=== PATIENT | male | born 1945 | race Caucasian/White ===

== ENCOUNTER 2016-04-10 11:58 | Inpatient (IN) | payer OTHER, MEDICARE ==
[~2016-04-10] VITALS: Ht 180.3 cm; Wt 94.3 kg
[~2016-04-10 11:58] MED LIST: ALBUTEIN NS; ALBUTEROL0.63 MG/3 INH/SOL; AUGMENTIN 875 M1 TAB PO; AVODART0.5 MG PO; COMBIVENT1 ARO INH; ESCITALOPRAM OX20 MG PO; ESCITALOPRAM10 MG PO; FE C PO; FINASTERIDE5 M1 PO; FLOMAX0.4 M1 PO; LYRICA150 M1 PO; OMEPRAZOLE40 M1 PO; PREDNISONE10 MG PO; QVAR0.04 MG/Ac NASB; SPIRIVA 18 MCG18 MCG INH; SPIRIVA1 PUF INH; SYMBICORT 16010.2 GM INH; VENTOLIN H0.09 MG/Ac NAS; VENTOLIN HFA18 GM INH; VENTOLIN1 PUF INH; [UNRECOGNIZED DRUG - OTHER] INH
--- NOTE | 2016-04-10 12:03 | NUR ---
PT TO ED FROM DR ANDERSON'S OFFICE, TO ED WITH LOW O2 SATS OF 79% AT OFFICE, AND SOB. HX COPD, ARRIVES WITH O2 2L, 88% ON 2L NC IN TRIAGE. SON WITH PT.
--- NOTE | 2016-04-10 12:26 | NUR ---
SPOKE TO MD REGARDING BLOOD WORK ORDERS
[2016-04-10 12:45] LABS: ABSOLUTE BASOPHIL COUNT 0 /CUMM (0.0-0.2); ABSOLUTE EOSINOPHIL COUNT 0 /CUMM (0.0-0.7); ABSOLUTE GRANULOCYTE CT 56.7 /CUMM (1.4-6.5); ABSOLUTE LYMPH COUNT 1.2 /CUMM (1.2-3.4); ABSOLUTE MONOCYTE COUNT 3.3 /CUMM (0.10-0.60); BASOPHIL % 0.1 % (0.0-2.0); EOSINOPHIL % 0.1 % (0-5); GRANULOCYTE % 92.5 % (42.2-75.2); MEAN CORPUSCULAR HGB 23.1 PG (27.0-31.0); MEAN CORPUSCULAR HGB CONC 30.6 G/DL (33.0-37.0); MEAN CORPUSCULAR VOLUME 75.6 FL (80.0-94.0); MEAN PLATELET VOLUME 7.9 FL (7.4-10.4); PLATELET COUNT 60 /CUMM (130-400); RBC DISTRIBUTION WIDTH 17.6 % (11.5-14.5); RED BLOOD CELL CT 2.62 /CUMM (4.70-6.10)
--- NOTE | 2016-04-10 12:49 | NUR ---
CRITICAL TEST RESULTS [id number] LEXIS DUBON 70 M TESTS AND RESULTS: WBC 61.3, HGB 6.1, HCT 19.8 Results received and read back by: TESSA FULLER Results received date and time: 04/10/16 1252 The following provider was notified of the results, and read the results back: DR BROOKS Notified date and time: 04/10/16 at 1252
[2016-04-10 12:50] LABS: HEMATOCRIT 19.8 % (42-52); WHITE BLOOD CELL COUNT 61.3 /CUMM (4.8-10.8)
--- NOTE | 2016-04-10 13:22 | ED DYSPNEA/ASTHMA COMPLAINT ---
History of Present Illness General Chief Complaint: Dyspnea (COPD, CHF, Other) Stated Complaint: SOB Source: patient, family (son) Exam Limitations: no limitations Vital Signs & Intake/Output Vital Signs & Intake/Output Vital Signs Date Time Temp Pulse Resp B/P Pulse O2 O2 Flow FiO2 Ox Delivery Rate 04/11 1106 98 138/64 04/11 0920 Nasal 4.0L Cannula 04/11 0915 93 Nasal 4.0L Cannula 04/11 0818 97.9 98 20 130/72 92 Nasal 4.0L Cannula 04/11 0800 92 Nasal 4.0L Cannula 04/11 0537 92 Nasal 4.0L Cannula 04/11 0000 92 Nasal 3.0L Cannula 04/10 2330 98.3 100 20 120/66 92 Nasal 3.0L Cannula 04/10 1740 98.5 101 19 134/66 93 Nasal 3.0L Cannula 04/10 1737 93 Nasal 3.0L Cannula 04/10 1713 109 22 124/58 91 Nasal 3.0L Cannula 04/10 1627 97.9 99 18 117/57 97 Nasal 2.0L Cannula 04/10 1450 98.8 103 18 123/60 94 Nasal 2.0L Cannula 04/10 1405 96 Nasal 3.0L Cannula ED Intake and Output 04/11 0000 04/10 1200 Intake Total 1200 Output Total 250 Balance 950 Intake, Blood 700 Product Intake, Oral 500 Output, Urine 250 Patient 208 lb 208 lb Weight Allergies Coded Allergies: codeine (Mild, RASH 03/10/16) aspirin (R/T BLOOD PLATELET COUNT 03/10/16) Reconcile Medications Acetaminophen (Tylenol Extra Strength) 500 MG TABLET 2 TAB PO PRN PAIN ( Reported) Albuterol Sulfate (Albuterol Sulfate Nebulizer Soln) 0.63 MG/3 ML VIAL.NEB 1 Vial INH/MARCIO 4 TIMES/DAY COPD (Reported) Albuterol Sulfate (Ventolin Hfa) 90 MCG HFA.AER.AD 2 PUF INH 4XDAILY COPD ( Reported) Budesonide/Formoterol Fumara (Symbicort 160-4.5 Mcg Inhaler) 160 MCG/4.5 MCG PUF 2 PUF INH BID COPD (Reported) Escitalopram Oxalate 20 MG TABLET 1 TAB PO DAILY DEPRESSION (Reported) Finasteride 5 MG TABLET 1 TAB PO DAILY PROSTATE (Reported) Omeprazole 40 MG CAPSULE.DR 1 CAP PO DAILY GERD (Reported) Pregabalin (Lyrica) 100 MG CAPSULE 1 CAP PO BID NERVE PAIN (Reported) TAMSULOSIN HCL (Tamsulosin Hydrochloride) 0.4 MG CAP.ER.24H 1 CAP PO DAILY BPH (Reported) Tiotropium [place] (Spiriva Respimat) 2.5 MCG/ACTUATION MIST.INHAL 2 PUFF INH DAILY COPD (Reported) Triage Note: PT TO ED FROM DR TENA'S OFFICE, TO ED WITH LOW O2 SATS OF 79% AT OFFICE, AND SOB. HX COPD, ARRIVES WITH O2 2L, 88% ON 2L NC IN TRIAGE. SON WITH PT. Triage Nurses Notes Reviewed? yes HPI: This patient is a 70-year-old male the past medical history including throat cancer and COPD who was sent in by Dr. Tena for evaluation of low oxygen saturation in the opposite 79% on room air. This patient's son is currently at the bedside. He reported that this patient did have part of his epiglottis removed due to throat cancer proximally 5 years ago. He reported that he had COPD and intermittently uses his oxygen at home. However, over the last 2 weeks the patient has been using the oxygen more frequently. The patient reported that he seems like he is more short of breath over the last week. He reported that it is worse with exertion. Associated cough with green sputum production. The patient denied any fevers, chills, chest pain, palpitations, numbness or tingling in his extremities, jaw pain, arm pain, abdominal pain, nausea, vomiting, constipation, or diarrhea. He denied any blood in his stool. This patient does also have a history of a bleeding ulcer. The patient reported that he was recently worked up by Dr. Coppola for leukemia which was unremarkable. The patient reported that he has had full body bruising which has been increasing in frequency lately with no known cause. (DONNELL FRANKLIN,HOLLIE) Past History Travel History Traveled to [place] past 21 day No Medical History Any Pertinent Medical History? see below for history Neurological: restless leg syndrome EENT: NONE Cardiovascular: NONE Respiratory: COPD Gastrointestinal: GERD, BLEEDING ULCER Hepatic: NONE Renal: ENLARGED PROSTATE Musculoskeletal: RESTLESS LEG SYNDROME. 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 Yes (HOLLIE JACOBO PA-C) Review of Systems Review of Systems Constitutional: Reports: no symptoms. EENTM: Reports: no symptoms. Respiratory: Reports: see HPI. Cardiovascular: Reports: no symptoms. GI: Reports: no symptoms. Genitourinary: Reports: no symptoms. Musculoskeletal: Reports: no symptoms. Skin: Reports: see HPI. Neurological/Psychological: Reports: no symptoms. Hematologic/Endocrine: Reports: see HPI. All Other Systems: Reviewed and Negative (HOLLIE JACOBO PA-C) Physical Exam Physical Exam Respiratory: chest non-tender, scattered expiratory wheezes and rhonchi heard throughout all lung zamora. No rales. No diminished breath sounds or stridor Comments: Well-developed well-nourished person in no acute distress HEENT: Normal EENT exam, head normocephalic, moist mucous membranes Pupils equally round and reactive to light. Neck: Supple Back: Normal inspection with no bony or muscular deformities Cardiovascular: Regular rate and rhythm with no murmurs, rubs, gallops Abdomen: Soft, nontender. Mild distention. No rebound or guarding. No peritoneal signs. Normoactive bowel sounds. Tympanic to percussion throughout all 4 quadrants Extremity: No edema, no calf tenderness to palpation, normal and equal pulses. Neuro: Alert oriented x3, cranial nerves II through XII grossly intact. Skin: No appreciable rash on exposed skin, skin is warm and dry. Pale Psych: Mood and affect is normal Core Measures ACS in differential dx? Yes Severe Sepsis Present: No Septic Shock Present: No (HOLLIE JACOBO PA-C) Progress Differential Diagnosis: asthma, AMI, bronchitis, costochondritis, CHF, COPD, pericarditis, pulmonary embolism, pneumonia, pneumothorax, unstable angina, leukemia, malignancy Plan of Care: Orders Procedure Date/time Status CBC WITHOUT DIFFERENTIAL 04/12 599 Active BASIC ELECTROLYTES PLUS BUN&CR 01/01 0600 Active Regular Diet 04/11 B Active FIBRINOGEN LEVEL 04/11 1111 Active RT: Evaluation 04/11 1023 Active CBC WITHOUT DIFFERENTIAL 04/11 0600 Complete BASIC ELECTROLYTES PLUS BUN&CR 04/11 0600 Complete THERAPIST ORDERS 04/11 0528 Complete US-EXT BILAT VENOUS DOPPLER 04/11 UNK Active TRC EVALUATION (GEN) 04/11 UNK Active Lab Add-on Test 04/11 UNK Active Elevate 04/11 UNK Active ECHOCARDIOGRAM 04/11 UNK Active Regular Diet 04/10 D Complete Pathway - chart 04/10 2000 Active CBC WITHOUT DIFFERENTIAL 04/10 2000 Complete CULTURE,URINE 04/10 1940 Active OXYGEN SETUP (GEN) 04/10 190 Complete Pathway - chart 04/10 1853 Active House Staff 04/10 1853 Active Patient Data 04/10 1853 Active Code Status 04/10 1853 Active BLOOD PRODUCT PICKUP 04/10 1836 Active LEUKOCYTE POOR (PACKED CELLS) 04/10 1826 Active Vital Signs 04/10 1728 Active Teach/Educate 04/10 1728 Active Nutritional Intake, Monitor 04/10 1728 Active Isolation 04/10 1728 Active Intake & Output 04/10 1728 Active Patient Care Conference 04/10 1728 Active Activity/Ambulation 04/10 1728 Active Misc Message 04/10 1556 Active ED Holding Orders 04/10 1556 Active Vital Signs 04/10 1556 Active Code Status 04/10 1556 Complete Admit to inpatient 04/10 1555 Active Patient Data 04/10 1539 Active BLOOD PRODUCT PICKUP 04/10 1509 Active LEUKOCYTE POOR (PACKED CELLS) 04/10 1451 Active RETICULOCYTE COUNT 04/10 1358 Complete Add-on Test (ER Only) 04/10 1347 Active CULTURE,URINE 04/10 1339 Active URINALYSIS 04/10 1339 Complete Add-on Test (ER Only) 04/10 1338 Active TYPE & SCREEN (NOT X-MATCH) 04/10 1338 Complete ARTERIAL BLOOD GAS (GEN) 04/10 1315 Complete Add-on Test (ER Only) 04/10 1315 Active TOTAL IRON BINDING CAPACITY 04/10 1227 Complete PARTIAL THROMBOPLASTIN TIME 04/10 1227 Complete PROTHROMBIN TIME 04/10 1227 Complete MAGNESIUM 04/10 1227 Complete FERRITIN 04/10 1227 Complete SERUM IRON 04/10 1227 Complete D-DIMER 04/10 1227 Complete VTE Mechanical Prophylaxis 04/10 UNK Active Hemoccult 04/10 UNK Active Current Medications Sig/Dung Start time Last Medication Dose Stop Time Status Admin Furosemide 40 MG ONCE ONE 04/11 1245 UNVr (Lasix) 04/11 124 Acetaminophen 650 MG Q6P PRN 04/10 2000 AC (Tylenol) Laboratory Tests 04/11/16 1220: Fibrinogen Activity Pending, Flow Cytometry Specimen Pending 04/11/16 1111: Flow Cytometry Specimen Cancelled 04/11/16 0735: Anion Gap 7, Estimated GFR > 60, BUN/Creatinine Ratio 21.7, CBC w Diff MAN DIFF ORDERED, RBC 3.06 L, MCV 79.0 L, MCH 24.2 L, RDW 17.9 H, MPV 7.2 L, Gran % 89.5 H, Lymphocytes % 1.7 L, Monocytes % 8.6, Eosinophils % 0.2, Basophils % 0 L, Absolute Granulocytes 74.5 H, Segmented Neutrophils 69, Band Neutrophils 8 H, Absolute Lymphocytes 1.4, Lymphocytes 1 L, Monocytes 6, Absolute Monocytes 7.1 H, Absolute Eosinophils 0.1, Absolute Basophils 0, Metamyelocytes 10 H, Myelocytes 6 H, Polychromasia 1+, Hypochromic-Microcytic 2+, Poikilocytosis 2+, Basophilic Stippling 1+, Anisocytosis 2+, Microcytic Cells 2+, Stomatocytes 2+, PUBS MCHC 30.7 L 04/11/16 0030: CBC w Diff MAN DIFF ORDERED, RBC 3.05 L, MCV 78.4 L, MCH 24.0 L, RDW 17.6 H, MPV 6.9 L, Gran % 89.2 H, Lymphocytes % 2.7 L, Monocytes % 8.1, Eosinophils % 0, Basophils % 0 L, Absolute Granulocytes 60.2 H, Segmented Neutrophils 79 H, Band Neutrophils 6 H, Absolute Lymphocytes 1.9, Lymphocytes 3 L, Monocytes 7, Absolute Monocytes 5.5 H, Absolute Eosinophils 0, Absolute Basophils 0, Metamyelocytes 3 H, Myelocytes 2 H, Platelet Estimate DECREASED, Polychromasia 2+, Hypochromic-Microcytic 1+, Poikilocytosis 2+, Basophilic Stippling 1+, Anisocytosis 1+, Microcytic Cells 1+, Ovalocytes 1+, Stomatocytes 1+, PUBS MCHC 30.6 L, Fld Total RBCs Counted 100 04/10/161814: Urinalysis PACKD H, Urine Color STRAW, Urine Clarity TURBD H, Urine pH 6.0, Ur Specific [place] >= 1.030, Urine Protein TRACE H, Urine Ketones NEG, Urine Nitrite NEG, Urine Bilirubin NEG, Urine Urobilinogen 1.0, Ur Leukocyte Esterase NEG, Ur Microscopic SEDIMENT EXAMINED, Urine WBC RARE, Ur Epithelial Cells RARE, Urine Hemoglobin NEG, Urine Glucose NEG 04/10/16 1436: pH 7.35, pCO2 52 H, pO2 71 L, HCO3 28, ABG O2 Sat (Measured) 90.0 L, Carboxyhemoglobin 3.0, O2 Concentration % 4LPM, Temperature 98.3, O2 Delivery Method NC, Phlebotomy Draw Site RIGHT RADIAL 04/10/16 1406: Retic Count 5.91 H Microbiology 04/10 194 URINE ROUT: Urine Culture - COLB 04/10 1815 URINE ROUT: Urine Culture - RES Diagnostic Imaging: Viewed by Me: Radiology Read. Discussed w/RAD: Radiology Read. CXR Impression: PATIENT: LEXIS DUBON PRESENT AGE: 70 PATIENT ACCOUNT NO: [id number] : 44 LOCATION: [facility] ORDERING PHYSICIAN: HOLLIE JACOBO PA-C SERVICE DATE: 04/10/16 EXAM TYPE: RAD - XRY-PORTABLE CHEST XRAY EXAMINATION: XR PORTABLE CHEST CLINICAL INFORMATION: Shortness of breath. COMPARISON: 01/06/2016 TECHNIQUE: Portable view of the chest was obtained. FINDINGS: Cardiac leads overlie the chest. The lungs are well expanded. Blunted right costophrenic angle suggests a small pleural effusion versus pleural thickening. Prominent interstitial markings are seen particularly at the lung bases. No pneumothorax. The cardiomediastinal silhouette is unremarkable for this technique. IMPRESSION: Increased markings at the lung bases could be associated with a small airways process. Small right pleural effusion versus pleural thickening. DICTATED BY: HERNESTO DO MD DATE/TIME DICTATED:04/10/161344 IDEA WORKER:ABBEY DATE/TIME TRANSCRIBED:1344 CONFIDENTIAL, DO NOT COPY WITHOUT APPROPRIATE AUTHORIZATION. < Electronically signed in Other Vendor System> SIGNED BY: HERNESTO DO MD 04/10/16 1350 Initial ED EKG: normal axis, normal intervals, normal sinus rhythm, nonspecific ST T wave chg, 106 bpm, sinus tachycardia, new right bundle branch block Comments: 04/10/2016 2:10:03 PM: Discussed this patient with his oncologist, Dr. Coppola. He reported that he last saw this patient in February. He saw this patient's blood work today and reported that it is markedly changed. He reported that this patient should go ahead and receive a blood transfusion. He will come in the hospital to see this patient [id number]. Discussed this patient with Dr. Howell who is aware. 04/10/2016 3:06:40 PM: I performed a rectal examination prior to blood transfusion. This patient is heme negative with brown stool. (HOLLIE JACOBO PA-C) Departure Departure Disposition: STILL A PATIENT Condition: Stable Clinical Impression Primary Impression: Anemia Qualifiers: Anemia type: unspecified type Qualified Code: D64.9 - Anemia, unspecified Secondary Impressions: Hypoxia Leukocytosis Qualifiers: Leukocytosis type: unspecified Qualified Code: D72.829 - Elevated white blood cell count, unspecified Referrals: Harry GATICA MD (PCP/Family) Referred to [facility] as new patient No Departure Forms: Customer Survey General Discharge Information Admission Note Spoke With: ROSCOE HERNANDEZ MD Documentation of Exam: Documentation of any treatments & extenuating circumstances including Concerns Regarding Discharge (functional status, medication knowledge or non-compliance, living conditions, etc.) that warrant an admission rather than observation: [ This patient is a 70-year-old male with past medical history including bleeding ulcer, throat cancer, and COPD who presented to the emergency department today for evaluation of hypoxia. This patient was 79% on room air. H&H 6 and 19. White blood cell count 61. This patient will need to be admitted to the hospital for a transfusion, follow-up blood culture, trend labs, hematology and oncology consultation, continuous pulse oximetry monitoring, oxygen therapy, and close monitoring. Given this patient's clinical workup here in the emergency department and past medical history, he is a poor candidate for outpatient treatment. Premature discharge could prove medically harmful.] (HOLLIE JACOBO PA-C) PA/ENCODING CLERK Co-Sign Statement Statement: ED Attending supervision documentation- [x] I saw and evaluated the patient. I have also reviewed all the pertinent lab results and diagnostic results. I agree with the findings and the plan of care as documented in the PA's/ENCODING CLERK's documentation. [] I have reviewed the ED Record and agree with the PA's/ENCODING CLERK's documentation. [] Additions or exceptions (if any) to the PAs/ENCODING CLERK's note and plan are summarized below: [] (CECILIA COLEMAN,KRISTI Melo) Critical Care Note Critical Care Note Critical Care Time: 30-74 min (DONNELL FRANKLIN,HOLLIE)
--- NOTE | 2016-04-10 13:33 | NUR ---
PA ASSISTED TO MOVE PT UP IN BED, O2 SAT 91 % ON 2L VIA NC , O2 INCREASED AT THIS TIME TO 4L AND O2 SAT INCREASED TO 94%.
[2016-04-10 13:47] LABS: PT 14.8 SEC (9.4-12.5); PTT 23 SEC (25-37)
--- NOTE | 2016-04-10 13:49 | NUR ---
RESP PAGED FOR TREATMENT AT THIS TIME.
--- NOTE | 2016-04-10 13:50 | RADIOLOGY REPORT ---
EXAMINATION: XR PORTABLE CHEST CLINICAL INFORMATION: Shortness of breath. COMPARISON: 01/06/2016 TECHNIQUE: Portable view of the chest was obtained. FINDINGS: Cardiac leads overlie the chest. The lungs are well expanded. Blunted right costophrenic angle suggests a small pleural effusion versus pleural thickening. Prominent interstitial markings are seen particularly at the lung bases. No pneumothorax. The cardiomediastinal silhouette is unremarkable for this technique. IMPRESSION: Increased markings at the lung bases could be associated with a small airways process. Small right pleural effusion versus pleural thickening.
--- NOTE | 2016-04-10 14:09 | NUR ---
LAVENDER TUBE FOR RETIC COUNT DRAWN AND SENT TO LAB.
--- NOTE | 2016-04-10 14:10 | NUR ---
RESP TREATMENT IN PROGRESS AT THIS TIME.
[2016-04-10] MEDS ORDERED: LYRICA100 M1 PO (14:33)
[2016-04-10] MEDS ORDERED: SPIRIVA RESPIMAT4 GM INH (14:34)
[2016-04-10] MEDS ORDERED: TYLENOL EXTRA500 M2 PO (14:36)
--- NOTE | 2016-04-10 14:45 | NUR ---
PT REPOSITIONED IN BED AT THIS TIME. PT REMAINS ON 2L NASAL CANNULA. SATS 94-96% AT THIS TIME.
--- NOTE | 2016-04-10 14:47 | NUR ---
PA AT BEDSIDE TO OBTAIN CONSENT FOR BLOOD TRANSFUION. SON PRESENT IN ROOM WITH PT
--- NOTE | 2016-04-10 16:04 | History & Physical ---
ANNABELLA WELDON 04/10/16 1553: General Information and HPI MD Statement: I have seen and personally examined LEXIS DUBON and documented this H&P. The patient is a 70 year old M who presented with a patient stated chief complaint of shortness of breath Source of Information: patient, family, old records History of Present Illness: 70-year-old gentleman past medical history significant for previous history of bright red blood per rectum, gastroesophageal reflux disease, Laryngeal cancer s /p epiglottic resection 8 years ago, family history of colon cancer in father, COPD on intermittent home oxygen, recently diagnosed myelodysplastic syndrome brought by son for evaluation of shortness of breath. Earlier today he went to Dr. Boogie's office and was found to low O2 saturations. He reports that since the past three weeks he has been having worsening shortness of breath. He has been using his oxygen more frequently (> 4hrs/day). During this time period reports orthopnea and b/l LE swelling Denies fever, chills, sick contacts, nausea, vomiting, diarrhea, active bleeding , maleana,bowel and bladder symptoms. Allergies/Medications Allergies: Coded Allergies: codeine (Mild, RASH 03/10/16) aspirin (R/T BLOOD PLATELET COUNT 03/10/16) Home Med list Acetaminophen (Tylenol Extra Strength) 500 MG TABLET 2 TAB PO PRN PAIN ( Reported) Albuterol Sulfate (Albuterol Sulfate Nebulizer Soln) 0.63 MG/3 ML VIAL.NEB 1 Vial INH/MARCIO 4 TIMES/DAY COPD (Reported) Albuterol Sulfate (Ventolin Hfa) 90 MCG HFA.AER.AD 2 PUF INH 4XDAILY COPD ( Reported) Budesonide/Formoterol Fumara (Symbicort 160-4.5 Mcg Inhaler) 160 MCG/4.5 MCG PUF 2 PUF INH BID COPD (Reported) Escitalopram Oxalate 20 MG TABLET 1 TAB PO DAILY DEPRESSION (Reported) Finasteride 5 MG TABLET 1 TAB PO DAILY PROSTATE (Reported) Omeprazole 40 MG CAPSULE.DR 1 CAP PO DAILY GERD (Reported) Pregabalin (Lyrica) 100 MG CAPSULE 1 CAP PO BID NERVE PAIN (Reported) TAMSULOSIN HCL (Tamsulosin Hydrochloride) 0.4 MG CAP.ER.24H 1 CAP PO DAILY BPH (Reported) Tiotropium [place] (Spiriva Respimat) 2.5 MCG/ACTUATION MIST.INHAL 2 PUFF INH DAILY COPD (Reported) Compliance With Home Meds: GOOD Past History Travel History Traveled to [place] past 21 day No Medical History Neurological: restless leg syndrome EENT: NONE Cardiovascular: NONE Respiratory: COPD Gastrointestinal: GERD, BLEEDING ULCER Hepatic: NONE Renal: ENLARGED PROSTATE Musculoskeletal: RESTLESS LEG SYNDROME. 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 Cardiovascular: Denies: chest pain, edema, orthopena, palpitations, peripheral edema, syncope. Respiratory: Reports: orthopnea, short of breath. Denies: cough, hemoptysis, sputum production, stridor, wheezing. GI: Denies: abdominal pain, bloating, constipation, diarrhea, distention, bowel incontinence, melena, nausea, bloody stool, changes in stool, vomiting, steatorrhea. Genitourinary: Denies: no symptoms, see HPI, discharge, dysuria, frequency, hematuria, hesitation, nocturia, pain, urgency. Exam & Diagnostic Data Last 24 Hrs of Vital Signs/I&O Vital Signs Date Time Temp Pulse Resp B/P Pulse O2 O2 Flow FiO2 Ox Delivery Rate 04/10 1740 98.5 101 19 134/66 93 Nasal 3.0L Cannula 04/10 1737 93 Nasal 3.0L Cannula 04/10 1713 109 22 124/58 91 Nasal 3.0L Cannula 04/10 1627 97.9 99 18 117/57 97 Nasal 2.0L Cannula 04/10 1450 98.8 103 18 123/60 94 Nasal 2.0L Cannula 04/10 1405 96 Nasal 3.0L Cannula 04/10 1232 90 Nasal 2.0L Cannula 04/10 1204 98.3 116 24 125/72 88 Nasal 2.0L Cannula Intake & Output 04/10 1600 12 0800 04/10 0000 Intake Total Output Total Balance Patient 208 lb Weight Physical Exam General Appearance Alert, Oriented X3, Cooperative, Mild Distress HEENT Atraumatic, PERRLA, EOMI, Mucous Membr. moist/pink Cardiovascular Regular Rate, Normal S1, Normal S2 Lungs bl decreased BS Abdomen Soft, No Tenderness, distended Extremities b/l +2 edema Last 24 Hrs of Labs/Ghulam: Laboratory Tests 04/10/16 1815: Urinalysis PACKD H, Urine Color STRAW, Urine Clarity TURBD H, Urine pH 6.0, Ur Specific [place] >= 1.030, Urine Protein TRACE H, Urine Ketones NEG, Urine Nitrite NEG, Urine Bilirubin NEG, Urine Urobilinogen 1.0, Ur Leukocyte Esterase NEG, Ur Microscopic SEDIMENT EXAMINED, Urine WBC RARE, Ur Epithelial Cells RARE, Urine Hemoglobin NEG, Urine Glucose NEG 04/10/16 1436: pH 7.35, pCO2 52 H, pO2 71 L, HCO3 28, ABG O2 Sat (Measured) 90.0 L, Carboxyhemoglobin 3.0, O2 Concentration % 4LPM, Temperature 98.3, O2 Delivery Method NC, Phlebotomy Draw Site RIGHT RADIAL 04/10/16 1406: Retic Count 5.91 H 04/10/16 1227: Anion Gap 11, Estimated GFR > 60, BUN/Creatinine Ratio 18.6, Glucose 167 H, Calcium 8.5, Magnesium 1.6, Iron 14 L, TIBC 487 H, Ferritin 14.7 L, Total Bilirubin 1.6 H, AST 18, ALT 26, Alkaline Phosphatase 83, Troponin I < 0.01, Lnh-W-Ewobieclrpn Pept 1840 H, Total Protein 6.3, Albumin 3.5, Globulin 2.8, Albumin/Globulin Ratio 1.3, PT 14.8 H, INR 1.41 H, APTT 23 L, D-Dimer 799 H, CBC w Diff MAN DIFF ORDERED, RBC 2.62 L, MCV 75.6 L, MCH 23.1 L, RDW 17.6 H, MPV 7.9, Gran % 92.5 H, Lymphocytes % 2.0 L, Monocytes % 5.3, Eosinophils % 0.1, Basophils % 0.1, Absolute Granulocytes 56.7 H, Segmented Neutrophils 74, Band Neutrophils 7 H, Absolute Lymphocytes 1.2, Lymphocytes 7 L, Monocytes 6, Absolute Monocytes 3.3 H, Absolute Eosinophils 0, Absolute Basophils 0, Metamyelocytes 3 H, Myelocytes 3 H, Platelet Estimate DECREASED, Polychromasia 2+, Hypochromic-Microcytic 3+, Poikilocytosis 3+, Basophilic Stippling , Anisocytosis 3+, Microcytic Cells 2+, Stomatocytes 1+, PUBS MCHC 30.6 L Microbiology 04/10 1940 URINE ROUT: Urine Culture - COLB 04/10 1815 URINE ROUT: Urine Culture - RECD Diagnostic Data CXR Results IMPRESSION: Increased markings at the lung bases could be associated with a small airways process. Small right pleural effusion versus pleural thickening. Assessment/Plan Assessment: 70-year-old gentleman past medical history significant for previous history of bright red blood per rectum, gastroesophageal reflux disease, Laryngeal cancer s /p epiglottic resection 8 years ago, family history of colon cancer in father, COPD on intermittent home oxygen, recently diagnosed myelodysplastic syndrome brought by so for evaluation of shortness of breath. Found to have low H/H and increased WBC. Will admitt to the Gen med floor As Ranked By This Provider Problem List: 1. Anemia Assessment/Plan Admit to general medicine Transfuse 2 units PRBC and recheck cbc will obtain GI consult guaic all stools Qualifiers Anemia type: unspecified type Qualified Code: D64.9 - Anemia, unspecified 2. Leukocytosis Assessment/Plan hematologic malignancy ? AML VS leukmoid rxn followed by Dr. Ledezma for MDS f/up flow cytometry Qualifiers Leukocytosis type: unspecified Qualified Code: D72.829 - Elevated white blood cell count, unspecified 3. COPD Assessment/Plan continue supplemental oxygen TRC/neb 4. BPH (benign prostatic hypertrophy) Assessment/Plan contineu flomax and proscar 5. DVT prophylaxis 6. Full code status Core Measures/Miscellaneous Acute Coronary Syndrome ACS Diagnosis: No Cerebrovascular Accident CVA/TIA Diagnosis: No Congestive Heart Failure CHF Diagnosis: No Venous Thromboembolism VTE Risk Factors: Acute medical illness, Age > 40 VTE Prophylaxis Ordered Inpt: Mechanical (ALPS/TEDS) No Mech VTE prophylaxis d/t: No contraindications No VTE Pharm Prophylaxis d/t: Medical contraindication VTE Diagnosis: No VTE Type: NONE VTE Confirmed by (Test): NONE Severe Sepsis Severe Sepsis Present: No Septic Shock Septic Shock Present: No Miscellaneous Documentation Attending Case Discussed With: ROSCOE HERNANDEZ MD Primary Care Physician: Harry GTAICA MD Patient sees these Specialists Dr. Ledezma Level of Patient Care: General Medicine ROSCOE HERNANDEZ MD 04/10/16 1755: Attending MD Review Statement Attending Statement Attending MD Statement: examined this patient, discuss w/resident/PA/VENDING MACHINE FILLER, agreed w/resident/PA/VENDING MACHINE FILLER, reviewed EMR data (avail) Attending Assessment/Plan: 70M PMH peptic ulcer disease, COPD, HTN, recently diagnosed myelodysplastic syndrome presenting with 1 week of fatigue, found to have WBC 61,000, Hgb 6.1, platelets 70. No overt signs of bleeding and no melena. No neurological dysfunction or mental status changes. No evidence of infectious process at this time. Plan - Admit to general medicine - Transfuse 2 units pRBC - Send blood and urine cultures - Follow hematology recommendations - continue home medications - Stool guaiac - GI consult - ALPS for DVT PPx JOSESITO STACY MD 04/10/16 1950: Resident Review Statement Resident Statement: examined this patient, discussed with internship, agreed with internship, discussed with family Other Findings: This is a 70-year-old male with a past medical history of COPD, PUD, GERD, BPH, laryngeal cancer status post-epiglottic resection, recently diagnosed MDS ( followed by Dr. Coppola as an outpatient) who presented to the ED after he was sent in by Dr. maravilla for low oxygen saturations. According to the patient, he went to see Dr. maravilla in his office today. He was found to be saturating at 79% on 2 L of oxygen. He was sent to the ED for further management. Upon arrival to the ED, his saturations increased to 88% on 2 L and then to 91% on 2 L. Further investigations in the ED including blood work revealed a low H/H of 6. 1/19.8, WBC of 61.3. He has been admitted to the medical floor for further management. Problem list: * Severe iron deficiency anemia * Elevated WBC (AML versus leukemoid reaction) * COPD on 2 L at home * BPH Plan: * Admit to general medicine * Transfuse 2 units PRBC and recheck hemoglobin. * Hematology consult for elevated WBC * Continue other home medications for now * GI consult for anemia * Guaiac stools * Pain pathway: Tylenol when necessary * DVT prophylaxis: Alps secondary to anemia * CODE STATUS: Full code
--- NOTE | 2016-04-10 16:11 | NUR ---
PT GOING TO ROOM [id number].
--- NOTE | 2016-04-10 16:12 | Cons- Hematology ---
General Information and HPI Consulting Request Date of Consult: 04/10/16 Requested By: Dr. Howell History of Present Illness: 70-year-old man significant comorbid illnesses and recently diagnosed with MDS now presenting with several weeks of increasing fatigue. Patient denied chest pain. Patient denied fever or chills. She is unaware blood loss from any orifice. Patient's CBC the emergency was markedly abnormal. 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 In The course of the patient's workup, a liver spleen scan was obtained ( prior history of alcohol abuse) and demonstrated colloid shift consistent with hypersplenism. Allergies/Medications Allergies: Coded Allergies: codeine (Mild, RASH 03/10/16) aspirin (R/T BLOOD PLATELET COUNT 03/10/16) Home Med List: Acetaminophen (Tylenol Extra Strength) 500 MG TABLET 2 TAB PO PRN PAIN ( Reported) Albuterol Sulfate (Albuterol Sulfate Nebulizer Soln) 0.63 MG/3 ML VIAL.NEB 1 Vial INH/MARCIO 4 TIMES/DAY COPD (Reported) Albuterol Sulfate (Ventolin Hfa) 90 MCG HFA.AER.AD 2 PUF INH 4XDAILY COPD ( Reported) Budesonide/Formoterol Fumara (Symbicort 160-4.5 Mcg Inhaler) 160 MCG/4.5 MCG PUF 2 PUF INH BID COPD (Reported) Escitalopram Oxalate 20 MG TABLET 1 TAB PO DAILY DEPRESSION (Reported) Finasteride 5 MG TABLET 1 TAB PO DAILY PROSTATE (Reported) Omeprazole 40 MG CAPSULE.DR 1 CAP PO DAILY GERD (Reported) Pregabalin (Lyrica) 100 MG CAPSULE 1 CAP PO BID NERVE PAIN (Reported) TAMSULOSIN HCL (Tamsulosin Hydrochloride) 0.4 MG CAP.ER.24H 1 CAP PO DAILY BPH (Reported) Tiotropium [place] (Spiriva Respimat) 2.5 MCG/ACTUATION MIST.INHAL 2 PUFF INH DAILY COPD (Reported) Current Medications: Current Medications Sig/Dung Start time Last Medication Dose Route Stop Time Status Admin Albuterol Sulfate 3 ML ONCE ONE 04/10 1345 DC 04/10 INH 04/10 1346 1402 Albuterol Sulfate 3 ML ONCE ONE 04/10 1315 DC 04/10 INH 04/10 1316 1401 Ipratropium [place] 2.5 ML ONCE ONE 04/10 1345 DC 04/10 INH 04/10 1346 1401 Ipratropium [place] 2.5 ML ONCE ONE 04/10 1315 DC 04/10 INH 04/10 1316 1401 Review of Systems Review of Systems: Patient denies headaches or dizziness. Patient denies nausea vomiting or abdominal pain. Patient denies dysuria hematuria. The patient denies bone aches or focal neurologic deficit Past History Travel History Traveled to [place] past 21 day No Medical History Neurological: restless leg syndrome EENT: NONE Cardiovascular: NONE Respiratory: COPD Gastrointestinal: GERD, BLEEDING ULCER Hepatic: NONE Renal: ENLARGED PROSTATE Musculoskeletal: RESTLESS LEG SYNDROME. 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 LSW/Reproductive: NONE Surgical History Surgical History: non-contributory Family History Relations & Conditions If Any: SISTER FH: breast cancer FH: diabetes mellitus FH: lung cancer MOTHER FH: diabetes mellitus FATHER FH: colon cancer FH: prostate cancer Psychosocial History Services at Home: None ETOH Use: denies use Illicit Drug Use: denies illicit drug use Exam & Diagnostic Data Vital Signs and I&O Vital Signs Date Time Temp Pulse Resp B/P Pulse O2 O2 Flow FiO2 Ox Delivery Rate 04/10 1450 98.8 103 18 123/60 94 Nasal 2.0L Cannula 04/10 1405 96 Nasal 3.0L Cannula 04/10 1232 90 Nasal 2.0L Cannula 04/10 1204 98.3 116 24 125/72 88 Nasal 2.0L Cannula Intake & Output 04/10 1600 04/10 0800 04/10 0000 Intake Total Output Total Balance Patient 208 lb Weight Gen.: in NAD ENT: Sclera anicteric Chest: Normal respiratory effort, decreased breath sounds Cor: RRR, no extra sounds Abdomen: Soft, bowel sounds present, no tenderness, no rebound Extremities: Without clubbing, cyanosis, or asymmetric edema Neurology: Alert and oriented 3, no gross deficit Skin: No rashes Last 48 Hours of Lab Results: Laboratory Tests 04/10 04/10 1436 1406 Blood Gas pH (7.35 - 7.45 PH) 7.35 pCO2 (35 - 45 TORR) 52 H pO2 (80 - 100 TORR) 71 L HCO3 (21 - 28 MEQ/L) 28 ABG O2 Sat (Measured) (>96.0 %) 90.0 L Carboxyhemoglobin (1.5 - 5.0 %) 3.0 O2 Concentration % 4LPM Temperature (97.0 - 100.0 FARH) 98.3 O2 Delivery Method NC Hematology Retic Count (0.5 - 2.0 %) 5.91 H Miscellaneous Phlebotomy Draw Site RIGHT RADIAL 04/10 1227 Chemistry Sodium (137 - 145 mmol/L) 137 Potassium (3.5 - 5.1 mmol/L) 4.1 Chloride (98 - 107 mmol/L) 98 Carbon Dioxide (22 - 30 mmol/L) 29 Anion Gap (5 - 16) 11 BUN (9 - 20 mg/dL) 13 Creatinine (0.7 - 1.2 mg/dL) 0.7 Estimated GFR (>60 ml/min) > 60 BUN/Creatinine Ratio (7 - 25 %) 18.6 Glucose (65 - 99 mg/dL) 167 H Calcium (8.4 - 10.2 mg/dL) 8.5 Magnesium (1.6 - 2.3 mg/dL) 1.6 Iron (49 - 181 ug/dL) 14 L TIBC (261 - 462 ug/dL) 487 H Ferritin (17.9 - 464 ng/mL) 14.7 L Total Bilirubin (0.2 - 1.3 mg/dL) 1.6 H AST (17 - 59 U/L) 18 ALT (21 - 72 U/L) 26 Alkaline Phosphatase (< 127 U/L) 83 Troponin I (<0.11 ng/ml) < 0.01 Nih-D-Bauenhardti Pept (<125 pg/mL) 1840 H Total Protein (6.3 - 8.2 g/dL) 6.3 Albumin (3.5 - 5.0 g/dL) 3.5 Globulin (1.9 - 4.2 gm/dL) 2.8 Albumin/Globulin Ratio (1.1 - 2.2 %) 1.3 Coagulation PT (9.4 - 12.5 SEC) 14.8 H INR (0.90 - 1.17) 1.41 H APTT (25 - 37 SEC) 23 L D-Dimer (70 - 232 ng/ml) 799 H Hematology CBC w Diff MAN DIFF ORDERED WBC (4.8 - 10.8 /CUMM) 61.3 *H RBC (4.70 - 6.10 /CUMM) 2.62 L Hgb (14.0 - 18.0 G/DL) 6.1 *L Hct (42 - 52 %) 19.8 *L MCV (80.0 - 94.0 FL) 75.6 L MCH (27.0 - 31.0 PG) 23.1 L RDW (11.5 - 14.5 %) 17.6 H Plt Count (130 - 400 /CUMM) 60 L MPV (7.4 - 10.4 FL) 7.9 Gran % (42.2 - 75.2 %) 92.5 H Lymphocytes % (20.5 - 51.1 %) 2.0 L Monocytes % (1.7 - 9.3 %) 5.3 Eosinophils % (0 - 5 %) 0.1 Basophils % (0.0 - 2.0 %) 0.1 Absolute Granulocytes (1.4 - 6.5 /CUMM) 56.7 H Segmented Neutrophils (42.2 - 75.2 %) 74 Band Neutrophils (0.0 - 5.0 %) 7 H Absolute Lymphocytes (1.2 - 3.4 /CUMM) 1.2 Lymphocytes (20.5 - 51.1 %) 7 L Monocytes (1.7 - 9.3 %) 6 Absolute Monocytes (0.10 - 0.60 /CUMM) 3.3 H Absolute Eosinophils (0.0 - 0.7 /CUMM) 0 Absolute Basophils (0.0 - 0.2 /CUMM) 0 Metamyelocytes (0.0 - 1.0 %) 3 H Myelocytes (0 - 0 %) 3 H Platelet Estimate (ADEQUATE) DECREASED Polychromasia 2+ Hypochromic-Microcytic 3+ Poikilocytosis 3+ Basophilic Stippling Anisocytosis 3+ Microcytic Cells 2+ Stomatocytes 1+ PUBS MCHC (33.0 - 37.0 G/DL) 30.6 L Imaging/Other Studies: Chest x-ray-no infiltrates Assessment/Plan Assessment: Hematologic status- the patient has a marked deterioration in his CBC. When I saw him last on January 28, hematocrit was 30.7. White count was 20,100 and platelet count 94,000. MCV was 105. The Patient's dramatic drop in hematocrit is in part due to iron deficiency and presumed GI bleeding in a patient with prior ulcer disease. Review of the peripheral blood smear does not suggest presence of blast forms or schistocytes. Platelet count is slightly lower from baseline. One must be concerned, given his elevated white blood count and decreased platelet count, this may be worsening hematologic process. It is Also possible this represents a leukemoid reaction. There is no immediate need to decrease the patient's white blood count by pharmacologic measures. Recommend- Transfuse red blood cells Check fibrinogen Follow CBC closely Peripheral blood for flow cytometry Would recommend GI consultation, check stools for occult blood Dr. Arpan Wakefield is covering for me this holiday weekend. Recommendations: .. Consult Acknowledgment - Thank you for your consult request.
--- NOTE | 2016-04-10 16:18 | NUR ---
BLOOD INFUSING DIRECTED
--- NOTE | 2016-04-10 17:01 | NUR ---
floor to call back for report
--- NOTE | 2016-04-10 17:09 | NUR ---
REPORT GIVEN TO MINDY ALONZODIGITAL HARDWARE DESIGN ENGINEER NOTIFIED
[2016-04-10 17:40] VITALS: BP 134/66
--- NOTE | 2016-04-10 18:00 | NUR ---
PATIENT ARRIVED TO FLOOR FROM ER AT 1725, DX ANEMIA VS 98.5 101 19 134/66 93% 3L O2 A&O, INDEPENDENT, SOB AT REST, DIMINISHED LUNG SOUNDS BRUISING NOTED TO BUE, +1 EDEMA TO BLE #20 LAC IV, ARRIVED TO FLOOR WITH BLOOD TRANSFUSING, WITH CLAIM INVESTIGATOR JOHN, TOLERATING WELL HX OF THROAT CA, PART OF EPIGLOTTIS REMOVED, GIVE PILLS WITH YOGURT OR APPLESAUCE, DEEP, CONGESTED-LIKE VOICE ORIENTED TO ROOM AND CALL BROOKS CONTINUE TO MONITOR
[2016-04-10 23:30] VITALS: BP 120/66
[2016-04-11 00:57] LABS: ABSOLUTE BASOPHIL COUNT 0 /CUMM (0.0-0.2); ABSOLUTE EOSINOPHIL COUNT 0 /CUMM (0.0-0.7); ABSOLUTE GRANULOCYTE CT 60.2 /CUMM (1.4-6.5); ABSOLUTE LYMPH COUNT 1.9 /CUMM (1.2-3.4); ABSOLUTE MONOCYTE COUNT 5.5 /CUMM (0.10-0.60); BASOPHIL % 0 % (0.0-2.0); EOSINOPHIL % 0 % (0-5); GRANULOCYTE % 89.2 % (42.2-75.2); HEMATOCRIT 23.9 % (42-52); MEAN CORPUSCULAR HGB CONC 30.6 G/DL (33.0-37.0); MEAN CORPUSCULAR VOLUME 78.4 FL (80.0-94.0); MEAN PLATELET VOLUME 6.9 FL (7.4-10.4); PLATELET COUNT 53 /CUMM (130-400); RBC DISTRIBUTION WIDTH 17.6 % (11.5-14.5); RED BLOOD CELL CT 3.05 /CUMM (4.70-6.10)
[2016-04-11 01:06] LABS: WHITE BLOOD CELL COUNT 67.5 /CUMM (4.8-10.8)
[2016-04-11 08:18] VITALS: BP 130/72; BP 156/100
--- NOTE | 2016-04-11 08:35 | PN- Housestaff ---
ANNABELLA WELDON 04/11/16 0835: Subjective Follow-up For: Shortness of breath acute anemia Subjective: seen and examined patient. reports improved breathing. C/o of b/l lower extremity swelling Review of Systems Constitutional: Denies: see HPI, chills, diaphoresis, fever, malaise, weakness, unexplained weight loss. Cardiovascular: Denies: see HPI, chest pain, edema, orthopena, palpitations, peripheral edema, syncope. Respiratory: Denies: cough, hemoptysis, orthopnea, short of breath, sputum production, stridor, wheezing. Gastrointestinal: Denies: abdominal pain, bloating, constipation, diarrhea, distention, bowel incontinence, melena, nausea, bloody stool, changes in stool, vomiting, steatorrhea. Objective Last 24 Hrs of Vital Signs/I&O Vital Signs Date Time Temp Pulse Resp B/P Pulse O2 O2 Flow FiO2 Ox Delivery Rate 04/11 0920 Nasal 4.0L Cannula 04/11 0915 93 Nasal 4.0L Cannula 04/11 0818 97.9 98 20 130/72 92 Nasal 4.0L Cannula 04/11 0800 92 Nasal 4.0L Cannula 04/11 0537 92 Nasal 4.0L Cannula 04/11 0000 92 Nasal 3.0L Cannula 04/10 2330 98.3 100 20 120/66 92 Nasal 3.0L Cannula 04/10 1740 98.5 101 19 134/66 93 Nasal 3.0L Cannula 04/10 1737 93 Nasal 3.0L Cannula 04/10 1713 109 22 124/58 91 Nasal 3.0L Cannula 04/10 1627 97.9 99 18 117/57 97 Nasal 2.0L Cannula 04/10 1450 98.8 103 18 123/60 94 Nasal 2.0L Cannula 04/10 1405 96 Nasal 3.0L Cannula 04/10 1232 90 Nasal 2.0L Cannula 04/10 1204 98.3 116 24 125/72 88 Nasal 2.0L Cannula Intake & Output 04/11 1600 04/11 0800 04/11 0000 Intake Total 340 1200 Output Total 400 250 Balance -60 950 Intake, Blood 700 Product Intake, IV 0 Intake, Oral 340 500 Number 0 Bowel Movements Output, Urine 400 250 Patient 208 lb Weight Physical Exam General Appearance: Alert, Oriented X3, Cooperative Cardiovascular: Normal S1, Normal S2 Lungs: Normal Air Movement, scattered wheezes Assessment/Plan Assessment: 70-year-old gentleman past medical history significant for previous history of bright red blood per rectum, gastroesophageal reflux disease, Laryngeal cancer s /p epiglottic resection 8 years ago, family history of colon cancer in father, COPD on intermittent home oxygen, recently diagnosed myelodysplastic syndrome Anemia H/H today 7.4/22.2, will continue to monitor GI consult placed guaic all stools lower extremity swelling Will obtain bilateral lower extremity Doppler In view of elevated proBNP (1840) Will obtain echo Elevate legs Leukocytosis/MDS hematologic malignancy VS leukmoid rxn followed by Dr. Ledezma for MDS f/up peripheral flow cytometry, fibrinogen COPD continue supplemental oxygen TRC/neb 4. BPH (benign prostatic hypertrophy) continue flomax and proscar 5. DVT prophylaxis Alps 6. Full code status Problem List: 1. COPD 2. BPH (benign prostatic hypertrophy) 3. Anemia 4. Swelling of lower extremity Pain Ratin Pain Location: Not applicable Pain Goal: Pain 4 or less Pain Plan: Current regimen Tomorrow's Labs & Rationales: CBC/BEP DAVE COLEMAN,NEAL 04/11/16 1349: Attending MD Review Statement Attending Statement Attending MD Statement: examined this patient, discuss w/resident/PA/CONDENSER OPERATOR, agreed w/resident/PA/CONDENSER OPERATOR, discussed with family, reviewed EMR data (avail), discussed with nursing, amended to note Attending Assessment/Plan: Patient seen and examined. Sitting comfortably in chair not in acute distress. present at the bedside. Patient reports feeling better. Denies recent history of black or bloody stools. Denies abdominal pain. On examination he has diminished breath sounds bilaterally with no added sounds. He has no JVD. heart sounds are regular. He has bilateral lower extremity edema which patient and report is new. There is no tenderness. Distal pulses are weakly palpable. There is no ischemic change. He was guaiac negative in the emergency room. Recommendations: -Hemoglobin levels have improved status post transfusion. He currently reports feeling better. We'll hold off on transfusion for now. -Recommend Lasix 40 mg IV in view of his blood transfusion and new complaint of lower extremity swelling. -Obtain echocardiogram to evaluate for cardiomyopathy. -Repeat CBC in a.m. to monitor hemoglobin and platelet counts. -Follow recommendations of hematology service.
[2016-04-11 08:49] LABS: ABSOLUTE BASOPHIL COUNT 0 /CUMM (0.0-0.2); ABSOLUTE EOSINOPHIL COUNT 0.1 /CUMM (0.0-0.7); ABSOLUTE GRANULOCYTE CT 74.5 /CUMM (1.4-6.5); ABSOLUTE LYMPH COUNT 1.4 /CUMM (1.2-3.4); ABSOLUTE MONOCYTE COUNT 7.1 /CUMM (0.10-0.60); BASOPHIL % 0 % (0.0-2.0); EOSINOPHIL % 0.2 % (0-5); GRANULOCYTE % 89.5 % (42.2-75.2); HEMATOCRIT 24.2 % (42-52); MEAN CORPUSCULAR HGB 24.2 PG (27.0-31.0); MEAN CORPUSCULAR HGB CONC 30.7 G/DL (33.0-37.0); MEAN PLATELET VOLUME 7.2 FL (7.4-10.4); PLATELET COUNT 48 /CUMM (130-400); RBC DISTRIBUTION WIDTH 17.9 % (11.5-14.5); RED BLOOD CELL CT 3.06 /CUMM (4.70-6.10)
[2016-04-11 09:30] LABS: WHITE BLOOD CELL COUNT 83.2 /CUMM (4.8-10.8)
--- NOTE | 2016-04-11 14:33 | PN- Hematology ---
Subjective Subjective: He feels better since coming to the hospital. Breathing is improved. He denies any fever or chills. He feels that his abdomen is distended. He has not had a bowel movement recently. He lower extremity is more swollen. Review of Systems Constitutional: Denies: chills, fever. Cardiovascular: Denies: chest pain. Respiratory: Reports: short of breath (improved). Gastrointestinal: Reports: bloating, constipation. Denies: abdominal pain. Genitourinary: Denies: discharge, dysuria. Musculoskeletal: Reports: joint pain. Neurological/Psychological: Denies: confusion. Hematologic/Endocrine: Reports: bruising. Denies: bleeding. All Other Systems: Reviewed and Negative Objective Vital Signs and I&Os Vital Signs Date Time Temp Pulse Resp B/P Pulse O2 O2 Flow FiO2 Ox Delivery Rate 04/11 1106 98 138/64 04/11 0920 Nasal 4.0L Cannula 04/11 0915 93 Nasal 4.0L Cannula 04/11 0818 97.9 98 20 130/72 92 Nasal 4.0L Cannula 04/11 0800 92 Nasal 4.0L Cannula 04/11 0537 92 Nasal 4.0L Cannula 04/11 0000 92 Nasal 3.0L Cannula 04/10 2330 98.3 100 20 120/66 92 Nasal 3.0L Cannula 04/10 1740 98.5 101 19 134/66 93 Nasal 3.0L Cannula 04/10 1737 93 Nasal 3.0L Cannula 04/10 1713 109 22 124/58 91 Nasal 3.0L Cannula 04/10 1627 97.9 99 18 117/57 97 Nasal 2.0L Cannula 04/10 1450 98.8 103 18 123/60 94 Nasal 2.0L Cannula 04/10 1405 96 Nasal 3.0L Cannula Intake & Output 04/11 1600 04/11 0800 04/11 0000 04/10 1600 04/10 0800 04/10 0000 Intake Total 340 1200 Output Total 400 250 Balance -60 950 Intake, Blood 700 Product Intake, IV 0 Intake, Oral 340 500 Number 0 Bowel Movements Output, Urine 400 250 Patient 94.347 kg 94.347 kg Weight Physical Exam General Appearance: awake, comfortable Head: atraumatic, normal appearance Ears, Nose, Throat: normal pharynx Respiratory: chest non-tender, no respiratory distress, crackles Cardiovascular: tachycardia Abdomen: soft, non-tender, distention Extremities: bilateral 2+ LE edema up to knee Neurologic/Psychiatric: awake, alert, oriented x 3 Skin: ecchymosis (scatter in BUE) Current Medications: Current Medications Sig/Dung Start time Last Medication Dose Route Stop Time Status Admin Acetaminophen 650 MG Q6P PRN 04/10 2000 AC PO Albuterol Sulfate 3 ML EVERY 4 HRS/AWAKE 04/11 1200 AC 04/11 INH 1249 Albuterol Sulfate 3 ML ONCE ONE 04/11 0530 DC 04/11 INH 04/11 0531 0523 Ceftriaxone Sodium 1,000 MG DAILY@04/10 AC 04/10 IV 2208 Escitalopram Oxalate 20 MG DAILY 04/11 1000 AC 04/11 PO 1102 Finasteride 5 MG DAILY 04/11 1000 AC 04/11 PO 1102 Furosemide 40 MG ONCE ONE 04/11 1245 DC IV 04/11 1246 Omeprazole 40 MG DAILY AC 04/11 0700 AC 04/11 PO 0613 Patient Medication 1 UNIT ONE NR 04/10 1945 DC Teaching ED 04/10 2000 Pregabalin 100 MG BID 04/10 2200 AC 04/11 PO 1105 Tamsulosin HCl 0.4 MG DAILY 04/11 1000 AC 04/11 PO 1106 Tiotropium [place] 1 PUF DAILY 04/11 1000 AC 04/11 INH 1103 Results Last 24 Hours of Lab Results: Laboratory Tests 04/11 04/11 04/11 1220 1111 0735 Chemistry Sodium (137 - 145 mmol/L) 134 L Potassium (3.5 - 5.1 mmol/L) 4.1 Chloride (98 - 107 mmol/L) 96 L Carbon Dioxide (22 - 30 mmol/L) 31 H Anion Gap (5 - 16) 7 BUN (9 - 20 mg/dL) 13 Creatinine (0.7 - 1.2 mg/dL) 0.6 L Estimated GFR (>60 ml/min) > 60 BUN/Creatinine Ratio (7 - 25 %) 21.7 Troponin I (<0.11 ng/ml) 0.01 Coagulation Fibrinogen Activity (200 - 393 MG/DL) 261 Hematology CBC w Diff MAN DIFF ORDERED WBC (4.8 - 10.8 /CUMM) 83.2 *H RBC (4.70 - 6.10 /CUMM) 3.06 L Hgb (14.0 - 18.0 G/DL) 7.4 *L Hct (42 - 52 %) 24.2 L MCV (80.0 - 94.0 FL) 79.0 L MCH (27.0 - 31.0 PG) 24.2 L RDW (11.5 - 14.5 %) 17.9 H Plt Count (130 - 400 /CUMM) 48 L MPV (7.4 - 10.4 FL) 7.2 L Gran % (42.2 - 75.2 %) 89.5 H Lymphocytes % (20.5 - 51.1 %) 1.7 L Monocytes % (1.7 - 9.3 %) 8.6 Eosinophils % (0 - 5 %) 0.2 Basophils % (0.0 - 2.0 %) 0 L Absolute Granulocytes (1.4 - 6.5 /CUMM) 74.5 H Segmented Neutrophils (42.2 - 75.2 %) 69 Band Neutrophils (0.0 - 5.0 %) 8 H Absolute Lymphocytes (1.2 - 3.4 /CUMM) 1.4 Lymphocytes (20.5 - 51.1 %) 1 L Monocytes (1.7 - 9.3 %) 6 Absolute Monocytes (0.10 - 0.60 /CUMM) 7.1 H Absolute Eosinophils (0.0 - 0.7 /CUMM) 0.1 Absolute Basophils (0.0 - 0.2 /CUMM) 0 Metamyelocytes (0.0 - 1.0 %) 10 H Myelocytes (0 - 0 %) 6 H Polychromasia 1+ Hypochromic-Microcytic 2+ Poikilocytosis 2+ Basophilic Stippling 1+ Anisocytosis 2+ Microcytic Cells 2+ Stomatocytes 2+ PUBS MCHC (33.0 - 37.0 G/DL) 30.7 L Miscellaneous Flow Cytometry Specimen Pending Cancelled 04/11 04/10 0030 1815 Hematology CBC w Diff MAN DIFF ORDERED WBC (4.8 - 10.8 /CUMM) 67.5 *H RBC (4.70 - 6.10 /CUMM) 3.05 L Hgb (14.0 - 18.0 G/DL) 7.3 *L Hct (42 - 52 %) 23.9 L MCV (80.0 - 94.0 FL) 78.4 L MCH (27.0 - 31.0 PG) 24.0 L RDW (11.5 - 14.5 %) 17.6 H Plt Count (130 - 400 /CUMM) 53 L MPV (7.4 - 10.4 FL) 6.9 L Gran % (42.2 - 75.2 %) 89.2 H Lymphocytes % (20.5 - 51.1 %) 2.7 L Monocytes % (1.7 - 9.3 %) 8.1 Eosinophils % (0 - 5 %) 0 Basophils % (0.0 - 2.0 %) 0 L Absolute Granulocytes (1.4 - 6.5 /CUMM) 60.2 H Segmented Neutrophils (42.2 - 75.2 %) 79 H Band Neutrophils (0.0 - 5.0 %) 6 H Absolute Lymphocytes (1.2 - 3.4 /CUMM) 1.9 Lymphocytes (20.5 - 51.1 %) 3 L Monocytes (1.7 - 9.3 %) 7 Absolute Monocytes (0.10 - 0.60 /CUMM) 5.5 H Absolute Eosinophils (0.0 - 0.7 /CUMM) 0 Absolute Basophils (0.0 - 0.2 /CUMM) 0 Metamyelocytes (0.0 - 1.0 %) 3 H Myelocytes (0 - 0 %) 2 H Platelet Estimate (ADEQUATE) DECREASED Polychromasia 2+ Hypochromic-Microcytic 1+ Poikilocytosis 2+ Basophilic Stippling 1+ Anisocytosis 1+ Microcytic Cells 1+ Ovalocytes 1+ Stomatocytes 1+ PUBS MCHC (33.0 - 37.0 G/DL) 30.6 L Other Body Source Fld Total RBCs Counted (%) 100 Urines Urinalysis PACKD H Urine Color (YEL,AMB,STR) STRAW Urine Clarity (CLEAR) TURBD H Urine pH (5.0 - 8.0) 6.0 Ur Specific [place] (1.001 - 1.035) >= 1.030 Urine Protein (NEG,<30 MG/DL) TRACE H Urine Ketones (NEG) NEG Urine Nitrite (NEG) NEG Urine Bilirubin (NEG) NEG Urine Urobilinogen (0.1 - 1.0 EU/dl) 1.0 Ur Leukocyte Esterase (NEG) NEG Ur Microscopic SEDIMENT EXAMINED Urine WBC (0 - 2 /HPF) RARE Ur Epithelial Cells (NONE,FEW) RARE Urine Hemoglobin (NEG) NEG Urine Glucose (N MG/DL) NEG 04/10 04/10 1436 1406 Blood Gas pH (7.35 - 7.45 PH) 7.35 pCO2 (35 - 45 TORR) 52 H pO2 (80 - 100 TORR) 71 L HCO3 (21 - 28 MEQ/L) 28 ABG O2 Sat (Measured) (>96.0 %) 90.0 L Carboxyhemoglobin (1.5 - 5.0 %) 3.0 O2 Concentration % 4LPM Temperature (97.0 - 100.0 FARH) 98.3 O2 Delivery Method PA Hematology Retic Count (0.5 - 2.0 %) 5.91 H Miscellaneous Phlebotomy Draw Site RIGHT RADIAL Assessment/Plan Assessment/Recommendations: 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 On admission, he was noted to have leukocytosis up to 61,300, anemia with hematocrit of 19.8, and thrombocytopenia at 60,000. He was transfused with 2 units of pRBC and symptomatically improved. His baseline platelet count is around 100,000. His platelet count is decreased further today to 48,000. His WBC has increased to 83,200. Perphiral smear was reviewed and noted Pelgeroid cells, basophil stippling, bands, decreased platelet. No blast seen on evaluation. Occult blood was tested in the stool and was negative. Fibrinogen is normal. His hemoglobin is improved to 7.4. Flow cytometry has been sent. The drop in hemoglobin may be related to iron deficiency. The two units of pRBC should help with this repletion. He has no obvious bleeding and guaiac negative. This can be checked again to ensure it is truly negative. Worsening of his MDS is also a potential. For now, his CBC can be monitored. If further increase, hydroxyurea may be considered. He is being worked up for infectious process. There is also concern for underlying heart failure given the fluid retention with the transfusion. US of lower extremity is pending with the edema. 1. Follow up flow cytometry 2. Goal hemoglobin >7 3. Monitor CBC daily 4. Depending on WBC number, he may need hydroxyurea 5. Check stool guaiac again 6. Echocardiogram as per primary team 7. Doppler US on BLE as per primary team Please call [phone] with any questions or concerns. Problem List: 1. Swelling of lower extremity 2. Leukocytosis
--- NOTE | 2016-04-11 15:50 | ULTRASOUND REPORT ---
EXAMINATION: US TRIPLEX LOWER EXTREMITY, BILATERAL CLINICAL INFORMATION: Bilateral lower extremity swelling. COMPARISON: None. TECHNIQUE: Color-flow triplex imaging with spectral analysis and compression Doppler were performed on the bilateral lower extremities. FINDINGS: The common femoral vein is compressible and exhibits a normal phasic waveform, bilaterally; this suggests that the iliac veins are widely patent above. Within each proximal thigh, the visualized profunda femoris vein is patent. The visualized greater saphenous vein and saphenofemoral junction are normal, bilaterally. Superficial femoral vein is patent in the proximal, mid and distal aspect of each thigh. Popliteal vein appears normal to the level of the trifurcation, bilaterally, and the visualized calf veins are unremarkable. There is edema within subcutaneous tissue of the both legs. Within the right medial popliteal fossa, there is a 1.8 x 4.6 x 1.6 cm Arnett's cyst. Within the left medial popliteal fossa, there is a 3.2 x 1.4 x 4.8 cm Arnett's cyst. IMPRESSION: No evidence of deep vein thrombosis in either lower extremity. Subcutaneous tissue edema within both lower extremities. Arnett's cyst within each popliteal fossa.
[2016-04-11 17:13] VITALS: BP 134/64
[2016-04-11 20:06] VITALS: BP 116/56
[2016-04-11 23:40] VITALS: BP 135/57
[2016-04-12 08:33] LABS: ABSOLUTE BASOPHIL COUNT 0 /CUMM (0.0-0.2); ABSOLUTE EOSINOPHIL COUNT 0.1 /CUMM (0.0-0.7); ABSOLUTE GRANULOCYTE CT 52.5 /CUMM (1.4-6.5); ABSOLUTE LYMPH COUNT 2.1 /CUMM (1.2-3.4); ABSOLUTE MONOCYTE COUNT 4.2 /CUMM (0.10-0.60); BASOPHIL % 0 % (0.0-2.0); EOSINOPHIL % 0.2 % (0-5); GRANULOCYTE % 89.1 % (42.2-75.2); HEMATOCRIT 21.9 % (42-52); MEAN CORPUSCULAR HGB 24.7 PG (27.0-31.0); MEAN CORPUSCULAR HGB CONC 31.5 G/DL (33.0-37.0); MEAN CORPUSCULAR VOLUME 78.5 FL (80.0-94.0); PLATELET COUNT 43 /CUMM (130-400); RBC DISTRIBUTION WIDTH 18.4 % (11.5-14.5); RED BLOOD CELL CT 2.79 /CUMM (4.70-6.10)
[2016-04-12 08:40] VITALS: BP 110/64
--- NOTE | 2016-04-12 10:06 | PN- Hematology ---
Subjective Subjective: Mr. Hall is doing well. He denies any new symptoms. His breathing is stable. He has a little nosebleed this morning when he blew his noses. Bleeding has stopped. He denies any fever, chills, nausea, vomiting, diarrhea, or chest pain. He feels better since coming to the hospital. Review of Systems: Constitutional: Denies: chills, fever. Cardiovascular: Denies: chest pain. Respiratory: Reports: short of breath (improved). Gastrointestinal: Reports: bloating, constipation. Denies: abdominal pain. Genitourinary: Denies: discharge, dysuria. Musculoskeletal: Reports: joint pain. Neurological/Psychological: Denies: confusion. Hematologic/Endocrine: Reports: bruising. Denies: bleeding. All Other Systems: Reviewed and Negative Objective Vital Signs and I&Os Vital Signs Date Time Temp Pulse Resp B/P Pulse O2 O2 Flow FiO2 Ox Delivery Rate 04/12 0949 95 110/64 04/12 0840 97.8 95 22 110/64 96 Nasal 3.0L Cannula 04/12 0819 96 Nasal 4.0L Cannula 04/12 0154 106 26 92 Nasal 4.0L Cannula 04/12 0000 92 Nasal 4.0L Cannula 04/11 2340 98.5 113 20 135/57 93 Nasal 3.0L Cannula 04/11 2006 98.3 107 22 116/56 94 04/11 2003 92 Nasal 4.0L Cannula 04/11 1713 96.8 112 20 134/64 98 Nasal Cannula 04/11 1711 Nasal 3.0L Cannula 04/11 1106 98 138/64 Intake & Output 04/12 1600 04/12 0800 04/12 0000 04/11 1600 04/11 0800 04/11 0000 Intake Total 240 872 804 6238 Output Total 450 500 400 250 Balance -210 240 -500 -60 950 Intake, Blood 700 Product Intake, IV 0 Intake, Oral 240 240 340 500 Number 0 Bowel Movements Output, Urine 450 500 400 250 Patient 94.347 kg Weight Physical Exam: General Appearance: awake, comfortable Head: atraumatic, normal appearance Ears, Nose, Throat: normal pharynx Respiratory: chest non-tender, no respiratory distress, crackles, wheezing (L>R) Cardiovascular: tachycardia Abdomen: soft, non-tender, distention Extremities: bilateral 2+ LE edema up to knee Neurologic/Psychiatric: awake, alert, oriented x 3 Skin: ecchymosis (scatter in BUE) Current Medications: Current Medications Sig/Dung Start time Last Medication Dose Route Stop Time Status Admin Acetaminophen 650 MG Q6P PRN 04/10 2000 AC PO Albuterol Sulfate 3 ML EVERY 4 HRS/AWAKE 04/11 1200 AC 04/12 INH 0819 Ceftriaxone Sodium 1,000 MG DAILY@04/10 AC 04/11 IV 2009 Escitalopram Oxalate 20 MG DAILY 04/11 1000 AC 04/12 PO 0949 Finasteride 5 MG DAILY 04/11 1000 AC 04/12 PO 0950 Furosemide 40 MG ONCE ONE 04/11 1245 DC 04/11 IV 04/11 1246 1436 Omeprazole 40 MG DAILY AC 04/11 0700 AC 04/12 PO 0600 Pregabalin 100 MG BID 04/10 2200 AC 04/12 PO 0952 Tamsulosin HCl 0.4 MG DAILY 04/11 1000 AC 04/12 PO 0949 Tiotropium [place] 1 PUF DAILY 04/11 1000 AC 04/12 INH 0952 Results Last 24 Hours of Lab Results: Laboratory Tests 04/12 04/11 04/11 0630 1220 1111 Chemistry Sodium (137 - 145 mmol/L) 133 L Potassium (3.5 - 5.1 mmol/L) 3.4 L Chloride (98 - 107 mmol/L) 90 L Carbon Dioxide (22 - 30 mmol/L) 34 H Anion Gap (5 - 16) 9 BUN (9 - 20 mg/dL) 14 Creatinine (0.7 - 1.2 mg/dL) 0.6 L Estimated GFR (>60 ml/min) > 60 BUN/Creatinine Ratio (7 - 25 %) 23.3 Coagulation Fibrinogen Activity (200 - 393 MG/DL) 261 Hematology CBC w Diff MAN DIFF ORDERED WBC (4.8 - 10.8 /CUMM) 59.0 *H RBC (4.70 - 6.10 /CUMM) 2.79 L Hgb (14.0 - 18.0 G/DL) 6.9 *L Hct (42 - 52 %) 21.9 L MCV (80.0 - 94.0 FL) 78.5 L MCH (27.0 - 31.0 PG) 24.7 L RDW (11.5 - 14.5 %) 18.4 H Plt Count (130 - 400 /CUMM) 43 L MPV (7.4 - 10.4 FL) 8.0 Gran % (42.2 - 75.2 %) 89.1 H Lymphocytes % (20.5 - 51.1 %) 3.6 L Monocytes % (1.7 - 9.3 %) 7.1 Eosinophils % (0 - 5 %) 0.2 Basophils % (0.0 - 2.0 %) 0 L Absolute Granulocytes (1.4 - 6.5 /CUMM) 52.5 H Segmented Neutrophils (42.2 - 75.2 %) Pending Absolute Lymphocytes (1.2 - 3.4 /CUMM) 2.1 Absolute Monocytes (0.10 - 0.60 /CUMM) 4.2 H Absolute Eosinophils (0.0 - 0.7 /CUMM) 0.1 Absolute Basophils (0.0 - 0.2 /CUMM) 0 PUBS MCHC (33.0 - 37.0 G/DL) 31.5 L Miscellaneous Flow Cytometry Specimen Pending Cancelled Recent Imaging Studies: Venous doppler US 04/11/2016: No evidence of deep vein thrombosis in either lower extremity. Subcutaneous tissue edema within both lower extremities. Arnett's cyst within each popliteal fossa. Assessment/Plan Assessment/Recommendations: 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 On admission, he was noted to have leukocytosis up to 61,300, anemia with hematocrit of 19.8, and thrombocytopenia at 60,000. He was transfused with 2 units of pRBC and symptomatically improved. His baseline platelet count is around 100,000. His platelet count is decreased further today to 48,000. His WBC has increased to 83,200. Perphiral smear was reviewed and noted Pelgeroid cells, basophil stippling, bands, decreased platelet. No blast seen on evaluation. Worsening of his MDS is a potential etiology. Flow cytometry is pending. His hemoglobin is decreased a litle today. WBC improved today. We will continue to monitor his CBCs. If further increase, hydroxyurea may be considered. He is being worked up for infectious process. He is being diuresed. 1. Follow up flow cytometry 2. Goal hemoglobin >7, transfuse today with furosemide support 3. Monitor CBC daily 4. Depending on WBC number, he may need hydroxyurea 5. Check stool guaiac again 6. Echocardiogram as per primary team Please call [phone] with any questions or concerns. Problem List: 1. Leukocytosis 2. MDS (myelodysplastic syndrome)
--- NOTE | 2016-04-12 10:52 | PN- Att Addend ---
Attending Addendum Attending Brief Note Patient seen and examined. Resting comfortably not in acute distress. He reports been asymptomatic with no worsening of his respiratory symptoms. Denies chest pain. Denies cough or palpitations. He is hemodynamically stable. He continues to require 3-4 L of oxygen maintaining saturation. Vital Signs Date Time Temp Pulse Resp B/P Pulse O2 O2 Flow FiO2 Ox Delivery Rate 04/12 0949 95 110/64 04/12 0840 97.8 95 22 110/64 96 Nasal 3.0L Cannula 04/12 0819 96 Nasal 4.0L Cannula 04/12 0154 106 26 92 Nasal 4.0L Cannula 04/12 0000 92 Nasal 4.0L Cannula 04/11 2340 98.5 113 20 135/57 93 Nasal 3.0L Cannula 04/11 2006 98.3 107 22 116/56 94 04/11 2003 92 Nasal 4.0L Cannula 04/11 1713 96.8 112 20 134/64 98 Nasal Cannula 04/11 1711 Nasal 3.0L Cannula 04/11 1106 98 138/64 Gen. appearance: Not in acute distress Heart: S1-S2 regular Lungs: Diminished breath sounds bilaterally. Abdomen: Soft, nontender with normal bowel sounds Extremities: Bilateral lower extremity edema. No cyanosis. Neurologic: Alert and oriented 3 with no gross focal deficits. Laboratory Tests 04/12/16 0630: Anion Gap 9, Estimated GFR > 60, BUN/Creatinine Ratio 23.3, CBC w Diff MAN DIFF ORDERED, RBC 2.79 L, MCV 78.5 L, MCH 24.7 L, RDW 18.4 H, MPV 8.0, Gran % 89.1 H, Lymphocytes % 3.6 L, Monocytes % 7.1, Eosinophils % 0.2, Basophils % 0 L, Absolute Granulocytes 52.5 H, Segmented Neutrophils 73, Band Neutrophils 10 H, Absolute Lymphocytes 2.1, Lymphocytes 2 L, Monocytes 9, Absolute Monocytes 4.2 H, Absolute Eosinophils 0.1, Absolute Basophils 0, Metamyelocytes 4 H, Myelocytes 2 H, Platelet Estimate DECREASED, Polychromasia 1+, Hypochromic- Microcytic 1+, Basophilic Stippling 1+, Anisocytosis 1+, Microcytic Cells 1+, Stomatocytes 1+, PUBS MCHC 31.5 L 04/11/16 1220: Fibrinogen Activity 261, Flow Cytometry Specimen Pending 04/11/16 1111: Flow Cytometry Specimen Cancelled Problems: 1. Acute on chronic anemia; likely secondary to underlying MDS. 2. Leukocytosis/Thrombocytopenia; secondary to underlying MDS. No evidence of blast transformation at present. 3. Dyspnea; secondary to symptomatic anemia. Bilateral lower extremity edema, trace pleural effusion and elevated BNP raise concern for congestive heart failure. 4. Non-oxygen dependent COPD. Plan: -Acute drop of his hemoglobin following appropriate increased with transfusion yesterday raise concern for bleeding. There is no clear evidence at present. He was reported to be guaiac-negative in the ED. -Repeat stool guaiac. -Transfuse 2 units of PRBC. -Lasix 40 mg IV after first unit. Repeat Lasix 40 mg IV after second unit. -Monitor CBC and serum chemistry daily. -Follow-up echocardiogram. Would obtain cardiology consultation due to concern for congestive heart failure. -Continue bronchodilator therapy and attempt to wean off oxygen supplementation as tolerated.
--- NOTE | 2016-04-12 13:23 | Cons- Gastroenterology ---
General Information and HPI Consulting Request Date of Consult: 04/12/16 Requested By: ROSCOE HERNANDEZ MD Reason for Consult: Iron deficiency anemia in the setting of myelodysplastic syndrome/leukocytosis/ thrombocytopenia. History of peptic ulcer disease and colon polyps. Stools OB negative. (The patient is being seen in GI coverage for Dr. Peyman Aguilar. 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 The patient stopped his iron supplements a few months ago. His shelter case manager is Dr. Peyman Aguilar. *There is a family history of colon cancer in the patient's father (who also had prostate Ca), age of onset unknown. There is no family history of additional GI malignancy, GI disease, or inherited liver disease. The patient was recently diagnosed with MDS per Dr. 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 09/11/2015: Liver- spleen scan- mild colloid shift with equal activity in the liver and spleen, and suggestion of splenomegaly. The patient was seen by pulmonary 04/10/2016, at which point, O2 sat 2L- 79%, and the patient was admitted to [facility] that day. 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 *He was never transfused prior to the 04/10/2016 admission. * Please note, labs per hematology 01/29/2016: WBC 20.1, HCT 30.7, elevated MCV 105, PLT 94. 04/10/2016: Admission H/H 6.1/19.8, MCV 75.6, WBC 61.3 (74S/7B/7L/ 6M/3Meta/3Myelo), PLT 60. *Stools were guaiac-negative in the ER on admission. * WBC subsequently van to 83.2 the following day. *Peripheral smear without blasts or schistocytes, per hematology. We'll 32,016: Elevated d-dimer 799 probably subsequent Doppler of legs negative for DVT). 04/11/2016: Fibrinogen- 261. 04/11/2016: *Flow cytometry- pending. *The patient received 2 units PRBC on 04/10/2016 for Hgb 6.1. *Hemoglobin van to 7.4 on 04/11/2016, dropping to 6.9 on 04/12/2016, prompting the GI consult. He is currently getting his third unit PRBC. *There is lab evidence of iron deficiency, which apparently is not new, according to the patient. *Extensive past GI workup, per Dr. Peyman Aguilar: 09/30/2007: EGD/Colonoscopy to cecum (done for screening, BRBPR, GERD, dysphagia )- removal of 2 benign subcentimeter colonic TA (poor prep), large internal hemorrhoids, extensive pandiverticulosis coli; Z line at 40 cm, small lower esophageal ring left intact, small hiatal hernia, fleshy polypoid lesion 1.5 cm above the aretynoid (post resection of epiglottis). 06/09/2013: EGD to D2/Colonoscopy to cecum for GI bleed (in the setting of ASA 81 mg daily)- abnormal hypopharynx/larynx with leukoplakia and telangiectasias ( f/b ENT), antral erosion, small antral gastric ulcer with tiny red spot at the greater curvature, without therapeutics, patent pylorus without GOO, biopsies- mild to moderate gastritis, H. pylori negative; extensive pandiverticulosis coli , large internal hemorrhoids, diminutive colon "polyp" removed- nonspecific chronic inflammation, without recurrent adenomas. 10/18/2013: EGD- deformed hypopharynx/larynx without change, healed gastric ulcer, with biopsies of gastric antrum and fundus- mild to moderate gastritis, H. pylori negative, no intestinal metaplasia, no dysplasia. *No varices or portal gastropathy seen. The patient has been off baby aspirin since 06/09/2013. He does not take any NSAIDs. He does use Tylenol as needed. He claims he has been off alcohol for a few months, and previously used it sporadically. There is no history of IVDA, needle sticks, or tattoos. He denies any jaundice, dark urine, light stool, pruritus, or confusion. He denies any history of viral hepatitis. The patient did have some scant epistaxis, which resolved. He denies any gum bleeding. His reflux symptoms are very stable on Omeprazole 40 mg daily. He denies any odynophagia or dysphagia, but has to be careful when swallowing, since his epiglottis resection. He denies any nausea, vomiting, hematemesis, early satiety, abdominal pain, melena, diarrhea, constipation, obstipation, tenesmus, change in stool caliber, or rectal bleeding. There is no history of abdominal trauma to suggest a retroperitoneal bleed. He denies any fevers, chills, symptoms of UTI, or URI. There is no gross hematuria or hemoptysis. The patient denies any chest pain. He is a little short of breath, which is improving after transfusions and prophylactic Lasix. His orthopnea and peripheral edema are noted. The patient was empirically put on IV Ceftriaxone 1 g daily on admission, to cover urine/lungs, in view of leukocytosis, which is probably secondary to MDS. The patient's weight is relatively stable and his appetite is good. He currently is on a heart healthy diet. 04/10/2016: Admission labs- H/H 6.1/19.8, MCV 75.6, RDW 17.6, WBC 61.3 (74S/7B/ 7L/6M/3Meta/3Myelo), PLT 60, PT 14.8, INR 1.41, PTT 23, elevated d-dimer 799, glucose 167, BUN/Cr 13/0.7, GFR > 60, normal electrolytes with bicarbonate 29, AG 11, albumin 3.5, globulin 2.8, TBil 1.6 (without fracs), alk phos 83, AST 18, ALT 26, troponin < .01 (neg x 2), elevated BNP 1840, *Fe 14, TIBC 487, *Fe sat 2.9%, *ferritin 14.7 04/10/2016: U/A- turbid, stroke, packed amorphous material, > 1.030, 6.0, tr prot, micro-otherwise negative; negative nitrite, negative esterase. 04/10/2016: UC- negative. 04/10/2016: ABG- 4L nc- 7.35/52/71/90/HCO3 28, CO HB 3.0 04/11/2016: Fibrinogen 261. 04/11/2016: *Flow cytometry- pending. *No EKG on chart. 04/10/2016: XR PORTABLE CHEST- Increased markings at the lung bases could be associated with a small airways process. Small right pleural effusion versus pleural thickening. 04/11/2016: US TRIPLEX LOWER EXTREMITY, BILATERAL- No evidence of deep vein thrombosis in either lower extremity. Subcutaneous tissue edema within both lower extremities. Arnett's cyst within each popliteal fossa. Allergies/Medications Allergies: Coded Allergies: codeine (Mild, RASH 03/10/16) aspirin (R/T BLOOD PLATELET COUNT 03/10/16) Home Med List: Acetaminophen (Tylenol Extra Strength) 500 MG TABLET 2 TAB PO PRN PAIN ( Reported) Albuterol Sulfate (Albuterol Sulfate Nebulizer Soln) 0.63 MG/3 ML VIAL.NEB 1 Vial INH/MARCIO 4 TIMES/DAY COPD (Reported) Albuterol Sulfate (Ventolin Hfa) 90 MCG HFA.AER.AD 2 PUF INH 4XDAILY COPD ( Reported) Budesonide/Formoterol Fumara (Symbicort 160-4.5 Mcg Inhaler) 160 MCG/4.5 MCG PUF 2 PUF INH BID COPD (Reported) Escitalopram Oxalate 20 MG TABLET 1 TAB PO DAILY DEPRESSION (Reported) Finasteride 5 MG TABLET 1 TAB PO DAILY PROSTATE (Reported) Omeprazole 40 MG CAPSULE.DR 1 CAP PO DAILY GERD (Reported) Pregabalin (Lyrica) 100 MG CAPSULE 1 CAP PO BID NERVE PAIN (Reported) TAMSULOSIN HCL (Tamsulosin Hydrochloride) 0.4 MG CAP.ER.24H 1 CAP PO DAILY BPH (Reported) Tiotropium Eldridge (Spiriva Respimat) 2.5 MCG/ACTUATION MIST.INHAL 2 PUFF INH DAILY COPD (Reported) Current Medications: Current Medications Sig/Dung Start time Last Medication Dose Route Stop Time Status Admin Acetaminophen 650 MG Q6P PRN 04/10 2000 AC PO Albuterol Sulfate 3 ML EVERY 4 HRS/AWAKE 04/11 1200 AC 04/12 INH 1208 Ceftriaxone Sodium 1,000 MG DAILY@04/10 AC 04/11 IV 2009 Escitalopram Oxalate 20 MG DAILY 04/11 1000 AC 04/12 PO 0949 Finasteride 5 MG DAILY 04/11 1000 AC 04/12 PO 0950 Furosemide 40 MG ONCE ONE 04/12 1045 DC 04/12 IV 04/12 1046 1616 Omeprazole 40 MG DAILY AC 04/11 0700 AC 04/12 PO 0600 Pregabalin 100 MG BID 04/10 2200 AC 04/12 PO 0952 Tamsulosin HCl 0.4 MG DAILY 04/11 1000 AC 04/12 PO 0949 Tiotropium Eldridge 1 PUF DAILY 04/11 1000 AC 04/12 INH 0952 Past History Travel History Traveled to [place] past 21 day No Medical History Blood Transfusion Hx: No (not prior to 04/10/16) Neurological: restless leg syndrome EENT: SC CA larynx/tongue 2006 Cardiovascular: NONE Respiratory: COPD Gastrointestinal: GERD, hiatal hernia, BLEEDING ULCER, COLON ADENOMA, DIVERTICULOSIS COLI, LOWER ESOPH RING Hepatic: NONE Renal: ENLARGED PROSTATE Musculoskeletal: RESTLESS LEG SYNDROME. 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 FH: diabetes mellitus FATHER FH: colon cancer FH: prostate cancer FATHER (Colon Ca). , Age 89; Cause: Prostate CA. Relation not specified for: colon cancer Psychosocial History Where Do You Live? Home Who Do You Live With? spouse Services at Home: Oxygen (intermittent O2) Primary Language: Bahamian Smoking Status: Former Smoker ETOH Use: denies use (previously, moderate) Illicit Drug Use: denies illicit drug use Living Will? 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 no Other Social History: . Lives with . 2 children- A&W (1 dtr- Ameena & 1 son- Luis Antonio). Ex 90 pk yr cigarette smoker, D/C 2005, ex-moderate EtOH sporadically (stopped Fall 2015), no drugs. Retired 2005. Worked for [employer]. Functional Ability ADLs Independent: dressing, eating, toileting, bathing. Ambulation: independent IADLs Independent: shopping, housework, finances, food prep, telephone, transportation , medication admin. Employment History Employment: Retired Profession/Employer: [employer] ECHO Results (as available) Date of last Echo 08/09/13 EF% 65 Review of Systems Review of Systems: Full 14 point review of systems otherwise noncontributory, and as per HPI. Review of Systems Constitutional: Denies: chills, diaphoresis, fever, malaise, weakness, unexplained weight loss. EENTM: Denies: blurred vision, double vision, visual changes, eye pain, eye drainage, eye tearing, icterus, ear discharge, ear pain, ear redness, hearing changes, nasal congestion, epistaxis, nasal pain, throat pain, throat swelling, mouth pain, tooth pain. Cardiovascular: Reports: orthopena, peripheral edema. Denies: chest pain, edema, palpitations, syncope. Respiratory: Reports: orthopnea, short of breath. Denies: cough, hemoptysis, sputum production, stridor, wheezing. GI: Reports: no symptoms (stable GERD, swallows slowly). Denies: abdominal pain, bloating, constipation, diarrhea, distention, bowel incontinence, melena, nausea , bloody stool, changes in stool, vomiting, steatorrhea. Genitourinary: Reports: frequency (BPH), nocturia (BPH). Denies: discharge, dysuria, hematuria , hesitation, pain, urgency. Musculoskeletal: Denies: back pain, gout, joint pain, joint swelling, muscle pain, muscle stiffness, neck pain. Skin: Denies: cysts, change in skin color, change in hair/nails, dryness, erythema, jaundice, lesions, lymphangitis, lumps, moles, rash. Neurological/Psychological: Reports: depressed, other (restless legs). Denies: anxiety, ataxia, cognitive dysfunction, confusion, dementia, emotional problems, headache, numbness, paresthesia, pre-existing deficit, petit mal seizures, tingling, tremors, tonic- clonic seizures, unable to move lower ext, unable to move upper ext, weakness. Hematologic/Endocrine: Reports: bruising, other (MDS). Denies: bleeding, polyuria, polydipsia. Immunologic/Allergic: Denies: splenectomy, HIV/AIDS, lymphadenopathy. All Other Systems: Reviewed and Negative Exam & Diagnostic Data Vital Signs and I&O Vital Signs Date Time Temp Pulse Resp B/P Pulse O2 O2 Flow FiO2 Ox Delivery Rate 04/12 1556 98.2 90 20 128/52 93 Nasal 3.0L Cannula 04/12 0949 95 110/64 04/12 0840 97.8 95 22 110/64 96 Nasal 3.0L Cannula 04/12 0819 96 Nasal 4.0L Cannula 04/12 0154 106 26 92 Nasal 4.0L Cannula 04/12 0000 92 Nasal 4.0L Cannula 04/11 2340 98.5 113 20 135/57 93 Nasal 3.0L Cannula 04/11 2006 98.3 107 22 116/56 94 04/11 2003 92 Nasal 4.0L Cannula 04/11 1713 96.8 112 20 134/64 98 Nasal Cannula 04/11 1711 Nasal 3.0L Cannula Intake & Output 04/12 1600 04/12 0400 04/11 1600 04/11 0400 04/10 1600 04/10 0400 Intake Total 240 557 733 8727 Output Total 450 600 550 Balance -210 240 -260 650 Intake, Blood 700 Product Intake, IV 0 Intake, Oral 240 240 340 500 Number 0 Bowel Movements Output, Urine 450 600 550 Patient 208 lb 208 lb Weight Physical Exam: Well-developed, well-nourished, slightly obese male, in no apparent distress. Sclera anicteric. Conjunctiva slightly pale. Oropharynx clear. No oral thrush. No aphthous ulcers. No stridor. No obvious oral lesions on limited exam. There is no adenopathy, thyromegaly, or JVD. No HJR. No peripheral stigmata of inflammatory bowel disease or chronic liver disease on exam, except for mild gynecomastia bilaterally, without any masses or discharge, probably from obesity. No spiders on the anterior chest wall. No CVA tenderness. Lungs: clear to A&P, with slight decreased breath sounds at the right base and a few scattered wheezes. No rales or rhonchi. Heart exam: regular rate rhythm, S1 and S2, without any murmur. Abdominal exam: normal bowel sounds, soft belly, mildly obese, nontender, without guarding or rebound. No mass. No definite organomegaly (I do not appreciate a definite spleen tip). No fluid shift. No pulsatile mass. No epigastric bruit. Repeat digital rectal exam deferred ( reportedly OB negative in the ER on 04/10/2016 admission). Extremities: without cyanosis or clubbing. 1-2+ pitting edema of LE B/L. No palpable cords. Distal pulses 1+ bilaterally. DTRs 2+ bilaterally. Mild DJD. No acute arthropathy. No rash. No palmar erythema. No Dupuytren's contractures. Right-handed. CN II-XII intact. Alert and oriented x 3. No tremor. No asterixis. A detailed exam for peripheral neuropathy was deferred. Restless leg syndrome by history. Results Pertinent Lab Results: Laboratory Tests 04/12 04/11 04/11 0630 1220 1111 Chemistry Sodium (137 - 145 mmol/L) 133 L Potassium (3.5 - 5.1 mmol/L) 3.4 L Chloride (98 - 107 mmol/L) 90 L Carbon Dioxide (22 - 30 mmol/L) 34 H Anion Gap (5 - 16) 9 BUN (9 - 20 mg/dL) 14 Creatinine (0.7 - 1.2 mg/dL) 0.6 L Estimated GFR (>60 ml/min) > 60 BUN/Creatinine Ratio (7 - 25 %) 23.3 Coagulation Fibrinogen Activity (200 - 393 MG/DL) 261 Hematology CBC w Diff MAN DIFF ORDERED WBC (4.8 - 10.8 /CUMM) 59.0 *H RBC (4.70 - 6.10 /CUMM) 2.79 L Hgb (14.0 - 18.0 G/DL) 6.9 *L Hct (42 - 52 %) 21.9 L MCV (80.0 - 94.0 FL) 78.5 L MCH (27.0 - 31.0 PG) 24.7 L RDW (11.5 - 14.5 %) 18.4 H Plt Count (130 - 400 /CUMM) 43 L MPV (7.4 - 10.4 FL) 8.0 Gran % (42.2 - 75.2 %) 89.1 H Lymphocytes % (20.5 - 51.1 %) 3.6 L Monocytes % (1.7 - 9.3 %) 7.1 Eosinophils % (0 - 5 %) 0.2 Basophils % (0.0 - 2.0 %) 0 L Absolute Granulocytes (1.4 - 6.5 /CUMM) 52.5 H Segmented Neutrophils (42.2 - 75.2 %) 73 Band Neutrophils (0.0 - 5.0 %) 10 H Absolute Lymphocytes (1.2 - 3.4 /CUMM) 2.1 Lymphocytes (20.5 - 51.1 %) 2 L Monocytes (1.7 - 9.3 %) 9 Absolute Monocytes (0.10 - 0.60 /CUMM) 4.2 H Absolute Eosinophils (0.0 - 0.7 /CUMM) 0.1 Absolute Basophils (0.0 - 0.2 /CUMM) 0 Metamyelocytes (0.0 - 1.0 %) 4 H Myelocytes (0 - 0 %) 2 H Platelet Estimate (ADEQUATE) DECREASED Polychromasia 1+ Hypochromic-Microcytic 1+ Basophilic Stippling 1+ Anisocytosis 1+ Microcytic Cells 1+ Stomatocytes 1+ PUBS MCHC (33.0 - 37.0 G/DL) 31.5 L Miscellaneous Flow Cytometry Specimen Pending Cancelled 04/11 04/11 0735 0030 Chemistry Sodium (137 - 145 mmol/L) 134 L Potassium (3.5 - 5.1 mmol/L) 4.1 Chloride (98 - 107 mmol/L) 96 L Carbon Dioxide (22 - 30 mmol/L) 31 H Anion Gap (5 - 16) 7 BUN (9 - 20 mg/dL) 13 Creatinine (0.7 - 1.2 mg/dL) 0.6 L Estimated GFR (>60 ml/min) > 60 BUN/Creatinine Ratio (7 - 25 %) 21.7 Troponin I (<0.11 ng/ml) 0.01 Hematology CBC w Diff MAN DIFF ORDERED MAN DIFF ORDERED WBC (4.8 - 10.8 /CUMM) 83.2 *H 67.5 *H RBC (4.70 - 6.10 /CUMM) 3.06 L 3.05 L Hgb (14.0 - 18.0 G/DL) 7.4 *L 7.3 *L Hct (42 - 52 %) 24.2 L 23.9 L MCV (80.0 - 94.0 FL) 79.0 L 78.4 L MCH (27.0 - 31.0 PG) 24.2 L 24.0 L RDW (11.5 - 14.5 %) 17.9 H 17.6 H Plt Count (130 - 400 /CUMM) 48 L 53 L MPV (7.4 - 10.4 FL) 7.2 L 6.9 L Gran % (42.2 - 75.2 %) 89.5 H 89.2 H Lymphocytes % (20.5 - 51.1 %) 1.7 L 2.7 L Monocytes % (1.7 - 9.3 %) 8.6 8.1 Eosinophils % (0 - 5 %) 0.2 0 Basophils % (0.0 - 2.0 %) 0 L 0 L Absolute Granulocytes (1.4 - 6.5 /CUMM) 74.5 H 60.2 H Segmented Neutrophils (42.2 - 75.2 %) 69 79 H Band Neutrophils (0.0 - 5.0 %) 8 H 6 H Absolute Lymphocytes (1.2 - 3.4 /CUMM) 1.4 1.9 Lymphocytes (20.5 - 51.1 %) 1 L 3 L Monocytes (1.7 - 9.3 %) 6 7 Absolute Monocytes (0.10 - 0.60 /CUMM) 7.1 H 5.5 H Absolute Eosinophils (0.0 - 0.7 /CUMM) 0.1 0 Absolute Basophils (0.0 - 0.2 /CUMM) 0 0 Metamyelocytes (0.0 - 1.0 %) 10 H 3 H Myelocytes (0 - 0 %) 6 H 2 H Platelet Estimate (ADEQUATE) DECREASED Polychromasia 1+ 2+ Hypochromic-Microcytic 2+ 1+ Poikilocytosis 2+ 2+ Basophilic Stippling 1+ 1+ Anisocytosis 2+ 1+ Microcytic Cells 2+ 1+ Ovalocytes 1+ Stomatocytes 2+ 1+ PUBS MCHC (33.0 - 37.0 G/DL) 30.7 L 30.6 L Other Body Source Fld Total RBCs Counted (%) 100 04/10 04/10 2909 1436 Blood Gas pH (7.35 - 7.45 PH) 7.35 pCO2 (35 - 45 TORR) 52 H pO2 (80 - 100 TORR) 71 L HCO3 (21 - 28 MEQ/L) 28 ABG O2 Sat (Measured) (>96.0 %) 90.0 L Carboxyhemoglobin (1.5 - 5.0 %) 3.0 O2 Concentration % 4LPM Temperature (97.0 - 100.0 FARH) 98.3 O2 Delivery Method NC Miscellaneous Phlebotomy Draw Site RIGHT RADIAL Urines Urinalysis PACKD H Urine Color (YEL,AMB,STR) STRAW Urine Clarity (CLEAR) TURBD H Urine pH (5.0 - 8.0) 6.0 Ur Specific [place] (1.001 - 1.035) >= 1.030 Urine Protein (NEG,<30 MG/DL) TRACE H Urine Ketones (NEG) NEG Urine Nitrite (NEG) NEG Urine Bilirubin (NEG) NEG Urine Urobilinogen (0.1 - 1.0 EU/dl) 1.0 Ur Leukocyte Esterase (NEG) NEG Ur Microscopic SEDIMENT EXAMINED Urine WBC (0 - 2 /HPF) RARE Ur Epithelial Cells (NONE,FEW) RARE Urine Hemoglobin (NEG) NEG Urine Glucose (N MG/DL) NEG 04/10 04/10 1406 1227 Chemistry Sodium (137 - 145 mmol/L) 137 Potassium (3.5 - 5.1 mmol/L) 4.1 Chloride (98 - 107 mmol/L) 98 Carbon Dioxide (22 - 30 mmol/L) 29 Anion Gap (5 - 16) 11 BUN (9 - 20 mg/dL) 13 Creatinine (0.7 - 1.2 mg/dL) 0.7 Estimated GFR (>60 ml/min) > 60 BUN/Creatinine Ratio (7 - 25 %) 18.6 Glucose (65 - 99 mg/dL) 167 H Calcium (8.4 - 10.2 mg/dL) 8.5 Magnesium (1.6 - 2.3 mg/dL) 1.6 Iron (49 - 181 ug/dL) 14 L TIBC (261 - 462 ug/dL) 487 H Ferritin (17.9 - 464 ng/mL) 14.7 L Total Bilirubin (0.2 - 1.3 mg/dL) 1.6 H AST (17 - 59 U/L) 18 ALT (21 - 72 U/L) 26 Alkaline Phosphatase (< 127 U/L) 83 Troponin I (<0.11 ng/ml) < 0.01 Pds-O-Bffeuehlzni Pept (<125 pg/mL) 1840 H Total Protein (6.3 - 8.2 g/dL) 6.3 Albumin (3.5 - 5.0 g/dL) 3.5 Globulin (1.9 - 4.2 gm/dL) 2.8 Albumin/Globulin Ratio (1.1 - 2.2 %) 1.3 Vitamin B12 (239 - 931 pg/mL) Pending Coagulation PT (9.4 - 12.5 SEC) 14.8 H INR (0.90 - 1.17) 1.41 H APTT (25 - 37 SEC) 23 L D-Dimer (70 - 232 ng/ml) 799 H Hematology CBC w Diff MAN DIFF ORDERED WBC (4.8 - 10.8 /CUMM) 61.3 *H RBC (4.70 - 6.10 /CUMM) 2.62 L Hgb (14.0 - 18.0 G/DL) 6.1 *L Hct (42 - 52 %) 19.8 *L MCV (80.0 - 94.0 FL) 75.6 L MCH (27.0 - 31.0 PG) 23.1 L RDW (11.5 - 14.5 %) 17.6 H Plt Count (130 - 400 /CUMM) 60 L MPV (7.4 - 10.4 FL) 7.9 Gran % (42.2 - 75.2 %) 92.5 H Lymphocytes % (20.5 - 51.1 %) 2.0 L Monocytes % (1.7 - 9.3 %) 5.3 Eosinophils % (0 - 5 %) 0.1 Basophils % (0.0 - 2.0 %) 0.1 Absolute Granulocytes (1.4 - 6.5 /CUMM) 56.7 H Segmented Neutrophils (42.2 - 75.2 %) 74 Band Neutrophils (0.0 - 5.0 %) 7 H Absolute Lymphocytes (1.2 - 3.4 /CUMM) 1.2 Lymphocytes (20.5 - 51.1 %) 7 L Monocytes (1.7 - 9.3 %) 6 Absolute Monocytes (0.10 - 0.60 /CUMM) 3.3 H Absolute Eosinophils (0.0 - 0.7 /CUMM) 0 Absolute Basophils (0.0 - 0.2 /CUMM) 0 Metamyelocytes (0.0 - 1.0 %) 3 H Myelocytes (0 - 0 %) 3 H Platelet Estimate (ADEQUATE) DECREASED Polychromasia 2+ Hypochromic-Microcytic 3+ Poikilocytosis 3+ Basophilic Stippling Anisocytosis 3+ Microcytic Cells 2+ Stomatocytes 1+ PUBS MCHC (33.0 - 37.0 G/DL) 30.6 L Retic Count (0.5 - 2.0 %) 5.91 H Imaging/Other Studies: *No EKG on chart. 04/10/2016: XR PORTABLE CHEST- Increased markings at the lung bases could be associated with a small airways process. Small right pleural effusion versus pleural thickening. 04/11/2016: US TRIPLEX LOWER EXTREMITY, BILATERAL- No evidence of deep vein thrombosis in either lower extremity. Subcutaneous tissue edema within both lower extremities. Arnett's cyst within each popliteal fossa. 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 The patient stopped his iron supplements a few months ago. His shelter case manager is Dr. Peyman Aguilar. *There is a family history of colon cancer in the patient's father (who also had prostate Ca), age of onset unknown. There is no family history of additional GI malignancy, GI disease, or inherited liver disease. The patient was recently diagnosed with MDS per Dr. 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 09/11/2015: Liver- spleen scan- mild colloid shift with equal activity in the liver and spleen, and suggestion of splenomegaly. The patient was seen by pulmonary 04/10/2016, at which point, O2 sat 2L- 79%, and the patient was admitted to [facility] that day. 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 *He was never transfused prior to the 04/10/2016 admission. * Please note, labs per hematology 01/29/2016: WBC 20.1, HCT 30.7, elevated MCV 105, PLT 94. 04/10/2016: Admission H/H 6.1/19.8, MCV 75.6, WBC 61.3 (74S/7B/7L/ 6M/3Meta/3Myelo), PLT 60. *Stools were guaiac-negative in the ER on admission. * WBC subsequently van to 83.2 the following day. *Peripheral smear without blasts or schistocytes, per hematology. We'll 32,016: Elevated d-dimer 799 probably subsequent Doppler of legs negative for DVT). 04/11/2016: Fibrinogen- 261. 04/11/2016: *Flow cytometry- pending. *The patient received 2 units PRBC on 04/10/2016 for Hgb 6.1. *Hemoglobin van to 7.4 on 04/11/2016, dropping to 6.9 on 04/12/2016, prompting the GI consult. He is currently getting his third unit PRBC. *There is lab evidence of iron deficiency, which apparently is not new, according to the patient. *Extensive past GI workup, per Dr. Peyman Aguilar: 09/30/2007: EGD/Colonoscopy to cecum (done for screening, BRBPR, GERD, dysphagia )- removal of 2 benign subcentimeter colonic TA (poor prep), large internal hemorrhoids, extensive pandiverticulosis coli; Z line at 40 cm, small lower esophageal ring left intact, small hiatal hernia, fleshy polypoid lesion 1.5 cm above the aretynoid (post resection of epiglottis). 06/09/2013: EGD to D2/Colonoscopy to cecum for GI bleed (in the setting of ASA 81 mg daily)- abnormal hypopharynx/larynx with leukoplakia and telangiectasias ( f/b ENT), antral erosion, small antral gastric ulcer with tiny red spot at the greater curvature, without therapeutics, patent pylorus without GOO, biopsies- mild to moderate gastritis, H. pylori negative; extensive pandiverticulosis coli , large internal hemorrhoids, diminutive colon "polyp" removed- nonspecific chronic inflammation, without recurrent adenomas. 10/18/2013: EGD- deformed hypopharynx/larynx without change, healed gastric ulcer, with biopsies of gastric antrum and fundus- mild to moderate gastritis, H. pylori negative, no intestinal metaplasia, no dysplasia. *No varices or portal gastropathy seen. The patient has been off baby aspirin since 06/09/2013. He does not take any NSAIDs. He does use Tylenol as needed. He claims he has been off alcohol for a few months, and previously used it sporadically. There is no history of IVDA, needle sticks, or tattoos. He denies any jaundice, dark urine, light stool, pruritus, or confusion. He denies any history of viral hepatitis. The patient did have some scant epistaxis, which resolved. He denies any gum bleeding. His reflux symptoms are very stable on Omeprazole 40 mg daily. He denies any odynophagia or dysphagia, but has to be careful when swallowing, since his epiglottis resection. He denies any nausea, vomiting, hematemesis, early satiety, abdominal pain, melena, diarrhea, constipation, obstipation, tenesmus, change in stool caliber, or rectal bleeding. There is no history of abdominal trauma to suggest a retroperitoneal bleed. He denies any fevers, chills, symptoms of UTI, or URI. There is no gross hematuria or hemoptysis. The patient denies any chest pain. He is a little short of breath, which is improving after transfusions and prophylactic Lasix. His orthopnea and peripheral edema are noted. The patient was empirically put on IV Ceftriaxone 1 g daily on admission, to cover urine/lungs, in view of leukocytosis, which is probably secondary to MDS. The patient's weight is relatively stable and his appetite is good. He currently is on a heart healthy diet. 04/10/2016: Admission labs- H/H 6.1/19.8, MCV 75.6, RDW 17.6, WBC 61.3 (74S/7B/ 7L/6M/3Meta/3Myelo), PLT 60, PT 14.8, INR 1.41, PTT 23, elevated d-dimer 799, glucose 167, BUN/Cr 13/0.7, GFR > 60, normal electrolytes with bicarbonate 29, AG 11, albumin 3.5, globulin 2.8, TBil 1.6 (without fracs), alk phos 83, AST 18, ALT 26, troponin < .01 (neg x 2), elevated BNP 1840, *Fe 14, TIBC 487, *Fe sat 2.9%, *ferritin 14.7 04/10/2016: U/A- turbid, stroke, packed amorphous material, > 1.030, 6.0, tr prot, micro-otherwise negative; negative nitrite, negative esterase. 04/10/2016: UC- negative. 04/10/2016: ABG- 4L nc- 7.35/52/71/90/HCO3 28, CO HB 3.0 04/11/2016: Fibrinogen 261. 04/11/2016: *Flow cytometry- pending. *No EKG on chart. 04/10/2016: XR PORTABLE CHEST- Increased markings at the lung bases could be associated with a small airways process. Small right pleural effusion versus pleural thickening. 04/11/2016: US TRIPLEX LOWER EXTREMITY, BILATERAL- No evidence of deep vein thrombosis in either lower extremity. Subcutaneous tissue edema within both lower extremities. Arnett's cyst within each popliteal fossa. *I feel that the vast majority of the patient's abnormal cell lines are primarily hematologic in nature, with underlying myelodysplastic syndrome, rule out progression to more serious entities. No blasts or schistocytes were seen on the peripheral smear. Apparently, the patient's iron deficiency has been for the past year, however he stopped his iron months ago. He currently is not on any aspirin or NSAIDs. There is no history of abdominal trauma to suggest a retroperitoneal bleed, keeping in mind the guaiac-negative stool, however this should be excluded. He has a remote history of a benign gastric ulcer 2013 in the setting of baby aspirin use at that time, which was stopped then. Gastric biopsies then were negative for H. pylori. The past history of moderate alcohol intake is noted. I do not think the patient is cirrhotic [despite the thrombocytopenia, which is probably bone marrow related, and the borderline elevated INR- on antibiotics; his albumin:globulin ratio is normal]. Previous EGD have not shown any varices or portal gastropathy. 09/11/2015: Liver spleen scan showed very mild colloid shift, with equal activity in the liver and spleen , with suggestion of mild splenomegaly. The past history of colon adenomas are noted. [*The [employer] computer showed remote "rectal adenocarcinoma" in 1982, however this was probably filing error and pertained to the patient's father, who had the same name]. Having stated that MDS is the probable culprit for the anemia, the patient's transfusion requirements have increased, and a recurrent ulcer should be excluded. The risks and benefits of EGD were discussed with the patient in the presence of his and his 2 children, Ameena & Luis Antonio, and he wishes to proceed. Informed consent for EGD was obtained from him. He is aware that he is at higher than average risk for this, based on his numerous comorbidities. He was also informed of the potential need for prophylactic intubation with sedation. Hopefully, his blood parameters will allow me to proceed. He tolerated solids po on 04/12/2016, and in view of the holiday schedule, I will have to make arrangements to temporarily transfer the patient to the ICU on 04/13/2016, in order to perform the EGD with anesthesia assistance. SUGGEST: May continue current diet, then *NPO after 11:59 p.m. on 04/12/2016, for tentative EGD (*perhaps with small bowel biopsy, as platelet count allows), in the ICU on 04/13/2016. I have briefly spoken with the nursing phlebotomy supervisor, and they will help coordinate the above tomorrow. Continue empiric PPI, currently on Omeprazole 40 mg po daily. T&C 4u PRBC. Check CBC twice a day for now. Keep Hgb > 7. Supplemental oxygen as needed. *Consider celiac panel (IgA, tTG Ab, DGP Ab; doubt malabsorption). *Consider CT AP to rule out the unlikely possibility of retroperitoneal hematoma, in view of the guaiac-negative stools. *EKG on chart preoperatively. If EGD negative, consideration for repeat colonoscopy vs. outpatient PillCam. *Await 04/11/2016: Flow cytometry, as per hematology. *Will defer to hematology regarding institution of [place]. * Consider adding B12, RBC folate, and MMA to pre-transfusion admission labs, to rule out mixed deficiency, with elevated RDW. *Consideration for checking Hep Bs Ag, Hep C Ab, MARTHA, & AMA, regarding the question of cirrhosis (again, iron studies are low, without evidence of iron overload). *Await echocardiogram per medical team, in view of peripheral edema. *Replete K+. *Eventual Fe repletion. The above findings and recommendations were discussed with the medical house staff. I also had a lengthy discussion with the patient, his , and his 2 children at the bedside on 04/12/2016, regarding the above plans. Further recommendations to follow, depending on clinical course. Problem List: 1. Iron deficiency anemia 2. GERD (gastroesophageal reflux disease) 3. History of peptic ulcer disease 4. History of adenomatous polyp of colon 5. Diverticulosis of colon 6. Family history of colon cancer 7. MDS (myelodysplastic syndrome) Copies To: MARY COLEMAN,ROSCOE; LUCERO ACOSTA M.D, MD,NIKUNJ Granados; FRANTZ COLEMAN, THERON Love; BHARAT COLEMAN,FORMERLY [facility] MEDICAL CENTERJose Eduardo HAMILTON MD,ETELVINA Juares; ANTOINETTE COLEMAN,MORENA Davis; GAVI COLEMAN,Harry VALDEZ Consult Acknowledgment - Thank you for your consult request.
[2016-04-12 15:56] VITALS: BP 128/52
--- NOTE | 2016-04-12 16:55 | PN- Housestaff ---
Subjective Follow-up For: Acute blood loss anemia Laryngeal cancer Subjective: Saw patient at bedside this a.m. He was sitting up eating breakfast comfortably in chair. His H&H dropped from 7.4-6.9. We will transfuse him 2 units and follow-up. Patient denies any chest pain, bright red blood per rectum, shortness of breath, dizziness, any site of obvious active bleed. Review of Systems Constitutional: Denies: diaphoresis, fever, malaise, weakness. EENTM: Reports: no symptoms. Cardiovascular: Denies: chest pain, edema, orthopena, palpitations. Respiratory: Denies: cough, orthopnea, short of breath. Gastrointestinal: Denies: abdominal pain, constipation, bloody stool, vomiting. Genitourinary: Reports: no symptoms. Musculoskeletal: Reports: no symptoms. Objective Last 24 Hrs of Vital Signs/I&O Vital Signs Date Time Temp Pulse Resp B/P Pulse O2 O2 Flow FiO2 Ox Delivery Rate 04/12 1556 98.2 90 20 128/52 93 Nasal 3.0L Cannula 04/12 0949 95 110/64 04/12 0840 97.8 95 22 110/64 96 Nasal 3.0L Cannula 04/12 0819 96 Nasal 4.0L Cannula 04/12 0154 106 26 92 Nasal 4.0L Cannula 04/12 0000 92 Nasal 4.0L Cannula 04/11 2340 98.5 113 20 135/57 93 Nasal 3.0L Cannula 04/11 2006 98.3 107 22 116/56 94 04/11 2003 92 Nasal 4.0L Cannula 04/11 1713 96.8 112 20 134/64 98 Nasal Cannula 04/11 1711 Nasal 3.0L Cannula Intake & Output 04/12 1600 04/12 0800 04/12 0000 Intake Total 240 240 Output Total 450 Balance -210 240 Intake, Oral 240 240 Output, Urine 450 Physical Exam General Appearance: Alert, Oriented X3, Cooperative, No Acute Distress Skin: No Rashes, No Breakdown, No Significant Lesion HEENT: Atraumatic, PERRLA, EOMI Neck: Supple Cardiovascular: Regular Rate, Normal S1, Normal S2, No Murmurs Lungs: Normal Air Movement Abdomen: Soft, No Tenderness Neurological: Normal Tone, Cranial Nerves 3-12 NL Current Medications: Current Medications Sig/Dung Start time Last Medication Dose Route Stop Time Status Admin Acetaminophen 650 MG Q6P PRN 04/10 2000 AC PO Albuterol Sulfate 3 ML EVERY 4 HRS/AWAKE 04/11 1200 AC 04/12 INH 1208 Ceftriaxone Sodium 1,000 MG DAILY@04/10 AC 04/11 IV 2010 Escitalopram Oxalate 20 MG DAILY 04/11 1000 AC 04/12 PO 0949 Finasteride 5 MG DAILY 04/11 1000 AC 04/12 PO 0950 Furosemide 40 MG ONCE ONE 04/12 1645 DC IV 04/12 1646 Furosemide 40 MG ONCE ONE 04/12 1045 DC 04/12 IV 04/12 1046 1616 Omeprazole 40 MG DAILY AC 04/11 0700 AC 04/12 PO 0600 Pregabalin 100 MG BID 04/10 2200 AC 04/12 PO 0952 Tamsulosin HCl 0.4 MG DAILY 04/11 1000 AC 04/12 PO 0949 Tiotropium Noti 1 PUF DAILY 04/11 1000 AC 04/12 INH 0952 Last 24 Hrs of Lab/Ghulam Results Last 24 Hrs of Labs/Mics: Laboratory Tests 04/12/16 0630: Anion Gap 9, Estimated GFR > 60, BUN/Creatinine Ratio 23.3, CBC w Diff MAN DIFF ORDERED, RBC 2.79 L, MCV 78.5 L, MCH 24.7 L, RDW 18.4 H, MPV 8.0, Gran % 89.1 H, Lymphocytes % 3.6 L, Monocytes % 7.1, Eosinophils % 0.2, Basophils % 0 L, Absolute Granulocytes 52.5 H, Segmented Neutrophils 73, Band Neutrophils 10 H, Absolute Lymphocytes 2.1, Lymphocytes 2 L, Monocytes 9, Absolute Monocytes 4.2 H, Absolute Eosinophils 0.1, Absolute Basophils 0, Metamyelocytes 4 H, Myelocytes 2 H, Platelet Estimate DECREASED, Polychromasia 1+, Hypochromic- Microcytic 1+, Basophilic Stippling 1+, Anisocytosis 1+, Microcytic Cells 1+, Stomatocytes 1+, PUBS MCHC 31.5 L Assessment/Plan Assessment: 70-year-old gentleman past medical history significant for previous history of bright red blood per rectum, gastroesophageal reflux disease, 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 We will transfuse 2 units of PRBC. Goal to keep patient above 7.Consult GI for their recommendations regarding possibility of GI source of anemia. Of note, patient has history of bright red blood per rectum and family history of colon cancer. * Patient going down for EGD tomorrow in the ICU. * We will keep him nothing by mouth at midnight * CBC every 12 hours * Follow-up B12, methylmalonic acid, red blood cell folate labs. * Consider CT AP for possible retroperitoneal bleed. Upper GI this is not as likely as he has had guaiac negative stools 1. * guaic all stools * 40 of IV Lasix after each unit of blood lower extremity swellingr: In view of elevated proBNP (1840) Will obtain echo * Elevate legs * Follow-up echo * Cardiology consult Leukocytosis/MDS * hematologic malignancy VS leukmoid rxn * followed by Dr. Ledezma for MDS * f/up peripheral flow cytometry, fibrinogen COPD continue supplemental oxygen TRC/neb 4. BPH (benign prostatic hypertrophy) continue flomax and proscar 5. DVT prophylaxis Alps 6. Full code status Problem List: 1. Anemia 2. Acute blood loss anemia 3. Leukocytosis Pain Ratin Pain Location: NONE Pain Goal: Remain pain free Pain Plan: NONE Tomorrow's Labs & Rationales: NONE
[2016-04-12 19:51] LABS: ABSOLUTE BASOPHIL COUNT 0 /CUMM (0.0-0.2); ABSOLUTE EOSINOPHIL COUNT 0 /CUMM (0.0-0.7); ABSOLUTE GRANULOCYTE CT 46.2 /CUMM (1.4-6.5); ABSOLUTE LYMPH COUNT 1.5 /CUMM (1.2-3.4); ABSOLUTE MONOCYTE COUNT 4.4 /CUMM (0.10-0.60); BASOPHIL % 0 % (0.0-2.0); EOSINOPHIL % 0.1 % (0-5); GRANULOCYTE % 88.5 % (42.2-75.2); MEAN CORPUSCULAR HGB 24.5 PG (27.0-31.0); MEAN CORPUSCULAR HGB CONC 30.7 G/DL (33.0-37.0); MEAN CORPUSCULAR VOLUME 79.9 FL (80.0-94.0); MEAN PLATELET VOLUME 6.2 FL (7.4-10.4); RED BLOOD CELL CT 3.37 /CUMM (4.70-6.10)
[2016-04-12 20:09] LABS: HEMATOCRIT 26.9 % (42-52); WHITE BLOOD CELL COUNT 52.2 /CUMM (4.8-10.8)
[2016-04-12 20:18] LABS: PLATELET COUNT 47 /CUMM (130-400)
--- NOTE | 2016-04-12 21:19 | Cons- Cardiology ---
General Information and HPI Consulting Request Date of Consult: 04/13/16 Requested By: ROSCOE HERNANDEZ MD Reason for Consult: CHF History of Present Illness: The patient is a 70-year-old male with history of COPD, laryngeal cancer, and myelodysplastic syndrome who was admitted for GI bleed. He complains of recent shortness of breath, which has been worsening over the past 3 weeks chief from, and he was noted to have decreased oxygen saturation. He notes worsening lower extremity edema for the past 2 weeks. He also notes recent orthopnea. No chest pain. No palpitations. No syncope. No lightheadedness or dizziness. No nausea or vomiting. Allergies/Medications Allergies: Coded Allergies: codeine (Mild, RASH 03/10/16) aspirin (R/T BLOOD PLATELET COUNT 03/10/16) Home Med List: Acetaminophen (Tylenol Extra Strength) 500 MG TABLET 2 TAB PO PRN PAIN ( Reported) Albuterol Sulfate (Albuterol Sulfate Nebulizer Soln) 0.63 MG/3 ML VIAL.NEB 1 Vial INH/MARCIO 4 TIMES/DAY COPD (Reported) Albuterol Sulfate (Ventolin Hfa) 90 MCG HFA.AER.AD 2 PUF INH 4XDAILY COPD ( Reported) Budesonide/Formoterol Fumara (Symbicort 160-4.5 Mcg Inhaler) 160 MCG/4.5 MCG PUF 2 PUF INH BID COPD (Reported) Escitalopram Oxalate 20 MG TABLET 1 TAB PO DAILY DEPRESSION (Reported) Finasteride 5 MG TABLET 1 TAB PO DAILY PROSTATE (Reported) Omeprazole 40 MG CAPSULE.DR 1 CAP PO DAILY GERD (Reported) Pregabalin (Lyrica) 100 MG CAPSULE 1 CAP PO BID NERVE PAIN (Reported) TAMSULOSIN HCL (Tamsulosin Hydrochloride) 0.4 MG CAP.ER.24H 1 CAP PO DAILY BPH (Reported) Tiotropium [place] (Spiriva Respimat) 2.5 MCG/ACTUATION MIST.INHAL 2 PUFF INH DAILY COPD (Reported) Current Medications: Current Medications Sig/Dung Start time Last Medication Dose Route Stop Time Status Admin Acetaminophen 650 MG Q6P PRN 04/10 2000 AC PO Albuterol Sulfate 3 ML EVERY 4 HRS/AWAKE 04/11 1200 AC 04/12 INH 2115 Ceftriaxone Sodium 1,000 MG DAILY@04/10 AC 04/12 IV 204 Escitalopram Oxalate 20 MG DAILY 04/11 1000 AC 04/12 PO 0949 Finasteride 5 MG DAILY 04/11 1000 AC 04/12 PO 0950 Furosemide 40 MG ONCE ONE 04/12 1645 DC 04/12 IV 04/12 1646 2042 Furosemide 40 MG ONCE ONE 04/12 1045 DC 04/12 IV 04/12 1046 1616 Omeprazole 40 MG DAILY AC 04/11 0700 AC 04/12 PO 0600 Pregabalin 100 MG BID 04/10 2200 AC 04/12 PO 2151 Tamsulosin HCl 0.4 MG DAILY 04/11 1000 AC 04/12 PO 0949 Tiotropium [place] 1 PUF DAILY 04/11 1000 AC 04/12 INH 0952 Review of Systems Review of Systems: Review of systems: No fever. No chills. No rash. All other systems are reviewed and are noted to be negative. Past History Travel History Traveled to [place] past 21 day No Medical History Blood Transfusion Hx: No (not prior to 04/10/16) Neurological: restless leg syndrome EENT: SC CA larynx/tongue 2006 Cardiovascular: NONE Respiratory: COPD Gastrointestinal: GERD, hiatal hernia, BLEEDING ULCER COLON ADENOMA DIVERTICULOSIS COLI LOWER ESOPH RING Hepatic: NONE Renal: ENLARGED PROSTATE Musculoskeletal: RESTLESS LEG SYNDROME. Psychiatric: depression Endocrine: obesity Blood Disorders: MDS- LEUKOCYTOSIS, ANEMIA, THROMBOCYTOPENIA Cancer(s): 2007: SC CA LARYNX/TONGUE- EPIGLOTTIS RESECTED/RT/CTX PHYSICAL THERAPY NURSE/Reproductive: NONE Surgical History Surgical History: 2007: EPIGLOTTIS REMOVED FOR SC CA LARYNX/TONGUE, F/B RT/CTX CA 09/1995: L KNEE ARTHROSCOPY Family History Relations & Conditions If Any: SISTER FH: breast cancer FH: diabetes mellitus FH: lung cancer MOTHER, , Age 77; Cause: Arteriosclerotic heart disease (ASHD). FH: diabetes mellitus FATHER FH: colon cancer FH: prostate cancer FATHER (Colon Ca). , Age 89; Cause: Prostate CA. Relation not specified for: colon cancer Psychosocial History Where Do You Live? Home Who Do You Live With? spouse Services at Home: Oxygen (intermittent O2) Primary Language: [place] Smoking Status: Former Smoker ETOH Use: denies use (previously, moderate) Illicit Drug Use: denies illicit drug use Living Will? no Power of Manager Pediatric/HCP? no Other Social History: . Lives with . 2 children- A&W (1 dtr- Ameena & 1 son- Luis Antonio). Ex 90 pk yr cigarette smoker, D/C 2005, ex-moderate EtOH sporadically (stopped Fall 2015), no drugs. Retired 2005. Worked for [employer]. Functional Ability ADLs Independent: dressing, eating, toileting, bathing. Ambulation: independent IADLs Independent: shopping, housework, finances, food prep, telephone, transportation , medication admin. Employment History Employment: Retired Profession/Employer [employer] ECHO Results (as available) Date of last Echo 08/09/13 EF% 65 Exam & Diagnostic Data Vital Signs and I&O Vital Signs Date Time Temp Pulse Resp B/P Pulse O2 O2 Flow FiO2 Ox Delivery Rate 04/13 0051 97.7 88 20 110/72 93 Nasal 3.0L Cannula 04/12 2150 97.8 94 20 120/56 95 Nasal 3.0L Cannula 04/12 1700 93 Nasal 3.0L Cannula 04/12 1600 Nasal 3.0L Cannula 04/12 1556 98.2 90 20 128/52 93 Nasal 3.0L Cannula 04/12 0949 95 110/64 04/12 0840 97.8 95 22 110/64 96 Nasal 3.0L Cannula 04/12 0819 96 Nasal 4.0L Cannula Intake & Output 04/13 0800 04/13 0000 04/12 1600 04/12 0800 04/12 0000 04/11 1600 Intake Total 240 240 Output Total 850 450 500 Balance -850 -210 240 -500 Intake, Oral 240 240 Output, Urine 850 450 500 Physical Exam: Gen: The patient is in no acute distress HEENT: Normal nose, ears, and oropharynx. Pupils equal bilaterally. Conjunctiva normal. Neck: Supple with no JVD, no masses, and no thyromegaly Lungs: Decreased breath sounds with normal respiratory effort Heart: RRR, S1, S2, no murmurs. 2+eripheral edema, 2+ pulses in the lower extremities bilaterally Abdomen: Soft, nontender, no masses. No hepatomegaly. No splenomegaly Extremities: No clubbing or cyanosis. Normal muscle strength in the upper and lower extremities. Skin: Normal skin turgor with no skin ulcers or lesions noted. Neuro: Cranial nerves intact. Sensation intact Psych: Alert and oriented 3 with appropriate affect Labs/Ghulam Results: Laboratory Tests 04/12 04/12 1846 0630 Chemistry Sodium (137 - 145 mmol/L) 133 L Potassium (3.5 - 5.1 mmol/L) 3.4 L Chloride (98 - 107 mmol/L) 90 L Carbon Dioxide (22 - 30 mmol/L) 34 H Anion Gap (5 - 16) 9 BUN (9 - 20 mg/dL) 14 Creatinine (0.7 - 1.2 mg/dL) 0.6 L Estimated GFR (>60 ml/min) > 60 BUN/Creatinine Ratio (7 - 25 %) 23.3 Hematology CBC w Diff NO MAN DIFF REQ MAN DIFF ORDERED WBC (4.8 - 10.8 /CUMM) 52.2 *H 59.0 *H RBC (4.70 - 6.10 /CUMM) 3.37 L 2.79 L Hgb (14.0 - 18.0 G/DL) 8.3 L 6.9 *L Hct (42 - 52 %) 26.9 L 21.9 L MCV (80.0 - 94.0 FL) 79.9 L 78.5 L MCH (27.0 - 31.0 PG) 24.5 L 24.7 L RDW (11.5 - 14.5 %) 18.0 H 18.4 H Plt Count (130 - 400 /CUMM) 47 L 43 L MPV (7.4 - 10.4 FL) 6.2 L 8.0 Gran % (42.2 - 75.2 %) 88.5 H 89.1 H Lymphocytes % (20.5 - 51.1 %) 3.0 L 3.6 L Monocytes % (1.7 - 9.3 %) 8.4 7.1 Eosinophils % (0 - 5 %) 0.1 0.2 Basophils % (0.0 - 2.0 %) 0 L 0 L Absolute Granulocytes (1.4 - 6.5 /CUMM) 46.2 H 52.5 H Segmented Neutrophils (42.2 - 75.2 %) 73 Band Neutrophils (0.0 - 5.0 %) 10 H Absolute Lymphocytes (1.2 - 3.4 /CUMM) 1.5 2.1 Lymphocytes (20.5 - 51.1 %) 2 L Monocytes (1.7 - 9.3 %) 9 Absolute Monocytes (0.10 - 0.60 /CUMM) 4.4 H 4.2 H Absolute Eosinophils (0.0 - 0.7 /CUMM) 0 0.1 Absolute Basophils (0.0 - 0.2 /CUMM) 0 0 Metamyelocytes (0.0 - 1.0 %) 4 H Myelocytes (0 - 0 %) 2 H Platelet Estimate (ADEQUATE) DECREASED Polychromasia 1+ Hypochromic-Microcytic 1+ Basophilic Stippling 1+ Anisocytosis 1+ Microcytic Cells 1+ Stomatocytes 1+ PUBS MCHC (33.0 - 37.0 G/DL) 30.7 L 31.5 L 04/11 04/11 04/11 1220 1111 0735 Chemistry Sodium (137 - 145 mmol/L) 134 L Potassium (3.5 - 5.1 mmol/L) 4.1 Chloride (98 - 107 mmol/L) 96 L Carbon Dioxide (22 - 30 mmol/L) 31 H Anion Gap (5 - 16) 7 BUN (9 - 20 mg/dL) 13 Creatinine (0.7 - 1.2 mg/dL) 0.6 L Estimated GFR (>60 ml/min) > 60 BUN/Creatinine Ratio (7 - 25 %) 21.7 Troponin I (<0.11 ng/ml) 0.01 Coagulation Fibrinogen Activity (200 - 393 MG/DL) 261 Hematology CBC w Diff MAN DIFF ORDERED WBC (4.8 - 10.8 /CUMM) 83.2 *H RBC (4.70 - 6.10 /CUMM) 3.06 L Hgb (14.0 - 18.0 G/DL) 7.4 *L Hct (42 - 52 %) 24.2 L MCV (80.0 - 94.0 FL) 79.0 L MCH (27.0 - 31.0 PG) 24.2 L RDW (11.5 - 14.5 %) 17.9 H Plt Count (130 - 400 /CUMM) 48 L MPV (7.4 - 10.4 FL) 7.2 L Gran % (42.2 - 75.2 %) 89.5 H Lymphocytes % (20.5 - 51.1 %) 1.7 L Monocytes % (1.7 - 9.3 %) 8.6 Eosinophils % (0 - 5 %) 0.2 Basophils % (0.0 - 2.0 %) 0 L Absolute Granulocytes (1.4 - 6.5 /CUMM) 74.5 H Segmented Neutrophils (42.2 - 75.2 %) 69 Band Neutrophils (0.0 - 5.0 %) 8 H Absolute Lymphocytes (1.2 - 3.4 /CUMM) 1.4 Lymphocytes (20.5 - 51.1 %) 1 L Monocytes (1.7 - 9.3 %) 6 Absolute Monocytes (0.10 - 0.60 /CUMM) 7.1 H Absolute Eosinophils (0.0 - 0.7 /CUMM) 0.1 Absolute Basophils (0.0 - 0.2 /CUMM) 0 Metamyelocytes (0.0 - 1.0 %) 10 H Myelocytes (0 - 0 %) 6 H Polychromasia 1+ Hypochromic-Microcytic 2+ Poikilocytosis 2+ Basophilic Stippling 1+ Anisocytosis 2+ Microcytic Cells 2+ Stomatocytes 2+ PUBS MCHC (33.0 - 37.0 G/DL) 30.7 L Miscellaneous Flow Cytometry Specimen Pending Cancelled Diagnostic Data EKG Results EKG: None in chart CXR Results Chest x-ray: Increased markings at the lung bases could be associated with a small airways process. Small right pleural effusion versus pleural thickening. Other Results Echocardiogram August 11, 2013: Normal left ventricular diastolic filling pattern for age. Mild right ventricular dilatation. Normal right atrial size. Mild left atrial dilatation. Trace mitral regurgitation. No aortic valve stenosis or regurgitation. Trace tricuspid regurgitation. Right ventricular systolic pressure estimated at 38 mmHg. No pulmonic regurgitation. Dilated IVC. Lower extremity Doppler study: No evidence of deep vein thrombosis in either lower extremity. Subcutaneous tissue edema within both lower extremities. Arnett's cyst within each popliteal fossa. Assessment/Plan Assessment/Plan Assessment: 1. Anemia, with possible GI bleed 2. Lower extremity edema with elevated proBNP. Possible acute HFpEF. Recommendations: 1. Lasix 40 milligrams IV q.12 hours 2. Follow input and output with daily weights 3. Check basic metabolic profile daily 4. echocardiogram 5. EKG Consult Acknowledgment - Thank you for your consult request.
[2016-04-12 21:50] VITALS: BP 120/56
[2016-04-12 23:54] VITALS: BP 151/77
[2016-04-13 00:51] VITALS: BP 110/72
[2016-04-13 08:11] LABS: ABSOLUTE BASOPHIL COUNT 0 /CUMM (0.0-0.2); ABSOLUTE EOSINOPHIL COUNT 0.1 /CUMM (0.0-0.7); ABSOLUTE GRANULOCYTE CT 33.8 /CUMM (1.4-6.5); ABSOLUTE LYMPH COUNT 1.3 /CUMM (1.2-3.4); ABSOLUTE MONOCYTE COUNT 4.7 /CUMM (0.10-0.60); BASOPHIL % 0 % (0.0-2.0); EOSINOPHIL % 0.2 % (0-5); GRANULOCYTE % 84.7 % (42.2-75.2); HEMATOCRIT 26.8 % (42-52); MEAN CORPUSCULAR HGB 24.9 PG (27.0-31.0); MEAN CORPUSCULAR HGB CONC 31.2 G/DL (33.0-37.0); MEAN CORPUSCULAR VOLUME 79.9 FL (80.0-94.0); MEAN PLATELET VOLUME 7.3 FL (7.4-10.4); RBC DISTRIBUTION WIDTH 18.3 % (11.5-14.5); RED BLOOD CELL CT 3.35 /CUMM (4.70-6.10)
[2016-04-13 08:16] VITALS: BP 114/56
[2016-04-13 08:34] LABS: PT 13.9 SEC (9.4-12.5)
--- NOTE | 2016-04-13 09:08 | PN- Housestaff ---
BASSAM LYNCH 04/13/16 0907: Subjective Follow-up For: Anemia Subjective: I have seen and examined the patient. he is NPO for EGD. complains of mild throat discomfort. Review of Systems Constitutional: Reports: see HPI. Objective Last 24 Hrs of Vital Signs/I&O Vital Signs Date Time Temp Pulse Resp B/P Pulse O2 O2 Flow FiO2 Ox Delivery Rate 04/14 0953 86 110/52 04/14 0834 95 Nasal 2.0L Cannula 04/14 0821 97.6 86 20 110/52 97 Nasal 4.0L Cannula 04/14 0800 Nasal 4.0L Cannula 04/14 0513 92 Nasal 3.0L Cannula 04/14 0000 Nasal 4.0L Cannula 04/13 2329 98.1 96 22 130/60 93 04/13 1745 94 Nasal 3.0L Cannula 04/13 1645 98.4 89 21 108/64 93 Room Air 04/13 1600 Nasal 3.0L Cannula 04/13 1451 114/58 04/13 1401 92 Nasal 2.0L Cannula Intake & Output 04/14 1600 04/14 0800 04/14 0000 Intake Total 240 600 Output Total 400 Balance 240 200 Intake, Oral 240 600 Output, Urine 400 Physical Exam General Appearance: Alert, Oriented X3, Cooperative Other Physical Findings: Skin: No Rashes, No Breakdown, No Significant Lesion HEENT: Atraumatic, PERRLA, EOMI Neck: Supple Cardiovascular: Regular Rate, Normal S1, Normal S2, No Murmurs Lungs: Normal Air Movement Abdomen: Soft, No Tenderness Neurological: Normal Tone, Cranial Nerves 3-12 NL Current Medications: Current Medications Sig/Dung Start time Last Medication Dose Route Stop Time Status Admin Acetaminophen 650 MG Q6P PRN 04/10 2000 AC PO Acetazolamide 250 MG ONCE ONE 04/14 1045 AC PO 04/14 1046 Albuterol Sulfate 3 ML EVERY 4 HRS/AWAKE 04/11 1200 AC 04/14 INH 0833 Benzocaine/Menthol 1 CHOLO Q2P PRN 04/13 1200 AC PO Ceftriaxone Sodium 1,000 MG DAILY@04/10 DC 04/13 IV 1957 Escitalopram Oxalate 20 MG DAILY 04/11 1000 AC 04/14 PO 0953 Fentanyl Citrate 100 MCG .STK-MED ONE 04/13 1356 DC IM 04/13 1357 Ferrous Sulfate 325 MG DAILY 04/14 1000 AC 04/14 PO 0953 Finasteride 5 MG DAILY 04/11 1000 AC 04/14 PO 0953 Furosemide 40 MG BID 04/13 1000 DC 04/14 IV 0953 Guaifenesin 600 MG Q12 04/13 2200 AC 04/14 PO 0958 Omeprazole 40 MG DAILY AC 04/11 0700 AC 04/14 PO 0553 Patient Medication 1 ED .STK-MED ONE 04/13 1337 DC Teaching ED 04/13 1338 Patient Medication 1 UNIT ONE NR 04/13 0645 DC Teaching ED 04/13 1245 Potassium Chloride 10 MEQ Q1H 04/13 1030 DC 04/13 IV 04/13 1131 1445 Potassium Chloride 20 MEQ BID 04/13 1000 AC 04/14 PO 0953 Pregabalin 100 MG BID 04/10 2200 AC 04/14 PO 0958 Tamsulosin HCl 0.4 MG DAILY 04/11 1000 AC 04/14 PO 0953 Tiotropium [place] 1 PUF DAILY 04/11 1000 AC 04/14 INH 0953 Assessment/Plan Assessment: 70-year-old gentleman past medical history significant for previous history of bright red blood per rectum, gastroesophageal reflux disease, Laryngeal cancer s /p epiglottic resection 8 years ago, family history of colon cancer in father, COPD on intermittent home oxygen, recently diagnosed myelodysplastic syndrome Anemia H&H 8.9 after rbc transfusion * Patient going down for EGD today in the ICU. * CBC every 12 hours * Follow-up B12, methylmalonic acid, red blood cell folate labs. * CT scna of abdomen showed no retropritoenal bleeds * guaic all stools lower extremity swellingr: In view of elevated proBNP (1840) * echp pending * Elevate legs * Follow-up echo * will follow Cardiology consult Leukocytosis/MDS * hematologic malignancy VS leukmoid rxn * followed by Dr. Ledezma for MDS * f/up peripheral flow cytometry, fibrinogen COPD continue supplemental oxygen TRC/neb 4. BPH (benign prostatic hypertrophy) continue flomax and proscar 5. DVT prophylaxis Alps 6. Full code status Problem List: 1. Anemia Pain Ratin Pain Location: no pain Pain Goal: Remain pain free Pain Plan: same Tomorrow's Labs & Rationales: cbc bep DAVE COLEMAN,NEAL 04/13/16 1209: Attending MD Review Statement Attending Statement Attending MD Statement: examined this patient, discuss w/resident/PA/[employer], agreed w/resident/PA/[employer], discussed with family, reviewed EMR data (avail), discussed with nursing, amended to note Attending Assessment/Plan: Patient seen and examined. Resting comfortably and not in acute distress. No issues overnight. Reports when comfortable this morning. Denies shortness of breath. Denies cough. He reports mild sore throat. His hemoglobin level improved with transfusion yesterday and has been stable. His white cell count is trending down. No significant change of his platelet counts overnight. He has been developing by the gastroenterology service and will be proceeding with an EGD later on today to further evaluate his acute on chronic anemia. His renal function is stable with diuretic therapy however he is hypokalemic. On examination he has diminished breath sounds in the bases. No JVD. His bilateral lower extremity edema is improving. Problems: 1. Acute on chronic anemia; likely secondary to underlying MDS. 2. Leukocytosis/Thrombocytopenia; secondary to underlying MDS. No evidence of blast transformation at present. 3. Dyspnea; secondary to symptomatic anemia. Bilateral lower extremity edema, trace pleural effusion and elevated BNP raise concern for congestive heart failure. 4. Non-oxygen dependent COPD. Plan: -Supplement potassium orally today. He did receive a dose IV as he is nothing by mouth for EGD today. -Follow-up EGD findings and recommendations post procedure. -Monitor CBC daily. -Continue diuresis with Lasix 40 mg IV twice a day. Transition to oral Lasix tomorrow. -Follow-up echocardiogram results. -Continue to wean off oxygen supplementation as tolerated. -Lozenges have been ordered for his sore throat.
[2016-04-13 09:54] LABS: PLATELET COUNT 40 /CUMM (130-400)
[2016-04-13 09:58] LABS: WHITE BLOOD CELL COUNT 39.9 /CUMM (4.8-10.8)
--- NOTE | 2016-04-13 09:58 | CT SCAN REPORT ---
EXAMINATION: CT ABDOMEN AND PELVIS WITHOUT CONTRAST CLINICAL INFORMATION: Decreased hematocrit. Evaluate for retroperitoneal bleed. COMPARISON: Previous CT of the abdomen and pelvis July 2010 and renal ultrasound report October 2012 (images not available). TECHNIQUE: Multidetector volumetric imaging was performed from the superior aspect of the liver through the pubic symphysis. Sagittal and coronal reformatted images were obtained on the technologist's workstation. DLP: 793 mGy-cm FINDINGS: There is bibasilar bronchial wall thickening. There are scattered peribronchial nodules or tree-in-bud appearance seen in the visualized right middle lobe and lingula. There are denser peribronchial nodular opacities and consolidation seen in the bilateral lower lobes suggestive of bilateral lower lobe bronchopneumonia. There may be a trace pericardial effusion or pericardial thickening. This is similar to the previous exam. There is a low-attenuation lesion high in the left lobe of the liver that measures 9 x 12 mm (axial image 9, series 2). This is similar to the July 2010 exam and, therefore, probably benign. The liver is otherwise unremarkable. There is a gallstone in the gallbladder. The spleen is upper normal in size measuring 13 cm in length. The pancreas and left adrenal gland are normal. There is a 1 x 1.5 cm low-attenuation right adrenal nodule that is stable from the 2010 exam and, therefore, probably benign. There is a slightly complex cyst in the lateral mid left kidney measuring 2 cm. This demonstrates a focal small focus of wall calcification. There is a 3.3 cm simple-appearing cyst exophytic to the mid right kidney. The kidneys are otherwise unremarkable. The bladder is normal. The prostate gland does not appear enlarged. There is evidence of severe colonic diverticulosis. No evidence of diverticulitis is seen. There is an area of mild wall thickening of the sigmoid colon (axial image 57, series 2). This may be related to diverticular disease. Correlation with colonoscopy is recommended. There is no evidence of retroperitoneal hemorrhage. The abdominal aorta is normal in caliber. No aneurysm is seen. There is shotty retroperitoneal lymphadenopathy. No enlarged lymph nodes are seen. There is no ascites. There is a small umbilical hernia containing fat. Review at bone windows demonstrates degenerative change. IMPRESSION: Normal caliber abdominal aorta. No aneurysm or evidence of retroperitoneal hematoma. Bilateral lower lobe bronchopneumonia. Severe diverticulosis. No evidence of diverticulitis. Wall thickening of the sigmoid colon. This may be related to diverticular disease. Correlation with colonoscopy recommended. Upper normal-sized spleen. Stable low-attenuation right adrenal lesion and bilateral renal cysts. Gallstones.
--- NOTE | 2016-04-13 11:10 | PN- Gastroenterology ---
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 The patient stopped his iron supplements a few months ago. 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 Peyman Aguilar. *There is a family history of colon cancer in the patient's father (who also had prostate Ca), age of onset unknown. There is no family history of additional GI malignancy, GI disease, or inherited liver disease. The patient was recently diagnosed with MDS per Dr. 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 09/11/2015: Liver- spleen scan- mild colloid shift with equal activity in the liver and spleen, and suggestion of splenomegaly. The patient was seen by pulmonary 04/10/2016, at which point, O2 sat 2L- 79%, and the patient was admitted to [facility] that day. He noted increased fatigue, BENJAMIN, peripheral edema, and orthopnea, for a few weeks [employer]. *He was never transfused prior to the 04/10/2016 admission. * Please note, labs per hematology 01/29/2016: WBC 20.1, HCT 30.7, elevated MCV 105, PLT 94. 04/10/2016: Admission H/H 6.1/19.8, MCV 75.6, WBC 61.3 (74S/7B/7L/ 6M/3Meta/3Myelo), PLT 60. *Stools were guaiac-negative in the ER on admission. * WBC subsequently van to 83.2 the following day. *Peripheral smear without blasts or schistocytes, per hematology. We'll 32,016: Elevated d-dimer 799 probably subsequent Doppler of legs negative for DVT). 04/11/2016: Fibrinogen- 261. 04/11/2016: *Flow cytometry- pending. *The patient received 2 units PRBC on 04/10/2016 for Hgb 6.1. *Hemoglobin van to 7.4 on 04/11/2016, dropping to 6.9 on 04/12/2016, prompting the GI consult. He is currently getting his third unit PRBC. *There is lab evidence of iron deficiency, which apparently is not new, according to the patient. *Extensive past GI workup, per Dr. Peyman Aguilar: 09/30/2007: EGD/Colonoscopy to cecum (done for screening, BRBPR, GERD, dysphagia )- removal of 2 benign subcentimeter colonic TA (poor prep), large internal hemorrhoids, extensive pandiverticulosis coli; Z line at 40 cm, small lower esophageal ring left intact, small hiatal hernia, fleshy polypoid lesion 1.5 cm above the aretynoid (post resection of epiglottis). 06/09/2013: EGD to D2/Colonoscopy to cecum for GI bleed (in the setting of ASA 81 mg daily)- abnormal hypopharynx/larynx with leukoplakia and telangiectasias ( f/b ENT), antral erosion, small antral gastric ulcer with tiny red spot at the greater curvature, without therapeutics, patent pylorus without GOO, biopsies- mild to moderate gastritis, H. pylori negative; extensive pandiverticulosis coli , large internal hemorrhoids, diminutive colon "polyp" removed- nonspecific chronic inflammation, without recurrent adenomas. 10/18/2013: EGD- deformed hypopharynx/larynx without change, healed gastric ulcer, with biopsies of gastric antrum and fundus- mild to moderate gastritis, H. pylori negative, no intestinal metaplasia, no dysplasia. *No varices or portal gastropathy seen. The patient has been off baby aspirin since 06/09/2013. He does not take any NSAIDs. He does use Tylenol as needed. He claims he has been off alcohol for a few months, and previously used it sporadically. There is no history of IVDA, needle sticks, or tattoos. He denies any jaundice, dark urine, light stool, pruritus, or confusion. He denies any history of viral hepatitis. The patient did have some scant epistaxis, which resolved. He denies any gum bleeding. His reflux symptoms are very stable on Omeprazole 40 mg daily. He denies any odynophagia or dysphagia, but has to be careful when swallowing, since his epiglottis resection. He denies any nausea, vomiting, hematemesis, early satiety, abdominal pain, melena, diarrhea, constipation, obstipation, tenesmus, change in stool caliber, or rectal bleeding. There is no history of abdominal trauma to suggest a retroperitoneal bleed. He denies any fevers, chills, symptoms of UTI, or URI. There is no gross hematuria or hemoptysis. The patient denies any chest pain. He is a little short of breath, which is improving after transfusions and prophylactic Lasix. His orthopnea and peripheral edema are noted. The patient was empirically put on IV Ceftriaxone 1 g daily on admission, to cover urine/lungs, in view of leukocytosis, which is probably secondary to MDS. The patient's weight is relatively stable and his appetite is good. He currently is on a heart healthy diet. 04/10/2016: Admission labs- H/H 6.1/19.8, MCV 75.6, RDW 17.6, WBC 61.3 (74S/7B/ 7L/6M/3Meta/3Myelo), PLT 60, PT 14.8, INR 1.41, PTT 23, elevated d-dimer 799, glucose 167, BUN/Cr 13/0.7, GFR > 60, normal electrolytes with bicarbonate 29, AG 11, albumin 3.5, globulin 2.8, TBil 1.6 (without fracs), alk phos 83, AST 18, ALT 26, troponin < .01 (neg x 2), elevated BNP 1840, *Fe 14, TIBC 487, *Fe sat 2.9%, *ferritin 14.7 04/10/2016: U/A- turbid, stroke, packed amorphous material, > 1.030, 6.0, tr prot, micro-otherwise negative; negative nitrite, negative esterase. 04/10/2016: UC- negative. 04/10/2016: ABG- 4L nc- 7.35/52/71/90/HCO3 28, CO HB 3.0 04/11/2016: Fibrinogen 261. 04/11/2016: *Flow cytometry- pending. 04/10/2016: XR PORTABLE CHEST- Increased markings at the lung bases could be associated with a small airways process. Small right pleural effusion versus pleural thickening. 04/11/2016: US TRIPLEX LOWER EXTREMITY, BILATERAL- No evidence of deep vein thrombosis in either lower extremity. Subcutaneous tissue edema within both lower extremities. Arnett's cyst within each popliteal fossa. *I feel that the vast majority of the patient's abnormal cell lines are primarily hematologic in nature, with underlying myelodysplastic syndrome, rule out progression to more serious entities. No blasts or schistocytes were seen on the peripheral smear. Apparently, the patient's iron deficiency has been for the past year, however he stopped his iron months ago. He currently is not on any aspirin or NSAIDs. There is no history of abdominal trauma to suggest a retroperitoneal bleed, keeping in mind the guaiac-negative stool, however this should be excluded. He has a remote history of a benign gastric ulcer 2013 in the setting of baby aspirin use at that time, which was stopped then. Gastric biopsies then were negative for H. pylori. The past history of moderate alcohol intake is noted. I do not think the patient is cirrhotic [despite the thrombocytopenia, which is probably bone marrow related, and the borderline elevated INR- on antibiotics; his albumin:globulin ratio is normal]. Previous EGD have not shown any varices or portal gastropathy. 09/11/2015: Liver spleen scan showed very mild colloid shift, with equal activity in the liver and spleen , with suggestion of mild splenomegaly. The past history of colon adenomas are noted. [*The [employer] computer showed remote "rectal adenocarcinoma" in 1982, however this was probably filing error and pertained to the patient's father, who had the same name]. Having stated that MDS is the probable culprit for the anemia, the patient's transfusion requirements have increased, and a recurrent ulcer should be excluded. The risks and benefits of EGD were discussed with the patient in the presence of his and his 2 children, Ameena & Luis Antonio, and he wishes to proceed. Informed consent for EGD was obtained from him. He is aware that he is at higher than average risk for this, based on his numerous comorbidities. He was also informed of the potential need for prophylactic intubation with sedation. Hopefully, his blood parameters will allow me to proceed. He tolerated solids po on 04/12/2016, and in view of the holiday schedule, I will have to make arrangements to temporarily transfer the patient to the ICU on 04/13/2016, in order to perform the EGD with anesthesia assistance. *As of 04/13/2016, the patient is more comfortable after an additional 2u PRBC on 04/12/2016 (for a total of 4u PRBC this admission). He is less short of breath and his O2 requirements have improved. He is hemodynamically stable and afebrile. O2 sat 2L nc- 96%. There is no overt GI bleeding or melena. Stools are been OB negative. GI review of systems from above and below remain negative except for minimal GERD, stable on Omeprazole 40 mg po daily. His thrombocytopenia currently prohibits biopsies. His leukocytosis is improving. He denies any chest pain or abdominal pain. He has no neurologic complaints, except for his restless leg syndrome. Potassium is to be repleted parenterally preop. *He is NPO for EGD. *04/13/2016: CT AP w/o contrast- negative retroperitoneal bleed. 04/13/2016: WBC 39.9 (63S/17B/3L/7M/8Meta/2Myelo), H/H 8.3/26.8, MCV 79.9, RDW 18.3, PLT 40, PT 13.9, INR 1.33, *K+ 3.1 04/13/2016: *B12 > 1000, folate 5.9 04/13/2016: *Hep A Ab, Hep Bs Ag, Hep B core Ab, Hep C Ab- all negative. 04/13/2016: EKG- NSR @ 93, RBBB, LPHB, without acute ischemic changes. 04/13/2016: CT ABDOMEN AND PELVIS WITHOUT CONTRAST- Normal caliber abdominal aorta. *No aneurysm or evidence of retroperitoneal hematoma. Bilateral lower lobe bronchopneumonia (*on Ceftriaxone). Severe diverticulosis. No evidence of diverticulitis. Wall thickening of the sigmoid colon. This may be related to diverticular disease. Correlation with colonoscopy recommended. Upper normal-sized spleen 13 cm. Stable low-attenuation right adrenal lesion and bilateral renal cysts. Incidental gallstones. Small umbilical hernia with fat. SUGGEST: Maintain NPO. For EGD later today, on 04/13/2016 (*will defer small bowel biopsy , in view of thrombocytopenia), in the ICU. I have again spoken with the nursing casino slot supervisor, who will coordinate this with the agronomy advisor GI RNs & anesthesia. Continue empiric PPI, currently on Omeprazole 40 mg po daily. T&C 4u PRBC. Check CBC twice a day for now. Keep Hgb > 7. Supplemental oxygen as needed. *Consider celiac panel (IgA, tTG Ab, DGP Ab; doubt malabsorption). *If EGD negative, consideration for repeat colonoscopy vs. outpatient [facility], although I feel the yield of a repeat colonoscopy in view of the relatively recent study and thrombocytopenia is low. *Await 04/11/2016: Flow cytometry, as per hematology. *Will defer to hematology regarding institution of Hydrea. * Consider adding MMA to pre-transfusion admission labs, to rule out mixed deficiency, with elevated RDW. *Consideration for checking MARTHA, & AMA, regarding the question of cirrhosis (again, iron studies are low, without evidence of iron overload). *Await echocardiogram per medical team, in view of peripheral edema. *Replete K+ IV preop. *Eventual Fe repletion. The above findings and recommendations were previously discussed with the medical house staff. I also had a lengthy discussion with the patient, his , and his 2 children at the bedside on 04/12/2016, regarding the above plans. I also spoke with the patient and his son, Luis Antonio, at the bedside on 04/13/2016, as well as with Dr. Diaz & Dr. Wakefield. Dr. Peyman Aguilar will resume the patient's GI care on 04/14/2016, but again, I feel the primary etiology for the anemia is MDS. Further recommendations to follow, depending on clinical course & EGD results. Problem List: 1. Iron deficiency anemia 2. GERD (gastroesophageal reflux disease) 3. History of peptic ulcer disease 4. History of adenomatous polyp of colon 5. Diverticulosis of colon 6. Family history of colon cancer 7. MDS (myelodysplastic syndrome) Subjective Subjective: *As of 04/13/2016, the patient is more comfortable after an additional 2u PRBC on 04/12/2016 (for a total of 4u PRBC this admission). He is less short of breath and his O2 requirements have improved. He is hemodynamically stable and afebrile. O2 sat 2L nc- 96%. There is no overt GI bleeding or melena. Stools are been OB negative. GI review of systems from above and below remain negative except for minimal GERD, stable on Omeprazole 40 mg po daily. His thrombocytopenia currently prohibits biopsies. His leukocytosis is improving. He denies any chest pain or abdominal pain. He has no neurologic complaints, except for his restless leg syndrome. Potassium is to be repleted parenterally preop. *He is NPO for EGD. *04/13/2016: CT AP w/o contrast- negative retroperitoneal bleed. 04/13/2016: WBC 39.9 (63S/17B/3L/7M/8Meta/2Myelo), H/H 8.3/26.8, MCV 79.9, RDW 18.3, PLT 40, PT 13.9, INR 1.33, *K+ 3.1 04/13/2016: *B12 > 1000, folate 5.9 04/13/2016: *Hep A Ab, Hep Bs Ag, Hep B core Ab, Hep C Ab- all negative. 04/13/2016: EKG- NSR @ 93, RBBB, LPHB, without acute ischemic changes. 04/13/2016: CT ABDOMEN AND PELVIS WITHOUT CONTRAST- Normal caliber abdominal aorta. No aneurysm or evidence of retroperitoneal hematoma. Bilateral lower lobe bronchopneumonia (*on Ceftriaxone). Severe diverticulosis. No evidence of diverticulitis. Wall thickening of the sigmoid colon. This may be related to diverticular disease. Correlation with colonoscopy recommended. Upper normal-sized spleen 13 cm. Stable low-attenuation right adrenal lesion and bilateral renal cysts. Gallstones. Small umbilical hernia with fat. Review of Systems: Full 14 point review of systems otherwise noncontributory, and as per HPI. Review of Systems Constitutional: Denies: chills, diaphoresis, fever, malaise, weakness, unexplained weight loss. EENTM: Denies: blurred vision, double vision, visual changes, eye pain, eye drainage, eye tearing, icterus, ear discharge, ear pain, ear redness, hearing changes, nasal congestion, epistaxis, nasal pain, throat pain, throat swelling, mouth pain, tooth pain. Cardiovascular: Reports: orthopena, peripheral edema. Denies: chest pain, edema, palpitations, syncope. Respiratory: Reports: orthopnea, short of breath (better after transfusion). Denies: cough, hemoptysis, sputum production, stridor, wheezing. GI: Reports: no symptoms (stable GERD, swallows slowly, post resection of epiglottis ). Denies: abdominal pain, bloating, constipation, diarrhea, distention, bowel incontinence, melena, nausea, bloody stool, changes in stool, vomiting, steatorrhea. Genitourinary: Reports: frequency (BPH), nocturia (BPH). Denies: discharge, dysuria, hematuria, hesitation, pain, urgency. Musculoskeletal: Denies: back pain, gout, joint pain, joint swelling, muscle pain, muscle stiffness, neck pain. Skin: Denies: cysts, change in skin color, change in hair/nails, dryness, erythema, jaundice, lesions, lymphangitis, lumps, moles, rash. Neurological/Psychological: Reports: depressed, other (restless legs). Denies: anxiety, ataxia, cognitive dysfunction, confusion, dementia, emotional problems, headache, numbness, paresthesia, pre-existing deficit, petit mal seizures, tingling, tremors, tonic-clonic seizures, unable to move lower ext, unable to move upper ext, weakness. Hematologic/Endocrine: Reports: bruising, other (MDS). Denies: bleeding, polyuria, polydipsia. Immunologic/Allergic: Denies: splenectomy, HIV/AIDS, lymphadenopathy. All Other Systems: Reviewed and Negative Objective Vital Signs and I&Os Vital Signs Date Time Temp Pulse Resp B/P Pulse O2 O2 Flow FiO2 Ox Delivery Rate 04/13 0822 96 Nasal 2.0L Cannula 04/13 0816 97.6 91 22 114/56 90 Nasal 3.0L Cannula 04/13 0051 97.7 88 20 110/72 93 Nasal 3.0L Cannula 04/13 0000 Nasal 3.0L Cannula 04/12 2150 97.8 94 20 120/56 95 Nasal 3.0L Cannula 04/12 1700 93 Nasal 3.0L Cannula 04/12 1600 Nasal 3.0L Cannula 04/12 1556 98.2 90 20 128/52 93 Nasal 3.0L Cannula Intake & Output 04/13 1600 04/13 0400 04/12 1600 04/12 0400 04/11 1600 04/11 0400 Intake Total 350 600 240 186 509 9879 Output Total 1700 1650 450 600 550 Balance -1350 -1050 -210 240 -260 650 Intake, Blood 350 700 Product Intake, IV 0 Intake, Oral 600 240 240 340 500 Number 0 Bowel Movements Output, Urine 1700 1650 450 600 550 Patient 208 lb Weight Physical Exam: Well-developed, well-nourished, slightly obese male, in no apparent distress. Sclera anicteric. Conjunctiva less pale. Oropharynx clear. No oral thrush. No aphthous ulcers. False upper & lower teeth. No stridor. No obvious oral lesions on limited exam. There is no adenopathy, thyromegaly, or JVD. No HJR. No peripheral stigmata of inflammatory bowel disease or chronic liver disease on exam, except for mild gynecomastia bilaterally, without any masses or discharge, probably from obesity. No spiders on the anterior chest wall. No CVA tenderness. Lungs: clear to A&P, with slight decreased breath sounds at the right base and a few scattered wheezes. No rales or rhonchi. Heart exam: regular rate rhythm, S1 and S2, without any murmur. Abdominal exam: normal bowel sounds, soft belly, mildly obese, nontender, without guarding or rebound. Tiny reducible umbilical hernia, otherwise no mass. Negative Rascon sign. No definite organomegaly (I do not appreciate a definite spleen tip). No fluid shift. No pulsatile mass. No epigastric bruit. Repeat digital rectal exam deferred (reportedly OB negative in the ER on 04/10/2016 admission). Extremities: without cyanosis or clubbing. < 2+ pitting edema of LE B/L. No palpable cords. Distal pulses 1+ bilaterally. DTRs 2+ bilaterally. Mild DJD. No acute arthropathy. No rash. Diffuse bruising & ecchymosis (MDS). No palmar erythema. No Dupuytren's contractures. Right-handed. CN II-XII intact. Alert and oriented x 3. No tremor. No asterixis. A detailed exam for peripheral neuropathy was deferred. Restless leg syndrome by history. Current Medications: Current Medications Sig/Dung Start time Last Medication Dose Route Stop Time Status Admin Acetaminophen 650 MG Q6P PRN 04/10 2000 AC PO Albuterol Sulfate 3 ML EVERY 4 HRS/AWAKE 04/11 1200 AC 04/13 INH 1113 Ceftriaxone Sodium 1,000 MG DAILY@04/10 AC 04/12 IV 2042 Escitalopram Oxalate 20 MG DAILY 04/11 1000 AC 04/12 PO 0949 Finasteride 5 MG DAILY 04/11 1000 AC 04/12 PO 0950 Furosemide 40 MG BID 04/13 1000 AC IV Furosemide 40 MG ONCE ONE 04/12 1645 DC 04/12 IV 04/12 1646 2042 Omeprazole 40 MG DAILY AC 04/11 0700 AC 04/13 PO 0602 Patient Medication 1 UNIT ONE NR 04/13 0645 AC Teaching ED 04/13 1245 Potassium Chloride 10 MEQ Q1H 04/13 1030 AC IV 04/13 1131 Potassium Chloride 20 MEQ BID 04/13 1000 AC PO Potassium Chloride 20 MEQ ONCE ONE 04/13 0545 DC 04/13 PO 04/13 0546 0605 Pregabalin 100 MG BID 04/100 AC 04/12 PO 2151 Tamsulosin HCl 0.4 MG DAILY 04/11 1000 AC 04/12 PO 0949 Tiotropium [place] 1 PUF DAILY 04/11 1000 AC 04/12 INH 0952 Results Pertinent Lab Results: Laboratory Tests 04/13 04/13 0726 0600 Chemistry Sodium (137 - 145 mmol/L) 136 L Potassium (3.5 - 5.1 mmol/L) 3.1 L Chloride (98 - 107 mmol/L) 89 L Carbon Dioxide (22 - 30 mmol/L) 40 H Anion Gap (5 - 16) 7 BUN (9 - 20 mg/dL) 12 Creatinine (0.7 - 1.2 mg/dL) 0.7 Estimated GFR (>60 ml/min) > 60 BUN/Creatinine Ratio (7 - 25 %) 17.1 Vitamin B12 (239 - 931 pg/mL) > 1000 H Folate (2.76 - 20.0 ng/mL) 5.9 Coagulation PT (9.4 - 12.5 SEC) 13.9 H INR (0.90 - 1.17) 1.33 H Hematology CBC w Diff MAN DIFF ORDERED WBC (4.8 - 10.8 /CUMM) 39.9 *H RBC (4.70 - 6.10 /CUMM) 3.35 L Hgb (14.0 - 18.0 G/DL) 8.3 L Hct (42 - 52 %) 26.8 L MCV (80.0 - 94.0 FL) 79.9 L MCH (27.0 - 31.0 PG) 24.9 L RDW (11.5 - 14.5 %) 18.3 H Plt Count (130 - 400 /CUMM) 40 L MPV (7.4 - 10.4 FL) 7.3 L Gran % (42.2 - 75.2 %) 84.7 H Lymphocytes % (20.5 - 51.1 %) 3.2 L Monocytes % (1.7 - 9.3 %) 11.9 H Eosinophils % (0 - 5 %) 0.2 Basophils % (0.0 - 2.0 %) 0 L Absolute Granulocytes (1.4 - 6.5 /CUMM) 33.8 H Segmented Neutrophils (42.2 - 75.2 %) 63 Band Neutrophils (0.0 - 5.0 %) 17 H Absolute Lymphocytes (1.2 - 3.4 /CUMM) 1.3 Lymphocytes (20.5 - 51.1 %) 3 L Monocytes (1.7 - 9.3 %) 7 Absolute Monocytes (0.10 - 0.60 /CUMM) 4.7 H Absolute Eosinophils (0.0 - 0.7 /CUMM) 0.1 Absolute Basophils (0.0 - 0.2 /CUMM) 0 Metamyelocytes (0.0 - 1.0 %) 8 H Myelocytes (0 - 0 %) 2 H Polychromasia 2+ Hypochromic-Microcytic 2+ Poikilocytosis 2+ Anisocytosis 2+ Microcytic Cells 1+ PUBS MCHC (33.0 - 37.0 G/DL) 31.2 L Serology Hepatitis A IgM Ab (NONREACTIVE) NONREACTIVE Cancelled Hep Bs Antigen (NONREACTIVE) NONREACTIVE Cancelled Hep B Core IgM Ab Conf (NONREACTIVE) NONREACTIVE Cancelled Hepatitis C Antibody (NONREACTIVE) NONREACTIVE Cancelled 04/12 04/12 7771 9025 Chemistry Sodium (137 - 145 mmol/L) 133 L Potassium (3.5 - 5.1 mmol/L) 3.4 L Chloride (98 - 107 mmol/L) 90 L Carbon Dioxide (22 - 30 mmol/L) 34 H Anion Gap (5 - 16) 9 BUN (9 - 20 mg/dL) 14 Creatinine (0.7 - 1.2 mg/dL) 0.6 L Estimated GFR (>60 ml/min) > 60 BUN/Creatinine Ratio (7 - 25 %) 23.3 Hematology CBC w Diff NO MAN DIFF REQ MAN DIFF ORDERED WBC (4.8 - 10.8 /CUMM) 52.2 *H 59.0 *H RBC (4.70 - 6.10 /CUMM) 3.37 L 2.79 L Hgb (14.0 - 18.0 G/DL) 8.3 L 6.9 *L Hct (42 - 52 %) 26.9 L 21.9 L MCV (80.0 - 94.0 FL) 79.9 L 78.5 L MCH (27.0 - 31.0 PG) 24.5 L 24.7 L RDW (11.5 - 14.5 %) 18.0 H 18.4 H Plt Count (130 - 400 /CUMM) 47 L 43 L MPV (7.4 - 10.4 FL) 6.2 L 8.0 Gran % (42.2 - 75.2 %) 88.5 H 89.1 H Lymphocytes % (20.5 - 51.1 %) 3.0 L 3.6 L Monocytes % (1.7 - 9.3 %) 8.4 7.1 Eosinophils % (0 - 5 %) 0.1 0.2 Basophils % (0.0 - 2.0 %) 0 L 0 L Absolute Granulocytes (1.4 - 6.5 /CUMM) 46.2 H 52.5 H Segmented Neutrophils (42.2 - 75.2 %) 73 Band Neutrophils (0.0 - 5.0 %) 10 H Absolute Lymphocytes (1.2 - 3.4 /CUMM) 1.5 2.1 Lymphocytes (20.5 - 51.1 %) 2 L Monocytes (1.7 - 9.3 %) 9 Absolute Monocytes (0.10 - 0.60 /CUMM) 4.4 H 4.2 H Absolute Eosinophils (0.0 - 0.7 /CUMM) 0 0.1 Absolute Basophils (0.0 - 0.2 /CUMM) 0 0 Metamyelocytes (0.0 - 1.0 %) 4 H Myelocytes (0 - 0 %) 2 H Platelet Estimate (ADEQUATE) DECREASED Polychromasia 1+ Hypochromic-Microcytic 1+ Basophilic Stippling 1+ Anisocytosis 1+ Microcytic Cells 1+ Stomatocytes 1+ PUBS MCHC (33.0 - 37.0 G/DL) 30.7 L 31.5 L 04/11 04/11 04/11 1220 1111 0735 Chemistry Sodium (137 - 145 mmol/L) 134 L Potassium (3.5 - 5.1 mmol/L) 4.1 Chloride (98 - 107 mmol/L) 96 L Carbon Dioxide (22 - 30 mmol/L) 31 H Anion Gap (5 - 16) 7 BUN (9 - 20 mg/dL) 13 Creatinine (0.7 - 1.2 mg/dL) 0.6 L Estimated GFR (>60 ml/min) > 60 BUN/Creatinine Ratio (7 - 25 %) 21.7 Troponin I (<0.11 ng/ml) 0.01 Coagulation Fibrinogen Activity (200 - 393 MG/DL) 261 Hematology CBC w Diff MAN DIFF ORDERED WBC (4.8 - 10.8 /CUMM) 83.2 *H RBC (4.70 - 6.10 /CUMM) 3.06 L Hgb (14.0 - 18.0 G/DL) 7.4 *L Hct (42 - 52 %) 24.2 L MCV (80.0 - 94.0 FL) 79.0 L MCH (27.0 - 31.0 PG) 24.2 L RDW (11.5 - 14.5 %) 17.9 H Plt Count (130 - 400 /CUMM) 48 L MPV (7.4 - 10.4 FL) 7.2 L Gran % (42.2 - 75.2 %) 89.5 H Lymphocytes % (20.5 - 51.1 %) 1.7 L Monocytes % (1.7 - 9.3 %) 8.6 Eosinophils % (0 - 5 %) 0.2 Basophils % (0.0 - 2.0 %) 0 L Absolute Granulocytes (1.4 - 6.5 /CUMM) 74.5 H Segmented Neutrophils (42.2 - 75.2 %) 69 Band Neutrophils (0.0 - 5.0 %) 8 H Absolute Lymphocytes (1.2 - 3.4 /CUMM) 1.4 Lymphocytes (20.5 - 51.1 %) 1 L Monocytes (1.7 - 9.3 %) 6 Absolute Monocytes (0.10 - 0.60 /CUMM) 7.1 H Absolute Eosinophils (0.0 - 0.7 /CUMM) 0.1 Absolute Basophils (0.0 - 0.2 /CUMM) 0 Metamyelocytes (0.0 - 1.0 %) 10 H Myelocytes (0 - 0 %) 6 H Polychromasia 1+ Hypochromic-Microcytic 2+ Poikilocytosis 2+ Basophilic Stippling 1+ Anisocytosis 2+ Microcytic Cells 2+ Stomatocytes 2+ PUBS MCHC (33.0 - 37.0 G/DL) 30.7 L Miscellaneous Flow Cytometry Specimen Pending Cancelled 04/11 04/10 0030 1815 Hematology CBC w Diff MAN DIFF ORDERED WBC (4.8 - 10.8 /CUMM) 67.5 *H RBC (4.70 - 6.10 /CUMM) 3.05 L Hgb (14.0 - 18.0 G/DL) 7.3 *L Hct (42 - 52 %) 23.9 L MCV (80.0 - 94.0 FL) 78.4 L MCH (27.0 - 31.0 PG) 24.0 L RDW (11.5 - 14.5 %) 17.6 H Plt Count (130 - 400 /CUMM) 53 L MPV (7.4 - 10.4 FL) 6.9 L Gran % (42.2 - 75.2 %) 89.2 H Lymphocytes % (20.5 - 51.1 %) 2.7 L Monocytes % (1.7 - 9.3 %) 8.1 Eosinophils % (0 - 5 %) 0 Basophils % (0.0 - 2.0 %) 0 L Absolute Granulocytes (1.4 - 6.5 /CUMM) 60.2 H Segmented Neutrophils (42.2 - 75.2 %) 79 H Band Neutrophils (0.0 - 5.0 %) 6 H Absolute Lymphocytes (1.2 - 3.4 /CUMM) 1.9 Lymphocytes (20.5 - 51.1 %) 3 L Monocytes (1.7 - 9.3 %) 7 Absolute Monocytes (0.10 - 0.60 /CUMM) 5.5 H Absolute Eosinophils (0.0 - 0.7 /CUMM) 0 Absolute Basophils (0.0 - 0.2 /CUMM) 0 Metamyelocytes (0.0 - 1.0 %) 3 H Myelocytes (0 - 0 %) 2 H Platelet Estimate (ADEQUATE) DECREASED Polychromasia 2+ Hypochromic-Microcytic 1+ Poikilocytosis 2+ Basophilic Stippling 1+ Anisocytosis 1+ Microcytic Cells 1+ Ovalocytes 1+ Stomatocytes 1+ PUBS MCHC (33.0 - 37.0 G/DL) 30.6 L Other Body Source Fld Total RBCs Counted (%) 100 Urines Urinalysis PACKD H Urine Color (YEL,AMB,STR) STRAW Urine Clarity (CLEAR) TURBD H Urine pH (5.0 - 8.0) 6.0 Ur Specific [place] (1.001 - 1.035) >= 1.030 Urine Protein (NEG,<30 MG/DL) TRACE H Urine Ketones (NEG) NEG Urine Nitrite (NEG) NEG Urine Bilirubin (NEG) NEG Urine Urobilinogen (0.1 - 1.0 EU/dl) 1.0 Ur Leukocyte Esterase (NEG) NEG Ur Microscopic SEDIMENT EXAMINED Urine WBC (0 - 2 /HPF) RARE Ur Epithelial Cells (NONE,FEW) RARE Urine Hemoglobin (NEG) NEG Urine Glucose (N MG/DL) NEG 04/10 04/10 1436 1406 Blood Gas pH (7.35 - 7.45 PH) 7.35 pCO2 (35 - 45 TORR) 52 H pO2 (80 - 100 TORR) 71 L HCO3 (21 - 28 MEQ/L) 28 ABG O2 Sat (Measured) (>96.0 %) 90.0 L Carboxyhemoglobin (1.5 - 5.0 %) 3.0 O2 Concentration % 4LPM Temperature (97.0 - 100.0 FARH) 98.3 O2 Delivery Method NC Hematology Retic Count (0.5 - 2.0 %) 5.91 H Miscellaneous Phlebotomy Draw Site RIGHT RADIAL 04/10 1227 Chemistry Sodium (137 - 145 mmol/L) 137 Potassium (3.5 - 5.1 mmol/L) 4.1 Chloride (98 - 107 mmol/L) 98 Carbon Dioxide (22 - 30 mmol/L) 29 Anion Gap (5 - 16) 11 BUN (9 - 20 mg/dL) 13 Creatinine (0.7 - 1.2 mg/dL) 0.7 Estimated GFR (>60 ml/min) > 60 BUN/Creatinine Ratio (7 - 25 %) 18.6 Glucose (65 - 99 mg/dL) 167 H Calcium (8.4 - 10.2 mg/dL) 8.5 Magnesium (1.6 - 2.3 mg/dL) 1.6 Iron (49 - 181 ug/dL) 14 L TIBC (261 - 462 ug/dL) 487 H Ferritin (17.9 - 464 ng/mL) 14.7 L Total Bilirubin (0.2 - 1.3 mg/dL) 1.6 H AST (17 - 59 U/L) 18 ALT (21 - 72 U/L) 26 Alkaline Phosphatase (< 127 U/L) 83 Troponin I (<0.11 ng/ml) < 0.01 Ttl-T-Tyljlqzvabh Pept (<125 pg/mL) 1840 H Total Protein (6.3 - 8.2 g/dL) 6.3 Albumin (3.5 - 5.0 g/dL) 3.5 Globulin (1.9 - 4.2 gm/dL) 2.8 Albumin/Globulin Ratio (1.1 - 2.2 %) 1.3 Vitamin B12 (239 - 931 pg/mL) > 1000 H Coagulation PT (9.4 - 12.5 SEC) 14.8 H INR (0.90 - 1.17) 1.41 H APTT (25 - 37 SEC) 23 L D-Dimer (70 - 232 ng/ml) 799 H Hematology CBC w Diff MAN DIFF ORDERED WBC (4.8 - 10.8 /CUMM) 61.3 *H RBC (4.70 - 6.10 /CUMM) 2.62 L Hgb (14.0 - 18.0 G/DL) 6.1 *L Hct (42 - 52 %) 19.8 *L MCV (80.0 - 94.0 FL) 75.6 L MCH (27.0 - 31.0 PG) 23.1 L RDW (11.5 - 14.5 %) 17.6 H Plt Count (130 - 400 /CUMM) 60 L MPV (7.4 - 10.4 FL) 7.9 Gran % (42.2 - 75.2 %) 92.5 H Lymphocytes % (20.5 - 51.1 %) 2.0 L Monocytes % (1.7 - 9.3 %) 5.3 Eosinophils % (0 - 5 %) 0.1 Basophils % (0.0 - 2.0 %) 0.1 Absolute Granulocytes (1.4 - 6.5 /CUMM) 56.7 H Segmented Neutrophils (42.2 - 75.2 %) 74 Band Neutrophils (0.0 - 5.0 %) 7 H Absolute Lymphocytes (1.2 - 3.4 /CUMM) 1.2 Lymphocytes (20.5 - 51.1 %) 7 L Monocytes (1.7 - 9.3 %) 6 Absolute Monocytes (0.10 - 0.60 /CUMM) 3.3 H Absolute Eosinophils (0.0 - 0.7 /CUMM) 0 Absolute Basophils (0.0 - 0.2 /CUMM) 0 Metamyelocytes (0.0 - 1.0 %) 3 H Myelocytes (0 - 0 %) 3 H Platelet Estimate (ADEQUATE) DECREASED Polychromasia 2+ Hypochromic-Microcytic 3+ Poikilocytosis 3+ Basophilic Stippling Anisocytosis 3+ Microcytic Cells 2+ Stomatocytes 1+ PUBS MCHC (33.0 - 37.0 G/DL) 30.6 L Imaging/Other Studies: 04/10/2016: XR PORTABLE CHEST- Increased markings at the lung bases could be associated with a small airways process. Small right pleural effusion versus pleural thickening. 04/11/2016: US TRIPLEX LOWER EXTREMITY, BILATERAL- No evidence of deep vein thrombosis in either lower extremity. Subcutaneous tissue edema within both lower extremities. Arnett's cyst within each popliteal fossa. 04/13/2016: EKG- NSR @ 93, RBBB, LPHB, without acute ischemic changes. 04/13/2016: CT ABDOMEN AND PELVIS WITHOUT CONTRAST- Normal caliber abdominal aorta. No aneurysm or evidence of retroperitoneal hematoma. Bilateral lower lobe bronchopneumonia (*on Ceftriaxone). Severe diverticulosis. No evidence of diverticulitis. Wall thickening of the sigmoid colon. This may be related to diverticular disease. Correlation with colonoscopy recommended. Upper normal-sized spleen 13 cm. Stable low-attenuation right adrenal lesion and bilateral renal cysts. Gallstones. Small umbilical hernia with fat.
--- NOTE | 2016-04-13 13:12 | Proc Note Endoscopy ---
See Addendum Endoscopy Procedure Medical History: unchanged Mental Status: alert/oriented Heart/Lung Eval Prior to Sedation: within normal limits (COPD) Candidate for Sedation? Yes Procedure Date: 04/13/16 Procedure Type: EGD Testing Shaking Shipping: ETELVINA ASH MD ASA Classification: III (III-E) Indications: INDX: (*Please refer to extensive GI consult of 04/12/2016). 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 : *Flow cytometry-pending. No leukemia was seen on previous bone marrow aspirate. No blasts or schistocytes on peripheral smear. 06/09/2013: History of small , in the setting of remote baby aspirin therapy, bxs- benign inflammation, HP-negative. Simultaneous colonoscopy to cecum then- negative except extensive pandiverticulosis coli & internal hemorrhoids, without recurrent adenoma. 10/18/2013: Follow-up EGD- healed . Stable GERD, on Omeprazole 40 mg daily. *Stools OB-negative. 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 The patient stopped his iron supplements a few months ago. His wireless engineer is Dr. Peyman Aguilar. *There is a family history of colon cancer in the patient's father (who also had prostate Ca), age of onset unknown. There is no family history of additional GI malignancy, GI disease, or inherited liver disease. The patient was recently diagnosed with MDS per Dr. 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 09/11/2015: Liver- spleen scan- mild colloid shift with equal activity in the liver and spleen, and suggestion of splenomegaly. Past history of intermittent moderate alcohol use. *Extensive past GI workup, per Dr. Peyman Aguilar: 09/30/2007: EGD/Colonoscopy to cecum (done for screening, BRBPR, GERD, dysphagia )- removal of 2 benign subcentimeter colonic TA (poor prep), large internal hemorrhoids, extensive pandiverticulosis coli; Z line at 40 cm, small lower esophageal ring left intact, small hiatal hernia, fleshy polypoid lesion 1.5 cm above the aretynoid (post resection of epiglottis). 06/09/2013: EGD to D2/Colonoscopy to cecum for GI bleed (in the setting of ASA 81 mg daily)- abnormal hypopharynx/larynx with leukoplakia and telangiectasias ( f/b ENT), antral erosion, small antral gastric ulcer with tiny red spot at the greater curvature, without therapeutics, patent pylorus without GOO, biopsies- mild to moderate gastritis, H. pylori negative; extensive pandiverticulosis coli , large internal hemorrhoids, diminutive colon "polyp" removed- nonspecific chronic inflammation, without recurrent adenomas. 10/18/2013: EGD- deformed hypopharynx/larynx without change, healed gastric ulcer, with biopsies of gastric antrum and fundus- mild to moderate gastritis, H. pylori negative, no intestinal metaplasia, no dysplasia. *No varices or portal gastropathy seen. Instrument: diagnostic gastroscope Meds Received: MAC Patient's Tolerance: good Complications: none Extent Reached: D3 Procedure: Follow-up upper endoscopy to the third portion of the duodenum was performed with the Olympus high definition videoendoscope, after obtaining informed consent from the patient, with the secured entrance monitor and pulse oximeter, with the assistance of Dr. Mckeon, of [facility]. The patient was moved from room #216-2 to the ICU for the procedure, purely for purposes of sedation and monitoring. The patient's false upper and lower teeth were removed preoperatively. He was edentulous. A mouthpiece was placed in the usual fashion to protect the patient's oral cavity. The patient was placed in the left lateral decubitus position and sedated by [facility]. At this point , the endoscope was advanced from the mouth into the esophagus, using direct visualization technique. The vast majority of the epiglottis had been resected, with a smooth residual epiglottic nub seen. The hypopharynx was slightly distorted, with leukoplakia, post RT. I did not see any significant telangiectasias. The vocal cords appeared slightly scarred, but were otherwise normal, without any gross lesions. The esophageal mucosa appeared normal. There were no esophageal rings, webs, lesions, strictures, or ulcers. There was no monilia or vesicles. There was no esophageal ribbing. The Z line was well demarcated at 42 cm. There was a barely visible hiatal hernia pouch, without any Jeet erosions. No significant esophageal inflammation was seen. There were no ectopic islands, nor gross Maciel's esophagus. There were no esophageal or gastric varices, nor any Annie Ramos tear. The alvarado of the stomach distended normally with air insufflation. Direct and retroflexed views of the stomach were performed. There was nothing endoscopically to suggest gastroparesis or portal gastropathy. The mucosa of the gastric cardia, fundus, lesser curvature, incisura, and body appeared normal, without any gastric ulcers or gastric lesions. The gastric antrum was normal, except for some prepyloric erythema, which was left intact. There was no active bleeding in this region. The pylorus was patent, without any gastric outlet obstruction or channel ulcer. The duodenal bulb, duodenal sweep, and third portion of the duodenum appeared normal, without any duodenal ulcers, distal ulcerations, or angiodysplasias. Bile was seen in the duodenum. I was not able to see the ampulla with the direct-viewing scope. The folds of the second and third portions of the duodenum were normal in caliber, without any flattening, nodularity, scalloping, or mosaic pattern. In view of the thrombocytopenia with platelet count of 40K, random small bowel biopsies and biopsies of the prepyloric antral erythema were deferred. No active upper GI bleeding was seen. *Documenting photographs were obtained and placed inside the patient's chart. The patient tolerated the procedure well. Impression: 1. Distorted hypopharynx with leukoplakia, post RT. No significant telangiectasia seen. 2. Slightly scarred vocal cords, without any gross lesions. 3. Post epiglottic resection, with smooth residual epiglottic nub. 4. Z line at 42 cm, with scant hiatal hernia. 5. Prepyloric antral erythema. 6. Otherwise, normal study to the third portion of the duodenum. Ampulla not seen with the direct- viewing scope. No active upper GI bleeding seen. [*Biopsies deferred in view of thrombocytopenia, with platelet count 40K]. Recommendations: *Feed patient as tolerated. The patient will be moved back to General Medicine post procedure. Continue Omeprazole 40 mg po daily. T&C 4u PRBC. Check CBC twice a day for now. Keep Hgb > 7. Supplemental oxygen as needed. *Consider celiac panel (IgA, tTG Ab, DGP Ab; doubt malabsorption). Consideration for possible repeat colonoscopy vs. outpatient Pill[facility], although I feel the yield of a repeat colonoscopy in view of the relatively recent study of 06/09/2013 is low , also keeping in mind the history of thrombocytopenia. *Await 04/11/2016: Flow cytometry, as per hematology. *Will defer to hematology regarding institution of [place]. *Consider adding MMA to pre-transfusion admission labs, to rule out mixed deficiency, with elevated RDW. *Consideration for checking MARTHA, & AMA, regarding the question of cirrhosis (again, iron studies are low, without evidence of iron overload). *Await echocardiogram per medical team, in view of peripheral edema. *Replete K+. *Fe repletion. Dr. Peyman Aguilar will resume the patient's GI care on 04/14/2016, but again, I feel the primary etiology for the anemia is MDS. The above findings and recommendations were discussed with the patient, the patient's , the patient's son, Luis Antonio, and the patient's RN postoperatively, on 04/13/2016. Further recommendations to follow, depending on clinical course CC: MARY COLEMAN,LUCERO STERN M.D, MD,NIKUNJ Granados; FRANTZ COLEMAN, THERON Love; BHARAT COLEMAN,EMILYJose Eduardo HAMILTON MD,ETELVINA Juares; ANTOINETTE COLEMAN,MORENA Davis; Harry GATICA MD
--- NOTE | 2016-04-13 13:41 | PN- Hematology ---
Subjective Subjective: He feels about the same. He has been seen by Dr. Pedroza of GI. Patient is scheduled for EGD today. Patient denies any new symptoms. Review of Systems: Constitutional: Denies: chills, fever. Cardiovascular: Denies: chest pain. Respiratory: Reports: short of breath (improved). Gastrointestinal: Reports: constipation. Denies: abdominal pain. Genitourinary: Denies: dysuria. Musculoskeletal: Reports: joint pain. Neurological/Psychological: Denies: confusion. Hematologic/Endocrine: Reports: bruising. Denies: bleeding. All Other Systems: Reviewed and Negative Objective Vital Signs and I&Os Vital Signs Date Time Temp Pulse Resp B/P Pulse O2 O2 Flow FiO2 Ox Delivery Rate 04/13 0822 96 Nasal 2.0L Cannula 04/13 0816 97.6 91 22 114/56 90 Nasal 3.0L Cannula 04/13 0800 96 Nasal 3.0L Cannula 04/13 0051 97.7 88 20 110/72 93 Nasal 3.0L Cannula 04/13 0000 Nasal 3.0L Cannula 04/12 2150 97.8 94 20 120/56 95 Nasal 3.0L Cannula 04/12 1700 93 Nasal 3.0L Cannula 04/12 1600 Nasal 3.0L Cannula 04/12 1556 98.2 90 20 128/52 93 Nasal 3.0L Cannula Intake & Output 04/13 1600 04/13 0800 04/13 0000 04/12 1600 04/12 0800 04/12 0000 Intake Total 350 600 240 240 Output Total 1700 1650 450 Balance -1350 -1050 -210 240 Intake, Blood 350 Product Intake, Oral 600 240 240 Output, Urine 1700 1650 450 Physical Exam: General Appearance: awake, comfortable Head: atraumatic, normal appearance Ears, Nose, Throat: normal pharynx Respiratory: chest non-tender, no respiratory distress, crackles Cardiovascular: tachycardia Abdomen: soft, non-tender, distention Extremities: bilateral 2+ LE edema up to knee Neurologic/Psychiatric: awake, alert, oriented x 3 Skin: ecchymosis (scatter in BUE) Current Medications: Current Medications Sig/Dung Start time Last Medication Dose Route Stop Time Status Admin Acetaminophen 650 MG Q6P PRN 04/10 2000 AC PO Albuterol Sulfate 3 ML EVERY 4 HRS/AWAKE 04/11 1200 AC 04/13 INH 1113 Benzocaine/Menthol 1 CHOLO Q2P PRN 04/13 1200 AC PO Ceftriaxone Sodium 1,000 MG DAILY@04/10 AC 04/12 IV 2042 Escitalopram Oxalate 20 MG DAILY 04/11 1000 AC 04/12 PO 0949 Finasteride 5 MG DAILY 04/11 1000 AC 04/12 PO 0950 Furosemide 40 MG BID 04/13 1000 AC IV Furosemide 40 MG ONCE ONE 04/12 1645 DC 04/12 IV 04/12 1646 2042 Omeprazole 40 MG DAILY AC 04/11 0700 AC 04/13 PO 0602 Patient Medication 1 UNIT ONE NR 04/13 0645 DC Teaching ED 04/13 1245 Potassium Chloride 10 MEQ Q1H 04/13 1030 DC 04/13 IV 04/13 1131 1133 Potassium Chloride 20 MEQ BID 04/13 1000 AC PO Potassium Chloride 20 MEQ ONCE ONE 04/13 0545 DC 04/13 PO 04/13 0546 0605 Pregabalin 100 MG BID 04/10 2200 AC 04/12 PO 2151 Tamsulosin HCl 0.4 MG DAILY 04/11 1000 AC 04/12 PO 0949 Tiotropium [place] 1 PUF DAILY 04/11 1000 AC 04/12 INH 0952 Results Last 24 Hours of Lab Results: Laboratory Tests 04/13 04/13 0726 0600 Chemistry Sodium (137 - 145 mmol/L) 136 L Potassium (3.5 - 5.1 mmol/L) 3.1 L Chloride (98 - 107 mmol/L) 89 L Carbon Dioxide (22 - 30 mmol/L) 40 H Anion Gap (5 - 16) 7 BUN (9 - 20 mg/dL) 12 Creatinine (0.7 - 1.2 mg/dL) 0.7 Estimated GFR (>60 ml/min) > 60 BUN/Creatinine Ratio (7 - 25 %) 17.1 Vitamin B12 (239 - 931 pg/mL) > 1000 H Folate (2.76 - 20.0 ng/mL) 5.9 Coagulation PT (9.4 - 12.5 SEC) 13.9 H INR (0.90 - 1.17) 1.33 H Hematology CBC w Diff MAN DIFF ORDERED WBC (4.8 - 10.8 /CUMM) 39.9 *H RBC (4.70 - 6.10 /CUMM) 3.35 L Hgb (14.0 - 18.0 G/DL) 8.3 L Hct (42 - 52 %) 26.8 L MCV (80.0 - 94.0 FL) 79.9 L MCH (27.0 - 31.0 PG) 24.9 L RDW (11.5 - 14.5 %) 18.3 H Plt Count (130 - 400 /CUMM) 40 L MPV (7.4 - 10.4 FL) 7.3 L Gran % (42.2 - 75.2 %) 84.7 H Lymphocytes % (20.5 - 51.1 %) 3.2 L Monocytes % (1.7 - 9.3 %) 11.9 H Eosinophils % (0 - 5 %) 0.2 Basophils % (0.0 - 2.0 %) 0 L Absolute Granulocytes (1.4 - 6.5 /CUMM) 33.8 H Segmented Neutrophils (42.2 - 75.2 %) 63 Band Neutrophils (0.0 - 5.0 %) 17 H Absolute Lymphocytes (1.2 - 3.4 /CUMM) 1.3 Lymphocytes (20.5 - 51.1 %) 3 L Monocytes (1.7 - 9.3 %) 7 Absolute Monocytes (0.10 - 0.60 /CUMM) 4.7 H Absolute Eosinophils (0.0 - 0.7 /CUMM) 0.1 Absolute Basophils (0.0 - 0.2 /CUMM) 0 Metamyelocytes (0.0 - 1.0 %) 8 H Myelocytes (0 - 0 %) 2 H Polychromasia 2+ Hypochromic-Microcytic 2+ Poikilocytosis 2+ Anisocytosis 2+ Microcytic Cells 1+ PUBS MCHC (33.0 - 37.0 G/DL) 31.2 L Serology Hepatitis A IgM Ab (NONREACTIVE) NONREACTIVE Cancelled Hep Bs Antigen (NONREACTIVE) NONREACTIVE Cancelled Hep B Core IgM Ab Conf (NONREACTIVE) NONREACTIVE Cancelled Hepatitis C Antibody (NONREACTIVE) NONREACTIVE Cancelled 04/12 1845 Hematology CBC w Diff NO MAN DIFF REQ WBC (4.8 - 10.8 /CUMM) 52.2 *H RBC (4.70 - 6.10 /CUMM) 3.37 L Hgb (14.0 - 18.0 G/DL) 8.3 L Hct (42 - 52 %) 26.9 L MCV (80.0 - 94.0 FL) 79.9 L MCH (27.0 - 31.0 PG) 24.5 L RDW (11.5 - 14.5 %) 18.0 H Plt Count (130 - 400 /CUMM) 47 L MPV (7.4 - 10.4 FL) 6.2 L Gran % (42.2 - 75.2 %) 88.5 H Lymphocytes % (20.5 - 51.1 %) 3.0 L Monocytes % (1.7 - 9.3 %) 8.4 Eosinophils % (0 - 5 %) 0.1 Basophils % (0.0 - 2.0 %) 0 L Absolute Granulocytes (1.4 - 6.5 /CUMM) 46.2 H Absolute Lymphocytes (1.2 - 3.4 /CUMM) 1.5 Absolute Monocytes (0.10 - 0.60 /CUMM) 4.4 H Absolute Eosinophils (0.0 - 0.7 /CUMM) 0 Absolute Basophils (0.0 - 0.2 /CUMM) 0 PUBS MCHC (33.0 - 37.0 G/DL) 30.7 L Recent Imaging Studies: CT abdomen/pelvis 04/13/2016 Normal caliber abdominal aorta. No aneurysm or evidence of retroperitoneal hematoma. Bilateral lower lobe bronchopneumonia. Severe diverticulosis. No evidence of diverticulitis. Wall thickening of the sigmoid colon. This may be related to diverticular disease. Correlation with colonoscopy recommended. Upper normal-sized spleen. Stable low-attenuation right adrenal lesion and bilateral renal cysts. Gallstones. Assessment/Plan Assessment/Recommendations: 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 On admission, he was noted to have leukocytosis up to 61,300, anemia with hematocrit of 19.8, and thrombocytopenia at 60,000. He was transfused with 2 units of pRBC and symptomatically improved. His baseline platelet count is around 100,000. Since admisison, he has been transfused with 4 units of pRBC. His WBC peaked at 83,200. It has dropped to 39,900 today. His hemoglobin is stable at 8.3 this morning after transfusion of 2 units pRBC yesterday. Etiology of the leukocytosis and anemia remains unclear. Flow cytometry is pending. He is being evaluated by GI today with EGD. MDS progression is a potential etiology. Iron deficiency can als contribute to these findings. 1. Follow up flow cytometry result 2. Goal hemoglobin >7 3. Monitor CBC daily 4. Echocardiogram as per primary team 5. Follow up with GI evaluation Please call [phone] with any questions or concerns. Problem List: 1. Anemia 2. MDS (myelodysplastic syndrome)
[2016-04-13 16:45] VITALS: BP 108/64
--- NOTE | 2016-04-13 19:45 | PN- Cardiology ---
Subjective Subjective: Patient is status post GI procedure. He reports that he is feeling better. His lower extremity edema is improved. Shortness of breath is improved. No chest pain. No palpitations. No diaphoresis. Objective Vital Signs and I&Os Vital Signs Date Time Temp Pulse Resp B/P Pulse O2 O2 Flow FiO2 Ox Delivery Rate 04/13 1745 94 Nasal 3.0L Cannula 04/13 1645 98.4 89 21 108/64 93 Room Air 04/13 1600 Nasal 3.0L Cannula 04/13 1451 114/58 04/13 1401 92 Nasal 2.0L Cannula 04/13 0822 96 Nasal 2.0L Cannula 04/13 0816 97.6 91 22 114/56 90 Nasal 3.0L Cannula 04/13 0800 96 Nasal 3.0L Cannula 04/13 0051 97.7 88 20 110/72 93 Nasal 3.0L Cannula 04/13 0000 Nasal 3.0L Cannula 04/12 2150 97.8 94 20 120/56 95 Nasal 3.0L Cannula Intake & Output 04/13 1600 04/13 0800 04/13 0000 04/12 1600 04/12 0800 04/12 0000 Intake Total 440 350 600 240 240 Output Total 600 1700 1650 450 Balance -160 -1350 -1050 -210 240 Intake, Blood 350 Product Intake, IV 200 Intake, Oral 240 600 240 240 Output, Urine 600 1700 1650 450 Physical Exam: Gen: NAD HEENT: normal Lungs: Scattered rales, normal resp. effort Heart: RRR, S1, S2, no murmurs Abdomen: Soft, nontender, no masses Extremities: 2+ edema Neuro: Alert and oriented x 3, cranial nerves intact Current Medications: Current Medications Sig/Dung Start time Last Medication Dose Route Stop Time Status Admin Acetaminophen 650 MG Q6P PRN 04/10 2000 AC PO Albuterol Sulfate 3 ML EVERY 4 HRS/AWAKE 04/11 1200 AC 04/13 INH 1745 Benzocaine/Menthol 1 CHOLO Q2P PRN 04/13 1199 AC PO Ceftriaxone Sodium 1,000 MG DAILY@04/10 AC 04/12 IV 2042 Escitalopram Oxalate 20 MG DAILY 04/11 1000 AC 04/13 PO 1446 Finasteride 5 MG DAILY 04/11 1000 AC 04/13 PO 1447 Furosemide 40 MG BID 04/13 999 AC 04/13 IV 1446 Omeprazole 40 MG DAILY AC 04/11 0700 AC 04/13 PO 0602 Patient Medication 1 ED .STK-MED ONE 04/13 1337 ND Teaching ED 04/13 1338 Patient Medication 1 UNIT ONE NR 04/13 0645 ND Teaching ED 04/13 1245 Potassium Chloride 10 MEQ Q1H 04/13 1030 ND 04/13 IV 04/13 1131 1445 Potassium Chloride 20 MEQ BID 04/13 1000 AC 04/13 PO 1445 Potassium Chloride 20 MEQ ONCE ONE 04/13 0545 DC 04/13 PO 04/13 0546 0605 Pregabalin 100 MG BID 04/10 2200 AC 04/13 PO 1445 Tamsulosin HCl 0.4 MG DAILY 04/11 1000 AC 04/13 PO 1451 Tiotropium [place] 1 PUF DAILY 04/11 1000 AC 04/13 INH 1445 Results Last 48 Hrs of Labs/Mics: Laboratory Tests 04/13/16 1926: CBC w Diff Pending, WBC Pending, RBC Pending, Hgb Pending, Hct Pending, MCV Pending, MCH Pending, RDW Pending, Plt Count Pending, MPV Pending, PUBS MCHC Pending 04/13/16 0726: Anion Gap 7, Estimated GFR > 60, BUN/Creatinine Ratio 17.1, Vitamin B12 > 1000 H, Folate 5.9, PT 13.9 H, INR 1.33 H, CBC w Diff MAN DIFF ORDERED, RBC 3.35 L , MCV 79.9 L, MCH 24.9 L, RDW 18.3 H, MPV 7.3 L, Gran % 84.7 H, Lymphocytes % 3.2 L, Monocytes % 11.9 H, Eosinophils % 0.2, Basophils % 0 L, Absolute Granulocytes 33.8 H, Segmented Neutrophils 63, Band Neutrophils 17 H, Absolute Lymphocytes 1.3, Lymphocytes 3 L, Monocytes 7, Absolute Monocytes 4.7 H, Absolute Eosinophils 0.1, Absolute Basophils 0, Metamyelocytes 8 H, Myelocytes 2 H, Polychromasia 2+, Hypochromic-Microcytic 2+, Poikilocytosis 2+, Anisocytosis 2+, Microcytic Cells 1+, PUBS MCHC 31.2 L, Hepatitis A IgM Ab NONREACTIVE, Hep Bs Antigen NONREACTIVE, Hep B Core IgM Ab Conf NONREACTIVE, Hepatitis C Antibody NONREACTIVE 04/13/16 0600: Hepatitis A IgM Ab Cancelled, Hep Bs Antigen Cancelled, Hep B Core IgM Ab Conf Cancelled, Hepatitis C Antibody Cancelled 04/12/16 1846: CBC w Diff NO MAN DIFF REQ, RBC 3.37 L, MCV 79.9 L, MCH 24.5 L, RDW 18.0 H, MPV 6.2 L, Gran % 88.5 H, Lymphocytes % 3.0 L, Monocytes % 8.4, Eosinophils % 0.1, Basophils % 0 L, Absolute Granulocytes 46.2 H, Absolute Lymphocytes 1.5, Absolute Monocytes 4.4 H, Absolute Eosinophils 0, Absolute Basophils 0, PUBS MCHC 30.7 L 04/12/16 0630: Anion Gap 9, Estimated GFR > 60, BUN/Creatinine Ratio 23.3, CBC w Diff MAN DIFF ORDERED, RBC 2.79 L, MCV 78.5 L, MCH 24.7 L, RDW 18.4 H, MPV 8.0, Gran % 89.1 H, Lymphocytes % 3.6 L, Monocytes % 7.1, Eosinophils % 0.2, Basophils % 0 L, Absolute Granulocytes 52.5 H, Segmented Neutrophils 73, Band Neutrophils 10 H, Absolute Lymphocytes 2.1, Lymphocytes 2 L, Monocytes 9, Absolute Monocytes 4.2 H, Absolute Eosinophils 0.1, Absolute Basophils 0, Metamyelocytes 4 H, Myelocytes 2 H, Platelet Estimate DECREASED, Polychromasia 1+, Hypochromic- Microcytic 1+, Basophilic Stippling 1+, Anisocytosis 1+, Microcytic Cells 1+, Stomatocytes 1+, PUBS MCHC 31.5 L Recent Imaging Studies: CT scan of the abdomen and pelvis: Normal caliber abdominal aorta. No aneurysm or evidence of retroperitoneal hematoma. Bilateral lower lobe bronchopneumonia. Severe diverticulosis. No evidence of diverticulitis. Wall thickening of the sigmoid colon. This may be related to diverticular disease. Correlation with colonoscopy recommended. Upper normal-sized spleen. Stable low-attenuation right adrenal lesion and bilateral renal cysts. Gallstones. Assessment/Plan Assessment/Plan Assessment: 1. Anemia, with possible GI bleed 2. Lower extremity edema with elevated proBNP. Possible acute HFpEF. 3. Hyperkalemia Recommendations: 1. Continue IV Lasix today. Change to po tomorrow if stable. 2. Check basic metabolic profile daily 3. echocardiogram 4. EKG 5. Supplement potassium Continue telemetry? Not applicable
[2016-04-13 20:15] LABS: ABSOLUTE BASOPHIL COUNT 0 /CUMM (0.0-0.2); ABSOLUTE EOSINOPHIL COUNT 0.1 /CUMM (0.0-0.7); ABSOLUTE GRANULOCYTE CT 26.8 /CUMM (1.4-6.5); ABSOLUTE LYMPH COUNT 1.4 /CUMM (1.2-3.4); ABSOLUTE MONOCYTE COUNT 3.8 /CUMM (0.10-0.60); BASOPHIL % 0.1 % (0.0-2.0); EOSINOPHIL % 0.2 % (0-5); HEMATOCRIT 26.8 % (42-52); MEAN CORPUSCULAR HGB 25.4 PG (27.0-31.0); MEAN CORPUSCULAR HGB CONC 31.9 G/DL (33.0-37.0); MEAN CORPUSCULAR VOLUME 79.5 FL (80.0-94.0); MEAN PLATELET VOLUME 7.9 FL (7.4-10.4); RBC DISTRIBUTION WIDTH 19.2 % (11.5-14.5); RED BLOOD CELL CT 3.38 /CUMM (4.70-6.10)
[2016-04-13 20:19] LABS: GRANULOCYTE % 83.7 % (42.2-75.2); PLATELET COUNT 43 /CUMM (130-400)
[2016-04-13 23:29] VITALS: BP 130/60
--- NOTE | 2016-04-14 07:04 | PN- Hematology ---
Subjective Subjective: Feeling much improved, fatigue improved Review of Systems: All point review of systems unchanged Objective Vital Signs and I&Os Vital Signs Date Time Temp Pulse Resp B/P Pulse O2 O2 Flow FiO2 Ox Delivery Rate 04/14 0513 92 Nasal 3.0L Cannula 04/14 0000 Nasal 4.0L Cannula 04/13 2329 98.1 96 22 130/60 93 04/13 1745 94 Nasal 3.0L Cannula 04/13 1645 98.4 89 21 108/64 93 Room Air 04/13 1600 Nasal 3.0L Cannula 04/13 1451 114/58 04/13 1401 92 Nasal 2.0L Cannula 04/13 0822 96 Nasal 2.0L Cannula 04/13 0816 97.6 91 22 114/56 90 Nasal 3.0L Cannula 04/13 0800 96 Nasal 3.0L Cannula Intake & Output 04/14 0800 04/14 0000 04/13 1600 04/13 0800 04/13 0000 04/12 1600 Intake Total 600 440 350 600 Output Total 352 223 5315 1650 Balance 200 -160 -1350 -1050 Intake, Blood 350 Product Intake, IV 200 Intake, Oral 600 240 600 Output, Urine 772 513 3893 1650 Gen.: in NAD ENT: Sclera anicteric Chest: Normal respiratory effort, decreased breath sounds Cor: RRR, no extra sounds Abdomen: Soft, bowel sounds present, no tenderness, no rebound Extremities: Without clubbing, cyanosis, or asymmetric edema Neurology: Alert and oriented 3, no gross deficit Current Medications: Current Medications Sig/Dung Start time Last Medication Dose Route Stop Time Status Admin Acetaminophen 650 MG Q6P PRN 04/10 2000 AC PO Albuterol Sulfate 3 ML EVERY 4 HRS/AWAKE 04/11 1200 AC 04/14 INH 0512 Benzocaine/Menthol 1 CHOLO Q2P PRN 04/13 1200 AC PO Ceftriaxone Sodium 1,000 MG DAILY@04/10 AC 04/13 IV 1957 Escitalopram Oxalate 20 MG DAILY 04/11 1000 AC 04/13 PO 1446 Fentanyl Citrate 100 MCG .STK-MED ONE 04/13 1356 DC IM 04/13 1357 Finasteride 5 MG DAILY 04/11 1000 AC 04/13 PO 1447 Furosemide 40 MG BID 04/13 1000 AC 04/13 IV 2206 Guaifenesin 600 MG Q12 04/13 2200 AC 04/14 PO 0038 Omeprazole 40 MG DAILY AC 04/11 0700 AC 04/14 PO 0553 Patient Medication 1 ED .STK-MED ONE 04/13 1337 [facility] ED 04/13 1338 Patient Medication 1 UNIT ONE NR 04/13 0645 [facility] ED 04/13 1245 Potassium Chloride 10 MEQ Q1H 04/13 1030 [place] 04/13 IV 04/13 1131 1445 Potassium Chloride 20 MEQ BID 04/13 1000 AC 04/13 PO 2206 Pregabalin 100 MG BID 04/10 2200 AC 04/13 PO 2205 Tamsulosin HCl 0.4 MG DAILY 04/11 1000 AC 04/13 PO 1451 Tiotropium [place] 1 PUF DAILY 04/11 1000 AC 04/13 INH 1445 Results Last 24 Hours of Lab Results: Laboratory Tests 04/13 04/13 1926 0726 Chemistry Sodium (137 - 145 mmol/L) 136 L Potassium (3.5 - 5.1 mmol/L) 3.1 L Chloride (98 - 107 mmol/L) 89 L Carbon Dioxide (22 - 30 mmol/L) 40 H Anion Gap (5 - 16) 7 BUN (9 - 20 mg/dL) 12 Creatinine (0.7 - 1.2 mg/dL) 0.7 Estimated GFR (>60 ml/min) > 60 BUN/Creatinine Ratio (7 - 25 %) 17.1 Vitamin B12 (239 - 931 pg/mL) > 1000 H Folate (2.76 - 20.0 ng/mL) 5.9 Coagulation PT (9.4 - 12.5 SEC) 13.9 H INR (0.90 - 1.17) 1.33 H Hematology CBC w Diff MAN DIFF ORDERED MAN DIFF ORDERED WBC (4.8 - 10.8 /CUMM) 32.0 *H 39.9 *H RBC (4.70 - 6.10 /CUMM) 3.38 L 3.35 L Hgb (14.0 - 18.0 G/DL) 8.6 L 8.3 L Hct (42 - 52 %) 26.8 L 26.8 L MCV (80.0 - 94.0 FL) 79.5 L 79.9 L MCH (27.0 - 31.0 PG) 25.4 L 24.9 L RDW (11.5 - 14.5 %) 19.2 H 18.3 H Plt Count (130 - 400 /CUMM) 43 L 40 L MPV (7.4 - 10.4 FL) 7.9 7.3 L Gran % (42.2 - 75.2 %) 83.7 H 84.7 H Lymphocytes % (20.5 - 51.1 %) 4.2 L 3.2 L Monocytes % (1.7 - 9.3 %) 11.8 H 11.9 H Eosinophils % (0 - 5 %) 0.2 0.2 Basophils % (0.0 - 2.0 %) 0.1 0 L Absolute Granulocytes (1.4 - 6.5 /CUMM) 26.8 H 33.8 H Segmented Neutrophils (42.2 - 75.2 %) 68 63 Band Neutrophils (0.0 - 5.0 %) 6 H 17 H Absolute Lymphocytes (1.2 - 3.4 /CUMM) 1.4 1.3 Lymphocytes (20.5 - 51.1 %) 4 L 3 L Monocytes (1.7 - 9.3 %) 11 H 7 Absolute Monocytes (0.10 - 0.60 /CUMM) 3.8 H 4.7 H Absolute Eosinophils (0.0 - 0.7 /CUMM) 0.1 0.1 Absolute Basophils (0.0 - 0.2 /CUMM) 0 0 Metamyelocytes (0.0 - 1.0 %) 6 H 8 H Myelocytes (0 - 0 %) 5 H 2 H Platelet Estimate (ADEQUATE) VERIFIED BY SMEAR Polychromasia 2+ 2+ Hypochromic-Microcytic 2+ Poikilocytosis 2+ Anisocytosis 1+ 2+ Microcytic Cells 1+ PUBS MCHC (33.0 - 37.0 G/DL) 31.9 L 31.2 L Other Body Source Fld Total RBCs Counted (%) 100 Serology Hepatitis A IgM Ab (NONREACTIVE) NONREACTIVE Hep Bs Antigen (NONREACTIVE) NONREACTIVE Hep B Core IgM Ab Conf (NONREACTIVE) NONREACTIVE Hepatitis C Antibody (NONREACTIVE) NONREACTIVE Assessment/Plan Assessment/Recommendations: Hematologic status-white count improved, hematocrit improved, platelets slightly decreased, EGD reveals no active bleeding Recommend- Transfuse as outlined Await flow cytometry report No indication for platelet transfusion at this point. Given prior liver spleen scan finding, a platelet transfusion may or may not be effective in the face of hypersplenism Iron replacement
--- NOTE | 2016-04-14 08:20 | PN- Housestaff ---
ANNABELLA WELDON 04/14/16 0820: Subjective Follow-up For: Acute CHF Anemia MDS Subjective: Seen and examined patient, offers no complaints states that his breathing has improved. Review of Systems Constitutional: Denies: chills, diaphoresis, fever, malaise, weakness, unexplained weight loss. Cardiovascular: Denies: chest pain, edema, orthopena, palpitations, peripheral edema, syncope. Respiratory: Denies: cough, hemoptysis, orthopnea, short of breath, sputum production, stridor, wheezing. Objective Last 24 Hrs of Vital Signs/I&O Vital Signs Date Time Temp Pulse Resp B/P Pulse O2 O2 Flow FiO2 Ox Delivery Rate 04/14 0513 92 Nasal 3.0L Cannula 04/14 0000 Nasal 4.0L Cannula 04/13 2329 98.1 96 22 130/60 93 04/13 1745 94 Nasal 3.0L Cannula 04/13 1645 98.4 89 21 108/64 93 Room Air 04/13 1600 Nasal 3.0L Cannula 04/13 1451 114/58 04/13 1401 92 Nasal 2.0L Cannula Intake & Output 04/14 1600 04/14 0800 04/14 0000 Intake Total 240 600 Output Total 400 Balance 240 200 Intake, Oral 240 600 Output, Urine 400 Physical Exam General Appearance: Alert, Oriented X3, Cooperative, No Acute Distress Cardiovascular: Regular Rate, Normal S1, Normal S2 Lungs: b/l basillar crackles Abdomen: Soft, distended Extremities: +2 pitting edema Current Medications: Current Medications Sig/Dung Start time Last Medication Dose Route Stop Time Status Admin Acetaminophen 650 MG Q6P PRN 04/10 2000 AC PO Albuterol Sulfate 3 ML EVERY 4 HRS/AWAKE 04/11 1200 AC 04/14 INH 0512 Benzocaine/Menthol 1 CHOLO Q2P PRN 04/13 1199 AC PO Ceftriaxone Sodium 1,000 MG DAILY@04/10 AC 04/13 IV 1957 Escitalopram Oxalate 20 MG DAILY 04/11 1000 AC 04/13 PO 1446 Fentanyl Citrate 100 MCG .STK-MED ONE 04/13 1356 DC IM 04/13 1357 Finasteride 5 MG DAILY 04/11 1000 AC 04/13 PO 1447 Furosemide 40 MG BID 04/13 999 AC 04/13 IV 2206 Guaifenesin 600 MG Q12 04/13 2199 AC 04/14 PO 0038 Omeprazole 40 MG DAILY AC 04/11 0700 AC 04/14 PO 0553 Patient Medication 1 ED .STK-MED ONE 04/13 1337 [facility] ED 04/13 1338 Patient Medication 1 UNIT ONE NR 04/13 0645 [facility] ED 04/13 1245 Potassium Chloride 10 MEQ Q1H 04/13 1030 [place] 04/13 IV 04/13 1131 1445 Potassium Chloride 20 MEQ BID 04/13 1000 AC 04/13 PO 2206 Pregabalin 100 MG BID 04/10 2200 AC 04/13 PO 2205 Tamsulosin HCl 0.4 MG DAILY 04/11 1000 AC 04/13 PO 1451 Tiotropium [place] 1 PUF DAILY 04/11 1000 AC 04/13 INH 1445 Last 24 Hrs of Lab/Ghulam Results Last 24 Hrs of Labs/Mics: Laboratory Tests 04/13/161925: CBC w Diff MAN DIFF ORDERED, RBC 3.38 L, MCV 79.5 L, MCH 25.4 L, RDW 19.2 H, MPV 7.9, Gran % 83.7 H, Lymphocytes % 4.2 L, Monocytes % 11.8 H, Eosinophils % 0.2, Basophils % 0.1, Absolute Granulocytes 26.8 H, Segmented Neutrophils 68, Band Neutrophils 6 H, Absolute Lymphocytes 1.4, Lymphocytes 4 L, Monocytes 11 H, Absolute Monocytes 3.8 H, Absolute Eosinophils 0.1, Absolute Basophils 0, Metamyelocytes 6 H, Myelocytes 5 H, Platelet Estimate VERIFIED BY SMEAR, Polychromasia 2+, Anisocytosis 1+, PUBS MCHC 31.9 L, Fld Total RBCs Counted 100 Assessment/Plan Assessment: 70-year-old gentleman past medical history significant for previous history of bright red blood per rectum, gastroesophageal reflux disease, Laryngeal cancer s /p epiglottic resection 8 years ago, family history of colon cancer in father, COPD on intermittent home oxygen, recently diagnosed myelodysplastic syndrome Anemia * H&H pending * s/p 4 units of PRBC transfusion Goal to keep patient above 7. * GI on board, appreciate recommendations * Status post EGD which showed no active upper GI bleeding * B12 > 1000, methylmalonic acid, red blood cell folate labs. * CT AP RULED out retroperitoneal bleed. * guaic negative lower extremity swellingr: In view of elevated proBNP (1840) Will obtain echo * Elevate legs * Follow-up echo * Cardiology consult Leukocytosis/MDS * Labs pending * followed by Dr. Ledezma for MDS, oncology on board appreciate recommendations * peripheral flow cytometry shows significant myeloid left shift with atypical CD13, CD11b, CD16 surface markers with no significant circulating blasts, no evidence of non-Hodgkin's B cell lymphoproliferative disease. Normal fibrinogen. * Will start iron supplements ? Acute CHF Continue with IV Lasix Echo pending Cardiology on board appreciate recommendations Hypokalemia Labs pending COPD continue supplemental oxygen TRC/neb 4. BPH (benign prostatic hypertrophy) continue flomax and proscar 5. DVT prophylaxis Alps 6. Full code status Problem List: 1. COPD Exacerbation 2. MDS (myelodysplastic syndrome) 3. Iron deficiency anemia Pain Ratin Pain Location: Not applicable Pain Goal: Pain 4 or less Pain Plan: Current regimen Tomorrow's Labs & Rationales: CBC to monitor H&H BEP to monitor potassium ROSCOE HERNANDEZ MD 04/14/16 1618: Attending MD Review Statement Attending Statement Attending MD Statement: examined this patient, discuss w/resident/PA/SPOOLER, agreed w/resident/PA/SPOOLER, reviewed EMR data (avail) Attending Assessment/Plan: 70M PMH peptic ulcer disease, COPD, HTN, recently diagnosed myelodysplastic syndrome presenting with 1 week of fatigue, found to have WBC 61,000, Hgb 6.1, platelets 70. No overt signs of bleeding and no melena. No neurological dysfunction or mental status changes. No evidence of infectious process at this time. LE edema and orthopnea were noted and Lasix was started over the weekend. Patient improved, but is showing metabolic alkalosis with bicarb 44. Potassium is also low at 3.1. 1. Myelodysplastic syndrome 2. Symptomatic anemia 3. Thrombocytopenia 4. Hypervolemia 5. Hypokalemia 6. Metabolic alkalosis Plan - Follow up echocardiogram - Cardiology consult tomorrow - Hold Lasix tonight - Give single dose of Diamox and recheck bicarb - Replete potassium - Follow hematology recommendations - continue home medications - ALPS for DVT PPx - Possible discharge tomorrow if continues to improve
[2016-04-14 08:21] VITALS: BP 110/52
[2016-04-14 09:18] LABS: ABSOLUTE BASOPHIL COUNT 0 /CUMM (0.0-0.2); ABSOLUTE EOSINOPHIL COUNT 0.1 /CUMM (0.0-0.7); ABSOLUTE GRANULOCYTE CT 26.3 /CUMM (1.4-6.5); ABSOLUTE LYMPH COUNT 1.4 /CUMM (1.2-3.4); ABSOLUTE MONOCYTE COUNT 3.1 /CUMM (0.10-0.60); BASOPHIL % 0.1 % (0.0-2.0); EOSINOPHIL % 0.2 % (0-5); HEMATOCRIT 26.8 % (42-52); MEAN CORPUSCULAR HGB 24.9 PG (27.0-31.0); MEAN CORPUSCULAR HGB CONC 30.9 G/DL (33.0-37.0); MEAN CORPUSCULAR VOLUME 80.5 FL (80.0-94.0); MEAN PLATELET VOLUME 7.3 FL (7.4-10.4); PLATELET COUNT 39 /CUMM (130-400); RBC DISTRIBUTION WIDTH 19.7 % (11.5-14.5); RED BLOOD CELL CT 3.33 /CUMM (4.70-6.10)
[2016-04-14 09:45] LABS: WHITE BLOOD CELL COUNT 30.9 /CUMM (4.8-10.8)
[2016-04-14] MEDS ORDERED: FERROUS SULFAT325 M2 PO (15:37)
--- NOTE | 2016-04-14 15:38 | Patient Discharge Instructions ---
Discharge Instructions General Discharge Information You were seen/treated for: Shortness of breath lower extremity swelling anemia Watch for these problems: active bleeding worsening shortness of breath Special Instructions: please follow up with your primary care physician within one week of discharge please follow up with your oncologist within two weeks of discharge. Diet Recommended Diet: Heart Healthy Acute Coronary Syndrome Inclusion Criteria At DC or during hospital stay patient has or had the following: ACS DIAGNOSIS No Discharge Core Measures Meds if any: Prescribed or Continued at Discharge Meds if any: NOT Prescribed or Continued at Discharge Congestive Heart Failure Inclusion Criteria At DC or during hospital stay patient has or had the following: CHF DIAGNOSIS No Discharge Core Measures Meds if any: Prescribed or Continued at Discharge Meds if any: NOT Prescribed or Continued at Discharge Cerebrovascular accident Inclusion Criteria At DC or during hospital stay patient has or had the following: CVA/TIA Diagnosis No Discharge Core Measures Meds if any: Prescribed or Continued at Discharge Meds if any: NOT Prescribed or Continued at Discharge Venous thromboembolism Inclusion Criteria VTE Diagnosis No VTE Type NONE VTE Confirmed by (Test) NONE Discharge Core Measures - Per Current guidelines, there needs to be overlap - treatment for the first 5 days of Warfarin therapy. - If discharged on Warfarin prior to 5 days of - overlap therapy, the patient will need to be - assessed for post discharge needs including - *Post discharge parental anticoagulation - *Warfarin and/or parental anticoagulation education - *Follow up date to check INR post discharge At least 5 days overlap therapy as Inpatient No Meds if any: Prescribed or Continued at Discharge Note: Overlap Therapy is Warfarin and Anticoagulant Meds if any: NOT Prescribed or Continued at Discharge
[2016-04-14 16:42] VITALS: BP 116/82
[2016-04-14 23:30] VITALS: BP 124/60
--- NOTE | 2016-04-15 07:24 | PN- Housestaff ---
ANNABELLA WELDON 04/15/16 0724: Subjective Follow-up For: Acute CHF Anemia MDS Subjective: seen and examined patient looks very lethargic and not answering questions. Review of Systems Constitutional: Reports: see HPI. Objective Last 24 Hrs of Vital Signs/I&O Vital Signs Date Time Temp Pulse Resp B/P Pulse O2 O2 Flow FiO2 Ox Delivery Rate 04/15 1918 80 90 04/15 1720 97.5 82 22 99/56 95 Nasal 2.0L Cannula 04/15 1706 98.2 98 18 91/50 97 Nasal 2.0L Cannula 04/15 1704 84 97 04/15 1645 97 Nasal 3.5L Cannula 04/15 1108 89 95 04/15 1018 82 98 04/15 0948 65 118/62 04/15 0800 95 Nasal 2.0L Cannula 04/15 0800 97.8 85 20 118/62 100 Nasal 3.0L Cannula 04/15 0757 93 Nasal 3.5L Cannula 04/15 0000 Nasal 2.0L Cannula 04/14 2330 97.9 85 20 124/60 96 Nasal 4.0L Cannula Intake & Output 04/15 1600 04/15 0800 04/15 0000 Intake Total 1380 480 360 Output Total 450 300 Balance 930 180 360 Intake, IV 0 Intake, Oral 1380 480 360 Number 0 Bowel Movements Output, Urine 450 300 Physical Exam General Appearance: lethargic Cardiovascular: Normal S1, Normal S2 Lungs: lateral decreased breath sounds and wheezing Abdomen: Normal Bowel Sounds, Soft, No Tenderness Current Medications: Current Medications Sig/Dung Start time Last Medication Dose Route Stop Time Status Admin Acetaminophen 650 MG Q6P PRN 04/10 2000 AC PO Acetazolamide 250 MG ONCE ONE 04/15 1999 AC Sodium Chloride 50 ML IV 04/15 2028 Acetazolamide 250 MG ONCE ONE 04/15 399 DC 04/15 PO 04/15 0401 0529 Albuterol Sulfate 3 ML EVERY 4 HRS/AWAKE 04/11 1200 AC 04/15 INH 1105 Benzocaine/Menthol 1 CHOLO Q2P PRN 04/13 1200 AC PO Docusate Sodium 100 MG DAILY PRN 04/15 0700 AC PO Escitalopram Oxalate 20 MG DAILY 04/11 1000 AC 04/15 PO 0943 Ferrous Sulfate 325 MG TID 04/15 1600 AC PO Ferrous Sulfate 325 MG DAILY 04/14 1000 DC 04/15 PO 0944 Finasteride 5 MG DAILY 04/11 1000 AC 04/15 PO 0943 Furosemide 40 MG BID 04/15 1000 AC 04/15 IV 1710 Guaifenesin 600 MG Q12 04/13 2200 AC 04/15 PO 0943 Methylprednisolone 40 MG Q8 04/15 1730 AC IV Omeprazole 40 MG DAILY AC 04/11 0700 AC 04/15 PO 0529 Patient Medication 1 ED .STK-MED ONE 04/15 1406 DC Teaching ED 04/15 1407 Polyethylene Glycol 17 GM DAILY PRN 04/15 0700 AC PO Potassium Chloride 10 MEQ Q1H 04/15 1715 DC IV 04/15 1816 Potassium Chloride 40 MEQ ONCE ONE 04/15 1000 DC PO 04/15 1001 Potassium Chloride 20 MEQ ONCE ONE 04/15 0400 DC 04/15 PO 04/15 0401 0530 Potassium Chloride 20 MEQ BID 04/14 1420 AC 04/15 PO 04/15 2201 0943 Potassium Chloride 20 MEQ BID 04/13 1000 AC 04/15 PO 0943 Pregabalin 100 MG BID 04/10 2200 AC 04/15 PO 0948 Senna 187 MG AT BEDTIME PRN 04/15 0700 AC PO Tamsulosin HCl 0.4 MG DAILY 04/11 1000 AC 04/15 PO 0948 Tiotropium [place] 1 PUF DAILY 04/11 1000 AC 04/15 INH 0944 Last 24 Hrs of Lab/Ghulam Results Last 24 Hrs of Labs/Mics: Laboratory Tests 04/15/16 1740: pH 7.34 L, pCO2 65 *H, pO2 60 L, HCO3 34 H, ABG O2 Sat (Measured) 89.0 L, Carboxyhemoglobin 1.5, O2 Concentration % 30%, Respiration Rate 26, O2 Delivery Method BIPAP, Vent Mode ST, Expiratory Pressure 6, Inspiratory Pressure 16, Phlebotomy Draw Site RIGHT BRACHIAL 04/15/16 0930: pH 7.30 *L, pCO2 76 *H, pO2 87, HCO3 37 H, ABG O2 Sat (Measured) 95.0 L, Carboxyhemoglobin 1.6, O2 Concentration % 3.5L, Temperature 97.8, O2 Delivery Method NC, Phlebotomy Draw Site RIGHT RADIAL 04/15/16 0520: Anion Gap 12, Estimated GFR > 60, BUN/Creatinine Ratio 14.3, Magnesium 2.1, CBC w Diff MAN DIFF ORDERED, RBC 3.74 L, MCV 81.5, MCH 25.4 L, RDW 19.5 H, MPV 7.0 L, Gran % 86.0 H, Lymphocytes % 4.1 L, Monocytes % 9.6 H, Eosinophils % 0.3, Basophils % 0 L, Absolute Granulocytes 28.7 H, Segmented Neutrophils 69, Band Neutrophils 8 H, Absolute Lymphocytes 1.4, Lymphocytes 9 L, Monocytes 13 H, Absolute Monocytes 3.2 H, Absolute Eosinophils 0.1, Absolute Basophils 0, Metamyelocytes 1, Nucleated RBCs 1 H, Platelet Estimate DECREASED, Poikilocytosis 1+, Anisocytosis 1+, Stomatocytes 1+, PUBS MCHC 31.2 L 04/14/162048: Anion Gap 8, Estimated GFR > 60, BUN/Creatinine Ratio 17.1 Assessment/Plan Assessment: 70-year-old gentleman past medical history significant for previous history of bright red blood per rectum, gastroesophageal reflux disease, Laryngeal cancer s /p epiglottic resection 8 years ago, family history of colon cancer in father, COPD on intermittent home oxygen, recently diagnosed myelodysplastic syndrome currently lethargic this morning. plan Acute hypercarbic and hypoxemic respiratory failure ABG , stat chest x-ray Metabolic alkalosis Secondary to Lasix use Will dose IV Diamox 250 tonight Anemia H&H 9.5 stable after 4 units of prbc transfusion during this admission Continue Iron supplement lower extremity swellingr: In view of elevated proBNP (1840) * Elevate legs * Follow-up echo * will follow Cardiology consult * Continue with IV Lasix while monitoring potassium and replete as necessary MDS * followed by Dr. Ledezma for MDS BPH (benign prostatic hypertrophy) continue flomax and proscar DVT prophylaxis Alps 6. Full code status Problem List: 1. COPD Exacerbation 2. Anemia 3. MDS (myelodysplastic syndrome) Pain Ratin Pain Location: Not applicable Pain Goal: Pain 4 or less Pain Plan: Current regimen Tomorrow's Labs & Rationales: CBC to monitor anemia, BP to monitor hypokalemia, metabolic alkalosis ROSCOE HERNANDEZ MD 04/15/16 1344: Attending MD Review Statement Attending Statement Attending MD Statement: examined this patient, discuss w/resident/PA/CLOTH PRINTING INSPECTOR, agreed w/resident/PA/CLOTH PRINTING INSPECTOR, reviewed EMR data (avail) Attending Assessment/Plan: 70M PMH peptic ulcer disease, COPD, HTN, recently diagnosed myelodysplastic syndrome presenting with 1 week of fatigue, found to have WBC 61,000, Hgb 6.1, platelets 70. No overt signs of bleeding and no melena. No neurological dysfunction or mental status changes. No evidence of infectious process at this time. This morning patient became hypoxic to 80 and severely dyspneic, ABG showed pH 7.36, pCO2 76. Patient was immediately placed on BiPAP, breathing and mental status improved, IV Lasix was given. Patient is currently off of BiPAP and sleeping. CXR this morning showed mild pulmonary edema. 1. Myelodysplastic syndrome 2. Symptomatic anemia 3. Thrombocytopenia 4. Hypervolemia 5. Hypokalemia 6. Metabolic alkalosis 7. Acute hypercarbic and hypoxemic respiratory failure 8. Pulmonary hypertension Plan - Repeat ABG now and again tomorrow morning - BiPAP PRN - Replete potassium with PO 40mEq x 3 doses plus IV x3 runs - Recheck BEP tonight - Diamox 250mg IV tonight, hold Lasix dose tonight - Follow up echocardiogram - Follow cardiology and pulmonary recommendations - Follow hematology recommendations - Hgb improved today, will continue to monitor daily CBC and BEP - Continue home medications - ALPS for DVT PPx
--- NOTE | 2016-04-15 07:29 | PN- Hematology ---
Subjective Subjective: Offers no new complaints Review of Systems: 12 point review of systems unchanged Objective Vital Signs and I&Os Vital Signs Date Time Temp Pulse Resp B/P Pulse O2 O2 Flow FiO2 Ox Delivery Rate 04/15 0000 Nasal 2.0L Cannula 04/14 2330 97.9 85 20 124/60 96 Nasal 4.0L Cannula 04/14 1642 98.1 88 21 116/82 93 Room Air 04/14 1631 90 Nasal 4.0L Cannula 04/14 1600 Nasal 2.0L Cannula 04/14 0953 86 110/52 04/14 0834 95 Nasal 2.0L Cannula 04/14 0821 97.6 86 20 110/52 97 Nasal 4.0L Cannula 04/14 0800 Nasal 4.0L Cannula Intake & Output 04/15 0804/15 0000 04/14 1600 04/14 0800 04/14 0000 04/13 1600 Intake Total 360 1380 240 600 440 Output Total 550 400 600 Balance 360 830 240 200 -160 Intake, IV 0 200 Intake, Oral 360 1380 240 600 240 Number 0 Bowel Movements Output, Urine 550 400 600 Gen.: in NAD ENT: Sclera anicteric Chest: Normal respiratory effort, decreased breath sounds Cor: RRR, no extra sounds Abdomen: Soft, bowel sounds present, no tenderness, no rebound Extremities: Without clubbing, cyanosis, or asymmetric edema Neurology: Alert and oriented 3, no gross deficit Current Medications: Current Medications Sig/Dung Start time Last Medication Dose Route Stop Time Status Admin Acetaminophen 650 MG Q6P PRN 04/10 2000 AC PO Acetazolamide 250 MG ONCE ONE 04/15 0400 DC 04/15 PO 04/15 0401 0529 Acetazolamide 250 MG ONCE ONE 04/14 1045 DC 04/14 PO 04/14 1046 2115 Albuterol Sulfate 3 ML EVERY 4 HRS/AWAKE 04/11 1200 AC 04/14 INH 1628 Benzocaine/Menthol 1 CHOLO Q2P PRN 04/13 1200 AC PO Ceftriaxone Sodium 1,000 MG DAILY@04/10 DC 04/13 IV 1957 Docusate Sodium 100 MG DAILY PRN 04/15 0700 UNVr PO Escitalopram Oxalate 20 MG DAILY 04/11 1000 AC 04/14 PO 0953 Ferrous Sulfate 325 MG DAILY 04/14 1000 AC 04/14 PO 0953 Finasteride 5 MG DAILY 04/11 1000 AC 04/14 PO 0953 Furosemide 40 MG BID 04/13 1000 DC 04/14 IV 0953 Guaifenesin 600 MG Q12 04/13 2200 AC 04/14 PO 2110 Omeprazole 40 MG DAILY AC 04/11 0700 AC 04/15 PO 0529 Polyethylene Glycol 17 GM DAILY PRN 04/15 07 UNVr PO Potassium Chloride 20 MEQ ONCE ONE 04/15 0400 DC 04/15 PO 04/15 040 0530 Potassium Chloride 20 MEQ BID 04/14 1420 AC 04/14 PO 04/15 2200 211 Potassium Chloride 20 MEQ BID 04/13 1000 AC 04/14 PO 2110 Pregabalin 100 MG BID 04/10 2200 AC 04/14 PO 2110 Senna 187 MG AT BEDTIME PRN 04/15 07 UNVr PO Tamsulosin HCl 0.4 MG DAILY 04/11 1000 AC 04/14 PO 0953 Tiotropium [place] 1 PUF DAILY 04/11 1000 AC 04/14 INH 0953 Results Last 24 Hours of Lab Results: Laboratory Tests 04/15 04/14 04/14 0520 2049 0810 Chemistry Sodium (137 - 145 mmol/L) 139 135 L 136 L Potassium (3.5 - 5.1 mmol/L) 3.2 L 3.5 3.1 L Chloride (98 - 107 mmol/L) 87 L 83 L 84 L Carbon Dioxide (22 - 30 mmol/L) 40 H 44 H 44 H Anion Gap (5 - 16) 12 8 8 BUN (9 - 20 mg/dL) 10 12 12 Creatinine (0.7 - 1.2 mg/dL) 0.7 0.7 0.6 L Estimated GFR (>60 ml/min) > 60 > 60 > 60 BUN/Creatinine Ratio (7 - 25 %) 14.3 17.1 20.0 Magnesium (1.6 - 2.3 mg/dL) 2.1 Hematology CBC w Diff Pending MAN DIFF ORDERED WBC (4.8 - 10.8 /CUMM) Pending 30.9 *H RBC (4.70 - 6.10 /CUMM) Pending 3.33 L Hgb (14.0 - 18.0 G/DL) Pending 8.3 L Hct (42 - 52 %) Pending 26.8 L MCV (80.0 - 94.0 FL) Pending 80.5 MCH (27.0 - 31.0 PG) Pending 24.9 L RDW (11.5 - 14.5 %) Pending 19.7 H Plt Count (130 - 400 /CUMM) Pending 39 L MPV (7.4 - 10.4 FL) Pending 7.3 L Gran % (42.2 - 75.2 %) 85.0 H Lymphocytes % (20.5 - 51.1 %) 4.5 L Monocytes % (1.7 - 9.3 %) 10.2 H Eosinophils % (0 - 5 %) 0.2 Basophils % (0.0 - 2.0 %) 0.1 Absolute Granulocytes (1.4 - 6.5 /CUMM) 26.3 H Segmented Neutrophils (42.2 - 75.2 %) 70 Band Neutrophils (0.0 - 5.0 %) 9 H Absolute Lymphocytes (1.2 - 3.4 /CUMM) 1.4 Lymphocytes (20.5 - 51.1 %) 4 L Monocytes (1.7 - 9.3 %) 10 H Absolute Monocytes (0.10 - 0.60 /CUMM) 3.1 H Eosinophils (0 - 5.0 %) 1 Absolute Eosinophils (0.0 - 0.7 /CUMM) 0.1 Absolute Basophils (0.0 - 0.2 /CUMM) 0 Metamyelocytes (0.0 - 1.0 %) 4 H Myelocytes (0 - 0 %) 2 H Platelet Estimate (ADEQUATE) DECREASED Polychromasia 2+ Basophilic Stippling 1+ Anisocytosis 1+ Stomatocytes 2+ PUBS MCHC (33.0 - 37.0 G/DL) Pending 30.9 L Flow cytometry-left shifted white cell series, no blasts, unchanged from prior flow cytometry which was obtained at the time of his original diagnosis of MDS Assessment/Plan Assessment/Recommendations: 1. MDS-clinically stable Await today's CBC 2. Presumed GI bleeding Increase FeSO4 to 3 times daily
[2016-04-15 07:59] LABS: ABSOLUTE BASOPHIL COUNT 0 /CUMM (0.0-0.2); ABSOLUTE EOSINOPHIL COUNT 0.1 /CUMM (0.0-0.7); ABSOLUTE GRANULOCYTE CT 28.7 /CUMM (1.4-6.5); ABSOLUTE LYMPH COUNT 1.4 /CUMM (1.2-3.4); ABSOLUTE MONOCYTE COUNT 3.2 /CUMM (0.10-0.60); BASOPHIL % 0 % (0.0-2.0); EOSINOPHIL % 0.3 % (0-5); HEMATOCRIT 30.5 % (42-52); MEAN CORPUSCULAR HGB 25.4 PG (27.0-31.0); MEAN CORPUSCULAR HGB CONC 31.2 G/DL (33.0-37.0); MEAN CORPUSCULAR VOLUME 81.5 FL (80.0-94.0); PLATELET COUNT 46 /CUMM (130-400); RBC DISTRIBUTION WIDTH 19.5 % (11.5-14.5); RED BLOOD CELL CT 3.74 /CUMM (4.70-6.10)
[2016-04-15 08:00] VITALS: BP 118/62
[2016-04-15 08:32] LABS: WHITE BLOOD CELL COUNT 33.3 /CUMM (4.8-10.8)
--- NOTE | 2016-04-15 08:49 | RADIOLOGY REPORT ---
EXAMINATION: XR PORTABLE CHEST CLINICAL INFORMATION: Altered mental status. Evaluate for congestion. COMPARISON: 04/10/2016 TECHNIQUE: Portable view of the chest was obtained. FINDINGS: The lungs are well expanded. Mild interstitial prominence is noted, similar to prior. Mild central vascular prominence. No pneumothorax. The lung bases are not fully included on this study. No significant pleural effusion. The cardiomediastinal silhouette is unchanged, mildly prominent. IMPRESSION: Mild central vascular prominence with increased markings at the lung bases which could represent mild edema.
--- NOTE | 2016-04-15 10:14 | Cons- Pulmonary ---
General Information and HPI Consulting Request Date of Consult: 04/15/16 Requested By: dania Reason for Consult: Acute on chronic hypercapnic respiratory failure History of Present Illness: Patient is 71-year-old with history of COPD status post treatment for laryngeal cancer on intermittent home O2 is admitted with profound anemia. Baseline arterial blood gas showed evidence of a compensated hypercapnic respiratory failure with PCO2 of 52 and mildly elevated bicarbonate. He is status post 4 L of packed cells with chest x-ray suggesting vascular congestion and elevated BNP. Today was noted to be mildly lethargic and repeat arterial blood gases showed worsening hypercarbia. He is presently awake and alert. Allergies/Medications Allergies: Coded Allergies: codeine (Mild, RASH 03/10/16) aspirin (R/T BLOOD PLATELET COUNT 03/10/16) Home Med List: Acetaminophen (Tylenol Extra Strength) 500 MG TABLET 2 TAB PO PRN PAIN ( Reported) Albuterol Sulfate (Ventolin Hfa) 90 MCG HFA.AER.AD 2 PUF INH 4 TIMES/DAY PRN COPD (Reported) Albuterol Sulfate (Albuterol Sulfate Nebulizer Soln) 0.63 MG/3 ML VIAL.NEB 1 Vial INH/MARCIO 4 TIMES/DAY COPD (Reported) Budesonide/Formoterol [place] (Symbicort 160-4.5 Mcg Inhaler) 160 MCG/4.5 MCG PUF 2 PUF INH BID COPD (Reported) Escitalopram Oxalate 20 MG TABLET 1 TAB PO DAILY DEPRESSION (Reported) Ferrous Sulfate 325 MG (65 MG IRON) TABLET.DR 1 TAB PO DAILY PRN ANEMIA Finasteride 5 MG TABLET 1 TAB PO DAILY PROSTATE (Reported) Omeprazole 40 MG CAPSULE.DR 1 CAP PO DAILY GERD (Reported) Pregabalin (Lyrica) 100 MG CAPSULE 1 CAP PO BID NERVE PAIN (Reported) TAMSULOSIN HCL (Tamsulosin Hydrochloride) 0.4 MG CAP.ER.24H 1 CAP PO DAILY BPH (Reported) Tiotropium [place] (Spiriva Respimat) 2.5 MCG/ACTUATION MIST.INHAL 2 PUFF INH DAILY COPD (Reported) Review of Systems Review of Systems Constitutional: Denies: chills, fever. Cardiovascular: Reports: edema, peripheral edema. Denies: chest pain. Respiratory: Reports: short of breath. Denies: cough, hemoptysis. Past History Travel History Traveled to [place] past 21 day No Medical History Blood Transfusion Hx: No (not prior to 04/10/16) Neurological: restless leg syndrome EENT: SC CA larynx/tongue 2006 Cardiovascular: NONE Respiratory: COPD Gastrointestinal: GERD, hiatal hernia, BLEEDING ULCER COLON ADENOMA DIVERTICULOSIS COLI LOWER ESOPH RING Hepatic: NONE Renal: ENLARGED PROSTATE Musculoskeletal: RESTLESS LEG SYNDROME. Psychiatric: depression Endocrine: obesity Blood Disorders: MDS- LEUKOCYTOSIS, ANEMIA, THROMBOCYTOPENIA Cancer(s): 2007: SC CA LARYNX/TONGUE- EPIGLOTTIS RESECTED/RT/CTX LONG WINDER TENDER/Reproductive: NONE Surgical History Surgical History: 2007: EPIGLOTTIS REMOVED FOR SC CA LARYNX/TONGUE, F/B RT/CTX BC CA 09/1995: L KNEE ARTHROSCOPY Family History Relations & Conditions If Any: SISTER FH: breast cancer FH: diabetes mellitus FH: lung cancer MOTHER, , Age 77; Cause: Arteriosclerotic heart disease (ASHD). FH: diabetes mellitus FATHER FH: colon cancer FH: prostate cancer FATHER (Colon Ca). , Age 89; Cause: Prostate CA. Relation not specified for: colon cancer Psychosocial History Where Do You Live? Home Who Do You Live With? spouse Services at Home: Oxygen (intermittent O2) Primary Language: Greek Smoking Status: Former Smoker ETOH Use: denies use (previously, moderate) Illicit Drug Use: denies illicit drug use Living Will? no Power of Systems Programmer/HCP? no Other Social History: . Lives with . 2 children- A&W (1 dtr- Ameena & 1 son- Luis Antonio). Ex 90 pk yr cigarette smoker, D/C 2005, ex-moderate EtOH sporadically (stopped Fall 2015), no drugs. Retired 2005. Worked for [employer]. Functional Ability ADLs Independent: dressing, eating, toileting, bathing. Ambulation: independent IADLs Independent: shopping, housework, finances, food prep, telephone, transportation , medication admin. Employment History Employment: Retired Profession/Employer: [employer] ECHO Results (as available) Date of last Echo 08/09/13 EF% 65 Exam & Diagnostic Data Last 24 Hrs of Vital Signs/I&O Vital Signs Date Time Temp Pulse Resp B/P Pulse O2 O2 Flow FiO2 Ox Delivery Rate 04/15 0948 65 118/62 04/15 0800 97.8 85 20 /62 100 Nasal 3.0L Cannula 04/15 0757 93 Nasal 3.5L Cannula 04/15 0000 Nasal 2.0L Cannula 04/14 2330 97.9 85 20 124/60 96 Nasal 4.0L Cannula 04/14 1642 98.1 88 21 116/82 93 Room Air 04/14 1631 90 Nasal 4.0L Cannula 04/14 1600 Nasal 2.0L Cannula Intake & Output 04/15 1600 04/15 0800 04/15 0000 Intake Total 480 360 Output Total 300 Balance 180 360 Intake, Oral 480 360 Output, Urine 300 Patient is awake alert oxygen saturation on 3 L 100% HEENT exam shows no JVD exam of his chest showed expiratory wheezing and basilar crackles cardiac exam shows regular S1 and S2 without murmurs abdominal exam soft nontender extremities have 2+ symmetrical pitting edema Last 48 Hrs of Labs/Ghulam: Laboratory Tests 04/15/16 0930: pH 7.30 *L, pCO2 76 *H, pO2 87, HCO3 37 H, ABG O2 Sat (Measured) 95.0 L, Carboxyhemoglobin 1.6, O2 Concentration % 3.5L, Temperature 97.8, O2 Delivery Method NC, Phlebotomy Draw Site RIGHT RADIAL 04/15/16 0520: Anion Gap 12, Estimated GFR > 60, BUN/Creatinine Ratio 14.3, Magnesium 2.1, CBC w Diff MAN DIFF ORDERED, RBC 3.74 L, MCV 81.5, MCH 25.4 L, RDW 19.5 H, MPV 7.0 L, Gran % 86.0 H, Lymphocytes % 4.1 L, Monocytes % 9.6 H, Eosinophils % 0.3, Basophils % 0 L, Absolute Granulocytes 28.7 H, Segmented Neutrophils 69, Band Neutrophils 8 H, Absolute Lymphocytes 1.4, Lymphocytes 9 L, Monocytes 13 H, Absolute Monocytes 3.2 H, Absolute Eosinophils 0.1, Absolute Basophils 0, Metamyelocytes 1, Nucleated RBCs 1 H, Platelet Estimate DECREASED, Poikilocytosis 1+, Anisocytosis 1+, Stomatocytes 1+, PUBS MCHC 31.2 L 04/14/162048: Anion Gap 8, Estimated GFR > 60, BUN/Creatinine Ratio 17.1 04/14/16 0810: Anion Gap 8, Estimated GFR > 60, BUN/Creatinine Ratio 20.0, CBC w Diff MAN DIFF ORDERED, RBC 3.33 L, MCV 80.5, MCH 24.9 L, RDW 19.7 H, MPV 7.3 L, Gran % 85.0 H, Lymphocytes % 4.5 L, Monocytes % 10.2 H, Eosinophils % 0.2, Basophils % 0.1, Absolute Granulocytes 26.3 H, Segmented Neutrophils 70, Band Neutrophils 9 H, Absolute Lymphocytes 1.4, Lymphocytes 4 L, Monocytes 10 H, Absolute Monocytes 3.1 H, Eosinophils 1, Absolute Eosinophils 0.1, Absolute Basophils 0, Metamyelocytes 4 H, Myelocytes 2 H, Platelet Estimate DECREASED, Polychromasia 2+, Basophilic Stippling 1+, Anisocytosis 1+, Stomatocytes 2+, PUBS MCHC 30.9 L 04/13/161925: CBC w Diff MAN DIFF ORDERED, RBC 3.38 L, MCV 79.5 L, MCH 25.4 L, RDW 19.2 H, MPV 7.9, Gran % 83.7 H, Lymphocytes % 4.2 L, Monocytes % 11.8 H, Eosinophils % 0.2, Basophils % 0.1, Absolute Granulocytes 26.8 H, Segmented Neutrophils 68, Band Neutrophils 6 H, Absolute Lymphocytes 1.4, Lymphocytes 4 L, Monocytes 11 H, Absolute Monocytes 3.8 H, Absolute Eosinophils 0.1, Absolute Basophils 0, Metamyelocytes 6 H, Myelocytes 5 H, Platelet Estimate VERIFIED BY SMEAR, Polychromasia 2+, Anisocytosis 1+, PUBS MCHC 31.9 L, Fld Total RBCs Counted 100 Assessment/Plan Impression/Plan: 71-year-old gentleman with COPD chronic hypercapnia admitted with profound anemia status post 4 unit transfusion. Initially had elevated BNP and chest x- ray suggesting mild congestive heart failure possibly due to high output in the setting of profound anemia. Today was noted to be lethargic and has had a mild increase in his PCO2. He is presently awake and alert. Worsening respiratory failure likely related to volume overload and mild bronchospasm as well as complicating metabolic alkalosis in the setting of hypokalemia. Recommendations: Maintain adequate potassium of at least 4. Once potassium is repleted repeat Diamox 250 mg IV 1 dose. Taper FiO2 his saturations now 100%. Once potassium is repleted continue IV Lasix. In view of bronchospasm would start IV Solu- Medrol 40 mg every 8 hours. BiPAP can be used if his mental status becomes worse but presently is awake alert. Consult Acknowledgment - Thank you for your consult request.
--- NOTE | 2016-04-15 10:35 | NUR ---
Physical Therapy: Attempted to see patient this morning for treatment. Patient currently on BiPAP. Will Cx Tx at this time and follow-up later as appropriate.
--- NOTE | 2016-04-15 12:35 | PN- Cardiology ---
Subjective Subjective: The patient was seen today at the request of the house staff. Apparently the patient decompensated overnight. His Lasix was held for one dose yesterday due to increasing bicarbonate levels. Overnight, the patient became more short of breath. This morning he was noted to be mildly hypercapnic and was started back on BiPAP. His chest x-ray shows no evidence of overt heart failure Objective Vital Signs and I&Os Vital Signs Date Time Temp Pulse Resp B/P Pulse O2 O2 Flow FiO2 Ox Delivery Rate 04/15 1108 89 95 04/15 1018 82 98 04/15 0948 65 118/62 04/15 0800 95 Nasal 2.0L Cannula 04/15 08 97.8 85 20 118/62 100 Nasal 3.0L Cannula 04/15 0757 93 Nasal 3.5L Cannula 04/15 0000 Nasal 2.0L Cannula 04/14 2330 97.9 85 20 124/60 96 Nasal 4.0L Cannula 04/14 1642 98.1 88 21 116/82 93 Room Air 04/14 1631 90 Nasal 4.0L Cannula 04/14 1600 Nasal 2.0L Cannula Intake & Output 04/15 1600 04/15 0800 04/15 0000 04/14 1600 04/14 0800 04/14 0000 Intake Total 503 053 6540 240 600 Output Total 300 550 400 Balance 180 360 830 240 200 Intake, IV 0 Intake, Oral 534 671 0900 240 600 Number 0 Bowel Movements Output, Urine 300 550 400 Physical Exam: Gen: NAD, more short of breath today, alert and oriented 3 HEENT: normal Lungs: Scattered rhonchi bilaterally Heart: RRR, S1, S2, no murmurs Abdomen: Soft, nontender, no masses Extremities: 1 to 2+ edema Neuro: Alert and oriented x 3, cranial nerves intact Current Medications: Current Medications Sig/Dung Start time Last Medication Dose Route Stop Time Status Admin Acetaminophen 650 MG Q6P PRN 04/10 2000 AC PO Acetazolamide 250 MG ONCE ONE 04/15 399 DC 04/15 PO 04/15 040 0529 Albuterol Sulfate 3 ML EVERY 4 HRS/AWAKE 04/11 1200 AC 04/15 INH 1105 Benzocaine/Menthol 1 CHOLO Q2P PRN 04/13 1200 AC PO Docusate Sodium 100 MG DAILY PRN 04/15 0700 AC PO Escitalopram Oxalate 20 MG DAILY 04/11 1000 AC 04/15 PO 0943 Ferrous Sulfate 325 MG DAILY 04/14 1000 AC 04/15 PO 0944 Finasteride 5 MG DAILY 04/11 1000 AC 04/15 PO 0943 Furosemide 40 MG BID 04/15 1000 AC IV Guaifenesin 600 MG Q12 04/13 2200 AC 04/15 PO 0943 Omeprazole 40 MG DAILY AC 04/11 0700 AC 04/15 PO 0529 Polyethylene Glycol 17 GM DAILY PRN 04/15 07 AC PO Potassium Chloride 40 MEQ ONCE ONE 04/15 1000 DC PO 04/15 1001 Potassium Chloride 20 MEQ ONCE ONE 04/15 0400 DC 04/15 PO 04/15 0401 0530 Potassium Chloride 20 MEQ BID 04/14 1420 AC 04/15 PO 04/15 2200 0943 Potassium Chloride 20 MEQ BID 04/13 1000 AC 04/15 PO 0943 Pregabalin 100 MG BID 04/10 2200 AC 04/15 PO 0948 Senna 187 MG AT BEDTIME PRN 04/15 07 AC PO Tamsulosin HCl 0.4 MG DAILY 04/11 1000 AC 04/15 PO 0948 Tiotropium [place] 1 PUF DAILY 04/11 1000 AC 04/15 INH 0944 Results Last 48 Hrs of Labs/Mics: Laboratory Tests 04/15/16 0930: pH 7.30 *L, pCO2 76 *H, pO2 87, HCO3 37 H, ABG O2 Sat (Measured) 95.0 L, Carboxyhemoglobin 1.6, O2 Concentration % 3.5L, Temperature 97.8, O2 Delivery Method NC, Phlebotomy Draw Site RIGHT RADIAL 04/15/16 0520: Anion Gap 12, Estimated GFR > 60, BUN/Creatinine Ratio 14.3, Magnesium 2.1, CBC w Diff MAN DIFF ORDERED, RBC 3.74 L, MCV 81.5, MCH 25.4 L, RDW 19.5 H, MPV 7.0 L, Gran % 86.0 H, Lymphocytes % 4.1 L, Monocytes % 9.6 H, Eosinophils % 0.3, Basophils % 0 L, Absolute Granulocytes 28.7 H, Segmented Neutrophils 69, Band Neutrophils 8 H, Absolute Lymphocytes 1.4, Lymphocytes 9 L, Monocytes 13 H, Absolute Monocytes 3.2 H, Absolute Eosinophils 0.1, Absolute Basophils 0, Metamyelocytes 1, Nucleated RBCs 1 H, Platelet Estimate DECREASED, Poikilocytosis 1+, Anisocytosis 1+, Stomatocytes 1+, PUBS MCHC 31.2 L 04/14/162048: Anion Gap 8, Estimated GFR > 60, BUN/Creatinine Ratio 17.1 04/14/16 0810: Anion Gap 8, Estimated GFR > 60, BUN/Creatinine Ratio 20.0, CBC w Diff MAN DIFF ORDERED, RBC 3.33 L, MCV 80.5, MCH 24.9 L, RDW 19.7 H, MPV 7.3 L, Gran % 85.0 H, Lymphocytes % 4.5 L, Monocytes % 10.2 H, Eosinophils % 0.2, Basophils % 0.1, Absolute Granulocytes 26.3 H, Segmented Neutrophils 70, Band Neutrophils 9 H, Absolute Lymphocytes 1.4, Lymphocytes 4 L, Monocytes 10 H, Absolute Monocytes 3.1 H, Eosinophils 1, Absolute Eosinophils 0.1, Absolute Basophils 0, Metamyelocytes 4 H, Myelocytes 2 H, Platelet Estimate DECREASED, Polychromasia 2+, Basophilic Stippling 1+, Anisocytosis 1+, Stomatocytes 2+, PUBS MCHC 30.9 L 04/13/161925: CBC w Diff MAN DIFF ORDERED, RBC 3.38 L, MCV 79.5 L, MCH 25.4 L, RDW 19.2 H, MPV 7.9, Gran % 83.7 H, Lymphocytes % 4.2 L, Monocytes % 11.8 H, Eosinophils % 0.2, Basophils % 0.1, Absolute Granulocytes 26.8 H, Segmented Neutrophils 68, Band Neutrophils 6 H, Absolute Lymphocytes 1.4, Lymphocytes 4 L, Monocytes 11 H, Absolute Monocytes 3.8 H, Absolute Eosinophils 0.1, Absolute Basophils 0, Metamyelocytes 6 H, Myelocytes 5 H, Platelet Estimate VERIFIED BY SMEAR, Polychromasia 2+, Anisocytosis 1+, PUBS MCHC 31.9 L, Fld Total RBCs Counted 100 Assessment/Plan Assessment/Plan Assessment: 1. Worsening shortness of breath with hypercapnic respiratory failure-PCO2 elevated at 76 today. Currently on BiPAP. To my eye there is no evidence of overt heart failure on the chest x-ray. Echocardiogram reviewed. Left ventricular systolic and diastolic function are normal. Right heart enlargement is present with abnormal septal motion, septal flattening, and a right ventricular systolic pressure of 60 mmHg consistent with pulmonary hypertension. 2. Anemia, with possible GI bleed 3. Lower extremity edema with elevated proBNP. Possible acute HFpEF. 4. Hyperkalemia 5. Myelodysplastic syndrome Her conditions: -For now, I would continue the patient on his Lasix for lower extremity edema. -Await pulmonary input with respect to more aggressive treatment of his underlying pulmonary issues -BiPAP as needed -Follow-up labs pending. Continue telemetry? No
[2016-04-15 17:06] VITALS: BP 91/50
[2016-04-15 17:20] VITALS: BP 99/56
--- NOTE | 2016-04-15 17:35 | ECHOCARDIOGRAM REPORT ---
LEXIS DUBON Age: 71 : 1945 Gender: M Exam Date: 04/14/2016 20:02 Exam Location: [address] [place] [address] Ht (in): 71 Wt (lb): 208 BSA: 2.19 BP: 110 / 72 Ordering Physician: ANNABELLA WELDON MD Referring Physician: Sonny Rios MD Technologist: Yasmin Raman [facility] Room Number: 216-02 Indications: SHORTNESS OF BREATH Rhythm: Sinus Technical Quality: Technically difficult study FINDINGS Left Ventricle Normal size left ventricle. Normal left ventricular ejection fraction visually estimated at >60 %. No obvious regional wall motion abnormalities. Normal left ventricular wall thickness. Right Ventricle Normal right ventricular size and function. Right Atrium Normal right atrial size. Left Atrium Normal left atrial size. Mitral Valve Mitral valve thickened. Trace mitral regurgitation. Aortic Valve Diffuse thickening (sclerosis) of the aortic valve cusps without reduced excursion. No aortic stenosis. No aortic regurgitation. Tricuspid Valve Tricuspid valve not well visualized, grossly normal. Mild tricuspid regurgitation. Right ventricular systolic pressure estimated to be elevated at 46 mmHg. Pulmonic Valve Pulmonic valve not well visualized, grossly normal. Trace pulmonic regurgitation. Pericardium No pericardial effusion. Great Vessels Normal size aortic root. CONCLUSIONS Normal size left ventricle. Normal left ventricular ejection fraction visually estimated at >60 Trace mitral regurgitation. Mild tricuspid regurgitation. Right ventricular systolic pressure estimated to be elevated at 46 mmHg. Sonny Rios M.D. (Electronically Signed) Final Date: 15 April 2016 17:34 MEASUREMENTS (Male / Female) Normal Values 2D ECHO LV Diastolic Diameter PLAX 4.5 cm 4.2 - 5.9 / 3.9 - 5.3 cm LV Systolic Diameter PLAX 2.1 cm 2.1 - 4.0 cm LV Fractional Shortening PLAX 53.3 % 25 - 46 % LV Ejection Fraction 2D Teich 84.4 % IVS Diastolic Thickness 1.0 cm LVPW Diastolic Thickness 1.1 cm LV Relative Wall Thickness 0.5 RV Internal Dim ED PLAX 3.8 cm 1.9 - 3.8 cm LVOT Diameter 1.9 cm Aortic Root Diameter 3.3 cm LA Systolic Diameter LX 4.0 cm 3.0 - 4.0 / 2.7 - 3.8 cm LA Volume 39.0 cm 18 - 58 / 22 - 52 cm Ascending Aorta Diameter 3.6 cm DOPPLER AV Peak Velocity 200.0 cm/s AV Peak Gradient 16.0 mmHg AV Mean Velocity 137.0 cm/s AV Mean Gradient 9.0 mmHg AV Velocity Time Integral 37.9 cm LVOT Peak Velocity 167.0 cm/s LVOT Peak Gradient 11.2 mmHg LVOT Mean Velocity 93.8 cm/s LVOT Mean Gradient 5.0 mmHg LVOT Velocity Time Integral 30.0 cm LVOT Stroke Volume 85.1 cm AV Area Cont Eq vti 2.2 cm AV Area Cont Eq pk 2.4 cm MV Peak Velocity 117.0 cm/s MV Peak Gradient 5.5 mmHg MV Mean Velocity 72.4 cm/s MV Mean Gradient 2.0 mmHg Mitral E Point Velocity 93.8 cm/s Mitral A Point Velocity 82.4 cm/s Mitral E to A Ratio 1.1 MV PHT Velocity 109.0 cm/s MV Deceleration [place] 453.0 cm/s MV Pressure Half Time 72.2 ms MV Area PHT 3.0 cm MV Deceleration Time 190.0 ms TR Peak Velocity 332.0 cm/s TR Peak Gradient 44.1 mmHg Right Atrial Pressure 5.0 mmHg Pulmonary Artery Systolic Pressu 49.1 mmHg Right Ventricular Systolic Press 49.1 mmHg PV Peak Velocity 127.0 cm/s PV Peak Gradient 6.5 mmHg PV Mean Velocity 84.0 cm/s PV Mean Gradient 3.0 mmHg PV Velocity Time Integral 24.4 cm LV E' Lateral Velocity 14.9 cm/s Mitral E to LV E' Lateral Ratio 6.3 LV E' Septal Velocity 13.3 cm/s Mitral E to LV E' Septal Ratio 7.1
[2016-04-15 23:06] VITALS: BP 98/50
--- NOTE | 2016-04-16 07:00 | NUR ---
PHYSICAL THERAPY- PT TRANSFERRED TO TELEMETRY 2* ONSET OF RESPIRATORY DISTRESS. WILL DISCONTINUE P.T. SERVICES AT THIS TIME. PLEASE RECONSULT ONCE PT MEDICALLY STABLE AND APPROPRIATE.
--- NOTE | 2016-04-16 07:15 | PN- Housestaff ---
FRANCI COLEMAN,[facility] 04/16/16 0714: Subjective Follow-up For: Acute hypercapnic and hypoxemic respiratory failure Acute CHF Anemia MDS Tele-Events Since Last Visit: Sinus rhythm 72-88 no overnight events Subjective: Patient was seen and examined this morning, he reported productive cough with scanty yellowish sputum, denied fever or chills, shortness of breath is improved significantly from yesterday, patient is off BiPAP on nasal cannula 2 L saturation 93% No overnight events reported by the patient or the nurses. No acute distress, vital signs are stable. Review of Systems Constitutional: Denies: see HPI. Cardiovascular: Denies: chest pain, palpitations. Gastrointestinal: Denies: abdominal pain, diarrhea, nausea, vomiting. Genitourinary: Denies: dysuria, hematuria. Objective Last 24 Hrs of Vital Signs/I&O Vital Signs Date Time Temp Pulse Resp B/P Pulse O2 O2 Flow FiO2 Ox Delivery Rate 04/16 1030 88 112/52 04/16 0938 97 Nasal 2.0L Cannula 04/16 0851 97.7 88 20 112/52 93 04/16 0800 Nasal 2.0L Cannula 04/16 0702 90 92 04/16 0000 Nasal 2.0L Cannula 04/15 2306 97.6 86 20 98/50 95 Nasal 2.0L Cannula 04/15 2248 80 95 04/15 1918 80 90 04/15 1800 BIPAP 04/15 1720 97.5 82 22 99/56 95 Nasal 2.0L Cannula 04/15 1706 98.2 98 18 91/50 97 Nasal 2.0L Cannula 04/15 1704 84 97 04/15 1645 97 Nasal 3.5L Cannula Intake & Output 04/16 1600 04/16 0800 04/16 0000 Intake Total 120 Output Total 300 200 Balance -180 -200 Intake, Oral 120 Output, Urine 300 200 Patient 94.347 kg Weight Physical Exam General Appearance: Alert, Oriented X3, Cooperative, No Acute Distress Skin: No Rashes, No Breakdown, No Significant Lesion Neck: No JVD Cardiovascular: Regular Rate, Normal S1, Normal S2, No Murmurs Lungs: scattered fine expiratory creptation Abdomen: Normal Bowel Sounds, Soft, No Tenderness Neurological: Normal Gait, Normal Speech, Strength at 5/5 X4 Ext, Normal Tone, Sensation Intact, Cranial Nerves 3-12 NL, Reflexes 2+ Extremities: No Clubbing, No Cyanosis, bilateral pedal edema +1 up to the knee Vascular: Normal Pulses Assessment/Plan Assessment: 70-year-old gentleman past medical history significant for previous history of bright red blood per rectum, gastroesophageal reflux disease, Laryngeal cancer s /p epiglottic resection 8 years ago, COPD on intermittent home oxygen, recently diagnosed myelodysplastic syndrome. Patient was transferred from general medical floor to telemetry because of acute hypercapnic hypoxemic respiratory failure Problem list #Acute hypercapnic hypoxemic respiratory failure #Metabolic alkalosis #Anemia #Lower extremity swelling/possible acute heart failure with preserved ejection fraction #MDS #BPH #Acute hypercapnic hypoxemic respiratory failure -initial ABG showed pH 7.30, pCO2 76.po2 87 -patient was palced on BIPAP and repeated ABG was pH 7.34, PCO2 65, PaO2 60, bicarbonate 34 -Chest x ray showed Mild central vascular prominence with increased markings at the lung bases which could represent mild edema -Pulm. consultation was obtained -Patient is on nocturnal BiPAP, nasal cannula 2 L #Metabolic alkalosis and hypokalemia -initally as a side effect of excessive diauresis -hypokalemia was resolved -HCO3 still high 33, could be also attributed by respirtaory acidosis #Anemia -GI bleeding with Hx of peptic ulcer disease and colon polyps -Today postive guia stool -Endoscopy was done in 04/13/2016 with no evidence active upper GI bleeding seen -patient received 4 units of PRBC -Patient has history of myelodysplastic syndrome with chronic anemia -Today H&H is 9.4/30.6 was 9.5/30.5 #Lower extremity swelling/possible acute heart failure with preserved ejection fraction -Recent echo showed left ventricular systolic and diastolic function are normal EF more than 60. Right heart enlargement is present with abnormal septal motion , septal flattening, and a right ventricular systolic pressure of 60 mmHg consistent with pulmonary hypertension. #MDS -Oncology is on board #BPH -continue flomax and proscar DVT prophylaxis Alps Full code status Regular diet Consultation cardiology, pulmonology, hematology oncology, GI Problem List: 1. COPD 2. History of peptic ulcer disease 3. GERD (gastroesophageal reflux disease) 4. MDS (myelodysplastic syndrome) 5. Acute hypercapnic respiratory failure Pain Ratin Pain Location: n/a Pain Goal: Remain pain free Pain Plan: see medication Tomorrow's Labs & Rationales: CBC in the setting of MDS Electrolyte the setting of metabolic alkalosis ALESSIO NAVARRETE MD 04/16/16 1733: Attending MD Review Statement Attending Statement Attending MD Statement: examined this patient, discuss w/resident/PA/COMMERCIAL LOAN REVIEWER, agreed w/resident/PA/COMMERCIAL LOAN REVIEWER, discussed with family, reviewed EMR data (avail), discussed with nursing, discussed with case mgmt, amended to note Attending Assessment/Plan: The patient was seen and discussed with house staff. Agree with plan of care as outlined.
--- NOTE | 2016-04-16 07:19 | Transfer of Care Summary ---
Hospital Course Course Hospital Course: 70-year-old gentleman past medical history significant for previous history of bright red blood per rectum, gastroesophageal reflux disease, Laryngeal cancer s /p epiglottic resection 8 years ago, family history of colon cancer in father, COPD on intermittent home oxygen, recently diagnosed myelodysplastic syndrome was sent from Dr. Lomas office as he was found to have low O2 saturation. In ED he was found to have low H/H of 6. 1/19.8, WBC of 61.3. Was admitted to the general medicine floor and the following issues were addressed: Plan: Severe iron deficiency anemia On admission H/H was 6.1/19.8. After transfusion with 4 units of PRBCS he remained around hemoglobin of 8 and hematocrit of 26.5. Anemia is of microcytic type with low Fe and was started on Fesol. GI was consult and upper endoscopy was done, showed no esophageal rings, webs, lesions, strictures, ulcers or active upper GI bleeding. Hypercarbic respiratory failure On day 6 of admission he was found to be lethargic and stat ABG showed compensated hypercapnic respiratory failure with PCO2 of 52 and mildly elevated bicarbonate. He was placed on BiPAP MDS WBC trended down from 61.3 to 33.3 Flow cytometry report showed no significant population of blasts cells, with no evidence of Non- Hodkins B cell lymphoproliferative disorder. Onc/hem on board. Elevated ProBNP/ lower extremity swelling Echo was obtain and he was give IV diuresis. Cardion is on board. BPH on flomax Complications: desaturation Assessment/Plan: Patient became hypoxic to 80 and severely dyspneic, ABG showed pH 7.36, pCO2 76 and he was transferred to tele floor for possible acute HFpEF.
--- NOTE | 2016-04-16 07:21 | PN- Hematology ---
Subjective Subjective: Yesterday's events reviewed. Today less short of breath Review of Systems: 12 point review of systems unchanged Objective Vital Signs and I&Os Vital Signs Date Time Temp Pulse Resp B/P Pulse O2 O2 Flow FiO2 Ox Delivery Rate 04/16 0702 90 92 04/16 0000 Nasal 2.0L Cannula 04/15 2306 97.6 86 20 98/50 95 Nasal 2.0L Cannula 04/15 2248 80 95 04/15 1918 80 90 04/15 1800 BIPAP 04/15 1720 97.5 82 22 99/56 95 Nasal 2.0L Cannula 04/15 1706 98.2 98 18 91/50 97 Nasal 2.0L Cannula 04/15 1704 84 97 04/15 1645 97 Nasal 3.5L Cannula 04/15 1108 89 95 04/15 1018 82 98 04/15 0948 65 118/62 04/15 0800 95 Nasal 2.0L Cannula 04/15 0800 97.8 85 20 118/62 100 Nasal 3.0L Cannula 04/15 0757 93 Nasal 3.5L Cannula Intake & Output 04/16 0800 04/16 0000 04/15 1600 04/15 0800 04/15 0000 04/14 1600 Intake Total 1380 178 962 0325 Output Total 200 450 300 550 Balance -200 930 180 360 830 Intake, IV 0 0 Intake, Oral 1380 676 191 6864 Number 0 0 Bowel Movements Output, Urine 200 450 300 550 Patient 208 lb Weight Gen.: in NAD ENT: Sclera anicteric Chest: Normal respiratory effort, decreased breath sounds Cor: RRR, no extra sounds Abdomen: Soft, bowel sounds present, no tenderness, no rebound Extremities: Without clubbing, cyanosis, or asymmetric edema Neurology: Alert and oriented 3, Current Medications: Current Medications Sig/Dung Start time Last Medication Dose Route Stop Time Status Admin Acetaminophen 650 MG Q6P PRN 04/10 2000 AC PO Acetazolamide 250 MG ONCE ONE 04/15 1999 DC 04/15 Sodium Chloride 50 ML IV 04/15 Albuterol Sulfate 3 ML EVERY 4 HRS/AWAKE 04/11 1200 AC 04/15 INH 2110 Benzocaine/Menthol 1 CHOLO Q2P PRN 04/13 1200 AC PO Docusate Sodium 100 MG DAILY PRN 04/15 0700 AC PO Escitalopram Oxalate 20 MG DAILY 04/11 1000 AC 04/15 PO 0943 Ferrous Sulfate 325 MG TID 04/15 1600 AC 04/15 PO 2138 Ferrous Sulfate 325 MG DAILY 04/14 1000 DC 04/15 PO 0944 Finasteride 5 MG DAILY 04/11 1000 AC 04/15 PO 0943 Furosemide 40 MG BID 04/15 1000 AC 04/15 IV 1710 Guaifenesin 600 MG Q12 04/13 2200 AC 04/15 PO 2137 Methylprednisolone 40 MG Q8 04/15 1730 AC 04/16 IV 0623 Omeprazole 40 MG DAILY AC 04/11 0700 AC 04/16 PO 0623 Patient Medication 1 ED .STK-MED ONE 04/15 1406 DC Teaching ED 04/15 1407 Polyethylene Glycol 17 GM DAILY PRN 04/15 0700 AC 04/15 PO 2138 Potassium Chloride 10 MEQ Q1H 04/15 1715 DC 04/15 IV 04/15 1816 2137 Potassium Chloride 40 MEQ ONCE ONE 04/15 1000 DC PO 04/15 1001 Potassium Chloride 20 MEQ BID 04/14 1420 DC 04/15 PO 04/15 2201 2137 Potassium Chloride 20 MEQ BID 04/13 1000 AC 04/15 PO 2136 Pregabalin 100 MG BID 04/10 2200 AC 04/15 PO 2141 Senna 187 MG AT BEDTIME PRN 04/15 0700 AC 04/15 PO 2138 Tamsulosin HCl 0.4 MG DAILY 04/11 1000 AC 04/15 PO 0948 Tiotropium [place] 1 PUF DAILY 04/11 1000 AC 04/15 INH 0944 Results Last 24 Hours of Lab Results: Laboratory Tests 04/15 04/15 04/15 2205 1740 0930 Blood Gas pH (7.35 - 7.45 PH) 7.34 L 7.30 *L pCO2 (35 - 45 TORR) 65 *H 76 *H pO2 (80 - 100 TORR) 60 L 87 HCO3 (21 - 28 MEQ/L) 34 H 37 H ABG O2 Sat (Measured) (>96.0 %) 89.0 L 95.0 L Carboxyhemoglobin (1.5 - 5.0 %) 1.5 1.6 O2 Concentration % 30% 3.5L Temperature (97.0 - 100.0 FARH) 97.8 Respiration Rate (BPM) 26 O2 Delivery Method BIPAP NC Vent Mode ST Expiratory Pressure (CM H2O P) 6 Inspiratory Pressure (CM H2O P) 16 Chemistry Sodium (137 - 145 mmol/L) 134 L Potassium (3.5 - 5.1 mmol/L) 3.9 Chloride (98 - 107 mmol/L) 88 L Carbon Dioxide (22 - 30 mmol/L) 34 H Anion Gap (5 - 16) 12 BUN (9 - 20 mg/dL) 11 Creatinine (0.7 - 1.2 mg/dL) 0.8 Estimated GFR (>60 ml/min) > 60 BUN/Creatinine Ratio (7 - 25 %) 13.8 Magnesium (1.6 - 2.3 mg/dL) 1.9 Miscellaneous Phlebotomy Draw Site RIGHT BRACHIAL RIGHT RADIAL Assessment/Plan Assessment/Recommendations: 1. Hypercarbic respiratory insufficiency-as per pulmonary and cardiology services, 2. Hematologic status-platelet count slightly increased, white count unchanged, hematocrit stable Continue to follow CBC
[2016-04-16 08:51] VITALS: BP 112/52
[2016-04-16 08:59] LABS: ABSOLUTE BASOPHIL COUNT 0 /CUMM (0.0-0.2); ABSOLUTE EOSINOPHIL COUNT 0 /CUMM (0.0-0.7); ABSOLUTE GRANULOCYTE CT 35.5 /CUMM (1.4-6.5); ABSOLUTE LYMPH COUNT 1.2 /CUMM (1.2-3.4); ABSOLUTE MONOCYTE COUNT 1.3 /CUMM (0.10-0.60); BASOPHIL % 0.1 % (0.0-2.0); EOSINOPHIL % 0.1 % (0-5); GRANULOCYTE % 93.2 % (42.2-75.2); HEMATOCRIT 30.6 % (42-52); MEAN CORPUSCULAR HGB 25.3 PG (27.0-31.0); MEAN CORPUSCULAR HGB CONC 30.9 G/DL (33.0-37.0); MEAN PLATELET VOLUME 6.3 FL (7.4-10.4); RED BLOOD CELL CT 3.73 /CUMM (4.70-6.10)
[2016-04-16 09:15] LABS: PLATELET COUNT 70 /CUMM (130-400); WHITE BLOOD CELL COUNT 38.1 /CUMM (4.8-10.8)
--- NOTE | 2016-04-16 09:24 | PN- Pulmonary ---
Subjective HPI/Critical Care Issues: Patient is awake alert responsive but appears mildly lethargic acid-base status is improved as has hypercarbia. Objective Current Medications: Current Medications Sig/Dung Start time Last Medication Dose Route Stop Time Status Admin Acetaminophen 650 MG Q6P PRN 04/10 2000 AC PO Acetazolamide 250 MG ONCE ONE 04/15 1999 DC 04/15 Sodium Chloride 50 ML IV 04/15 2028 2138 Albuterol Sulfate 3 ML EVERY 4 HRS/AWAKE 04/11 1200 AC 04/15 INH 2110 Benzocaine/Menthol 1 CHOLO Q2P PRN 04/13 1200 AC PO Docusate Sodium 100 MG DAILY PRN 04/15 0700 AC PO Escitalopram Oxalate 20 MG DAILY 04/11 1000 AC 04/15 PO 0943 Ferrous Sulfate 325 MG TID 04/15 1600 AC 04/15 PO 2138 Ferrous Sulfate 325 MG DAILY 04/14 1000 DC 04/15 PO 0944 Finasteride 5 MG DAILY 04/11 1000 AC 04/15 PO 0943 Furosemide 40 MG BID 04/15 1000 AC 04/15 IV 1710 Guaifenesin 600 MG Q12 04/13 2200 AC 04/15 PO 2137 Methylprednisolone 40 MG Q8 04/15 1730 AC 04/16 IV 0623 Omeprazole 40 MG DAILY AC 04/11 0700 AC 04/16 PO 0623 Patient Medication 1 ED .STK-MED ONE 04/15 1406 OH Teaching ED 04/15 1407 Polyethylene Glycol 17 GM DAILY PRN 04/15 0700 AC 04/15 PO 2138 Potassium Chloride 10 MEQ Q1H 04/15 1715 DC 04/15 IV 04/15 1816 2137 Potassium Chloride 40 MEQ ONCE ONE 04/15 1000 DC PO 04/15 1001 Potassium Chloride 20 MEQ BID 04/14 1420 DC 04/15 PO 04/15 2201 2137 Potassium Chloride 20 MEQ BID 04/13 1000 AC 04/15 PO 2136 Pregabalin 100 MG BID 04/10 2200 AC 04/15 PO 2141 Senna 187 MG AT BEDTIME PRN 04/15 0700 AC 04/15 PO 2138 Tamsulosin HCl 0.4 MG DAILY 04/11 1000 AC 04/15 PO 0948 Tiotropium [place] 1 PUF DAILY 04/11 1000 AC 04/15 INH 0944 Vital Signs & I&O Last 24 Hrs of Vitals and I&O: Vital Signs Date Time Temp Pulse Resp B/P Pulse O2 O2 Flow FiO2 Ox Delivery Rate 04/16 0851 97.7 88 20 112/52 93 04/16 0800 Nasal 2.0L Cannula 04/16 0702 90 92 04/16 0000 Nasal 2.0L Cannula 04/15 2306 97.6 86 20 98/50 95 Nasal 2.0L Cannula 04/15 2248 80 95 04/15 1918 80 90 04/15 1800 BIPAP 04/15 1720 97.5 82 22 99/56 95 Nasal 2.0L Cannula 04/15 1706 98.2 98 18 91/50 97 Nasal 2.0L Cannula 04/15 1704 84 97 04/15 1645 97 Nasal 3.5L Cannula 04/15 1108 89 95 04/15 1018 82 98 04/15 0948 65 118/62 Intake & Output 04/16 1600 04/16 0804/16 0000 Intake Total 120 Output Total 300 200 Balance -180 -200 Intake, Oral 120 Output, Urine 300 200 Patient 208 lb Weight Oxygen saturation on 2 L 93% exam of his chest shows scattered expiratory wheezing cardiac exam shows normal S1 and S2 without murmurs Impression/Plan Impression/Plan Impression/Plan: 71-year-old gentleman with COPD chronic hypercapnia appears somewhat improved but remains mildly lethargic. He continues to have evidence of bronchospasm Recommendations: Repeat blood gas this morning. Continue when necessary BiPAP. Maintain adequate potassium level. Continue mild negative fluid balance. Address direction of care and will likely need short-term rehabilitation. Continue IV steroids and nebulized bronchodilators
--- NOTE | 2016-04-16 10:50 | PN- Cardiology ---
Subjective Subjective: Events noted. The patient decompensated on the general medical floor and was transferred to telemetry. Lasix was held for one dose on April 14 because of increasing bicarbonate. He subsequently developed more shortness of breath and hypercapnia. He was restarted on BiPAP. No current chest pain. No palpitations. No diaphoresis. No syncope. His bronchospasm is improving. Myelodysplastic syndrome is stable. Objective Vital Signs and I&Os Vital Signs Date Time Temp Pulse Resp B/P Pulse O2 O2 Flow FiO2 Ox Delivery Rate 04/16 1030 88 112/52 04/16 0938 97 Nasal 2.0L Cannula 04/16 0851 97.7 88 20 112/52 93 04/16 0800 Nasal 2.0L Cannula 04/16 0702 90 92 04/16 0000 Nasal 2.0L Cannula 04/15 2306 97.6 86 20 98/50 95 Nasal 2.0L Cannula 04/15 2248 80 95 04/15 1918 80 90 04/15 1800 BIPAP 04/15 1720 97.5 82 22 99/56 95 Nasal 2.0L Cannula 04/15 1706 98.2 98 18 91/50 97 Nasal 2.0L Cannula 04/15 1704 84 97 04/15 1645 97 Nasal 3.5L Cannula 04/15 1108 89 95 Intake & Output 04/16 1600 04/16 0800 04/16 0000 04/15 1600 04/15 0800 04/15 0000 Intake Total 120 1380 480 360 Output Total 300 200 450 300 Balance -180 -200 930 180 360 Intake, IV 0 Intake, Oral 120 1380 480 360 Number 0 Bowel Movements Output, Urine 300 200 450 300 Patient 208 lb Weight Physical Exam: Gen: The patient is in no acute distress HEENT: Normal nose, ears, and oropharynx. Pupils equal bilaterally. Conjunctiva normal. Neck: Supple with no JVD, no masses, and no thyromegaly Lungs: Scattered rales bilaterally with normal respiratory effort Heart: RRR, S1, S2, no murmurs. 1-2+ peripheral edema, 1+ pulses in the lower extremities bilaterally Abdomen: Soft, nontender, no masses. No hepatomegaly. No splenomegaly Extremities: No clubbing or cyanosis. Normal muscle strength in the upper and lower extremities Skin: Normal skin turgor with no skin ulcers or lesions noted. Neuro: Cranial nerves intact. Sensation intact Psych: Alert and oriented 3 with appropriate affect Current Medications: Current Medications Sig/Dung Start time Last Medication Dose Route Stop Time Status Admin Acetaminophen 650 MG Q6P PRN 04/10 2000 AC PO Acetazolamide 250 MG ONCE ONE 04/15 1999 DC 04/15 Sodium Chloride 50 ML IV 04/15 2028 213 Albuterol Sulfate 3 ML EVERY 4 HRS/AWAKE 04/11 1200 AC 04/16 INH 0931 Benzocaine/Menthol 1 CHOLO Q2P PRN 04/13 1200 AC PO Docusate Sodium 100 MG DAILY PRN 04/15 0700 AC PO Escitalopram Oxalate 20 MG DAILY 04/11 1000 AC 04/16 PO 1029 Ferrous Sulfate 325 MG TID 04/15 1600 AC 04/16 PO 1030 Ferrous Sulfate 325 MG DAILY 04/14 1000 DC 04/15 PO 0944 Finasteride 5 MG DAILY 04/11 1000 AC 04/16 PO 1029 Furosemide 40 MG BID 04/15 1000 AC 04/16 IV 1030 Guaifenesin 600 MG Q12 04/13 2200 AC 04/16 PO 1029 Methylprednisolone 40 MG Q8 04/15 1730 AC 04/16 IV 0623 Omeprazole 40 MG DAILY AC 04/11 0700 AC 04/16 PO 0623 Patient Medication 1 ED .STK-MED ONE 04/15 1406 DC Teaching ED 04/15 1407 Polyethylene Glycol 17 GM DAILY PRN 04/15 0700 AC 04/15 PO 2138 Potassium Chloride 10 MEQ Q1H 04/15 1715 DC 04/15 IV 04/15 1816 2137 Potassium Chloride 20 MEQ BID 04/14 1420 DC 04/15 PO 04/15 220 2137 Potassium Chloride 20 MEQ BID 04/13 1000 AC 04/16 PO 1030 Pregabalin 100 MG BID 04/10 2200 AC 04/16 PO 1029 Senna 187 MG AT BEDTIME PRN 04/15 0700 AC 04/15 PO 2138 Tamsulosin HCl 0.4 MG DAILY 04/11 1000 AC 04/16 PO 1030 Tiotropium [place] 1 PUF DAILY 04/11 1000 AC 04/16 INH 1031 Results Last 48 Hrs of Labs/Mics: Laboratory Tests 04/16/16 0930: pH 7.32 L, pCO2 56 H, pO2 65 L, HCO3 28, ABG O2 Sat (Measured) 91.0 L, Carboxyhemoglobin 1.7, O2 Concentration % 2L, O2 Delivery Method NC, Phlebotomy Draw Site RIGHT RADIAL 04/16/16 0650: Anion Gap 12, Estimated GFR > 60, BUN/Creatinine Ratio 15.0, Phosphorus 3.3, Magnesium 2.2, CBC w Diff MAN DIFF ORDERED, RBC 3.73 L, MCV 82.0, MCH 25.3 L, RDW 20.0 H, MPV 6.3 L, Gran % 93.2 H, Lymphocytes % 3.1 L, Monocytes % 3.5, Eosinophils % 0.1, Basophils % 0.1, Absolute Granulocytes 35.5 H, Segmented Neutrophils 75, Band Neutrophils 10 H, Absolute Lymphocytes 1.2, Lymphocytes 7 L, Monocytes 1 L, Absolute Monocytes 1.3 H, Absolute Eosinophils 0, Absolute Basophils 0, Metamyelocytes 1, Myelocytes 6 H, Nucleated RBCs 1 H, Platelet Estimate DECREASED, Polychromasia 2+, Hypochromic-Microcytic 2+, Poikilocytosis 2+, Basophilic Stippling 2+, Anisocytosis 2+, Ovalocytes 1+, Stomatocytes 1+, Elliptocytes 1+, PUBS MCHC 30.9 L 04/15/16 2205: Anion Gap 12, Estimated GFR > 60, BUN/Creatinine Ratio 13.8, Magnesium 1.9 04/15/16 1740: pH 7.34 L, pCO2 65 *H, pO2 60 L, HCO3 34 H, ABG O2 Sat (Measured) 89.0 L, Carboxyhemoglobin 1.5, O2 Concentration % 30%, Respiration Rate 26, O2 Delivery Method BIPAP, Vent Mode ST, Expiratory Pressure 6, Inspiratory Pressure 16, Phlebotomy Draw Site RIGHT BRACHIAL 04/15/16 0930: pH 7.30 *L, pCO2 76 *H, pO2 87, HCO3 37 H, ABG O2 Sat (Measured) 95.0 L, Carboxyhemoglobin 1.6, O2 Concentration % 3.5L, Temperature 97.8, O2 Delivery Method NC, Phlebotomy Draw Site RIGHT RADIAL 04/15/16 0520: Anion Gap 12, Estimated GFR > 60, BUN/Creatinine Ratio 14.3, Magnesium 2.1, CBC w Diff MAN DIFF ORDERED, RBC 3.74 L, MCV 81.5, MCH 25.4 L, RDW 19.5 H, MPV 7.0 L, Gran % 86.0 H, Lymphocytes % 4.1 L, Monocytes % 9.6 H, Eosinophils % 0.3, Basophils % 0 L, Absolute Granulocytes 28.7 H, Segmented Neutrophils 69, Band Neutrophils 8 H, Absolute Lymphocytes 1.4, Lymphocytes 9 L, Monocytes 13 H, Absolute Monocytes 3.2 H, Absolute Eosinophils 0.1, Absolute Basophils 0, Metamyelocytes 1, Nucleated RBCs 1 H, Platelet Estimate DECREASED, Poikilocytosis 1+, Anisocytosis 1+, Stomatocytes 1+, PUBS MCHC 31.2 L 04/14/162048: Anion Gap 8, Estimated GFR > 60, BUN/Creatinine Ratio 17.1 Recent Imaging Studies: Echocardiogram 04/15/16: Normal size left ventricle. Normal left ventricular ejection fraction visually estimated at >60 Trace mitral regurgitation. Mild tricuspid regurgitation. Right ventricular systolic pressure estimated to be elevated at 46 mmHg. media monitor tracings are independently reviewed, and reveal sinus rhythm with no severe arrhythmias. Heart rate is normal. Assessment/Plan Assessment/Plan Assessment: 1. Anemia, with possible GI bleed 2. COPD exacerbation 3. Hypokalemia, improving supplementation 4. Acute diastolic heart failure, improving Recommendations: 1. Continue IV Lasix 2. Check basic metabolic profile daily 3. Follow input and output 4. Supplement potassium Continue telemetry? Yes
[2016-04-16 14:17] VITALS: BP 120/80
--- NOTE | 2016-04-16 14:19 | NUR ---
1415 PT STATING HE HAS CHEST PAIN BUT POINTING TO THE MID EPIGASTRIC AREA. STATES ITS A "DULL" ACHE AND DOESN'T RADIATE. VSS. BP 120/80, HR 90, T- 98.0, RR 24, O2 95% 2L. PT SITTING UP IN RECLINER. 1418 MARCOS COLEMAN AWARE. 1421 MARCOS IN TO ASSESS PT. WILL CONTINUE TO MONITOR PT.
--- NOTE | 2016-04-16 15:23 | Discharge Summary ---
See Addendum Visit Information Visit Dates Admission Date: 04/10/16 Discharge Date: 04/19/16 Hospital Course Course Attending Physician: ROSCOE HERNANDEZ MD Primary Care Physician: Harry GURROLA MD [facility] Course: Luis Antonio is a 70-year-old man with a medical history of laryngeal cancer status post epiglottic resection 8 years ago, newly diagnosed myelodysplastic syndrome (trisomy 8) COPD, pulmonary hypertension who is admitted with an upper GI bleed and symptomatic anemia requiring multiple transfusions of packed red blood cells. Additionally was in COPD exacerbation, and significant acute hypercarbic hypoxemic respiratory failure and respiratory acidosis. Patient improved with BiPAP, steroids, blood transfusions, however he did develop acute pulmonary edema requiring intravenous diuretics. An upper endoscopy was performed and did not reveal any significant findings. The patient's acute anemia is thought to be due to underlying MDS. He has improved with parenteral diuretics and steroids. Transitioned to prednisone, with taper. - Problems - # UGIB - s/p EGD # Symptomatic anemia - req'd txn of 4U PRBCs # Pulmonary edema # Diuretic induced contraction alkalosis # Pulmonary HTN # COPD exacerbation # MDS Allergies: Coded Allergies: codeine (Mild, RASH 03/10/16) aspirin (R/T BLOOD PLATELET COUNT 03/10/16) Significant Procedures: EGD: Medical History: unchanged Mental Status: alert/oriented Heart/Lung Eval Prior to Sedation: within normal limits (COPD) Candidate for Sedation? Yes Procedure Date: 04/13/16 Procedure Type: EGD Pens And Pencils Dipper: ETELVINA PEDROZA MD ASA Classification: III (III-E) Indications: INDX: (*Please refer to extensive GI consult of 04/12/2016). 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 : *Flow cytometry-pending. No leukemia was seen on previous bone marrow aspirate. No blasts or schistocytes on peripheral smear. 06/09/2013: History of small , in the setting of remote baby aspirin therapy, bxs- benign inflammation, HP-negative. Simultaneous colonoscopy to cecum then- negative except extensive pandiverticulosis coli & internal hemorrhoids, without recurrent adenoma. 10/18/2013: Follow-up EGD- healed . Stable GERD, on Omeprazole 40 mg daily. *Stools OB-negative. 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 The patient stopped his iron supplements a few months ago. His statistics professor is Dr. Peyman Aguilar. *There is a family history of colon cancer in the patient's father (who also had prostate Ca), age of onset unknown. There is no family history of additional GI malignancy, GI disease, or inherited liver disease. The patient was recently diagnosed with MDS per Dr. 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 09/11/2015: Liver- spleen scan- mild colloid shift with equal activity in the liver and spleen, and suggestion of splenomegaly. Past history of intermittent moderate alcohol use. *Extensive past GI workup, per Dr. Peyman Aguilar: 09/30/2007: EGD/Colonoscopy to cecum (done for screening, BRBPR, GERD, dysphagia )- removal of 2 benign subcentimeter colonic TA (poor prep), large internal hemorrhoids, extensive pandiverticulosis coli; Z line at 40 cm, small lower esophageal ring left intact, small hiatal hernia, fleshy polypoid lesion 1.5 cm above the aretynoid (post resection of epiglottis). 06/09/2013: EGD to D2/Colonoscopy to cecum for GI bleed (in the setting of ASA 81 mg daily)- abnormal hypopharynx/larynx with leukoplakia and telangiectasias ( f/b ENT), antral erosion, small antral gastric ulcer with tiny red spot at the greater curvature, without therapeutics, patent pylorus without GOO, biopsies- mild to moderate gastritis, H. pylori negative; extensive pandiverticulosis coli , large internal hemorrhoids, diminutive colon "polyp" removed- nonspecific chronic inflammation, without recurrent adenomas. 10/18/2013: EGD- deformed hypopharynx/larynx without change, healed gastric ulcer, with biopsies of gastric antrum and fundus- mild to moderate gastritis, H. pylori negative, no intestinal metaplasia, no dysplasia. *No varices or portal gastropathy seen. Instrument: diagnostic gastroscope Meds Received: MAC Patient's Tolerance: good Complications: none Extent Reached: D3 Procedure: Follow-up upper endoscopy to the third portion of the duodenum was performed with the Olympus high definition videoendoscope, after obtaining informed consent from the patient, with the awake overnight monitor and pulse oximeter, with the assistance of Dr. Mckeon, of [facility]. The patient was moved from room #216-2 to the ICU for the procedure, purely for purposes of sedation and monitoring. The patient's false upper and lower teeth were removed preoperatively. He was edentulous. A mouthpiece was placed in the usual fashion to protect the patient's oral cavity. The patient was placed in the left lateral decubitus position and sedated by [facility]. At this point , the endoscope was advanced from the mouth into the esophagus, using direct visualization technique. The vast majority of the epiglottis had been resected, with a smooth residual epiglottic nub seen. The hypopharynx was slightly distorted, with leukoplakia, post RT. I did not see any significant telangiectasias. The vocal cords appeared slightly scarred, but were otherwise normal, without any gross lesions. The esophageal mucosa appeared normal. There were no esophageal rings, webs, lesions, strictures, or ulcers. There was no monilia or vesicles. There was no esophageal ribbing. The Z line was well demarcated at 42 cm. There was a barely visible hiatal hernia pouch, without any Jeet erosions. No significant esophageal inflammation was seen. There were no ectopic islands, nor gross Maciel's esophagus. There were no esophageal or gastric varices, nor any Annie Ramos tear. The alvarado of the stomach distended normally with air insufflation. Direct and retroflexed views of the stomach were performed. There was nothing endoscopically to suggest gastroparesis or portal gastropathy. The mucosa of the gastric cardia, fundus, lesser curvature, incisura, and body appeared normal, without any gastric ulcers or gastric lesions. The gastric antrum was normal, except for some prepyloric erythema, which was left intact. There was no active bleeding in this region. The pylorus was patent, without any gastric outlet obstruction or channel ulcer. The duodenal bulb, duodenal sweep, and third portion of the duodenum appeared normal, without any duodenal ulcers, distal ulcerations, or angiodysplasias. Bile was seen in the duodenum. I was not able to see the ampulla with the direct-viewing scope. The folds of the second and third portions of the duodenum were normal in caliber, without any flattening, nodularity, scalloping, or mosaic pattern. In view of the thrombocytopenia with platelet count of 40K, random small bowel biopsies and biopsies of the prepyloric antral erythema were deferred. No active upper GI bleeding was seen. *Documenting photographs were obtained and placed inside the patient's chart. The patient tolerated the procedure well. Impression: 1. Distorted hypopharynx with leukoplakia, post RT. No significant telangiectasia seen. 2. Slightly scarred vocal cords, without any gross lesions. 3. Post epiglottic resection, with smooth residual epiglottic nub. 4. Z line at 42 cm, with scant hiatal hernia. 5. Prepyloric antral erythema. 6. Otherwise, normal study to the third portion of the duodenum. Ampulla not seen with the direct- viewing scope. No active upper GI bleeding seen. [*Biopsies deferred in view of thrombocytopenia, with platelet count 40K]. Recommendations: *Feed patient as tolerated. The patient will be moved back to General Medicine post procedure. Continue Omeprazole 40 mg po daily. T&C 4u PRBC. Check CBC twice a day for now. Keep Hgb > 7. Supplemental oxygen as needed. *Consider celiac panel (IgA, tTG Ab, DGP Ab; doubt malabsorption). Consideration for possible repeat colonoscopy vs. outpatient PillCam, although I feel the yield of a repeat colonoscopy in view of the relatively recent study of 06/09/2013 is low , also keeping in mind the history of thrombocytopenia. *Await 04/11/2016: Flow cytometry, as per hematology. *Will defer to hematology regarding institution of [place]. *Consider adding MMA to pre-transfusion admission labs, to rule out mixed deficiency, with elevated RDW. *Consideration for checking MARTHA, & AMA, regarding the question of cirrhosis (again, iron studies are low, without evidence of iron overload). *Await echocardiogram per medical team, in view of peripheral edema. *Replete K+. *Fe repletion. Dr. Peyman Aguilar will resume the patient's GI care on 04/14/2016, but again, I feel the primary etiology for the anemia is MDS. The above findings and recommendations were discussed with the patient, the patient's , the patient's son, Luis Antonio, and the patient's RN postoperatively, on 04/13/2016. Further recommendations to follow, depending on clinical course Disposition Summary Disposition Principal Diagnosis: - Problems - # UGIB - s/p EGD Additional Diagnosis: # Symptomatic anemia - req'd txn of 4U PRBCs # Pulmonary edema # Diuretic induced contraction alkalosis # Pulmonary HTN # COPD exacerbation # MDS Discharge Disposition: str Discharge Instructions General Discharge Information Code Status: Full Code Patient's Diet: REGULAR DIET Patient's Activity: SELF LIMITED Follow-Up Instructions/Appts: Follow-up with Harry Gurrola MD (primary), Etelvina Ledezma MD (oncology), Etelvina Pedroza MD (gastroenterology), Wade thomas MD (pulmonology), Sonny Rios MD (cardiology) Medications at Discharge Discharge Medications: Continue taking these medications: Omeprazole (Omeprazole) 40 MG CAPSULE.DR 1 Capsule ORAL DAILY Qty = 30 Comments: Last Taken Date: 08/13/13 Last Taken Time: 0630 TAMSULOSIN HCL (Tamsulosin Hydrochloride) 0.4 MG CAP.ER.24H 1 Capsule ORAL DAILY Qty = 30 Comments: Last Taken Date: 08/12/13 Last Taken Time: 2130 Budesonide/Formoterol [place] (Symbicort 160-4.5 Mcg Inhaler) 160 MCG/4.5 MCG PUF 2 Puff Inhale through mouth TWICE DAILY Qty = 1 Comments: Last Taken Date: 08/13/13 Last Taken Time: 0900 Albuterol Sulfate (Ventolin Hfa) 90 MCG HFA.AER.AD 2 Puff Inhale through mouth 4 TIMES A DAY as needed for COPD Qty = 1 Comments: PER PT Albuterol Sulfate (Albuterol Sulfate Nebulizer Soln) 0.63 MG/3 ML VIAL.NEB 1 Vial Inhale Solution 4 TIMES A DAY Comments: Last Taken Date: 08/13/13 Last Taken Time: 0900 Escitalopram Oxalate (Escitalopram Oxalate) 20 MG TABLET 1 Tablet ORAL DAILY Qty = 90 Comments: Last Taken:04/19/15 Time:9AM Pregabalin (Lyrica) 100 MG CAPSULE 1 Capsule ORAL TWICE DAILY Qty = 60 Comments: PREVIOUSLY NOTED IN CMR 150MG BID FOR RLS Tiotropium [place] (Spiriva Respimat) 2.5 MCG/ACTUATION MIST.INHAL 2 PUFF Inhale through mouth DAILY Qty = 1 Comments: Last Taken:04/19/15 Time:9AM Acetaminophen (Tylenol Extra Strength) 500 MG TABLET 2 Tablet ORAL as needed for PAIN Days = 30 Comments: NOT TAKEN Start taking the following new medications: Ferrous Sulfate (Ferrous Sulfate) 325 MG (65 MG IRON) TABLET.DR 1 Tablet ORAL DAILY as needed for ANEMIA Days = 30 No Refills Comments: Last Taken:04/19/15 Time:9AM Prednisone (Prednisone) 10 MG TABLET 1 Tablet ORAL TWICE DAILY Qty = 25 No Refills Instructions: TAKE 5 TABS 04/20/16 THEN TAKE 4 TABS FROM 04/21/16 - 04/22/16 THEN TAKE 3 TABS FROM 04/23/16 - 04/24/16 THEN TAKE 2 TABS FROM 04/25/16 - 04/26/16 THEN TAKE 1 TAB FROM 04/27/16 - 04/28/16 THEN STOP Comments: Last Taken:04/19/15 Time:9AM Furosemide (Lasix) 40 MG TABLET 1 Tablet ORAL TWICE DAILY Qty = 30 No Refills Comments: IV DOSE GIVEN Last Taken:04/19/15 Time:9AM Copies To: VY COLEMAN,WADE Granados; NILSA COLEMAN,ETELVINA Bingham; ALFONSO COLEMAN,ETELVINA Juares; GAVI COLEMAN, Harry VALDEZ; WINSOME COLEMAN,SONNY
[2016-04-16 16:54] VITALS: BP 126/68
[2016-04-16 22:26] VITALS: BP 112/56
--- NOTE | 2016-04-17 07:29 | PN- Hematology ---
Subjective Subjective: Breathing acceptable Review of Systems: 12 point review of systems unchanged Objective Vital Signs and I&Os Vital Signs Date Time Temp Pulse Resp B/P Pulse O2 O2 Flow FiO2 Ox Delivery Rate 04/17 0533 65 94 04/17 0119 100 92 04/17 0000 92 Nasal 2.0L Cannula 04/16 2226 98.7 107 24 112/56 92 Nasal 3.0L Cannula 04/16 1805 93 Nasal 2.0L Cannula 04/16 1654 97.9 96 18 126/68 94 04/16 1417 98.0 90 24 120/80 95 Nasal 2.0L Cannula 04/16 1030 88 112/52 04/16 0938 97 Nasal 2.0L Cannula 04/16 0851 97.7 88 20 112/52 93 04/16 0800 Nasal 2.0L Cannula Intake & Output 04/17 0800 04/17 0000 04/16 1600 04/16 0800 04/16 0000 04/15 1600 Intake Total 240 790 738 932 0833 Output Total 300 250 300 200 450 Balance -60 540 850 -180 -200 930 Intake, IV 25 0 Intake, Oral 240 790 392 100 7903 Number 0 1 1 0 Bowel Movements Output, Urine 300 250 300 200 450 Patient 208 lb Weight Gen.: in NAD ENT: Sclera anicteric Chest: Normal respiratory effort, decreased breath sounds Cor: RRR, no extra sounds Abdomen: Soft, bowel sounds present, no tenderness, no rebound Extremities: Without clubbing, cyanosis, or asymmetric edema, Neurology: Alert and oriented 3, no gross deficit Skin: Ecchymoses Current Medications: Current Medications Sig/Dung Start time Last Medication Dose Route Stop Time Status Admin Acetaminophen 650 MG Q6P PRN 04/10 2000 AC PO Albuterol Sulfate 3 ML EVERY 4 HRS/AWAKE 04/11 1200 AC 04/16 INH 2130 Benzocaine/Menthol 1 CHOLO Q2P PRN 04/13 1200 AC PO Docusate Sodium 100 MG DAILY PRN 04/15 0700 AC PO Escitalopram Oxalate 20 MG DAILY 04/11 1000 AC 04/16 PO 1029 Ferrous Sulfate 325 MG TID 04/15 1600 AC 04/16 PO 2106 Finasteride 5 MG DAILY 04/11 1000 AC 04/16 PO 1029 Furosemide 40 MG BID 04/15 1000 AC 04/16 IV 2106 Guaifenesin 600 MG Q12 04/13 2200 AC 04/16 PO 2107 Methylprednisolone 40 MG Q8 04/15 1730 AC 04/17 IV 0716 Omeprazole 40 MG DAILY AC 04/11 0700 AC 04/17 PO 0716 Patient Medication 1 ED .STK-MED ONE 04/16 1312 IN Teaching ED 04/16 1313 Polyethylene Glycol 17 GM DAILY PRN 04/15 07 AC 04/15 PO 2138 Potassium Chloride 20 MEQ BID 04/13 1000 AC 04/16 PO 2107 Pregabalin 100 MG BID 04/10 220 AC 04/16 PO 2107 Senna 187 MG AT BEDTIME PRN 04/15 07 AC 04/15 PO 2138 Tamsulosin HCl 0.4 MG DAILY 04/11 1000 AC 04/16 PO 1030 Tiotropium [place] 1 PUF DAILY 04/11 1000 AC 04/16 INH 1031 Results Last 24 Hours of Lab Results: Laboratory Tests 04/17 04/16 0700 0930 Blood Gas pH (7.35 - 7.45 PH) 7.32 L pCO2 (35 - 45 TORR) 56 H pO2 (80 - 100 TORR) 65 L HCO3 (21 - 28 MEQ/L) 28 ABG O2 Sat (Measured) (>96.0 %) 91.0 L Carboxyhemoglobin (1.5 - 5.0 %) 1.7 O2 Concentration % 2L O2 Delivery Method NC Chemistry Sodium Pending Potassium Pending Chloride Pending Carbon Dioxide Pending Anion Gap Pending BUN Pending Creatinine Pending BUN/Creatinine Ratio Pending Hematology CBC w Diff Pending WBC Pending RBC Pending Hgb Pending Hct Pending MCV Pending MCH Pending RDW Pending Plt Count Pending MPV Pending PUBS MCHC Pending Miscellaneous Phlebotomy Draw Site RIGHT RADIAL Assessment/Plan Assessment/Recommendations: Hematologic status-rising platelet count, white count increased likely due to recent respiratory issues and corticosteroids Recommend-continue to follow CBC Hypercarbic respiratory failure-improved
--- NOTE | 2016-04-17 07:44 | PN- Pulmonary ---
Subjective HPI/Critical Care Issues: Patient is awake alert comfortable without shortness of breath arterial blood gases are improved Objective Current Medications: Current Medications Sig/Dung Start time Last Medication Dose Route Stop Time Status Admin Acetaminophen 650 MG Q6P PRN 04/10 2000 AC PO Albuterol Sulfate 3 ML EVERY 4 HRS/AWAKE 04/11 1200 AC 04/16 INH 2130 Benzocaine/Menthol 1 CHOLO Q2P PRN 04/13 1200 AC PO Docusate Sodium 100 MG DAILY PRN 04/15 0700 AC PO Escitalopram Oxalate 20 MG DAILY 04/11 1000 AC 04/16 PO 1029 Ferrous Sulfate 325 MG TID 04/15 1600 AC 04/16 PO 2106 Finasteride 5 MG DAILY 04/11 1000 AC 04/16 PO 1029 Furosemide 40 MG BID 04/15 1000 AC 04/16 IV 2106 Guaifenesin 600 MG Q12 04/13 2200 AC 04/16 PO 2107 Methylprednisolone 40 MG Q8 04/15 1730 AC 04/17 IV 0716 Omeprazole 40 MG DAILY AC 04/11 0700 AC 04/17 PO 0716 Patient Medication 1 ED .STK-MED ONE 04/16 1312 OR Teaching ED 04/16 1313 Polyethylene Glycol 17 GM DAILY PRN 04/15 0700 AC 04/15 PO 2138 Potassium Chloride 20 MEQ BID 04/13 1000 AC 04/16 PO 2107 Pregabalin 100 MG BID 04/10 2200 AC 04/16 PO 2107 Senna 187 MG AT BEDTIME PRN 04/15 0700 AC 04/15 PO 2138 Tamsulosin HCl 0.4 MG DAILY 04/11 1000 AC 04/16 PO 1030 Tiotropium [place] 1 PUF DAILY 04/11 1000 AC 04/16 INH 1031 Vital Signs & I&O Last 24 Hrs of Vitals and I&O: Vital Signs Date Time Temp Pulse Resp B/P Pulse O2 O2 Flow FiO2 Ox Delivery Rate 04/17 0533 65 94 04/17 0119 100 92 04/17 0000 92 Nasal 2.0L Cannula 04/16 2226 98.7 107 24 112/56 92 Nasal 3.0L Cannula 04/16 1805 93 Nasal 2.0L Cannula 04/16 1654 97.9 96 18 126/68 94 04/16 1417 98.0 90 24 120/80 95 Nasal 2.0L Cannula 04/16 1030 88 112/52 04/16 0938 97 Nasal 2.0L Cannula 04/16 0851 97.7 88 20 /52 93 04/16 0800 Nasal 2.0L Cannula Intake & Output 04/17 0804/17 0000 04/16 1600 Intake Total 240 790 850 Output Total 300 250 Balance -60 540 850 Intake, IV 25 Intake, Oral 240 790 825 Number 0 1 1 Bowel Movements Output, Urine 300 250 Oxygen saturation 2 L 94% exam of his chest shows clear lung zamora are no wheezes cardiac exam shows regular S1 and S2 without murmurs Impression/Plan Impression/Plan Impression/Plan: 71-year-old gentleman with COPD chronic hypercapnia appears improved. Wheezing is resolved Recommendations: DC IV Solu-Medrol and begin by mouth prednisone. Taper FiO2 his saturations allow. Begin discharge planning
[2016-04-17 07:59] VITALS: BP 108/60
[2016-04-17 08:14] LABS: ABSOLUTE BASOPHIL COUNT 0 /CUMM (0.0-0.2); ABSOLUTE EOSINOPHIL COUNT 0 /CUMM (0.0-0.7); BASOPHIL % 0 % (0.0-2.0); EOSINOPHIL % 0 % (0-5); MEAN CORPUSCULAR VOLUME 81.1 FL (80.0-94.0)
[2016-04-17 08:42] LABS: ABSOLUTE LYMPH COUNT 0.9 /CUMM (1.2-3.4); ABSOLUTE MONOCYTE COUNT 1.6 /CUMM (0.10-0.60); GRANULOCYTE % 94.4 % (42.2-75.2); HEMATOCRIT 26.5 % (42-52); MEAN CORPUSCULAR HGB 25.8 PG (27.0-31.0); MEAN CORPUSCULAR HGB CONC 31.8 G/DL (33.0-37.0); MEAN PLATELET VOLUME 8.3 FL (7.4-10.4); PLATELET COUNT 61 /CUMM (130-400); RBC DISTRIBUTION WIDTH 19.9 % (11.5-14.5); RED BLOOD CELL CT 3.26 /CUMM (4.70-6.10)
[2016-04-17 08:53] LABS: WHITE BLOOD CELL COUNT 45.5 /CUMM (4.8-10.8)
--- NOTE | 2016-04-17 09:22 | PN- Housestaff ---
FRANCI COLEMAN,[facility] 04/17/16 0920: Subjective Follow-up For: Acute hypercapnic respiratory failure Tele-Events Since Last Visit: Sinus rhythm/sinus tachycardia Heart rate 68-101 No events overnight Subjective: Patient was seen and examined this morning, he had his nipple has had this morning and endorses improvement in his shortness of breath, he is on 1 l nasal canula with saturation 96 percent. He complained of cough with minimal sputum yellowish in color denied any blood. Denied any fever or chills. Review of Systems Constitutional: Denies: see HPI. Objective Last 24 Hrs of Vital Signs/I&O Vital Signs Date Time Temp Pulse Resp B/P Pulse O2 O2 Flow FiO2 Ox Delivery Rate 04/17 0903 108/60 04/17 0803 96 Nasal 1.0L Cannula 04/17 0800 96 Nasal 1.0L Cannula 04/17 0759 97.7 74 20 108/60 94 Nasal 2.0L Cannula 04/17 0533 65 94 04/17 0119 100 92 04/17 0000 92 Nasal 2.0L Cannula 04/16 2226 98.7 107 24 112/56 92 Nasal 3.0L Cannula 04/16 1805 93 Nasal 2.0L Cannula 04/16 1654 97.9 96 18 126/68 94 04/16 1417 98.0 90 24 120/80 95 Nasal 2.0L Cannula Intake & Output 04/17 1600 04/17 0800 04/17 0000 Intake Total 240 790 Output Total 300 250 Balance -60 540 Intake, Oral 240 790 Number 0 1 Bowel Movements Output, Urine 300 250 Physical Exam General Appearance: Alert, Oriented X3, Cooperative, No Acute Distress Skin: No Rashes, No Breakdown Cardiovascular: Regular Rate, Normal S1, Normal S2, No Murmurs Lungs: bilateral decrease air entery, right side fine crepitation Abdomen: Normal Bowel Sounds, Soft, No Tenderness Neurological: Normal Speech, Strength at 5/5 X4 Ext, Normal Tone, Sensation Intact, Cranial Nerves 3-12 NL, Reflexes 2+ Extremities: BLE +1 edema Other Physical Findings: Positive flapping tremors fine Assessment/Plan Assessment: 70-year-old gentleman past medical history significant for previous history of bright red blood per rectum, gastroesophageal reflux disease, Laryngeal cancer s /p epiglottic resection 8 years ago, COPD on intermittent home oxygen, recently diagnosed myelodysplastic syndrome. Patient was transferred from general medical floor to telemetry because of acute hypercapnic hypoxemic respiratory failure Problem list #Acute hypercapnic hypoxemic respiratory failure #Metabolic alkalosis #Anemia #Lower extremity swelling/possible acute heart failure with preserved ejection fraction #MDS #BPH #Acute hypercapnic hypoxemic respiratory failure -Improved clinically, no wheeze. decrease oxygen requirment to 1 L with sat 96% -Will obtain RA oximetery today -Patient is on nocturnal BiPAP and PRN -Cont TRC -HCo3 is 34 -Chest x ray showed Mild central vascular prominence with increased markings at the lung bases which could represent mild edema -Pulm. consultation was obtained, appricated their input -Continue Solu-Medrol, decrease the dose to 40 mg every 12 -Predinsone 50 mg daily start from tomorrow #Metabolic alkalosis and hypokalemia -initally as a side effect of excessive diauresis superimposed by respirtaory acidosis -hypokalemia was resolved #Anemia -GI bleeding with Hx of peptic ulcer disease and colon polyps -Today postive guiac stool -Endoscopy was done in 04/13/2016 with no evidence active upper GI bleeding seen -patient received 4 units of PRBC -Patient has history of myelodysplastic syndrome with chronic anemia -monitor CBC daily #Lower extremity swelling/possible acute heart failure with preserved ejection fraction -Recent echo showed left ventricular systolic and diastolic function are normal EF more than 60. Right heart enlargement is present with abnormal septal motion , septal flattening, and a right ventricular systolic pressure of 60 mmHg consistent with pulmonary hypertension. #MDS -Oncology is on board #BPH -continue flomax and proscar DVT prophylaxis Alps Full code status Regular diet Consultation cardiology, pulmonology, hematology oncology, GI Problem List: 1. COPD Exacerbation 2. Acute hypercapnic respiratory failure 3. GERD (gastroesophageal reflux disease) 4. MDS (myelodysplastic syndrome) Pain Ratin Pain Location: N/A Pain Goal: Remain pain free Pain Plan: see medication Tomorrow's Labs & Rationales: CBC in the setting of MDS Electrolyte the setting of metabolic alkalosis ALESSIO NAVARRETE MD 04/17/16 1505: Attending Review Statement Attending Statement Attending Statement: examined this patient, discuss w/resident/PA/BUSINESS SYSTEM CONSULTANT, agreed w/resident/PA/BUSINESS SYSTEM CONSULTANT, reviewed EMR data (avail), discussed with nursing, discussed with case mgmt, amended to note Attending Assessment/Plan: The patient was seen and discussed with the resident. Agree with the plan of care as outlined.
--- NOTE | 2016-04-17 14:00 | PN- Cardiology ---
Subjective Subjective: Stable with improving respiratory status Objective Vital Signs and I&Os Vital Signs Date Time Temp Pulse Resp B/P Pulse O2 O2 Flow FiO2 Ox Delivery Rate 04/17 0903 108/60 04/17 0803 96 Nasal 1.0L Cannula 04/17 08 96 Nasal 1.0L Cannula 04/17 0759 97.7 74 20 108/60 94 Nasal 2.0L Cannula 04/17 0533 65 94 04/17 0119 100 92 04/17 0000 92 Nasal 2.0L Cannula 04/16 2226 98.7 107 24 112/56 92 Nasal 3.0L Cannula 04/16 1805 93 Nasal 2.0L Cannula 04/16 1654 97.9 96 18 126/68 94 04/16 1417 98.0 90 24 120/80 95 Nasal 2.0L Cannula Intake & Output 04/17 1600 04/17 0804/17 0000 04/16 1600 04/16 0804/16 0000 Intake Total 240 790 850 120 Output Total 300 250 300 200 Balance -60 540 850 -180 -200 Intake, IV 25 Intake, Oral 240 790 825 120 Number 0 1 1 Bowel Movements Output, Urine 300 250 300 200 Patient 208 lb Weight Current Medications: Current Medications Sig/Dung Start time Last Medication Dose Route Stop Time Status Admin Acetaminophen 650 MG Q6P PRN 04/10 2000 AC PO Albuterol Sulfate 3 ML EVERY 4 HRS/AWAKE 04/11 1200 AC 04/17 INH 1137 Benzocaine/Menthol 1 CHOLO Q2P PRN 04/13 1200 AC PO Docusate Sodium 100 MG DAILY PRN 04/15 07 AC PO Escitalopram Oxalate 20 MG DAILY 04/11 1000 AC 04/17 PO 0905 Ferrous Sulfate 325 MG TID 04/15 1600 AC 04/17 PO 0902 Finasteride 5 MG DAILY 04/11 1000 AC 04/17 PO 0905 Furosemide 40 MG BID 04/15 1000 AC 04/17 IV 0908 Guaifenesin 600 MG Q12 04/13 2200 AC 04/17 PO 0905 Methylprednisolone 40 MG Q12 04/17 2200 AC IV 04/18 0100 Methylprednisolone 40 MG Q8 04/15 1730 DC 04/17 IV 0716 Omeprazole 40 MG DAILY AC 04/11 0700 AC 04/17 PO 0716 Polyethylene Glycol 17 GM DAILY PRN 04/15 0700 AC 04/15 PO 2138 Potassium Chloride 20 MEQ BID 04/13 1000 AC 04/17 PO 09 Prednisone 50 MG DAILY 04/18 1000 AC PO Pregabalin 100 MG BID 04/10 2200 AC 04/16 PO 210 Senna 187 MG AT BEDTIME PRN 04/15 0700 AC 04/15 PO 213 Tamsulosin HCl 0.4 MG DAILY 04/11 1000 AC 04/17 PO 0903 Tiotropium [place] 1 PUF DAILY 04/11 1000 AC 04/17 INH 0907 Results Last 48 Hrs of Labs/Mics: Laboratory Tests 04/17/16 0700: Anion Gap 11, Estimated GFR > 60, BUN/Creatinine Ratio 25.0, CBC w Diff MAN DIFF ORDERED, RBC 3.26 L, MCV 81.1, MCH 25.8 L, RDW 19.9 H, MPV 8.3, Gran % 94.4 H, Lymphocytes % 2.0 L, Monocytes % 3.6, Eosinophils % 0, Basophils % 0 L, Absolute Granulocytes 43.0 H, Segmented Neutrophils 77 H, Band Neutrophils 10 H, Absolute Lymphocytes 0.9 L, Lymphocytes 2 L, Monocytes 2, Absolute Monocytes 1.6 H, Absolute Eosinophils 0, Absolute Basophils 0, Metamyelocytes 5 H, Myelocytes 4 H, Nucleated RBCs 1 H, Platelet Estimate DECREASED, Polychromasia 1+, Basophilic Stippling 1+, Anisocytosis 1+, Stomatocytes 2+, PUBS MCHC 31.8 L 04/16/16 0930: pH 7.32 L, pCO2 56 H, pO2 65 L, HCO3 28, ABG O2 Sat (Measured) 91.0 L, Carboxyhemoglobin 1.7, O2 Concentration % 2L, O2 Delivery Method NC, Phlebotomy Draw Site RIGHT RADIAL 04/16/16 0650: Anion Gap 12, Estimated GFR > 60, BUN/Creatinine Ratio 15.0, Phosphorus 3.3, Magnesium 2.2, CBC w Diff MAN DIFF ORDERED, RBC 3.73 L, MCV 82.0, MCH 25.3 L, RDW 20.0 H, MPV 6.3 L, Gran % 93.2 H, Lymphocytes % 3.1 L, Monocytes % 3.5, Eosinophils % 0.1, Basophils % 0.1, Absolute Granulocytes 35.5 H, Segmented Neutrophils 75, Band Neutrophils 10 H, Absolute Lymphocytes 1.2, Lymphocytes 7 L, Monocytes 1 L, Absolute Monocytes 1.3 H, Absolute Eosinophils 0, Absolute Basophils 0, Metamyelocytes 1, Myelocytes 6 H, Nucleated RBCs 1 H, Platelet Estimate DECREASED, Polychromasia 2+, Hypochromic-Microcytic 2+, Poikilocytosis 2+, Basophilic Stippling 2+, Anisocytosis 2+, Ovalocytes 1+, Stomatocytes 1+, Elliptocytes 1+, PUBS MCHC 30.9 L 04/15/16 2205: Anion Gap 12, Estimated GFR > 60, BUN/Creatinine Ratio 13.8, Magnesium 1.9 04/15/16 1740: pH 7.34 L, pCO2 65 *H, pO2 60 L, HCO3 34 H, ABG O2 Sat (Measured) 89.0 L, Carboxyhemoglobin 1.5, O2 Concentration % 30%, Respiration Rate 26, O2 Delivery Method BIPAP, Vent Mode ST, Expiratory Pressure 6, Inspiratory Pressure 16, Phlebotomy Draw Site RIGHT BRACHIAL Assessment/Plan Assessment/Plan Assessment: 1. Worsening shortness of breath with hypercapnic respiratory failure-PCO2 elevated at 76 today. Currently on BiPAP. To my eye there is no evidence of overt heart failure on the chest x-ray. Echocardiogram reviewed. Left ventricular systolic and diastolic function are normal. Right heart enlargement is present with abnormal septal motion, septal flattening, and a right ventricular systolic pressure of 60 mmHg consistent with pulmonary hypertension. 2. Anemia, with possible GI bleed 3. Lower extremity edema with elevated proBNP. Possible acute HFpEF. 4. Hyperkalemia 5. Myelodysplastic syndrome Her conditions: -For now, I would continue the patient on his Lasix for lower extremity edema. -Await pulmonary input with respect to more aggressive treatment of his underlying pulmonary issues -BiPAP as needed -Follow-up labs pending. Continue telemetry? No
[2016-04-17 15:13] VITALS: BP 108/50
--- NOTE | 2016-04-17 20:26 | NUR ---
AMBULATED PT ON ROOM AIR, O2 SAT=87% AFTER AMBULATING WITH NO RECOVERY WITHIN 3 MINUTES. PT PLACED BACK ON 1L, O2 SAT INCREASED TO 94%
[2016-04-18 00:16] VITALS: BP 122/64
[2016-04-18 07:56] LABS: ABSOLUTE BASOPHIL COUNT 0 /CUMM (0.0-0.2); ABSOLUTE EOSINOPHIL COUNT 0 /CUMM (0.0-0.7); ABSOLUTE LYMPH COUNT 1.3 /CUMM (1.2-3.4); BASOPHIL % 0 % (0.0-2.0); EOSINOPHIL % 0 % (0-5)
[2016-04-18 08:19] VITALS: BP 130/72
[2016-04-18 08:29] LABS: ABSOLUTE MONOCYTE COUNT 1.1 /CUMM (0.10-0.60); GRANULOCYTE % 96.7 % (42.2-75.2); HEMATOCRIT 29.7 % (42-52); MEAN CORPUSCULAR HGB 25.6 PG (27.0-31.0); MEAN CORPUSCULAR HGB CONC 31.1 G/DL (33.0-37.0); MEAN CORPUSCULAR VOLUME 82.4 FL (80.0-94.0); PLATELET COUNT 67 /CUMM (130-400); RBC DISTRIBUTION WIDTH 20.4 % (11.5-14.5)
[2016-04-18 08:43] LABS: WHITE BLOOD CELL COUNT 73.4 /CUMM (4.8-10.8)
--- NOTE | 2016-04-18 10:40 | PN- Cardiology ---
Subjective Subjective: The patient has no complaints. He's had no arrhythmias. He is still mildly wheezy. Cardiac enzymes have been negative. Objective Vital Signs and I&Os Vital Signs Date Time Temp Pulse Resp B/P Pulse O2 O2 Flow FiO2 Ox Delivery Rate 04/18 818 97.9 90 20 130/72 94 Nasal 2.0L Cannula 04/18 0815 82 122/64 04/18 0759 93 Nasal 1.5L Cannula 04/18 0053 82 96 04/18 0016 97.8 94 18 122/64 96 Nasal Cannula 04/18 0000 94 Nasal 1.0L Cannula 04/17 2214 Nasal 1.0L Cannula 04/17 1513 97.9 85 20 108/50 92 Room Air Intake & Output 04/18 1600 04/18 0804/18 0000 04/17 1600 04/17 0804/17 0000 Intake Total 400 120 600 240 790 Output Total 800 300 550 300 250 Balance -400 -180 50 -60 540 Intake, Oral 400 120 600 240 790 Number 0 0 1 Bowel Movements Output, Urine 800 300 550 300 250 Physical Exam: He is in no distress HEENT exam is normal Chest reveals mild expiratory wheezing and some rhonchi Heart is regular Extremities reveal no edema Current Medications: Current Medications Sig/Dung Start time Last Medication Dose Route Stop Time Status Admin Acetaminophen 650 MG Q6P PRN 04/10 2000 AC PO Albuterol Sulfate 3 ML EVERY 4 HRS/AWAKE 04/11 1200 AC 04/18 INH 0758 Benzocaine/Menthol 1 CHOLO Q2P PRN 04/13 1200 AC PO Docusate Sodium 100 MG DAILY PRN 04/15 0700 AC 04/18 PO 0813 Escitalopram Oxalate 20 MG DAILY 04/11 1000 AC 04/18 PO 0813 Ferrous Sulfate 325 MG TID 04/15 1600 AC 04/18 PO 0816 Finasteride 5 MG DAILY 04/11 1000 AC 04/18 PO 0815 Furosemide 40 MG BID 04/15 1000 AC 04/18 IV 0822 Guaifenesin 600 MG Q12 04/13 2200 AC 04/18 PO 0814 Methylprednisolone 40 MG Q12 04/17 2200 DC 04/17 IV 04/18 0100 2126 Methylprednisolone 40 MG Q8 04/15 1730 DC 04/17 IV 0716 Omeprazole 40 MG DAILY AC 04/11 0700 AC 04/18 PO 0557 Polyethylene Glycol 17 GM DAILY PRN 04/15 699 AC 04/15 PO 2138 Potassium Chloride 20 MEQ BID 04/13 1000 AC 04/18 PO 0815 Prednisone 50 MG DAILY 04/18 1000 AC 04/18 PO 0814 Pregabalin 100 MG BID 04/10 2200 DC 04/17 PO 2122 Senna 187 MG AT BEDTIME PRN 04/15 699 AC 04/15 PO 2138 Tamsulosin HCl 0.4 MG DAILY 04/11 1000 AC 04/18 PO 0815 Tiotropium [place] 1 PUF DAILY 04/11 1000 AC 04/18 INH 0816 Results Last 48 Hrs of Labs/Mics: Laboratory Tests 04/18/16 0620: Anion Gap 11, Estimated GFR > 60, BUN/Creatinine Ratio 31.3 H, CBC w Diff MAN DIFF ORDERED, RBC 3.60 L, MCV 82.4, MCH 25.6 L, RDW 20.4 H, MPV 8.0, Gran % 96.7 H, Lymphocytes % 1.8 L, Monocytes % 1.5 L, Eosinophils % 0, Basophils % 0 L, Absolute Granulocytes 71.0 H, Segmented Neutrophils 65, Band Neutrophils 10 H, Absolute Lymphocytes 1.3, Lymphocytes 10 L, Monocytes 4, Absolute Monocytes 1.1 H, Absolute Eosinophils 0, Absolute Basophils 0, Metamyelocytes 4 H, Myelocytes 7 H, Nucleated RBCs 1 H, Platelet Estimate DECREASED, Polychromasia 1+, Hypochromic-Microcytic 1+, Poikilocytosis 2+, Basophilic Stippling , Anisocytosis 1+, Stomatocytes 1+, PUBS MCHC 31.1 L 04/17/16 0700: Anion Gap 11, Estimated GFR > 60, BUN/Creatinine Ratio 25.0, CBC w Diff MAN DIFF ORDERED, RBC 3.26 L, MCV 81.1, MCH 25.8 L, RDW 19.9 H, MPV 8.3, Gran % 94.4 H, Lymphocytes % 2.0 L, Monocytes % 3.6, Eosinophils % 0, Basophils % 0 L, Absolute Granulocytes 43.0 H, Segmented Neutrophils 77 H, Band Neutrophils 10 H, Absolute Lymphocytes 0.9 L, Lymphocytes 2 L, Monocytes 2, Absolute Monocytes 1.6 H, Absolute Eosinophils 0, Absolute Basophils 0, Metamyelocytes 5 H, Myelocytes 4 H, Nucleated RBCs 1 H, Platelet Estimate DECREASED, Polychromasia 1+, Basophilic Stippling 1+, Anisocytosis 1+, Stomatocytes 2+, PUBS MCHC 31.8 L Assessment/Plan Assessment/Plan The patient is stable from a cardiac standpoint. He is still mildly wheezy and has elevated white count today. From a cardiac standpoint he can be discharged. If he is not discharged then telemetry can be discontinued. Continue telemetry? No
--- NOTE | 2016-04-18 13:04 | PN- Pulmonary ---
Subjective HPI/Critical Care Issues: Patient seen and examined this morning. His white count is 73.4. His oxygen saturations 94% on 2 L nasal cannula afebrile and hemodynamically stable. His no nausea no vomiting no diarrhea no constipation otherwise he is feeling well. Objective Current Medications: Current Medications Sig/Dung Start time Last Medication Dose Route Stop Time Status Admin Acetaminophen 650 MG Q6P PRN 04/10 2000 AC PO Albuterol Sulfate 3 ML EVERY 4 HRS/AWAKE 04/11 1200 AC 04/18 INH 1213 Benzocaine/Menthol 1 CHOLO Q2P PRN 04/13 1200 AC PO Docusate Sodium 100 MG DAILY PRN 04/15 0700 AC 04/18 PO 0813 Escitalopram Oxalate 20 MG DAILY 04/11 1000 AC 04/18 PO 0813 Ferrous Sulfate 325 MG TID 04/15 1600 AC 04/18 PO 0816 Finasteride 5 MG DAILY 04/11 1000 AC 04/18 PO 0815 Furosemide 40 MG BID 04/15 1000 AC 04/18 IV 0822 Guaifenesin 600 MG Q12 04/13 2200 AC 04/18 PO 0814 Methylprednisolone 40 MG Q12 04/17 2200 DC 04/17 IV 04/18 0100 2126 Omeprazole 40 MG DAILY AC 04/11 0700 AC 04/18 PO 0557 Polyethylene Glycol 17 GM DAILY PRN 04/15 0700 AC 04/15 PO 2138 Potassium Chloride 20 MEQ BID 04/13 1000 AC 04/18 PO 0815 Prednisone 50 MG DAILY 04/18 1000 AC 04/18 PO 0814 Pregabalin 100 MG BID 04/10 2200 DC 04/17 PO 2122 Senna 187 MG AT BEDTIME PRN 04/15 0700 AC 04/15 PO 2138 Tamsulosin HCl 0.4 MG DAILY 04/11 1000 AC 04/18 PO 0815 Tiotropium [place] 1 PUF DAILY 04/11 1000 AC 04/18 INH 0816 Vital Signs & I&O Last 24 Hrs of Vitals and I&O: Vital Signs Date Time Temp Pulse Resp B/P Pulse O2 O2 Flow FiO2 Ox Delivery Rate 04/18 899 Nasal 1.0L Cannula 04/18 818 97.9 90 20 130/72 94 Nasal 2.0L Cannula 04/18 814 82 122/64 04/18 0759 93 Nasal 1.5L Cannula 04/18 0053 82 96 04/18 0016 97.8 94 18 122/64 96 Nasal Cannula 04/18 0000 94 Nasal 1.0L Cannula 04/17 2214 Nasal 1.0L Cannula 04/17 1513 97.9 85 20 108/50 92 Room Air Intake & Output 04/18 1600 04/18 0800 04/18 0000 Intake Total 400 120 Output Total 800 300 Balance -400 -180 Intake, Oral 400 120 Output, Urine 800 300 Exam Other Physical Findings: General - Alert, awake and oriented HEENT - normocephalic, atraumatic Cardiovascular - S1, S2 Lungs - rare scattered bibasilar rhonchi Abdomen - soft, bowel sounds positive, no tenderness Extremities - without edema or cyanosis Results Last 24 Hrs of Lab Results: Laboratory Tests 04/18/16 0620: Anion Gap 11, Estimated GFR > 60, BUN/Creatinine Ratio 31.3 H, CBC w Diff MAN DIFF ORDERED, RBC 3.60 L, MCV 82.4, MCH 25.6 L, RDW 20.4 H, MPV 8.0, Gran % 96.7 H, Lymphocytes % 1.8 L, Monocytes % 1.5 L, Eosinophils % 0, Basophils % 0 L, Absolute Granulocytes 71.0 H, Segmented Neutrophils 65, Band Neutrophils 10 H, Absolute Lymphocytes 1.3, Lymphocytes 10 L, Monocytes 4, Absolute Monocytes 1.1 H, Absolute Eosinophils 0, Absolute Basophils 0, Metamyelocytes 4 H, Myelocytes 7 H, Nucleated RBCs 1 H, Platelet Estimate DECREASED, Polychromasia 1+, Hypochromic-Microcytic 1+, Poikilocytosis 2+, Basophilic Stippling , Anisocytosis 1+, Stomatocytes 1+, PUBS MCHC 31.1 L Impression/Plan Impression/Plan Impression/Plan: Impression 71-year-old man * COPD with chronic hypercarbia improved * MDS * Leukocytosis Plan - Taper steroids by 10 mg every 2 days - Continue to diuresis and monitor ins and outs - Continue to follow oncology recommendations regarding leukocytosis which has significantly increased at this time - TR nebs and continue inhalers - Alps for DVT prophylaxis given thrombocytopenia
--- NOTE | 2016-04-18 14:05 | PN- Att Addend ---
Attending Addendum Attending Brief Note Patient seen and examined. Plan of care discussed with the medical team and the patient. Available lab work and radiology test reports were reviewed. Patient lying in bed and denies any active dyspnea or chest pain. Denies any nausea vomiting diarrhea or belly pain. Overall appears comfortable. Vital Signs Date Time Temp Pulse Resp B/P Pulse O2 O2 Flow FiO2 Ox Delivery Rate 04/18 0900 Nasal 1.0L Cannula 04/18 0819 97.9 90 20 130/72 94 Nasal 2.0L Cannula 04/18 0815 82 122/64 04/18 0759 93 Nasal 1.5L Cannula 04/18 0053 82 96 04/18 0016 97.8 94 18 122/64 96 Nasal Cannula 04/18 0000 94 Nasal 1.0L Cannula 04/17 2214 Nasal 1.0L Cannula 04/17 1513 97.9 85 20 108/50 92 Room Air Intake & Output 04/18 1600 04/18 0800 04/18 0000 Intake Total 400 120 Output Total 800 300 Balance -400 -180 Intake, Oral 400 120 Output, Urine 800 300 Exam: General: Patient awake alert oriented without any distress CVS: S1 plus S2 without any murmur or gallops Chest: Few scattered crepitation without any wheeze. There is no respiratory distress. 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 alert oriented without any focal neuro deficit and follows command appropriately Extremities: No edema; no clubbing or cyanosis noted Laboratory Tests 04/18 619 Chemistry Sodium (137 - 145 mmol/L) 137 Potassium (3.5 - 5.1 mmol/L) 4.3 Chloride (98 - 107 mmol/L) 91 L Carbon Dioxide (22 - 30 mmol/L) 35 H Anion Gap (5 - 16) 11 BUN (9 - 20 mg/dL) 25 H Creatinine (0.7 - 1.2 mg/dL) 0.8 Estimated GFR (>60 ml/min) > 60 BUN/Creatinine Ratio (7 - 25 %) 31.3 H Hematology CBC w Diff MAN DIFF ORDERED WBC (4.8 - 10.8 /CUMM) 73.4 *H RBC (4.70 - 6.10 /CUMM) 3.60 L Hgb (14.0 - 18.0 G/DL) 9.2 L Hct (42 - 52 %) 29.7 L MCV (80.0 - 94.0 FL) 82.4 MCH (27.0 - 31.0 PG) 25.6 L RDW (11.5 - 14.5 %) 20.4 H Plt Count (130 - 400 /CUMM) 67 L MPV (7.4 - 10.4 FL) 8.0 Gran % (42.2 - 75.2 %) 96.7 H Lymphocytes % (20.5 - 51.1 %) 1.8 L Monocytes % (1.7 - 9.3 %) 1.5 L Eosinophils % (0 - 5 %) 0 Basophils % (0.0 - 2.0 %) 0 L Absolute Granulocytes (1.4 - 6.5 /CUMM) 71.0 H Segmented Neutrophils (42.2 - 75.2 %) 65 Band Neutrophils (0.0 - 5.0 %) 10 H Absolute Lymphocytes (1.2 - 3.4 /CUMM) 1.3 Lymphocytes (20.5 - 51.1 %) 10 L Monocytes (1.7 - 9.3 %) 4 Absolute Monocytes (0.10 - 0.60 /CUMM) 1.1 H Absolute Eosinophils (0.0 - 0.7 /CUMM) 0 Absolute Basophils (0.0 - 0.2 /CUMM) 0 Metamyelocytes (0.0 - 1.0 %) 4 H Myelocytes (0 - 0 %) 7 H Nucleated RBCs (0.0 - 0.0 /100WBC) 1 H Platelet Estimate (ADEQUATE) DECREASED Polychromasia 1+ Hypochromic-Microcytic 1+ Poikilocytosis 2+ Basophilic Stippling Anisocytosis 1+ Stomatocytes 1+ PUBS MCHC (33.0 - 37.0 G/DL) 31.1 L Assessment problem list * Hypercapnic respiratory failure * Suspected CHF * Looks M.D. edema * Hyperkalemia * Mild dysplastic syndrome * Suspected leukemoid reaction due to steroids Plan * Repeat CBC tomorrow to follow-up elevated WBC count * Continue supportive management * If WBC count is stable or decrease patient be discharged home tomorrow * Continue ambulation * Taper off oxygen if possible
[2016-04-18 16:24] VITALS: BP 137/58
--- NOTE | 2016-04-18 21:05 | PN- Housestaff ---
Subjective Follow-up For: Acute hypercapnic respiratory failure Leukocytoclasis MDS Complaints: no complaints Subjective: Patient is seen and examined at the bedside. He was not having any active complaints. Was feeling well. Denies nausea, vomiting and diarrhea Review of Systems Constitutional: Denies: no symptoms. Objective Last 24 Hrs of Vital Signs/I&O Vital Signs Date Time Temp Pulse Resp B/P Pulse O2 O2 Flow FiO2 Ox Delivery Rate 04/18 1624 97.5 98 20 137/58 98 Nasal 1.5L Cannula 04/18 1619 94 Nasal 1.0L Cannula 04/18 0900 Nasal 1.0L Cannula 04/18 0819 97.9 90 20 130/72 94 Nasal 2.0L Cannula 04/18 0815 82 122/64 04/18 0759 93 Nasal 1.5L Cannula 04/18 0053 82 96 04/18 0016 97.8 94 18 122/64 96 Nasal Cannula 04/18 0000 94 Nasal 1.0L Cannula 04/17 2214 Nasal 1.0L Cannula Intake & Output 04/18 1600 04/18 0800 04/18 0000 Intake Total 500 400 120 Output Total 800 800 300 Balance -300 -400 -180 Intake, Oral 500 400 120 Output, Urine 800 800 300 Physical Exam General Appearance: Alert, Oriented X3, Cooperative, No Acute Distress Cardiovascular: Regular Rate, Normal S1, Normal S2 Lungs: bibasilar rhonchi Abdomen: Soft, No Tenderness Neurological: Normal Speech Extremities: bilateral leg swelling Vascular: Normal Pulses Assessment/Plan Assessment: 70-year-old gentleman past medical history significant for previous history of bright red blood per rectum, gastroesophageal reflux disease, Laryngeal cancer s /p epiglottic resection 8 years ago, COPD on intermittent home oxygen, recently diagnosed myelodysplastic syndrome. Patient was transferred from general medical floor to telemetry because of acute hypercapnic hypoxemic respiratory failure Problem list Acute hypercapnic hypoxemic respiratory failure Anemia Bilateral lower extremity swelling secondary to CHF Leukocytoclasis MDS BPH Plan - Patient WBC count trended up to 73.4, we will repeat it tomorrow We will follow Dr. Smith recommendation We will keep patient on oxygen with a target of SPO2 more than 92% We will continue BiPAP in the night and when necessary TRC/nebulization According to Dr. Nguyen, we will taper steroids every second day As the patient is having anemia with GI bleed with MDS, we will regularly monitor the CBC Strict intake output charting DVT prophylaxis -ALP S CODE STATUS full code Diet-regular with fluid restriction Problem List: 1. Acute hypercapnic respiratory failure 2. MDS (myelodysplastic syndrome) 3. Swelling of lower extremity 4. Iron deficiency anemia Pain Ratin Pain Location: None Pain Goal: Remain pain free Pain Plan: Mild to moderate Tomorrow's Labs & Rationales: CBC DVT/Prophylaxis: mechanical
[2016-04-18 22:45] VITALS: BP 138/58
[2016-04-19 08:29] LABS: ABSOLUTE BASOPHIL COUNT 0 /CUMM (0.0-0.2); EOSINOPHIL % 0.1 % (0-5); MEAN PLATELET VOLUME 7.3 FL (7.4-10.4)
[2016-04-19 08:37] VITALS: BP 102/99
[2016-04-19 08:48] LABS: ABSOLUTE EOSINOPHIL COUNT 0 /CUMM (0.0-0.7); ABSOLUTE GRANULOCYTE CT 59.6 /CUMM (1.4-6.5); ABSOLUTE LYMPH COUNT 1.8 /CUMM (1.2-3.4); ABSOLUTE MONOCYTE COUNT 4.2 /CUMM (0.10-0.60); BASOPHIL % 0.1 % (0.0-2.0); GRANULOCYTE % 90.7 % (42.2-75.2); HEMATOCRIT 32.8 % (42-52); MEAN CORPUSCULAR HGB CONC 31.4 G/DL (33.0-37.0); MEAN CORPUSCULAR VOLUME 82.9 FL (80.0-94.0); PLATELET COUNT 68 /CUMM (130-400); RBC DISTRIBUTION WIDTH 20.7 % (11.5-14.5); RED BLOOD CELL CT 3.95 /CUMM (4.70-6.10)
[2016-04-19 09:13] LABS: WHITE BLOOD CELL COUNT 65.7 /CUMM (4.8-10.8)
--- NOTE | 2016-04-19 11:08 | PN- Pulmonary ---
Subjective HPI/Critical Care Issues: Patient seen and examined. No chest pain, at respiratory baseline. No nausea, vomiting, diarrhea or constipation. Afebrile and hemodynamically stable. Objective Current Medications: Current Medications Sig/Dung Start time Last Medication Dose Route Stop Time Status Admin Acetaminophen 650 MG Q6P PRN 04/10 2000 AC 04/19 PO 0434 Albuterol Sulfate 3 ML EVERY 4 HRS/AWAKE 04/11 1200 AC 04/19 INH 1100 Benzocaine/Menthol 1 CHOLO Q2P PRN 04/13 1200 AC PO Docusate Sodium 100 MG DAILY PRN 04/15 0700 AC 04/18 PO 0813 Escitalopram Oxalate 20 MG DAILY 04/11 1000 AC 04/19 PO 0828 Ferrous Sulfate 325 MG TID 04/15 1600 AC 04/19 PO 0829 Finasteride 5 MG DAILY 04/11 1000 AC 04/19 PO 0828 Furosemide 40 MG BID 04/15 1000 AC 04/19 IV 0825 Guaifenesin 600 MG Q12 04/13 2200 AC 04/19 PO 0829 Omeprazole 40 MG DAILY AC 04/11 0700 AC 04/19 PO 0640 Polyethylene Glycol 17 GM DAILY PRN 04/15 0700 AC 04/15 PO 2138 Potassium Chloride 20 MEQ BID 04/13 1000 AC 04/19 PO 0829 Prednisone 10 MG DAILY 04/27 1000 AC PO 04/28 1001 Prednisone 20 MG DAILY 04/25 1000 AC PO 04/26 1001 Prednisone 30 MG DAILY 04/23 1000 AC PO 04/24 1001 Prednisone 40 MG DAILY 04/21 1000 AC PO 04/22 1001 Prednisone 50 MG DAILY 04/19 1000 DC PO 04/29 0959 Prednisone 50 MG DAILY 04/19 1000 AC 04/19 PO 04/20 1001 0827 Prednisone 50 MG DAILY 04/18 1000 DC 04/18 PO 0814 Senna 187 MG AT BEDTIME PRN 04/15 0700 AC 04/15 PO 2138 Tamsulosin HCl 0.4 MG DAILY 04/11 1000 AC 04/19 PO 0826 Tiotropium [place] 1 PUF DAILY 04/11 1000 AC 04/19 INH 0835 Vital Signs & I&O Last 24 Hrs of Vitals and I&O: Vital Signs Date Time Temp Pulse Resp B/P Pulse O2 O2 Flow FiO2 Ox Delivery Rate 04/19 1027 Nasal 1.0L Cannula 04/19 08 96.8 95 22 102/99 95 Nasal 1.5L Cannula 04/19 08 90 138/58 04/19 0746 92 Room Air 04/19 0017 90 91 04/19 0000 94 Nasal 1.0L Cannula 04/18 2245 97.9 94 20 138/58 93 Nasal 2.0L Cannula 04/18 2240 90 96 04/18 1624 97.5 98 20 137/58 98 Nasal 1.5L Cannula 04/18 1619 94 Nasal 1.0L Cannula Intake & Output 04/19 1600 04/19 0800 04/19 0000 Intake Total 600 400 Output Total 550 Balance 600 -150 Intake, Oral 600 400 Output, Urine 550 Exam Other Physical Findings: General - Alert, awake and oriented HEENT - normocephalic, atraumatic Cardiovascular - S1, S2 Lungs - rare scattered bibasilar rhonchi Abdomen - soft, bowel sounds positive, no tenderness Extremities - without edema or cyanosis Results Last 24 Hrs of Lab Results: Laboratory Tests 04/19/16 0635: CBC w Diff MAN DIFF ORDERED, RBC 3.95 L, MCV 82.9, MCH 26.0 L, RDW 20.7 H, MPV 7.3 L, Gran % 90.7 H, Lymphocytes % 2.7 L, Monocytes % 6.4, Eosinophils % 0.1, Basophils % 0.1, Absolute Granulocytes 59.6 H, Segmented Neutrophils 66, Band Neutrophils 9 H, Absolute Lymphocytes 1.8, Lymphocytes 16 L, Monocytes 3, Absolute Monocytes 4.2 H, Absolute Eosinophils 0, Absolute Basophils 0, Myelocytes 6 H, Nucleated RBCs 1 H, Platelet Estimate DECREASED, Hypochromic- Microcytic 1+, Poikilocytosis 1+, Anisocytosis 1+, PUBS MCHC 31.4 L Impression/Plan Impression/Plan Impression/Plan: Impression 71-year-old man * COPD with chronic hypercarbia improved * MDS * Leukocytosis improved from yesterday Plan - Taper steroids by 10 mg every 2 days - Continue to diuresis and monitor ins and outs - Continue to follow oncology recommendations regarding leukocytosis which has significantly increased at this time - TR nebs and continue inhalers - Alps for DVT prophylaxis given thrombocytopenia DC planning
--- NOTE | 2016-04-19 12:53 | PN- Att Addend ---
Attending Addendum Attending Brief Note Patient seen and examined. Plan of care discussed with the medical team and the patient. Available lab work and radiology test reports were reviewed. Patient lying in bed and denies any active dyspnea or chest pain. Denies any nausea vomiting diarrhea or belly pain. Overall appears comfortable. Vital Signs Date Time Temp Pulse Resp B/P Pulse O2 O2 Flow FiO2 Ox Delivery Rate 04/19 1027 Nasal 1.0L Cannula 04/19 0837 96.8 95 22 102/99 95 Nasal 1.5L Cannula 04/19 0826 90 138/58 04/19 0746 92 Room Air 04/19 0017 90 91 04/19 0000 94 Nasal 1.0L Cannula 04/18 2245 97.9 94 20 138/58 93 Nasal 2.0L Cannula 04/18 2240 90 96 04/18 1624 97.5 98 20 137/58 98 Nasal 1.5L Cannula 04/18 1619 94 Nasal 1.0L Cannula Intake & Output 04/19 1600 04/19 0800 04/19 0000 Intake Total 600 400 Output Total 550 Balance 600 -150 Intake, Oral 600 400 Output, Urine 550 Exam: General: Patient awake alert oriented without any distress CVS: S1 plus S2 without any murmur or gallops Chest: Few scattered crepitation without any wheeze. There is no respiratory distress. 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 alert oriented without any focal neuro deficit and follows command appropriately Extremities: No edema; no clubbing or cyanosis noted Laboratory Tests 04/19 634 Hematology CBC w Diff MAN DIFF ORDERED WBC (4.8 - 10.8 /CUMM) 65.7 *H RBC (4.70 - 6.10 /CUMM) 3.95 L Hgb (14.0 - 18.0 G/DL) 10.3 L Hct (42 - 52 %) 32.8 L MCV (80.0 - 94.0 FL) 82.9 MCH (27.0 - 31.0 PG) 26.0 L RDW (11.5 - 14.5 %) 20.7 H Plt Count (130 - 400 /CUMM) 68 L MPV (7.4 - 10.4 FL) 7.3 L Gran % (42.2 - 75.2 %) 90.7 H Lymphocytes % (20.5 - 51.1 %) 2.7 L Monocytes % (1.7 - 9.3 %) 6.4 Eosinophils % (0 - 5 %) 0.1 Basophils % (0.0 - 2.0 %) 0.1 Absolute Granulocytes (1.4 - 6.5 /CUMM) 59.6 H Segmented Neutrophils (42.2 - 75.2 %) 66 Band Neutrophils (0.0 - 5.0 %) 9 H Absolute Lymphocytes (1.2 - 3.4 /CUMM) 1.8 Lymphocytes (20.5 - 51.1 %) 16 L Monocytes (1.7 - 9.3 %) 3 Absolute Monocytes (0.10 - 0.60 /CUMM) 4.2 H Absolute Eosinophils (0.0 - 0.7 /CUMM) 0 Absolute Basophils (0.0 - 0.2 /CUMM) 0 Myelocytes (0 - 0 %) 6 H Nucleated RBCs (0.0 - 0.0 /100WBC) 1 H Platelet Estimate (ADEQUATE) DECREASED Hypochromic-Microcytic 1+ Poikilocytosis 1+ Anisocytosis 1+ PUBS MCHC (33.0 - 37.0 G/DL) 31.4 L Assessment problem list * Hypercapnic respiratory failure * Suspected CHF * Looks M.D. edema * Hyperkalemia * Mild dysplastic syndrome * Suspected leukemoid reaction due to steroids Plan * Patient is clinically stable for discharge * CBC should be checked within 48-72 hours; patient to follow-up with Dr. Coppola for his elevated WBC count * Continue prednisone taper * Change Lasix to oral 40 mg daily * Taper off oxygen if possible
--- NOTE | 2016-04-19 13:16 | PN- Housestaff ---
Subjective Follow-up For: Acute hypercapnic respiratory failure Subjective: Patient was seen and examined this morning. He is sitting comfortably on the chair and has no complaints of shortness of breath or chest discomfort. He is feeling fine and ready to go home. He is currently on 1L O2 and maintaining an O2 saturation of 95%. No evidence of distress. Review of Systems Constitutional: Denies: see HPI. Objective Last 24 Hrs of Vital Signs/I&O Vital Signs Date Time Temp Pulse Resp B/P Pulse O2 O2 Flow FiO2 Ox Delivery Rate 04/19 1027 Nasal 1.0L Cannula 04/19 0737 96.8 95 22 102/99 95 Nasal 1.5L Cannula 04/19 0826 90 138/58 04/19 0746 92 Room Air 04/19 0017 90 91 04/19 0000 94 Nasal 1.0L Cannula 04/18 2245 97.9 94 20 138/58 93 Nasal 2.0L Cannula 04/18 2240 90 96 04/18 1624 97.5 98 20 137/58 98 Nasal 1.5L Cannula 04/18 1619 94 Nasal 1.0L Cannula Intake & Output 04/19 1600 04/19 0800 04/19 0000 Intake Total 600 400 Output Total 550 Balance 600 -150 Intake, Oral 600 400 Output, Urine 550 Physical Exam General Appearance: Alert, Oriented X3, Cooperative, No Acute Distress Cardiovascular: Regular Rate, Normal S1, Normal S2, No Murmurs Lungs: Occational crepts heard more on the L base than R. Occational rales. Abdomen: Normal Bowel Sounds, Soft Assessment/Plan Assessment: 70-year-old gentleman past medical history significant for previous history of bright red blood per rectum, gastroesophageal reflux disease, Laryngeal cancer s /p epiglottic resection 8 years ago, COPD on intermittent home oxygen, recently diagnosed myelodysplastic syndrome. Patient was transferred from general medical floor to telemetry because of acute hypercapnic hypoxemic respiratory failure Problem list Acute hypercapnic hypoxemic respiratory failure Anemia Bilateral lower extremity swelling secondary to CHF Leukocytoclasis MDS BPH Plan - Patient is for discharge today to home with visting nurse Taper steroids by 10 mg every [address] Smith recommendation CODE STATUS full code Diet-regular with fluid restriction Problem List: 1. Acute hypercapnic respiratory failure 2. MDS (myelodysplastic syndrome) Pain Ratin Pain Location: n/a Pain Goal: Remain pain free Pain Plan: see mediaction Tomorrow's Labs & Rationales: n/a
[2016-04-19] MEDS ORDERED: LASIX40 M1 PO (13:27)
[2016-04-19] MEDS ORDERED: PREDNISONE10 M2 PO (13:27)
[2016-09-21] MEDS ORDERED: AMOX-CLAV 875-1 EACH PO (16:09)
[2016-09-22] MEDS ORDERED: AMOX-CLAV 875-1 EACH PO (12:57)
== END 2016-04-19 15:00 | disposition home health service (06) | DRG 811 ==
LOC: ERH 11:58 → 2NB 15:55 → ERHI 15:55 → 1NO 15:55 → 2NB 15:57 → 1NO 04-15 16:35
PROVIDERS: Emergency Medicine; Internal Medicine; Physician Assistant; Student in an Organized Health Care Education/Training Program; ADMIT Internal Medicine
PROC: 30233N1 Transfusion of Nonautologous Red Blood Cells into Peripheral Vein, Percutaneous Approach (ICD-10-PCS; principal; 2016-04-10)
PROC: 0DJ08ZZ Inspection of Upper Intestinal Tract, Via Natural or Artificial Opening Endoscopic (ICD-10-PCS; 2016-04-13)
DX: D46.9 Myelodysplastic syndrome, unspecified (principal); I50.33 Acute on chronic diastolic (congestive) heart failure; J96.01 Acute respiratory failure with hypoxia; J96.02 Acute respiratory failure with hypercapnia; D62 Acute posthemorrhagic anemia; Z99.81 Dependence on supplemental oxygen; I27.2 Other secondary pulmonary hypertension; J44.9 Chronic obstructive pulmonary disease, unspecified; Z85.21 Personal history of malignant neoplasm of larynx; K21.9 Gastro-esophageal reflux disease without esophagitis; G25.81 Restless legs syndrome; N40.0 Benign prostatic hyperplasia without lower urinary tract symptoms; Z87.891 Personal history of nicotine dependence; K57.90 Diverticulosis of intestine, part unspecified, without perforation or abscess without bleeding
CPT/HCPCS: 1NP; 2NBSP; 36415; 74176; 81001; 82436; 86920; 87086; 88184; 93005; 93010; 93306; 93970; 97001-GP; 97116-GO; 97161-GP; 97530-GO; 99291; J0696; J1120; J1940; J2920; J7512; P9016

== ENCOUNTER 2016-06-10 11:25 | Emergency (ER) | payer OTHER, MEDICARE ==
[~2016-06-10] VITALS: Ht 180.3 cm; Wt 86.2 kg
[~2016-06-10 11:25] MED LIST changes: +FERROUS SULFAT325 M2 PO; +LASIX40 M1 PO; +LYRICA100 M1 PO; +PREDNISONE10 M2 PO; +SPIRIVA RESPIMAT4 GM INH; +TYLENOL EXTRA500 M2 PO
--- NOTE | 2016-06-10 11:58 | ED GENERAL ADULT ---
History of Present Illness General Chief Complaint: General Adult Stated Complaint: SENT BY [facility] TO R/O BLOOD CLOT Source: patient, family Exam Limitations: no limitations Vital Signs & Intake/Output Vital Signs & Intake/Output Vital Signs Date Time Temp Pulse Resp B/P Pulse O2 O2 Flow FiO2 Ox Delivery Rate 06/10 1406 97.0 78 20 108/66 94 06/10 1251 97.8 80 107/54 06/10 1135 98.0 88 20 89/53 92 Room Air Allergies Coded Allergies: codeine (Mild, RASH 03/10/16) aspirin (R/T BLOOD PLATELET COUNT 03/10/16) Reconcile Medications Albuterol Sulfate (Ventolin Hfa) 90 MCG HFA.AER.AD 2 PUF INH 4 TIMES/DAY PRN COPD (Reported) Budesonide/Formoterol Fumarate (Symbicort 160-4.5 Mcg Inhaler) 160 MCG-4.5 MCG/ ACTUATION HFA.AER.AD 2 PUF INH BID COPD (Reported) Escitalopram Oxalate 20 MG TABLET 1 TAB PO DAILY DEPRESSION (Reported) Ferrous Sulfate 325 MG (65 MG IRON) TABLET.DR 1 TAB PO DAILY PRN ANEMIA Finasteride 5 MG TABLET 1 TAB PO QPM PROSTATE (Reported) Furosemide 40 MG TABLET 1 TAB PO DAILY WATER PILL (Reported) Omeprazole 40 MG CAPSULE.DR 1 CAP PO DAILY GI (Reported) Pregabalin (Lyrica) 100 MG CAPSULE 1 CAP PO BID NERVE PAIN (Reported) Ropinirole Hydrochloride (Requip) 0.25 MG TABLET 2 TAB PO QPM UNKNOWN ( Reported) Tamsulosin HCl (Flomax) 0.4 MG CAP.ER.24H 1 CAP PO QPM PROSTATE (Reported) Tiotropium [place] (Spiriva Respimat) 2.5 MCG/ACTUATION MIST.INHAL 2 PUFF INH DAILY COPD (Reported) Triage Note: PT STATES THAT HE HAS BEEN HAVING A SLIGHT PAIN IN HIS L CALF FOR 2 WEEKS. PT HAS HISTORY OF CHF AND DENIES FEELING SOB, O2 SAT 92 % ON RA. STATES THAT HE WAS SUPOSSED TO HAVE CARDIAC CATH 2 WEEKS AGO AND THAT HIS PLATELETS WERE LOW SO THEY POST PONED IT. PT NOTED WITH LOOSE COUGH AT TRIAGE, ABLE TO SPEAK IN FULL SENTENCES. SWELLING NOTED TO LLE Triage Nurses Notes Reviewed? yes Onset: Gradual Duration: day(s): (1) Timing: remote history Injury Environment: home Severity: moderate Severity Numbers: 6 HPI: Patient is a 71-year-old male presenting to the emergency Department chief complaint of left lower extremity swelling that he just noticed this morning. Denies any pain. His visiting nurse saw the swelling and suggested he go in for evaluation of the lower extremity edema. Denies any shortness of breath or chest pain. He does report upper respiratory congestion and intermittent coughing over the past couple days. His visiting nurse noted some crackles at the bases. Symptoms are currently mild to moderate. (ELMER DRAPER) Past History Travel History Traveled to [place] past 21 day No Medical History Any Pertinent Medical History? 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 FH: diabetes mellitus FATHER FH: colon cancer FH: prostate cancer FATHER (Colon Ca). , Age 89; Cause: Prostate CA. Relation not specified for: colon cancer Hx Contributory? No (ELMER DRAPER) Review of Systems Review of Systems Constitutional: Reports: no symptoms. Comments Review of systems: See HPI, All other systems negative. Constitutional, no chills fever or weight loss HEENT: No visual changes no sore throat no congestion Cardiovascular: No chest pain ,palpitation , orthopnea Skin, no jaundice no rashes Respiratory: No dyspnea sputum or hemoptysis GI: No nausea no vomiting : No dysuria No hematuria Muscle skeletal: no back pain, no neck pain Neurologic: No numbness no confusion NO GILBERT Psych: No stress anxiety or depression,. Heme/endocrine: No bruising no bleeding no polyuria or polydipsia Immunology: No splenectomy or history of AIDS (ELMER DRAPER) Physical Exam Physical Exam General Appearance: well developed/nourished, no apparent distress, alert, awake , comfortable Comments: Well-developed well-nourished person in no acute distress HEENT: Pupils equally round and reactive to light and accommodation. Nose is atraumatic. Neck: Normal inspection Back: Nontender, no CVA tenderness. Full range of motion Cardiovascular: Regular rate and rhythms no murmurs rubs or gallops, normal JVP Respiratory: Chest nontender. No respiratory distress.breath sounds diminished to auscultation bilaterally Extremity: Left lower extremity edema, 2+, no calf tenderness to palpation bilaterally. Pedal pulses are 2+ bilaterally. Full range of motion of upper and lower extremities without difficulty. Neuro: Alert oriented x3 Skin: No appreciable rash on exposed skin, skin is warm and dry. Psych: Mood and affect is normal, memory and judgment is normal. Core Measures ACS in differential dx? No CVA/TIA Diagnosis: No Severe Sepsis Present: No Septic Shock Present: No (ELMER DRAPER) Progress Differential Diagnoses I considered the following diagnoses in my evaluation of the patient: Pneumonia , bronchitis, DVT, dependent edema, CHF Plan of Care: Orders Procedure Date/time Status XRY-CHEST XRAY, PA AND LATERAL 06/10 1227 Active Diagnostic Imaging: Viewed by Me: Radiology Read, Ultrasound. Discussed w/RAD: Radiology Read, Ultrasound. Radiology Impression: PATIENT: LEXIS DUBON PRESENT AGE: 71 PATIENT ACCOUNT NO: [id number] : 44 LOCATION: [facility] ORDERING PHYSICIAN: LANIE ESPOSITO SERVICE DATE: 06/10/16 EXAM TYPE: US - US-UNILATERAL VENOUS DOPPLER EXAMINATION: US TRIPLEX LOWER EXTREMITY, LEFT CLINICAL INFORMATION: This is a 71-year-old male with left leg edema. Possible deep vein thrombosis. COMPARISON: Comparison is made to a previous study dated 04/11/2016. TECHNIQUE: Color-flow triplex imaging with spectral analysis and compression Doppler were performed on the left lower extremity. FINDINGS: Respiratory variation, normal compression and augmented flow are noted throughout the lower extremity. The visualized common femoral vein, superficial femoral vein, profunda femoral vein, popliteal vein and midcalf peroneal and posterior tibial venous segments show no evidence of deep venous thrombosis. There is a 4.3 x 3.0 x 3.0 cm left popliteal cyst. This was present previously. IMPRESSION: Normal triplex scan without evidence of deep venous thrombosis involving the left lower extremity. DICTATED BY: MARIA G UMAÑA MD DATE/TIME DICTATED:06/10/161231 CHARGER:ABBEY DATE/TIME TRANSCRIBED:1231 CONFIDENTIAL, DO NOT COPY WITHOUT APPROPRIATE AUTHORIZATION. CXR Impression: PATIENT: LEXIS DUBON PRESENT AGE: 71 PATIENT ACCOUNT NO: [id number] : 44 LOCATION: [facility] ORDERING PHYSICIAN: ELMER ESPOSITO SERVICE DATE: 06/10/16 EXAM TYPE: RAD - XRY-CHEST XRAY, PA AND LATERAL EXAMINATION: XR CHEST CLINICAL INFORMATION: Cough. COMPARISON: 04/15/2016 TECHNIQUE: 2 views of the chest were obtained. FINDINGS: Chronic emphysema and chronic bronchial wall thickening in both lungs. There are peribronchial streaky opacities in lower lobes from atelectasis and/or infectious infiltrates, similar in appearance compared to 04/15/2016. Cardiac silhouette is normal in size. Thoracic aorta is calcified. No acute osseous abnormalities. IMPRESSION: Chronic obstructive pulmonary disease. Chronic and/or recurrent bronchitis predominantly affects the lower lobes. Initial ED EKG: none Comments: Patient informed of imaging results. Patient has COPD. He will continue daily inhaler use. She does not want any cough medication. Patient nontoxic. (ELMER DRAPER) Departure Departure Time of Disposition: 1402 Disposition: HOME OR SELF CARE Condition: Stable Clinical Impression Primary Impression: Bronchitis Secondary Impressions: Leg edema Qualifiers: Laterality: left Qualified Code: R60.0 - Localized edema Referrals: Harry GATICA MD (PCP/Family) Additional Instructions: Follow-up with your primary care physician call to make an appointment. Increase fluids. Return for worsening symptoms or concerns. Use inhaler as previously directed. 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 I have also reviewed all the pertinent lab results and diagnostic results. I agree with the findings and the plan of care as documented in the PA's/ELEVATOR REPAIRER HELPER's documentation. [] I have reviewed the ED Record and agree with the PA's/ELEVATOR REPAIRER HELPER's documentation. [] Additions or exceptions (if any) to the PAs/ELEVATOR REPAIRER HELPER's note and plan are summarized below: [] (CLEM COLMEAN,NOÉ) Critical Care Note Critical Care Note Critical Care Time: non-applicable (ELMER DRAPER)
--- NOTE | 2016-06-10 12:37 | ULTRASOUND REPORT ---
EXAMINATION: US TRIPLEX LOWER EXTREMITY, LEFT CLINICAL INFORMATION: This is a 71-year-old male with left leg edema. Possible deep vein thrombosis. COMPARISON: Comparison is made to a previous study dated 04/11/2016. TECHNIQUE: Color-flow triplex imaging with spectral analysis and compression Doppler were performed on the left lower extremity. FINDINGS: Respiratory variation, normal compression and augmented flow are noted throughout the lower extremity. The visualized common femoral vein, superficial femoral vein, profunda femoral vein, popliteal vein and midcalf peroneal and posterior tibial venous segments show no evidence of deep venous thrombosis. There is a 4.3 x 3.0 x 3.0 cm left popliteal cyst. This was present previously. IMPRESSION: Normal triplex scan without evidence of deep venous thrombosis involving the left lower extremity.
[2016-06-10] MEDS ORDERED: FINASTERIDE5 M1 PO (12:42)
[2016-06-10] MEDS ORDERED: FUROSEMIDE40 M1 PO (12:44)
[2016-06-10] MEDS ORDERED: REQUIP0.25 MG PO (12:45)
--- NOTE | 2016-06-10 13:50 | RADIOLOGY REPORT ---
EXAMINATION: XR CHEST CLINICAL INFORMATION: Cough. COMPARISON: 04/15/2016 TECHNIQUE: 2 views of the chest were obtained. FINDINGS: Chronic emphysema and chronic bronchial wall thickening in both lungs. There are peribronchial streaky opacities in lower lobes from atelectasis and/or infectious infiltrates, similar in appearance compared to 04/15/2016. Cardiac silhouette is normal in size. Thoracic aorta is calcified. No acute osseous abnormalities. IMPRESSION: Chronic obstructive pulmonary disease. Chronic and/or recurrent bronchitis predominantly affects the lower lobes.
[2016-06-10 14:06] VITALS: BP 108/66
[2016-09-21] MEDS ORDERED: AMOX-CLAV 875-1 EACH PO (16:09)
[2016-09-22] MEDS ORDERED: AMOX-CLAV 875-1 EACH PO (12:57)
== END 2016-06-10 14:19 ==
LOC: ERH 11:25
DX: J40 Bronchitis, not specified as acute or chronic (principal); R60.0 Localized edema

== ENCOUNTER 2016-09-29 08:37 | Inpatient (IN) | payer OTHER, MEDICARE ==
[~2016-09-29] VITALS: Ht 180.3 cm; Wt 83.9 kg
[~2016-09-29 08:37] MED LIST changes: +AMOX-CLAV 875-1 EACH PO; +FUROSEMIDE40 M1 PO; +REQUIP0.25 MG PO
--- NOTE | 2016-09-29 08:42 | NUR ---
PT TO ED FOR L WRIST PAIN S/P TRIP AND FALL LAST NIGHT, NO LOC. NO THINNERS. L WRIST SWELLING AND PAIN. PT REQUESTING TO SEE MD P/T PAIN MEDS. PT HAS MULTIPLE BRUISES IN VARIOUS STAGES OF HEALING ALL OVER BODY, PER FAMILY THIS IS BASELINE FOR PATIENT D/T MYOPLASTIC DYSPLASIA.
--- NOTE | 2016-09-29 09:09 | NUR ---
PT TO ROOM 3 VIA W/C AFTER X-RAY, AWAITING EVAL.
--- NOTE | 2016-09-29 09:10 | NUR ---
PA STUDENT IN FOR EVAL.
--- NOTE | 2016-09-29 09:24 | RADIOLOGY REPORT ---
EXAMINATION: XR WRIST, LEFT CLINICAL INFORMATION: 71-year-old male incurred trauma to the wrist and now has swelling. Distal radial pain. COMPARISON: None TECHNIQUE: Four views of the left wrist. FINDINGS: The patient has incurred a nondisplaced impacted fracture involving the metadiaphysis of the distal left radius. There is no sign of intra-articular involvement. It barely visible fracture line involves the ulnar styloid process. No dislocation is seen. A well-defined lucency with sclerotic margins is located in the midportion of the scaphoid bone. Based on this appearance, this is felt to represent an old ununited fracture without complicating avascular necrosis. IMPRESSION: 1. Nondisplaced non angulated slightly impacted fracture of the distal left radius. Probable associated nondisplaced fracture of the ulnar styloid process. 2. 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 No evidence of avascular necrosis.
--- NOTE | 2016-09-29 09:56 | ED GENERAL ADULT ---
History of Present Illness General Chief Complaint: Hand or Wrist Injury Stated Complaint: FALL LAST PM, LEFT WRIST PAIN Source: patient, family, old records Exam Limitations: no limitations Vital Signs & Intake/Output Vital Signs & Intake/Output Vital Signs Date Time Temp Pulse Resp B/P B/P Pulse O2 O2 Flow FiO2 Mean Ox Delivery Rate 09/29 2111 62 96/54 09/29 1514 97.7 102 20 110/60 92 Room Air 09/29 1458 Nasal 2.0L Cannula 09/29 1414 98.2 102 20 102/60 94 Room Air 09/29 1134 97.7 100 20 103/56 98 Room Air 09/29 0843 98.9 105 18 94/58 100 Room Air Allergies Coded Allergies: codeine (Mild, RASH 03/10/16) aspirin (R/T BLOOD PLATELET COUNT 03/10/16) Reconcile Medications Albuterol Sulfate (Ventolin Hfa) 90 MCG HFA.AER.AD 2 PUF INH 4 TIMES/DAY PRN COPD (Reported) Budesonide/Formoterol Fumarate (Symbicort 160-4.5 Mcg Inhaler) 160 MCG-4.5 MCG/ ACTUATION HFA.AER.AD 2 PUF INH BID COPD (Reported) Escitalopram Oxalate 20 MG TABLET 1 TAB PO DAILY DEPRESSION (Reported) Ferrous Sulfate 325 MG (65 MG IRON) TABLET.DR 1 TAB PO DAILY PRN ANEMIA Finasteride 5 MG TABLET 1 TAB PO QPM PROSTATE (Reported) Omeprazole 40 MG CAPSULE.DR 1 CAP PO DAILY GI (Reported) Ropinirole Hydrochloride (Requip) 0.25 MG TABLET 2 TAB PO QPM RLS (Reported) Tamsulosin HCl (Flomax) 0.4 MG CAP.ER.24H 1 CAP PO QPM PROSTATE (Reported) Tiotropium [place] (Spiriva Respimat) 2.5 MCG/ACTUATION MIST.INHAL 2 PUFF INH DAILY COPD (Reported) Triage Note: PT TO ED FOR L WRIST PAIN S/P TRIP AND FALL LAST NIGHT, NO LOC. NO THINNERS. L WRIST SWELLING AND PAIN. PT REQUESTING TO SEE MD P/T PAIN MEDS. PT HAS MULTIPLE BRUISES IN VARIOUS STAGES OF HEALING ALL OVER BODY, PER FAMILY THIS IS BASELINE FOR PATIENT D/T MYOPLASTIC DYSPLASIA. Triage Nurses Notes Reviewed? yes Onset: Abrupt Duration: day(s):, constant, continues in ED Timing: recent history Severity: moderate, severe No Modifying Factors: none HPI: 71-year-old male comes into emergency room for further evaluation of left wrist pain and diarrhea. Patient reports that yesterday he was getting up out of bed to use the bathroom because she's been having diarrhea and fell onto his left wrist. Patient reports that he also has some bruising to the left side of his abdomen and he hit the left side of his head. He doesn't headache. Denies any loss of consciousness. Pain primarily to the left wrist. Patient reports that he was recently admitted to the hospital for his COPD and was on antibiotics and prescribed oral antibiotics to go home with. Patient reports she has been experiencing persistent diarrhea. He's been off antibiotics for about 3 days and has been having persistent diarrhea. Denies any vomiting. Denies any abdominal pain. No blood. Denies being on any anticoagulants. Denies any other associated symptoms. (EDEN GUADARRAMA) Past History Travel History Traveled to [place] past 21 day No Medical History Any Pertinent Medical History? see below for history Neurological: restless leg syndrome EENT: cataracts Cardiovascular: NONE Respiratory: bronchitis, COPD, pneumonia, OXYGEN 2L AT HOME PRN Gastrointestinal: GERD, hiatal hernia, UMBILICAL HERNIA DIVERTICULOSIS BLEEDING ULCER Hepatic: NONE Renal: ENLARGED PROSTATE Musculoskeletal: chronic back pain, RESTLESS LEG SYNDROME ARTHRITIS Psychiatric: anxiety, depression Endocrine: NONE Blood Disorders: anemia, MDS- LEUKOCYTOSIS THROMBOCYTOPENIA Cancer(s): 2006 EPIGLOTTIS (SEE SURGICAL HX) MYOPLASTIC DYSPLASIA EXHIBIT CLEANER/Reproductive: ENLARGED PROSTATE History of MRSA: No History of VRE: No History of CDIFF: No Surgical History Surgical History: appendectomy, 2007 EPIGLOTTIS REMOVED L KNEE ARTHROSCOPY CATARACT REMOVAL EYES TONSILLECTOMY CARPAL TUNNEL BOTH WRISTS Psychosocial History Who do you live with Spouse Services at Home Oxygen (intermittent O2) What is your primary language Sammarinese Tobacco Use: Never used ETOH Use: occasional use Illicit Drug Use: denies illicit drug use Family History Family History, If Any: SISTER FH: breast cancer FH: diabetes mellitus FH: lung cancer MOTHER, , Age 77; Cause: Arteriosclerotic heart disease (ASHD). FH: diabetes mellitus FATHER FH: colon cancer FH: prostate cancer FATHER (Colon Ca). , Age 89; Cause: Prostate CA. Relation not specified for: colon cancer Hx Contributory? No (EDEN GUADARRAMA) Review of Systems Review of Systems Constitutional: Reports: no symptoms. EENTM: Reports: no symptoms. Respiratory: Reports: no symptoms. Cardiovascular: Reports: no symptoms. GI: Reports: see HPI. Genitourinary: Reports: no symptoms. Musculoskeletal: Reports: see HPI. Skin: Reports: no symptoms. Neurological/Psychological: Reports: no symptoms. Hematologic/Endocrine: Reports: no symptoms. Immunologic/Allergic: Reports: no symptoms. All Other Systems: Reviewed and Negative (EDEN GUADARRAMA) Physical Exam Physical Exam General Appearance: well developed/nourished, alert, awake Head: small amount redness above left obrits, mild swelling' Eyes: Bilateral: normal appearance. Ears, Nose, Throat: normal ENT inspection, hearing grossly normal Neck: normal inspection, supple, full range of motion, no midline tenderness Respiratory: normal breath sounds, no respiratory distress Cardiovascular: regular rate/rhythm Gastrointestinal: soft, non-tender, bruising left side of abdomen Back: normal range of motion Extremities: normal inspection, no edema Neurologic/Psych: awake, alert, normal gait, normal mood/affect Skin: intact, normal color Core Measures ACS in differential dx? No CVA/TIA Diagnosis: No Severe Sepsis Present: No Septic Shock Present: No (EDEN GUADARRAMA) Progress Differential Diagnoses I considered the following diagnoses in my evaluation of the patient: Wrist fracture, intracranial bleed, abdominal hematoma, C. difficile, hypokalemia, colitis, sepsis, Plan of Care: Orders Procedure Date/time Status Regular Diet 09/29 L Active Pathway - chart 09/29 2048 Active Vital Signs 09/29 1404 Active Teach/Educate 09/29 1404 Active Pain Treatment and Response 09/29 1404 Active Nutritional Intake, Monitor 09/29 1404 Active Isolation 09/29 1404 Active Intake & Output 09/29 1404 Active Patient Care Conference 09/29 1404 Active Activity/Ambulation 09/29 1404 Active TRC EVALUATION (GEN) 09/29 1338 Active OXYGEN SETUP (GEN) 09/29 1338 Active Pathway - chart 09/29 1338 Active House Staff 09/29 1338 Active Patient Data 09/29 1338 Active Code Status 09/29 1338 Active Patient Data 09/29 1246 Active ED Holding Orders 09/29 1244 Active Admit to inpatient 09/29 1244 Active Vital Signs 09/29 1244 Active Code Status 09/29 1244 Complete Add-on Test (ER Only) 09/29 1221 Active BLOOD CULTURE 09/29 1221 Active LACTIC ACID 09/29 1033 Complete CULTURE,STOOL 09/29 0955 Active OVA AND PARASITE ANTIGENS 09/29 0955 Active C.DIFFICILE 09/29 0955 Active TROPONIN LEVEL 09/29 0955 Complete COMPREHENSIVE METABOLIC PANEL 09/29 0955 Complete CBC WITHOUT DIFFERENTIAL 09/29 0955 Complete EKG 09/29 0955 Active Intake & Output 09/29 0922 Active XRY-CHEST XRAY, PA AND LATERAL 09/29 UNK Active House Staff 09/29 UNK Active VTE Mechanical Prophylaxis 09/29 UNK Active MISTAKE 09/29 UNK Active Intake & Output 09/29 UNK Complete Hemoccult 09/29 UNK Active EKG 09/29 UNK Active Current Medications Sig/Dung Start time Last Medication Dose Stop Time Status Admin Finasteride 5 MG QPM 09/29 2200 AC 09/29 (Proscar) 2106 Tamsulosin HCl 0.4 MG QPM 09/29 2200 AC 09/29 (Flomax) 2111 Acetaminophen 650 MG Q6P PRN 09/29 2100 AC (Tylenol) Ibuprofen 600 MG Q6P PRN 09/29 2100 AC 09/29 (Motrin) 2107 Lidocaine 1 PAT Q24H 09/29 2100 AC (Lidoderm) Potassium Chloride 40 MEQ Q13H 09/29 1545 AC 09/29 (KCl 40MEQ in D5W 09/30 0444 1802 2NS 1000ml) Dextrose/Sodium 1,000 ML Chloride (D5W-1/2 Normal Saline 1000ML) Vancomycin HCl 125 MG Q6 09/29 1414 AC 09/29 1801 Ropinirole HCl 0.5 MG AT BEDTIME 09/29 1345 AC 09/29 (Requip 0.5MG) 1410 Laboratory Tests 09/29/16 1033: Anion Gap 11, Estimated GFR > 60, BUN/Creatinine Ratio 23.3, Glucose 82, Lactic Acid 1.6, Calcium 8.6, Total Bilirubin 2.5 H, AST 20, ALT 31, Alkaline Phosphatase 84, Troponin I < 0.01, Total Protein 5.4 L, Albumin 3.0 L, Globulin 2.4, Albumin/Globulin Ratio 1.3, CBC w Diff MAN DIFF ORDERED, RBC 3.57 L, MCV 100.1 H, MCH 33.3 H, RDW 15.8 H, MPV 6.9 L, Segmented Neutrophils 77 H, Band Neutrophils 12 H, Lymphocytes 4 L, Monocytes 6, Myelocytes 1 H, Platelet Estimate DECREASED, Anisocytosis 1+, Macrocytic Cells FEW, PUBS MCHC 33.3 Microbiology 09/29 1311 BLOOD: Blood Culture - RECD 09/29 1240 BLOOD: Blood Culture - RECD 09/29 1152 STOOL: Cryptosporidium Antigen - RECD 09/29 1152 STOOL: Giardia Antigen (MATIAS) - RECD 09/29 115 STOOL: Clostridium difficile Toxin A & B - RES CLOSTRIDIUM DIFFICILE 09/29 115 STOOL: Stool Culture - RES Initial ED EKG: normal intervals, normal p-waves, normal sinus rhythm, rate (107 ) Prior EKG: unchanged (EDEN GUADARRAMA) Departure Departure Disposition: STILL A PATIENT Condition: Stable Clinical Impression Primary Impression: C. difficile colitis Secondary Impressions: Hypokalemia, Left wrist fracture, Leukocytosis Referrals: Harry GATICA MD (PCP/Family) Departure Forms: Customer Survey General Discharge Information Admission Note Spoke With: ROSCOE HERNANDEZ MD Documentation of Exam: Documentation of any treatments & extenuating circumstances including Concerns Regarding Discharge (functional status, medication knowledge or non-compliance, living conditions, etc.) that warrant an admission rather than observation: High suspicion for C. difficile colitis. Patient will be treated with IV Flagyl. IV fluids. Potassium repletion. Oncology consultation. GI consultation. Patient has immunosuppression. Patient would do poorly as an outpatient. (EDEN GUADARRAMA) PA/REDUCING SALON ATTENDANT Co-Sign Statement Statement: ED Attending supervision documentation- [X] I saw and evaluated the patient. I have also reviewed all the pertinent lab results and diagnostic results. I agree with the findings and the plan of care as documented in the PA's/REDUCING SALON ATTENDANT's documentation. [X] I have reviewed the ED Record and agree with the PA's/REDUCING SALON ATTENDANT's documentation. [] Additions or exceptions (if any) to the PAs/REDUCING SALON ATTENDANT's note and plan are summarized below: [] (SUHAIL COLEMAN,SMITHA) Procedures Splinting Location: LEFT WRIST Manual Alignment Performed: No Hand-Made Type: orthoglass (sUGAR TONG MODIFIED) Splint Applied By: splint applied by me Pre-Proc Neuro Vasc Exam: normal Post-Proc Neuro Vasc Exam: normal (EDEN GUADARRAMA) Critical Care Note Critical Care Note Critical Care Time: non-applicable (ISAIAH ESPOSITO,EDEN)
--- NOTE | 2016-09-29 10:37 | NUR ---
LABS DRAWN AND SENT BY THIS [facility] BLUE,SST,LAV,MONTANO
[2016-09-29 10:57] LABS: HEMATOCRIT 35.8 % (42-52); MEAN CORPUSCULAR HGB 33.3 PG (27.0-31.0); MEAN CORPUSCULAR HGB CONC 33.3 G/DL (33.0-37.0); MEAN CORPUSCULAR VOLUME 100.1 FL (80.0-94.0); MEAN PLATELET VOLUME 6.9 FL (7.4-10.4); PLATELET COUNT 66 /CUMM (130-400); RBC DISTRIBUTION WIDTH 15.8 % (11.5-14.5); RED BLOOD CELL CT 3.57 /CUMM (4.70-6.10)
--- NOTE | 2016-09-29 11:13 | NUR ---
CRITICAL TEST RESULTS [id number] LEXIS DUBON 71 M TESTS AND RESULTS: POTASSIUM 2.9 Results received and read back by: YULIYA DURAND Results received date and time: 09/29/16 1113 The following provider was notified of the results, and read the results back: VAIBHAV COLON Notified date and time: 09/29/16 at 1113
[2016-09-29 11:14] LABS: WHITE BLOOD CELL COUNT 101.1 /CUMM (4.8-10.8)
--- NOTE | 2016-09-29 11:14 | NUR ---
CRITICAL TEST RESULTS [id number] LEXIS DUBON 71 M TESTS AND RESULTS: WBC 101.1 Results received and read back by: LUAN GRIFFIN Results received date and time: 09/29/16 1114 The following provider was notified of the results, and read the results back: SUHAIL Notified date and time: 09/29/16 at 1114
--- NOTE | 2016-09-29 11:52 | NUR ---
STOOL OBTAINED AND SENT TO LAB.
--- NOTE | 2016-09-29 12:46 | History & Physical ---
JOEY WOODS 09/29/16 1246: General Information and HPI MD Statement: I have seen and personally examined LEXIS DUBON and documented this H&P. The patient is a 71 year old M who presented with a patient stated chief complaint of []. Source of Information: patient, old records Exam Limitations: no limitations History of Present Illness: This is a 71-year-old gentleman with past medical history significant for COPD/ bronchitis, on 2 L nasal cannula oxygen at baseline, GERD, upper GIB (peptic ulcer), on medical hernia, BPH, restless leg syndrome, HFpEF, myelodysplastic syndrome who presented to the hospital for further evaluation of left wrist pain and diarrhea. The patient was discharged on 09/22/2016 complete antibiotic therapy with Augmentin for pneumonia(last was supposed to be on 09/25/2016). Per patient he started having diarrhea one day before his antibiotic therapy ending date. He reports having loose bowel movement 5-6 times per day. He does not notice any bloody bowel movement. Patient reports that yesterday on his way to the restroom he fell on his left wrist; did not lose his consciousness did not experience any dizziness/lightheadedness. Denies fevers, chills, abdominal discomfort, urinary symptoms. Does not have history of C.diff infection in past. Allergies/Medications Allergies: Coded Allergies: codeine (Mild, RASH 03/10/16) aspirin (R/T BLOOD PLATELET COUNT 03/10/16) Home Med list Albuterol Sulfate (Ventolin Hfa) 90 MCG HFA.AER.AD 2 PUF INH 4 TIMES/DAY PRN COPD (Reported) Budesonide/Formoterol Fumarate (Symbicort 160-4.5 Mcg Inhaler) 160 MCG-4.5 MCG/ ACTUATION HFA.AER.AD 2 PUF INH BID COPD (Reported) Escitalopram Oxalate 20 MG TABLET 1 TAB PO DAILY DEPRESSION (Reported) Ferrous Sulfate 325 MG (65 MG IRON) TABLET.DR 1 TAB PO DAILY PRN ANEMIA Finasteride 5 MG TABLET 1 TAB PO QPM PROSTATE (Reported) Omeprazole 40 MG CAPSULE.DR 1 CAP PO DAILY GI (Reported) Ropinirole Hydrochloride (Requip) 0.25 MG TABLET 2 TAB PO QPM RLS (Reported) Tamsulosin HCl (Flomax) 0.4 MG CAP.ER.24H 1 CAP PO QPM PROSTATE (Reported) Tiotropium [place] (Spiriva Respimat) 2.5 MCG/ACTUATION MIST.INHAL 2 PUFF INH DAILY COPD (Reported) Past History Travel History Traveled to [place] past 21 day No Medical History Neurological: restless leg syndrome EENT: cataracts Cardiovascular: NONE Respiratory: bronchitis, COPD, pneumonia, OXYGEN 2L AT HOME PRN Gastrointestinal: GERD, hiatal hernia, UMBILICAL HERNIA DIVERTICULOSIS BLEEDING ULCER Hepatic: NONE Renal: ENLARGED PROSTATE Musculoskeletal: chronic back pain, RESTLESS LEG SYNDROME ARTHRITIS Psychiatric: anxiety, depression Endocrine: NONE Blood Disorders: anemia, MDS- LEUKOCYTOSIS THROMBOCYTOPENIA Cancer(s): 2006 EPIGLOTTIS (SEE SURGICAL HX) MYOPLASTIC DYSPLASIA 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 FH: diabetes mellitus FATHER FH: colon cancer FH: prostate cancer FATHER (Colon Ca). , Age 89; Cause: Prostate CA. Relation not specified for: colon cancer Psychosocial History Who Do You Live With? spouse Services at Home: Oxygen (intermittent O2) Primary Language: Kyrgyz ETOH Use: occasional use Illicit Drug Use: denies illicit drug use Living Will? no Power of Sanitation Manager/HCP? no Functional Ability ADLs Independent: dressing, eating, toileting, bathing. Ambulation: independent IADLs Independent: shopping, housework, finances, food prep, telephone, transportation , medication admin. Review of Systems Review of Systems Constitutional: Reports: see HPI. Exam & Diagnostic Data Last 24 Hrs of Vital Signs/I&O Vital Signs Date Time Temp Pulse Resp B/P B/P Pulse O2 O2 Flow FiO2 Mean Ox Delivery Rate 09/29 2111 62 96/54 09/29 1514 97.7 102 20 110/60 92 Room Air 09/29 1458 Nasal 2.0L Cannula 09/29 1414 98.2 102 20 102/60 94 Room Air 09/29 1134 97.7 100 20 103/56 98 Room Air 09/29 0843 98.9 105 18 94/58 100 Room Air Intake & Output 09/29 1600 09/29 0800 09/29 0000 Intake Total Output Total Balance Number 1 Bowel Movements Patient 185 lb Weight Weight Reported by Patient Measurement Method Physical Exam General Appearance Alert, Oriented X3, Cooperative, No Acute Distress Skin No Breakdown, scattered ecchymosis on upper extremities, small ecchymosis on the forehead;left side. Skin Temp/Moisture Exam: Warm/Dry Sepsis Skin Exam (color): Normal for Ethnicity HEENT Atraumatic, PERRLA, EOMI, Mucous Membr. moist/pink Neck Supple, No JVD, No thryomegaly, +2 Carotid Pulse wo Bruit, No LAD Lymphatic Axillary nl, Cervical nl Cardiovascular Regular Rate, Normal S1, Normal S2, No Murmurs, Gallops, Rubs Lungs Clear to Auscultation, Normal Air Movement Abdomen Normal Bowel Sounds, Soft, No Tenderness, No Hepatospenomegaly, umbilical hernia noted Neurological Normal Speech, Strength at 5/5 X4 Ext, Normal Tone, Sensation Intact, Cranial Nerves 3-12 NL, Reflexes 2+ Extremities No Clubbing, No Cyanosis, No Edema, Normal Pulses, No Tenderness/ Swelling, left forearm in splint. Vascular Normal Pulses, Pulses Symmetrical Last 24 Hrs of Labs/Ghulam: Laboratory Tests 09/29/16 1033: Anion Gap 11, Estimated GFR > 60, BUN/Creatinine Ratio 23.3, Glucose 82, Lactic Acid 1.6, Calcium 8.6, Total Bilirubin 2.5 H, AST 20, ALT 31, Alkaline Phosphatase 84, Troponin I < 0.01, Total Protein 5.4 L, Albumin 3.0 L, Globulin 2.4, Albumin/Globulin Ratio 1.3, CBC w Diff MAN DIFF ORDERED, RBC 3.57 L, MCV 100.1 H, MCH 33.3 H, RDW 15.8 H, MPV 6.9 L, Segmented Neutrophils 77 H, Band Neutrophils 12 H, Lymphocytes 4 L, Monocytes 6, Myelocytes 1 H, Platelet Estimate DECREASED, Anisocytosis 1+, Macrocytic Cells FEW, PUBS MCHC 33.3 Microbiology 09/29 1311 BLOOD: Blood Culture - RECD 09/29 1240 BLOOD: Blood Culture - RECD 09/29 1152 STOOL: Cryptosporidium Antigen - RECD 09/29 1152 STOOL: Giardia Antigen (GHULAM) - RECD 09/29 1152 STOOL: Clostridium difficile Toxin A & B - RES CLOSTRIDIUM DIFFICILE 09/29 1152 STOOL: Stool Culture - RES Diagnostic Data EKG Results Sinus tachycardia, rate 107, RBBB and LBFB no ST-T wave abnormalities. CXR Results IMPRESSION: Findings concerning for an evolving right lower lobe pneumonia. Follow-up to clearing is recommended. Other Results EXAM TYPE: RAD - XRY-WRIST COMPLETE-LEFTIMPRESSION: 1. Nondisplaced non angulated slightly impacted fracture of the distal left radius. Probable associated nondisplaced fracture of the ulnar styloid process. 2. 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 No evidence of avascular necrosis. Assessment/Plan Assessment: This is a 71-year-old gentleman with past medical history significant for COPD/ bronchitis, on 2 L nasal cannula oxygen at baseline, GERD, upper GIB (peptic ulcer), on medical hernia, BPH, restless leg syndrome, HFpEF, myelodysplastic syndrome who presented to the hospital for further evaluation of left wrist pain at this post mechanical fall and diarrhea. WBC 101 on admission (baseline 40). Was found to have C. difficile positive left wrist x-ray showing nondisplaced non angulated slightly impacted fracture of the distal left radius, nondisplaced fracture of the ulnar styloid process and old ununited fracture of the scaphoid bone. Problem list #C. difficile colitis #Left radial head fracture #Hypokalemia #Status post mechanical fall #Myelodysplastic syndrome Plan * Vital signs per protocol * Will start the patient on by mouth vancomycin * IV hydration * Will repeat EKG tomorrow morning * Replete potassium * ID, hematology, orthopedic consult * Contact precautions * DVT prophylaxis with Alps given thrombocytopenia. * Patient is full code As Ranked By This Provider Problem List: 1. C. difficile colitis Core Measures/Miscellaneous Acute Coronary Syndrome ACS Diagnosis: No Cerebrovascular Accident CVA/TIA Diagnosis: No Congestive Heart Failure CHF Diagnosis: No VTE (View Protocol) VTE Risk Factors: Age > 40 [facility] prophylaxis d/t: No contraindications No VTE Pharm Prophylaxis d/t: No contraindications VTE Diagnosis: No VTE Type: NONE VTE Confirmed by (Test): NONE Sepsis (View Protocol) Severe Sepsis Present: Yes BC x2: Yes Lactic Acid x2: Yes IV ABX Broad Spectrum: Yes Septic Shock Septic Shock Present: Yes BC x2: Yes Lactic Acid: Yes IV ABX Broad Spectrum: Yes Focused Exam Completed: Yes NS/LR 30ml/kg w/in 3hrs: No IV Vasopressors started: No Miscellaneous Documentation Attending Case Discussed With: ROSCOE HERNANDEZ MD Primary Care Physician: Harry GATICA MD Patient sees these Specialists Oncology Level of Patient Care: General Medicine ROSCOE HERNANDEZ MD 09/29/16 2139: Attending MD Review Statement Attending Statement Attending MD Statement: examined this patient, discuss w/resident/PA/ORTHODONTIST, agreed w/resident/PA/ORTHODONTIST, reviewed EMR data (avail) Attending Assessment/Plan: 71M PMH myelodysplastic syndrome, laryngeal cancer, COPD on 2L home O2, pulmonary HTN, restless leg syndrome, GERD, upper GIB (peptic ulcer) and HFpEF, recently discharged from for acute COPD exacerbation and pneumonia, had diarrhea starting 3 days after discharge, had mechanical fall yesterday going to the bathroom and presents with left wrist pain and profuse watery diarrhea, found to be C.difficile positive. Patient reports feeling tired with mild abdominal discomfort but is otherwise well. Left wrist x-ray shows left radial head fracture, splinted in ED. WBC 101 today, patient has a history of MDS with last WBC 40. EKG NSR with RBBB with no acute changes from prior. 1. C.difficile colitis 2. Fall, initial 3. Left radial head fracture 4. Dehydration 5. Hypokalemia Plan - Admit to general medicine - Start PO Vancomycin - Hematology consult - IV hydration - Replete potassium - Repeat EKG tomorrow morning - Continue home medications - Contact precautions - DVT PPx
--- NOTE | 2016-09-29 13:18 | NUR ---
PT HAS BED ASSIGNMENT 236. RN NOTIFED.
--- NOTE | 2016-09-29 13:19 | NUR ---
HOUSESTAFF IN FOR EVAL.
--- NOTE | 2016-09-29 14:10 | NUR ---
REPORT TO YULIYA ALONZO ON 2NA.
--- NOTE | 2016-09-29 14:34 | NUR ---
PT TO FLOOR VIA STRETCHER. ALL PAPERWORK AND BELONGINGS SENT. CLINICAL STATUS UNCHANGED.
[2016-09-29 15:14] VITALS: BP 110/60
--- NOTE | 2016-09-29 16:08 | NUR ---
PT LEFT FLOOR AT 1600 FOR CAT SCAN.
--- NOTE | 2016-09-29 16:50 | CT SCAN REPORT ---
EXAMINATION: CT HEAD WITHOUT CONTRAST CLINICAL INFORMATION: 71-year-old male patient who hit his head by falling. COMPARISON: CT the brain done 04/13/2014. TECHNIQUE: Contiguous axial imaging was performed from the skull base to vertex without intravenous administration of contrast. DLP: 621 mGy-cm FINDINGS: There is no evidence of acute intracranial hemorrhage or territorial infarction. No abnormal mass effect or midline shift is seen. Braga to white matter differentiation is well preserved. No extra-axial fluid collections are identified. The ventricles are normal in size for age. There is no abnormal attenuation within the brain parenchyma. The osseous structures and soft tissues are normal. The mastoid air cells and visualized portions of the paranasal sinuses are well aerated. The cavernous portions of both internal carotid arteries are significantly calcified. IMPRESSION: No acute intracranial pathology.
--- NOTE | 2016-09-29 17:12 | PN- Orthopedic ---
Surgical Brief Attending Note Brief Attending Note: I was called regarding this patient's distal radius fracture. It should be splinted for now, will place in a cast as an outpatient upon discharge when swelling/fluid shifts resolve. Call [phone] for appointment.
--- NOTE | 2016-09-29 20:45 | NUR ---
PT CALLED RN COMPLAINING OF PAIN. PAIN ASSESSMENT: 5/10 ACHING PAIN ALONG R SIDE (PT POINTING ALONG RIB CAGE), REPORTED PAIN WORSENING TO 7/10 UPON COUGHING. PAIN LINGERING FOR PAST COUPLE OF HOURS BUT HAS BEEN INTERMITTENT SINCE THIS AFTERNOON. DR KOROMA NOTIFIED. WILL ORDER CHEST XRAY AND PAIN MEDICATIONS. WILL CONTINUE TO MONITOR.
--- NOTE | 2016-09-29 21:18 | NUR ---
PT LEAVING FLOOR FOR CHEST XRAY.
--- NOTE | 2016-09-29 21:41 | Admission Certification ---
Admission Certification Certification Statement - As attending physician, I certify that at the time of - admission, based on clinical presentation, severity of - symptoms, need for further diagnostic testing and - therapeutic interventions, and risk of adverse outcomes - without in-hospital treatment, in my clinical assessment, - this patient requires an acute hospital stay for a minimum - of two nights or longer. I have also considered psychsocial - factors such as support system, advanced age, financial - issues, cognitive issues, and failed out-patient treatments, - past re-admission history, safety of patient, and lack of - compliance as applicable. Specific rationale supporting this admission is: C.diff colitis with WBC 101k, fall with left wrist fracture
--- NOTE | 2016-09-29 22:25 | RADIOLOGY REPORT ---
EXAMINATION: XR CHEST CLINICAL INFORMATION: Cough and pleuritic chest pain, history of fall and wrist fracture. COMPARISON: 01/06/2016, 06/10/2016, 09/18/2016. TECHNIQUE: 2 views of the chest were obtained. FINDINGS: The cardiomediastinal silhouette is unremarkable. There is a developing patchy opacity identified in the right lower lung field laterally not well-seen on the lateral view likely an evolving or developing left lower lobe pneumonia. More subtle opacity at the left lung base is likely chronic change and related to discoid atelectasis or scarring. The lungs and pleural spaces appear clear without evidence of congestion, or significant appearing effusion or atelectasis. There is no evidence of pneumothorax or pulmonary edema. 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 IMPRESSION: Findings concerning for an evolving right lower lobe pneumonia. Follow-up to clearing is recommended.
[2016-09-29 22:45] VITALS: BP 112/60
--- NOTE | 2016-09-30 06:35 | Cons- Hematology ---
General Information and HPI Consulting Request Date of Consult: 09/30/16 Requested By: ROSCOE HERNANDEZ MD History of Present Illness: 71-year-old man with known myelodysplastic syndrome characterized by anemia leukocytosis with left shift and thrombocytopenia. Patient is now admitted after a fall sustaining a wrist fracture. Patient has had Several days of diarrhea associated with weakness. Patient denied fever or chills or abdominal pain. Patient was recently discharged from the hospital after presumptive diagnosis of pneumonia. Allergies/Medications Allergies: Coded Allergies: codeine (Mild, RASH 03/10/16) aspirin (R/T BLOOD PLATELET COUNT 03/10/16) Home Med List: Albuterol Sulfate (Ventolin Hfa) 90 MCG HFA.AER.AD 2 PUF INH 4 TIMES/DAY PRN COPD (Reported) Budesonide/Formoterol Fumarate (Symbicort 160-4.5 Mcg Inhaler) 160 MCG-4.5 MCG/ ACTUATION HFA.AER.AD 2 PUF INH BID COPD (Reported) Escitalopram Oxalate 20 MG TABLET 1 TAB PO DAILY DEPRESSION (Reported) Ferrous Sulfate 325 MG (65 MG IRON) TABLET.DR 1 TAB PO DAILY PRN ANEMIA Finasteride 5 MG TABLET 1 TAB PO QPM PROSTATE (Reported) Omeprazole 40 MG CAPSULE.DR 1 CAP PO DAILY GI (Reported) Ropinirole Hydrochloride (Requip) 0.25 MG TABLET 2 TAB PO QPM RLS (Reported) Tamsulosin HCl (Flomax) 0.4 MG CAP.ER.24H 1 CAP PO QPM PROSTATE (Reported) Tiotropium [place] (Spiriva Respimat) 2.5 MCG/ACTUATION MIST.INHAL 2 PUFF INH DAILY COPD (Reported) Current Medications: Current Medications Sig/Dung Start time Last Medication Dose Route Stop Time Status Admin Acetaminophen 650 MG Q6P PRN 09/29 2100 AC 09/30 PO 0537 Escitalopram Oxalate 20 MG DAILY 09/30 1000 AC PO Finasteride 5 MG QPM 09/290 AC 09/29 PO 2106 Ibuprofen 600 MG Q6P PRN 09/29 2099 AC 09/29 PO 210 Lidocaine 1 PAT Q24H 09/29 2100 AC 09/29 EXT 2211 Metronidazole 500 MG ONCE ONE 09/29 1230 DC 09/29 N/A 1 UNIT IV 09/29 1329 1315 Potassium Chloride 40 MEQ Q13H 09/29 1545 DC 09/29 Dextrose/Sodium 1,000 ML IV 09/30 0444 1802 Chloride Potassium Chloride 0 .STK-MED ONE 09/29 1132 DC PO Potassium Chloride 40 MEQ ONCE ONE 09/29 1130 DC 09/29 PO 09/29 1131 1134 Ropinirole HCl 0.5 MG AT BEDTIME 09/29 2200 DC PO Ropinirole HCl 0.5 MG AT BEDTIME 09/29 1345 AC 09/29 PO 1410 Tamsulosin HCl 0.4 MG QPM 09/29 2200 AC 09/29 PO 2111 Vancomycin HCl 125 MG Q6 09/29 1414 AC 09/30 PO 0528 Review of Systems Review of Systems: Patient denies headaches or vertigo. Patient denies new shortness of breath cough chest pain or hemoptysis. Patient denies dysuria or hematuria. Patient denies focal neurologic deficit Past History Travel History Traveled to [place] past 21 day No Medical History Blood Transfusion Hx: Yes Neurological: restless leg syndrome EENT: cataracts Cardiovascular: NONE Respiratory: bronchitis, COPD, pneumonia, OXYGEN 2L AT HOME PRN Gastrointestinal: GERD, hiatal hernia, UMBILICAL HERNIA DIVERTICULOSIS BLEEDING ULCER Hepatic: NONE Renal: ENLARGED PROSTATE Musculoskeletal: chronic back pain, RESTLESS LEG SYNDROME ARTHRITIS Psychiatric: anxiety, depression Endocrine: NONE Blood Disorders: anemia, MDS- LEUKOCYTOSIS THROMBOCYTOPENIA Cancer(s): 2006 EPIGLOTTIS (SEE SURGICAL HX) MYOPLASTIC DYSPLASIA 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 FH: diabetes mellitus FATHER FH: colon cancer FH: prostate cancer FATHER (Colon Ca). , Age 89; Cause: Prostate CA. Relation not specified for: colon cancer Psychosocial History Where Do You Live? Home Who Do You Live With? spouse Services at Home: Oxygen (intermittent O2) Primary Language: Citizen Of [place] Smoking Status: Former Smoker ETOH Use: occasional use Illicit Drug Use: denies illicit drug use Living Will? no Power of Rail Signal Designer/HCP? no Functional Ability ADLs Independent: dressing, eating, toileting, bathing. Ambulation: independent IADLs Independent: shopping, housework, finances, food prep, telephone, transportation , medication admin. Exam & Diagnostic Data Vital Signs and I&O Vital Signs Date Time Temp Pulse Resp B/P B/P Pulse O2 O2 Flow FiO2 Mean Ox Delivery Rate 09/30 0003 95 09/29 2245 97.8 112 20 112/60 94 Room Air 09/29 2111 62 96/54 09/29 1514 97.7 102 20 110/60 92 Room Air 09/29 1458 Nasal 2.0L Cannula 09/29 1414 98.2 102 20 102/60 94 Room Air 09/29 1134 97.7 100 20 103/56 98 Room Air 09/29 0843 98.9 105 18 94/58 100 Room Air Intake & Output 09/30 0800 09/30 0000 09/29 1600 Intake Total 760 570 Output Total Balance 760 570 Intake, IV 600 450 Intake, Oral 160 120 Number 2 6 1 Bowel Movements Patient 185 lb Weight Weight Reported by Patient Measurement Method Gen.: in NAD ENT: Sclera anicteric Chest: Normal respiratory effort, decreased breath sounds Cor: RRR, no extra sounds Abdomen: Soft, bowel sounds present, no significant tenderness, no rebound Extremities: Without clubbing, cyanosis, or asymmetric edema Neurology: Alert and oriented 3, no gross deficit Skin: No rashes, petechiae Last 48 Hours of Lab Results: Laboratory Tests 09/29 09/29 2310 1033 Chemistry Sodium (137 - 145 mmol/L) 132 L Potassium (3.5 - 5.1 mmol/L) 2.9 *L Chloride (98 - 107 mmol/L) 92 L Carbon Dioxide (22 - 30 mmol/L) 29 Anion Gap (5 - 16) 11 BUN (9 - 20 mg/dL) 21 H Creatinine (0.7 - 1.2 mg/dL) 0.9 Estimated GFR (>60 ml/min) > 60 BUN/Creatinine Ratio (7 - 25 %) 23.3 Glucose (65 - 99 mg/dL) 82 Lactic Acid (0.7 - 2.1 mmol/L) 1.6 Calcium (8.4 - 10.2 mg/dL) 8.6 Total Bilirubin (0.2 - 1.3 mg/dL) 2.5 H AST (17 - 59 U/L) 20 ALT (21 - 72 U/L) 31 Alkaline Phosphatase (< 127 U/L) 84 Troponin I (<0.11 ng/ml) < 0.01 < 0.01 Total Protein (6.3 - 8.2 g/dL) 5.4 L Albumin (3.5 - 5.0 g/dL) 3.0 L Globulin (1.9 - 4.2 gm/dL) 2.4 Albumin/Globulin Ratio (1.1 - 2.2 %) 1.3 Hematology CBC w Diff MAN DIFF ORDERED WBC (4.8 - 10.8 /CUMM) 101.1 *H RBC (4.70 - 6.10 /CUMM) 3.57 L Hgb (14.0 - 18.0 G/DL) 11.9 L Hct (42 - 52 %) 35.8 L MCV (80.0 - 94.0 FL) 100.1 H MCH (27.0 - 31.0 PG) 33.3 H RDW (11.5 - 14.5 %) 15.8 H Plt Count (130 - 400 /CUMM) 66 L MPV (7.4 - 10.4 FL) 6.9 L Segmented Neutrophils (42.2 - 75.2 %) 77 H Band Neutrophils (0.0 - 5.0 %) 12 H Lymphocytes (20.5 - 51.1 %) 4 L Monocytes (1.7 - 9.3 %) 6 Myelocytes (0 - 0 %) 1 H Platelet Estimate (ADEQUATE) DECREASED Anisocytosis 1+ Macrocytic Cells FEW PUBS MCHC (33.0 - 37.0 G/DL) 33.3 Stool-positive for C. difficile Imaging/Other Studies: CT head-negative Chest [id number]-ypw-[id number] resolving pneumonia Wrist [id number] Assessment/Plan Assessment: 1. C. difficile enterocolitis 2. MDS-patient appears to have a marked leukemoid reaction. He was no significant worsening of his left shift of his white cell series. His hematocrit and platelet count are stable Recommend- Follow CBC No immediate plans for bone marrow aspiration and biopsy unless there is a further deterioration in his hemogram 3. Metabolic abnormalities-hypokalemia Discussed with patient Recommendations: .. Consult Acknowledgment - Thank you for your consult request.
[2016-09-30 06:44] VITALS: BP 100/50
--- NOTE | 2016-09-30 07:20 | PN- Housestaff ---
DENA COLEMAN,ALDO 09/30/16 0719: Subjective Follow-up For: C.diff diarrhea left wrist nondisplaced radial and ulnar styloid fracture Subjective: I saw and examined the patient today morning He reports pain in his right chest region which is worse with breathing, no pain in his left wrist/abdomen. He had 3 loose watery bowel movements overnight without any abdominal pain. no fever/chills overnight. He had occasional choking with swallowing, cough with phlegm production. Review of Systems Constitutional: Reports: see HPI. Comments: ROS negative except above Objective Last 24 Hrs of Vital Signs/I&O Vital Signs Date Time Temp Pulse Resp B/P B/P Pulse O2 O2 Flow FiO2 Mean Ox Delivery Rate 09/30 0644 97.6 88 20 100/50 92 Room Air 09/30 0003 95 09/29 2245 97.8 112 20 112/60 94 Room Air 09/29 2111 62 96/54 09/29 1514 97.7 102 20 110/60 92 Room Air 09/29 1458 Nasal 2.0L Cannula 09/29 1414 98.2 102 20 102/60 94 Room Air 09/29 1134 97.7 100 20 103/56 98 Room Air 09/29 0843 98.9 105 18 94/58 100 Room Air Intake & Output 09/30 0800 09/30 0000 09/29 1600 Intake Total 760 570 Output Total Balance 760 570 Intake, IV 600 450 Intake, Oral 160 120 Number 2 6 1 Bowel Movements Patient 83.915 kg Weight Weight Reported by Patient Measurement Method Physical Exam General Appearance: Alert, Oriented X3, Cooperative Skin: No Rashes HEENT: Atraumatic, PERRLA, EOMI Neck: Supple Cardiovascular: Normal S1, Normal S2 Lungs: rhonchorous and decreased breath sounds on the right side Abdomen: Normal Bowel Sounds, Soft Neurological: Normal Tone, Sensation Intact, Cranial Nerves 3-12 NL Extremities: No Clubbing, No Cyanosis Current Medications: Current Medications Sig/Dung Start time Last Medication Dose Route Stop Time Status Admin Acetaminophen 650 MG Q6P PRN 09/29 2100 AC 09/30 PO 0537 Escitalopram Oxalate 20 MG DAILY 09/30 1000 AC PO Finasteride 5 MG QPM 09/29 2200 AC 09/29 PO 2106 Ibuprofen 600 MG Q6P PRN 09/29 2100 AC 09/29 PO 2107 Lidocaine 1 PAT Q24H 09/29 2100 AC 09/29 EXT 2211 Metronidazole 500 MG ONCE ONE 09/29 1230 DC 09/29 N/A 1 UNIT IV 09/29 1329 1315 Potassium Chloride 40 MEQ Q13H 09/29 1545 DC 09/29 Dextrose/Sodium 1,000 ML IV 09/30 0444 1802 Chloride Potassium Chloride 0 .STK-MED ONE 09/29 1132 DC PO Potassium Chloride 40 MEQ ONCE ONE 09/29 1130 DC 09/29 PO 09/29 1131 1134 Ropinirole HCl 0.5 MG AT BEDTIME 09/29 2200 DC PO Ropinirole HCl 0.5 MG AT BEDTIME 09/29 1345 AC 09/29 PO 1410 Tamsulosin HCl 0.4 MG QPM 09/29 2200 AC 09/29 PO 2111 Vancomycin HCl 125 MG Q6 09/29 1414 AC 09/30 PO 0528 Last 24 Hrs of Lab/Ghulam Results Last 24 Hrs of Labs/Mics: Laboratory Tests 09/30/16 0652: Anion Gap 8, Estimated GFR > 60, BUN/Creatinine Ratio 21.0, CBC w Diff MAN DIFF ORDERED, RBC 3.05 L, MCV 99.3 H, MCH 33.5 H, RDW 16.1 H, MPV 6.8 L, Gran % 94.6 H, Lymphocytes % 1.6 L, Monocytes % 3.8, Eosinophils % 0, Basophils % 0 L, Absolute Granulocytes 80.5 H, Segmented Neutrophils 80 H, Band Neutrophils 11 H, Absolute Lymphocytes 1.4, Lymphocytes 2 L, Monocytes 5, Absolute Monocytes 3.2 H, Absolute Eosinophils 0, Absolute Basophils 0, Metamyelocytes 1 , Myelocytes 1 H, Platelet Estimate DECREASED, Polychromasia 1+, Anisocytosis 1 +, PUBS MCHC 33.8 09/29/16 2310: Troponin I < 0.01 Microbiology 09/30 1530 LOWER RESP: Respiratory Culture - CAN Cancelled: NUMBER OF SQUAMOUS CELLS INDICATES POOR QUALITY SPECIMEN 09/30 153 LOWER RESP: Gram Stain - CAN Cancelled: NUMBER OF SQUAMOUS CELLS INDICATES POOR QUALITY SPECIMEN Assessment/Plan Assessment: Patient is a 71-year-old gentleman with PMH significant for COPD/bronchitis, on 2 L nasal cannula oxygen at baseline, GERD, upper GIB (peptic ulcer), on medical hernia, BPH, restless leg syndrome, HFpEF, myelodysplastic syndrome who presented to the hospital for further evaluation of left wrist pain and diarrhea. He is afebrile, tachycardic (105), blood pressure 94/58 mmHg at admission. Labs significant for leukocytosis of 101 (baseline 40), hypokalemia of 2.8, Na 132, chloride 92. Stool test is C. 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 Admitted to general medicine floor C. difficile infection in a patient with myelodysplastic syndrome ( immunosuppressed) * White count of 101 at admission (recent 40) * Started on vancomycin 125 every 6 in the setting of high white count and immunosuppressed state * Still symptomatic with 3 episodes of diarrhea overnight * No history of previous C. difficile episodes * Recently admitted to hospital for acute bronchitis - received amoxicillin at that time. Left wrist nondisplaced/non-angulated fracture of distal left radius & ulnar styloid process * Secondary to Mechanical fall * Orthopedics consulted * Recommended removable wrist splint for now as an inpatient * Requires cast as an outpatient after discharge Hypokalemia * K of 2.9 at admission * Today repeat potassium level is 2.8 after repletion yesterday * Secondary to diarrhea * Provided 120 mEq so far today * Repeat K at 7:30 PM Evolving right lower lobe pneumonia * History of throat cancer with epiglottidectomy * Pleuritic chest pain with productive cough * Underwent dating swallow evaluation which showed mild aspiration with all consistencies * Started on CHOPPED/nectar thick diet * Chest x-ray on 09/18/2016 didn't show any evidence of pneumonia * Sputum cultures are requested * Aspiration precautions History of myelodysplastic syndrome * White count of 101 at admission, trended down to 85 today * Baseline white count 40, H&H 10/30, platelet count of 55, MCV 100 * Hematology consulted, no acute intervention required at this point COPD * On 2 L home oxygen at baseline * Continue TRC/nebs BPH * Continue tamsulosin and finasteride - hold if blood pressure is <90/60 mmHg Restless leg syndrome * Continue ropinirole 0.5 mg at bedtime Depression * Continue Lexapro 20 mg daily DVT prophylaxis Alps (thrombocytopenic) CODE STATUS Full code Problem List: 1. Anemia 2. Patient is full code 3. BPH (benign prostatic hypertrophy) 4. MDS (myelodysplastic syndrome) 5. Hyponatremia 6. C. difficile colitis 7. Left wrist fracture 8. Hypokalemia 9. Pneumonia Pain Ratin Pain Location: Right chest, left wrist Pain Goal: Pain 4 or less Pain Plan: Tylenol Tomorrow's Labs & Rationales: BEP to monitor potassium levels CBC to monitor white count ROSCOE HERNANDEZ MD 09/30/16 1113: Attending MD Review Statement Attending Statement Attending MD Statement: examined this patient, discuss w/resident/PA/RESEARCH ATTORNEY, agreed w/resident/PA/RESEARCH ATTORNEY, reviewed EMR data (avail) Attending Assessment/Plan: 71M PMH myelodysplastic syndrome, laryngeal cancer, COPD on 2L home O2, pulmonary HTN, restless leg syndrome, GERD, upper GIB (peptic ulcer) and HFpEF, recently discharged from for acute COPD exacerbation and pneumonia, had diarrhea starting 3 days after discharge, had mechanical fall yesterday going to the bathroom and presents with left wrist pain and profuse watery diarrhea, found to be C.difficile positive. Left wrist x-ray shows left radial head fracture, splinted in ED. WBC 101 pm admission, patient has a history of MDS with last WBC 40. EKG NSR with RBBB with no acute changes from prior. Today patient feels better. He had 3 BM overnight. Afebrile, stable vitals, WBC improved to 85. 1. C.difficile colitis 2. Fall, initial 3. Left radial head fracture 4. Dehydration 5. Hypokalemia Plan - Continue on general medicine - Continue PO Vancomycin - IV hydration - Replete potassium - Outpatient orthopedic follow up for wrist fracture - Continue home medications - Contact precautions - DVT PPx - Obtain PT evaluation
[2016-09-30 08:15] LABS: ABSOLUTE BASOPHIL COUNT 0 /CUMM (0.0-0.2); ABSOLUTE EOSINOPHIL COUNT 0 /CUMM (0.0-0.7); ABSOLUTE GRANULOCYTE CT 80.5 /CUMM (1.4-6.5); ABSOLUTE LYMPH COUNT 1.4 /CUMM (1.2-3.4); ABSOLUTE MONOCYTE COUNT 3.2 /CUMM (0.10-0.60); BASOPHIL % 0 % (0.0-2.0); EOSINOPHIL % 0 % (0-5); GRANULOCYTE % 94.6 % (42.2-75.2); MEAN CORPUSCULAR HGB 33.5 PG (27.0-31.0); MEAN CORPUSCULAR HGB CONC 33.8 G/DL (33.0-37.0); MEAN CORPUSCULAR VOLUME 99.3 FL (80.0-94.0); MEAN PLATELET VOLUME 6.8 FL (7.4-10.4); PLATELET COUNT 55 /CUMM (130-400); RBC DISTRIBUTION WIDTH 16.1 % (11.5-14.5); RED BLOOD CELL CT 3.05 /CUMM (4.70-6.10)
[2016-09-30 09:03] LABS: WHITE BLOOD CELL COUNT 85.1 /CUMM (4.8-10.8)
[2016-09-30 11:58] LABS: HEMATOCRIT 30.3 % (42-52)
[2016-09-30 14:50] VITALS: BP 96/58
--- NOTE | 2016-09-30 16:05 | RADIOLOGY REPORT ---
EXAMINATION: XR MODIFIED BARIUM SWALLOW CLINICAL INFORMATION: Productive cough with pleuritic pain. Choking with food. History of throat cancer with epiglottidectomy. Chest x-ray shows evolving right lower lobe pneumonia. Presumptive diagnosis of silent aspiration. COMPARISON: Modified barium swallow dated 08/10/2013. TECHNIQUE: A modified barium swallow was performed with speech pathologist in attendance. Pur?e, honey thick, nectar thick, thin, bread, and cracker consistencies were given to the patient and the swallowing mechanism was observed fluoroscopically with several spot films taken. FLUOROSCOPY TIME: 1 minute 25 seconds. FINDINGS: With all consistencies, the oral phase of swallowing is normal. There are, however, varying degrees of transient silent penetration was observed with all consistencies. With the thin liquids, aspiration was seen. No significant pooling of contrast is noted in the valleculae or piriform sinuses. IMPRESSION: Transient silent penetration was observed with all consistencies. Ryan aspiration seen on one occasion with thin liquids. Speech pathologist assessment issued separately.
--- NOTE | 2016-09-30 16:45 | NUR ---
PHYSICAL THERAPY. PT CONSULT RECEIVED AND CHART REVIEWED. Pt OBSERVED AMBULATING AROUND ROOM I'LY WITHOUT AD. Pt REPORTS THAT HE HAS NO CURRENT MOBILITY CONCERNS AND HAS A CANE HE CAN USE IN THE R HAND NEEDED (CURRENT L WRIST FX). Pt DENIES CONCERNS WITH HIS 4 JAMIL W/ B RAILS. Pt EDUCATED ON OUTPATIENT PT AND OT NEEDED.
[2016-09-30 22:21] VITALS: BP 100/60
[2016-10-01 06:26] VITALS: BP 94/60
--- NOTE | 2016-10-01 07:27 | PN- Housestaff ---
DENA COLEMAN,ALDO 10/01/16 0727: Subjective Follow-up For: C.diff colitis Subjective: I saw and examined the patient today morning He still reports 4 episodes of diarrhea overnight, intermittent right sided chestpain - worse with coughing, radiating to right shoulder. Review of Systems Constitutional: Reports: see HPI. Objective Last 24 Hrs of Vital Signs/I&O Vital Signs Date Time Temp Pulse Resp B/P B/P Pulse O2 O2 Flow FiO2 Mean Ox Delivery Rate 10/01 0626 98.0 74 16 94/60 92 Room Air 10/01 0000 Room Air 09/30 2221 97.9 80 20 100/60 96 Room Air 09/30 2044 100/60 09/30 1940 96 Room Air 09/30 1458 Room Air 2.0L 09/30 1450 97.3 92 20 96/58 96 09/30 1111 94 Room Air 09/30 1105 Room Air 09/30 0856 22 93 Venti Mask Intake & Output 10/01 0800 10/01 0000 09/30 1600 Intake Total 180 480 250 Output Total 300 Balance -120 480 250 Intake, Oral 180 480 250 Number 0 Bowel Movements Output, Urine 300 Physical Exam General Appearance: Alert, Oriented X3, Cooperative Skin: No Rashes, No Breakdown HEENT: Atraumatic, PERRLA, EOMI Neck: Supple Cardiovascular: Normal S1, Normal S2 Lungs: Normal Air Movement, decreased breath sounds at the right lung base Abdomen: Normal Bowel Sounds, Soft, No Tenderness Neurological: Strength at 5/5 X4 Ext, Normal Tone, Sensation Intact Extremities: left wrist with removal splint., 1-2 + pitting edema Vascular: Normal Pulses, Pulses Symmetrical Current Medications: Current Medications Sig/Dung Start time Last Medication Dose Route Stop Time Status Admin Acetaminophen 650 MG .STK-MED ONE 09/30 1746 DC PO 09/30 174 Acetaminophen 650 MG Q6P PRN 09/29 2100 AC 09/30 PO 174 Albuterol Sulfate 3 ML BID 09/30 1100 AC 09/30 INH 1940 Budesonide/ 2 PUF BID 09/30 2199 AC 09/30 Formoterol Fumarate INH 193 Escitalopram Oxalate 20 MG DAILY 09/30 1000 AC 09/30 PO 105 Finasteride 5 MG QPM 09/29 2199 AC 09/30 PO 2044 Ibuprofen 600 MG .STK-MED ONE 10/01 2151 DC PO 09/30 2153 Ibuprofen 400 MG .STK-MED ONE 09/30 1331 DC PO 09/30 1332 Ibuprofen 600 MG Q6P PRN 09/29 2100 AC 09/30 PO 2153 Lidocaine 1 PAT Q24H 09/29 2100 AC 09/30 EXT 2044 Potassium Chloride 40 MEQ ONCE ONE 09/30 2330 DC 09/30 PO 09/30 2331 2346 Potassium Chloride 40 MEQ ONCE ONE 09/30 2200 CAN PO 09/30 2201 Potassium Chloride 40 MEQ ONCE ONE 09/30 1500 DC 09/30 PO 09/30 1501 2044 Potassium Chloride 40 MEQ ONCE ONE 09/30 1100 DC 09/30 PO 09/30 1101 1934 Potassium Chloride 40 MEQ ONCE ONE 09/30 0830 DC 09/30 PO 09/30 0831 1056 Ropinirole HCl 0.5 MG AT BEDTIME 09/29 1345 AC 09/30 PO 2045 Tamsulosin HCl 0.4 MG QPM 09/29 2200 AC 09/30 PO 2044 Tiotropium [place] 1 PUF DAILY 09/30 1714 AC 09/30 INH 1934 Vancomycin HCl 125 MG Q6 09/29 1414 AC 10/01 PO 0526 Last 24 Hrs of Lab/Ghulam Results Last 24 Hrs of Labs/Mics: Laboratory Tests 10/01/16 0613: Anion Gap 5, Estimated GFR 60, BUN/Creatinine Ratio 20.8, Magnesium 1.7, Total Bilirubin 1.3, Direct Bilirubin 0.6 H, AST 17, ALT 26, Alkaline Phosphatase 69, Total Protein 4.6 L, Albumin 2.5 L, CBC w Diff MAN DIFF ORDERED, RBC 3.07 L, MCV 101.4 H, MCH 33.5 H, RDW 15.9 H, MPV 6.8 L, Gran % 95.5 H, Lymphocytes % 1.5 L, Monocytes % 3.0, Eosinophils % 0, Basophils % 0 L, Absolute Granulocytes 85.0 H, Segmented Neutrophils 84 H, Band Neutrophils 8 H, Absolute Lymphocytes 1.3, Lymphocytes 1 L, Monocytes 5, Absolute Monocytes 2.7 H, Absolute Eosinophils 0, Absolute Basophils 0, Metamyelocytes 1, Myelocytes 1 H, Platelet Estimate DECREASED, Polychromasia 1+, Basophilic Stippling SLIGHT, Anisocytosis 1+, Macrocytic Cells 1+, PUBS MCHC 33.0 09/30/16 2158: Microbiology 09/30 1530 LOWER RESP: Respiratory Culture - CAN Cancelled: NUMBER OF SQUAMOUS CELLS INDICATES POOR QUALITY SPECIMEN 09/30 1530 LOWER RESP: Gram Stain - CAN Cancelled: NUMBER OF SQUAMOUS CELLS INDICATES POOR QUALITY SPECIMEN Assessment/Plan Assessment: Patient is a 71-year-old gentleman with PMH significant for COPD/bronchitis, on 2 L nasal cannula oxygen at baseline, GERD, upper GIB (peptic ulcer), on medical hernia, BPH, restless leg syndrome, HFpEF, myelodysplastic syndrome who presented to the hospital for further evaluation of left wrist pain and diarrhea. He is afebrile, tachycardic (105), blood pressure 94/58 mmHg at admission. Labs significant for leukocytosis of 101 (baseline 40), hypokalemia of 2.8, Na 132, chloride 92. Stool test is C. 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 Admitted to general medicine floor C. difficile infection in a patient with myelodysplastic syndrome ( immunosuppressed) * White count of 101 at admission (recent 40) * Continue vancomycin 125 every 6 in the setting of high white count and immunosuppressed state * Still symptomatic with 4 episodes of diarrhea overnight * No history of previous C. difficile episodes * Recently admitted to hospital for acute bronchitis - received amoxicillin at that time. Left wrist nondisplaced/non-angulated fracture of distal left radius & ulnar styloid process * Secondary to Mechanical fall * Orthopedics consulted * Recommended removable wrist splint for now as an inpatient * Requires cast as an outpatient after discharge Hypokalemia * Resolved * K of 3.9 today Evolving right lower lobe pneumonia * History of throat cancer with epiglottidectomy * Pleuritic chest pain with productive cough - CXR showing evolving right lower lobe pneumonia * Underwent dating swallow evaluation which showed mild aspiration with all consistencies * Started on CHOPPED/nectar thick diet * Chest x-ray on 09/18/2016 didn't show any evidence of pneumonia * Sputum cultures are sent with plenty of epithelial cells, not so useful. * Aspiration precautions * We will repeat xray tomorrow to for follow up of pneumonia. History of myelodysplastic syndrome * White count of 101 at admission, trended down to 85 today * Baseline white count 40, H&H 10/30, platelet count of 55, MCV 100 * Hematology consulted, no acute intervention required at this point COPD * On 2 L home oxygen at baseline * Continue TRC/nebs BPH: tamsulosin and finasteride - hold if blood pressure is <90/60 mmHg Restless leg syndrome: ropinirole 0.5 mg at bedtime Depression: Lexapro 20 mg daily DVT prophylaxis Alps (thrombocytopenic) CODE STATUS Full code Problem List: 1. C. difficile colitis 2. Left wrist fracture 3. Hyponatremia 4. MDS (myelodysplastic syndrome) 5. Swelling of lower extremity 6. Restless leg syndrome Pain Ratin Pain Location: right lateral chest pain Pain Goal: Pain 4 or less Pain Plan: tylenol prn Tomorrow's Labs & Rationales: cbc to monitor white count bep to monitor K ROSCOE HERNANDEZ MD 10/01/16 1908: Attending MD Review Statement Attending Statement Attending MD Statement: examined this patient, discuss w/resident/PA/EAR FLAP BINDER, agreed w/resident/PA/EAR FLAP BINDER, reviewed EMR data (avail) Attending Assessment/Plan: 71M PMH myelodysplastic syndrome, laryngeal cancer, COPD on 2L home O2, pulmonary HTN, restless leg syndrome, GERD, upper GIB (peptic ulcer) and HFpEF, recently discharged from for acute COPD exacerbation and pneumonia, had diarrhea starting 3 days after discharge, had mechanical fall yesterday going to the bathroom and presents with left wrist pain and profuse watery diarrhea, found to be C.difficile positive. Left wrist x-ray shows left radial head fracture, splinted in ED. WBC 101 pm admission, patient has a history of MDS with last WBC 40. EKG NSR with RBBB with no acute changes from prior. Today patient feels better. He continues to have loose stools. Afebrile, WBC 86. 1. C.difficile colitis 2. Fall, initial 3. Left radial head fracture 4. Dehydration 5. Hypokalemia Plan - Continue on general medicine - Continue PO Vancomycin - IV hydration - Replete potassium - Outpatient orthopedic follow up for wrist fracture - Continue home medications - Contact precautions - DVT PPx - Will repeat CXR tomorrow to continue to evaluate for possible pneumonia, as patient's pleuritic chest pain is improving, but still present
[2016-10-01 08:00] LABS: ABSOLUTE BASOPHIL COUNT 0 /CUMM (0.0-0.2); ABSOLUTE EOSINOPHIL COUNT 0 /CUMM (0.0-0.7); ABSOLUTE LYMPH COUNT 1.3 /CUMM (1.2-3.4); ABSOLUTE MONOCYTE COUNT 2.7 /CUMM (0.10-0.60); BASOPHIL % 0 % (0.0-2.0); EOSINOPHIL % 0 % (0-5); GRANULOCYTE % 95.5 % (42.2-75.2); HEMATOCRIT 31.1 % (42-52); MEAN CORPUSCULAR HGB 33.5 PG (27.0-31.0); MEAN CORPUSCULAR VOLUME 101.4 FL (80.0-94.0); MEAN PLATELET VOLUME 6.8 FL (7.4-10.4); PLATELET COUNT 52 /CUMM (130-400); RBC DISTRIBUTION WIDTH 15.9 % (11.5-14.5); RED BLOOD CELL CT 3.07 /CUMM (4.70-6.10)
[2016-10-01 14:01] VITALS: BP 120/70
[2016-10-01 22:28] VITALS: BP 118/62
[2016-10-02 06:48] VITALS: BP 88/50
--- NOTE | 2016-10-02 07:01 | PN- Oncology ---
Subjective Subjective: Complaining of right-sided lateral rib pain, diarrhea persists Review of Systems: 12 point review of systems otherwise nonspecific Objective Vital Signs and I&Os Vital Signs Date Time Temp Pulse Resp B/P B/P Pulse O2 O2 Flow FiO2 Mean Ox Delivery Rate 10/02 0648 97.3 74 20 88/50 93 Room Air 10/01 2228 98.3 80 20 118/62 94 Room Air 10/01 2159 80 118/62 10/01 1840 95 Room Air 10/01 1401 98.2 77 20 120/70 95 10/01 0847 92 Room Air Intake & Output 10/02 0800 10/02 0000 10/01 1600 10/01 0800 10/01 0000 09/30 1600 Intake Total 240 120 720 180 480 250 Output Total 300 Balance 240 120 720 -120 480 250 Intake, Oral 240 120 720 180 480 250 Number 3 0 0 Bowel Movements Output, Urine 300 Patient 185 lb Weight Gen.: in NAD ENT: Sclera anicteric Chest: Normal respiratory effort, decreased breath sounds Cor: RRR, no extra sounds Abdomen: Soft, bowel sounds present, slightly distended ,no tenderness, no rebound Extremities: Without clubbing, cyanosis, or edema Neurology: Alert and oriented 3, no gross deficit Current Medications: Current Medications Sig/Dung Start time Last Medication Dose Route Stop Time Status Admin Acetaminophen 650 MG Q6P PRN 09/29 2100 AC 09/30 PO 1748 Albuterol Sulfate 3 ML BID 09/30 1100 AC 10/01 INH 1840 Budesonide/ 2 PUF BID 09/30 2200 AC 10/01 Formoterol Fumarate INH 2200 Escitalopram Oxalate 20 MG DAILY 09/30 1000 AC 10/01 PO 0805 Famotidine 20 MG DAILY 10/01 1000 AC 10/01 PO 1130 Finasteride 5 MG QPM 09/29 2200 AC 10/01 PO 2159 Guaifenesin 600 MG Q12 10/01 1000 AC 10/01 PO 2159 Ibuprofen 600 MG ONCE ONE 10/01 0915 DC 10/01 PO 10/01 0916 1030 Ibuprofen 600 MG Q6P PRN 09/29 2100 AC 10/02 PO 0257 Ketorolac 30 MG ONCE ONE 10/02 0445 DC 10/02 Tromethamine IV 10/02 0446 0440 Lidocaine 1 PAT Q24H 09/29 2100 AC 10/01 EXT 2200 Ropinirole HCl 0.5 MG AT BEDTIME 09/29 1345 AC 10/01 PO 2159 Tamsulosin HCl 0.4 MG QPM 09/29 2200 AC 10/01 PO 215 Tiotropium [place] 1 PUF DAILY 09/30 1714 AC 10/01 INH 0806 Vancomycin HCl 125 MG Q6 09/29 1414 AC 10/02 PO 0613 Results Last 24 Hours of Lab Results: CBC-hematocrit greater than 30, white blood count 89,000 no change in shift, platelets 51,000 Assessment/Plan Assessment/Recommendations: 1. C. difficile enterocolitis-on antibiotics-on antibiotics 2. Hematologic-slightly decreased white blood count, no overall change Recommend-continue to follow CBC
--- NOTE | 2016-10-02 07:44 | PN- Housestaff ---
DENA COLEMAN,ALDO 10/02/16 0743: Subjective Follow-up For: C.diff colitis Evolving RLL pneumonia Subjective: I saw and examined the patient today morning He still reports significant pain in his right lateral chest region. occasional cough with scant phlegm production. he did have around 7-8 bowel movements over the past 24hrs, however patient feels they are getting better. He denies any left wrist pain at the movement. No overnight issues except for 3 BM's, able to sleep well. He denies any lightheadedness, dizziness, fatigue. Able to walk to the restroom without any issues. Review of Systems Constitutional: Reports: see HPI. Comments: ROS negative except the above. Objective Last 24 Hrs of Vital Signs/I&O Vital Signs Date Time Temp Pulse Resp B/P B/P Pulse O2 O2 Flow FiO2 Mean Ox Delivery Rate 10/02 0648 97.3 74 20 88/50 93 Room Air 10/01 2228 98.3 80 20 118/62 94 Room Air 10/01 2159 80 118/62 10/01 1840 95 Room Air 10/01 1401 98.2 77 20 120/70 95 10/01 0847 92 Room Air Intake & Output 10/02 0800 10/02 0000 10/01 1600 Intake Total 240 120 720 Output Total Balance 240 120 720 Intake, Oral 240 120 720 Number 3 0 Bowel Movements Patient 83.915 kg Weight Physical Exam General Appearance: Alert, Oriented X3, Cooperative Skin: multiple bruises all over, significant in the right flank/abdomen region and extremities. HEENT: Atraumatic, PERRLA, EOMI Neck: Supple Cardiovascular: Normal S1, Normal S2 Lungs: Normal Air Movement, decreased breath sounds at the right lung base Abdomen: Normal Bowel Sounds, Soft, No Tenderness Neurological: Normal Gait, Normal Speech, Strength at 5/5 X4 Ext, Normal Tone, Sensation Intact Current Medications: Current Medications Sig/Dung Start time Last Medication Dose Route Stop Time Status Admin Acetaminophen 650 MG Q6P PRN 09/29 2100 AC 09/30 PO 1748 Albuterol Sulfate 3 ML BID 09/30 1100 AC 10/01 INH 1840 Budesonide/ 2 PUF BID 09/30 2200 AC 10/01 Formoterol Fumarate INH 220 Escitalopram Oxalate 20 MG DAILY 09/30 1000 AC 10/01 PO 0805 Famotidine 20 MG DAILY 10/01 1000 AC 10/01 PO 1130 Finasteride 5 MG QPM 09/29 2200 AC 10/01 PO 215 Guaifenesin 600 MG Q12 10/01 1000 AC 10/01 PO 2159 Ibuprofen 600 MG ONCE ONE 10/01 0915 DC 10/01 PO 10/01 0916 1030 Ibuprofen 600 MG Q6P PRN 09/29 2100 AC 10/02 PO 0257 Ketorolac 30 MG ONCE ONE 10/02 0445 DC 10/02 Tromethamine IV 10/02 0446 0440 Lidocaine 1 PAT Q24H 09/29 2100 AC 10/01 EXT 2200 Ropinirole HCl 0.5 MG AT BEDTIME 09/29 1345 AC 10/01 PO 215 Tamsulosin HCl 0.4 MG QPM 09/29 2200 AC 10/01 PO 215 Tiotropium [place] 1 PUF DAILY 09/30 1714 AC 10/01 INH 0806 Vancomycin HCl 125 MG Q6 09/29 1414 AC 10/02 PO 0613 Assessment/Plan Assessment: Patient is a 71-year-old gentleman with PMH significant for COPD/bronchitis, on 2 L nasal cannula oxygen at baseline, GERD, upper GIB (peptic ulcer), on medical hernia, BPH, restless leg syndrome, HFpEF, myelodysplastic syndrome who presented to the hospital for further evaluation of left wrist pain and diarrhea. He is afebrile, tachycardic (105), blood pressure 94/58 mmHg at admission. Labs significant for leukocytosis of 101 (baseline 40), hypokalemia of 2.8, Na 132, chloride 92. Stool test is C. 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 Admitted to general medicine floor C. difficile infection in a patient with myelodysplastic syndrome ( immunosuppressed) * White count of 101 at admission (recent 40) -->85-->89-->79 * Continue vancomycin 125 every 6 in the setting of high white count and immunosuppressed state * Still symptomatic with 7 episodes of diarrhea over the past 24hrs. * No history of previous C. difficile episodes * Recently admitted to hospital for acute bronchitis - received amoxicillin at that time. Left wrist nondisplaced/non-angulated fracture of distal left radius & ulnar styloid process * Secondary to Mechanical fall * Orthopedics consulted * Recommended removable wrist splint for now as an inpatient * Requires cast as an outpatient after discharge MARIA L * Cr increased from 1.0 to 1.5 * prerenal in the setting of C.diff diarrhea * fluids given with a bolus of 500ml followed by a liter of NS. * Repeat BEP tomorrow. Hypokalemia * Resolved * K of 3.7 today Evolving right lower lobe pneumonia * History of throat cancer with epiglottidectomy * CXR ruled out penumonia, VQ scan shows low probability of PE. * Underwent dating swallow evaluation which showed mild aspiration with all consistencies * Started on CHOPPED/nectar thick diet * Sputum cultures are sent with plenty of epithelial cells, not so useful. * Aspiration precautions History of myelodysplastic syndrome * White count of 101 at admission, trended down to 85 today * Baseline white count 40, at admission H&H 10/30, platelet count of 55, MCV 100 * Hematology consulted, no acute intervention required at this point COPD * On 2 L home oxygen at baseline * Continue TRC/nebs BPH: tamsulosin and finasteride - hold if blood pressure is <90/60 mmHg Restless leg syndrome: ropinirole 0.5 mg at bedtime Depression: Lexapro 20 mg daily DVT prophylaxis Alps (thrombocytopenic) CODE STATUS Full code Problem List: 1. Restless leg syndrome 2. C. difficile colitis 3. Hyponatremia 4. MDS (myelodysplastic syndrome) 5. Left wrist fracture 6. Family history of colon cancer Pain Ratin Pain Location: right lateral chest region (pleuritic) Pain Goal: Pain 4 or less Pain Plan: tylenol Tomorrow's Labs & Rationales: cbc to monitor white count bep to monitor electrolytes ROSCOE HERNANDEZ MD 10/02/16 1114: Attending MD Review Statement Attending Statement Attending MD Statement: examined this patient, discuss w/resident/PA/SILK EXAMINER, agreed w/resident/PA/SILK EXAMINER, reviewed EMR data (avail) Attending Assessment/Plan: 71M PMH myelodysplastic syndrome, laryngeal cancer, COPD on 2L home O2, pulmonary HTN, restless leg syndrome, GERD, upper GIB (peptic ulcer) and HFpEF, recently discharged from for acute COPD exacerbation and pneumonia, had diarrhea starting 3 days after discharge, had mechanical fall yesterday going to the bathroom and presents with left wrist pain and profuse watery diarrhea, found to be C.difficile positive. Left wrist x-ray shows left radial head fracture, splinted in ED. WBC 101 pm admission, patient has a history of MDS with last WBC 40. EKG NSR with RBBB with no acute changes from prior. Patient feels about the same as yesterday. He had 3 loose BM overnight, though he reports they are slightly more formed than prior, and denies blood. He is still experiencing right sided pleuritic chest pain worse with coughing. Denies sputum production, phlegm, or hemoptysis. Mildly hypotensive this morning, poor PO intake. 1. C.difficile colitis 2. Fall, initial 3. Left radial head fracture 4. Dehydration 5. Hypokalemia Plan - Continue on general medicine - 500mL normal saline 200mL/hr - Monitor bruising around right arm - Continue PO Vancomycin - Follow up CXR - Will consider CTA for evaluation of possible PE if pain continues - IV hydration - Replete potassium - Outpatient orthopedic follow up for wrist fracture - Continue home medications - Contact precautions - DVT PPx
--- NOTE | 2016-10-02 07:59 | Patient Discharge Instructions ---
Discharge Instructions General Discharge Information You were seen/treated for: C.diff colitis Special Instructions: Please follow up with your PCP within a week of discharge for continued care. Please follow up with Dr. Leo MD within 1 week of discharge regarding cast placement on left wrist. Call [phone] for appointment. Please take your medications regularly and as directed. Please follow up with Dr. Darien MD within 2 weeks of discharge for continued management of your myelodisplastic syndrome. Diet Recommended Diet: Chopped consistency and nectar thickened liquids. Activity Activity Self Limited: Yes Acute Coronary Syndrome Inclusion Criteria At DC or during hospital stay patient has or had the following: ACS DIAGNOSIS No Discharge Core Measures Meds if any: Prescribed or Continued at Discharge Meds if any: NOT Prescribed or Continued at Discharge Congestive Heart Failure Inclusion Criteria At DC or during hospital stay patient has or had the following: CHF DIAGNOSIS No Discharge Core Measures Meds if any: Prescribed or Continued at Discharge Meds if any: NOT Prescribed or Continued at Discharge Cerebrovascular accident Inclusion Criteria At DC or during hospital stay patient has or had the following: CVA/TIA Diagnosis No Discharge Core Measures Meds if any: Prescribed or Continued at Discharge Meds if any: NOT Prescribed or Continued at Discharge Venous thromboembolism Inclusion Criteria VTE Diagnosis No VTE Type NONE VTE Confirmed by (Test) NONE Discharge Core Measures - Per Current guidelines, there needs to be overlap - treatment for the first 5 days of Warfarin therapy. - If discharged on Warfarin prior to 5 days of - overlap therapy, the patient will need to be - assessed for post discharge needs including - *Post discharge parental anticoagulation - *Warfarin and/or parental anticoagulation education - *Follow up date to check INR post discharge At least 5 days overlap therapy as Inpatient No Meds if any: Prescribed or Continued at Discharge Note: Overlap Therapy is Warfarin and Anticoagulant Meds if any: NOT Prescribed or Continued at Discharge
[2016-10-02 08:10] LABS: ABSOLUTE BASOPHIL COUNT 0 /CUMM (0.0-0.2); ABSOLUTE EOSINOPHIL COUNT 0 /CUMM (0.0-0.7); BASOPHIL % 0 % (0.0-2.0); EOSINOPHIL % 0 % (0-5); MEAN CORPUSCULAR HGB 33.8 PG (27.0-31.0); PLATELET COUNT 50 /CUMM (130-400)
[2016-10-02 08:25] LABS: ABSOLUTE GRANULOCYTE CT 71.6 /CUMM (1.4-6.5); ABSOLUTE LYMPH COUNT 1.5 /CUMM (1.2-3.4); ABSOLUTE MONOCYTE COUNT 3.1 /CUMM (0.10-0.60); MEAN CORPUSCULAR VOLUME 99.5 FL (80.0-94.0); MEAN PLATELET VOLUME 7.1 FL (7.4-10.4); RBC DISTRIBUTION WIDTH 16.7 % (11.5-14.5); RED BLOOD CELL CT 2.92 /CUMM (4.70-6.10)
[2016-10-02 08:30] LABS: WHITE BLOOD CELL COUNT 76.2 /CUMM (4.8-10.8)
--- NOTE | 2016-10-02 13:05 | RADIOLOGY REPORT ---
EXAMINATION: XR CHEST CLINICAL INFORMATION: Pleuritic chest pain. Shortness of breath. Follow-up of previous x-ray to rule out pneumonia. Evolving pneumonia in the right lower lobe on 09/29/2016 chest x-ray. COMPARISON: Several prior chest x-rays, most recent of which is dated 09/29/2016. TECHNIQUE: 2 views of the chest were obtained. FINDINGS: The cardiomediastinal silhouette is within normal limits in size. Lungs bilaterally are symmetrically expanded. Mild bibasilar linear subsegmental atelectasis is seen. No evolving consolidation, effusion or pneumothorax is present. No pulmonary edema is noted. Mild central vascular congestion is noted. Osteopenia and multilevel mild degenerative changes in the spine are noted. IMPRESSION: 1. Mild bibasilar subsegmental atelectasis. No evolving pneumonia. 2. Mild central vascular congestion.
[2016-10-02 15:10] VITALS: BP 98/58
--- NOTE | 2016-10-02 16:11 | NUR ---
SPEECH THERAPY: ATTEMPTED TO SEE PT FOR DIET TOLERANCE AND RE-EDUCATION OF SAFE SWALLOWING STRATEGIES. HOWEVER, PT PARTICIPATING IN TEST AND UNABLE TO BE SEEN. ST PROVIDED PT'S W/ WRITTEN HANDOUTS AND EDUCATION RE: MBS RESULTS/SAFE SWALLOWING STRATEGIES. OBSERVED TO BECOME EMOTIONAL (C/B CRYING) STATING SHE WAS OVERWHELMED W/ PT BEING SICK; EMOTIONAL SUPPORT PROVIDED. RESULTS D/W RN. ST CONTINUE TO FOLLOW FOR DIET TOLERANCE.
--- NOTE | 2016-10-02 17:14 | NUCLEAR MEDICINE REPORT ---
EXAMINATION: PULMONARY VENTILATION PERFUSION STUDY CLINICAL INFORMATION: Pleuritic chest pain, shortness of breath, evolving right lower lobe pneumonia. COMPARISON: No previous lung scan is available for comparison. Chest radiographs dated 10/02/2016, the same date as this lung scan, are available for comparison. TECHNIQUE: Serial gamma scintillation camera images were obtained over the posterior chest during the single breath, equilibrium rebreathing and washout of 14.3 mCi Xe 133 gas. The patient then received 4.1 mCi Tc-99m MAA intravenously and a 6-view perfusion study was performed. FINDINGS: Ventilation images: On the single breath and equilibrium images there is a focal ventilation defect medially at the left lung base that may be due to dilatation the cardiac silhouette. There is some decreased ventilation medially at the right lung base also which is also probably due to prominence of the cardiac silhouette. The distribution of gas is otherwise homogeneous. During the washout phase there is moderately severe diffuse gas retention. Perfusion images: There is focally decreased activity medially in the left lower lobe in the medial aspect of the right lower lobe it appears well matched to the ventilation findings described above and is probably due to prominence of the cardiac silhouette. There is some additional heterogeneity in the right mid and lower lung field medially and at the right lung base, but some matching ventilation abnormalities appear to be present in these regions. No focal or anatomic appearing mismatch perfusion defects are present. A small discrete focus of markedly increased activity is present in the right lung apex, and this is probably due to some clumping of the radio aerosol at the time of injection. IMPRESSION: Low probability of pulmonary embolism. Ventilation and perfusion abnormalities are present which appear well matched unlikely due to other parenchymal lung disease and prominence of the cardiac silhouette. Moderately severe gas trapping is noted on the ventilation images is evidence of obstructive airway disease.
[2016-10-02 22:50] VITALS: BP 94/50
[2016-10-03 06:42] VITALS: BP 94/58
--- NOTE | 2016-10-03 07:59 | PN- Housestaff ---
See Addendum Subjective Follow-up For: C. difficile Wrist fracture Subjective: Seen and examined at bedside. He still endorses left-sided chest wall pain, denies any hemoptysis fever chills nausea vomiting. Regarding his stool he reports 1 or 2 episodes of slightly forming stool however early in the morning he continues to have watery stools. No acute overnight event reported by nursing staff. Vital signs stable. Review of Systems Constitutional: Reports: see HPI. Objective Last 24 Hrs of Vital Signs/I&O Vital Signs Date Time Temp Pulse Resp B/P B/P Pulse O2 O2 Flow FiO2 Mean Ox Delivery Rate 10/03 0642 97.5 75 20 94/58 96 Room Air 10/02 2250 97.4 80 20 94/50 93 Room Air 10/02 2204 80 94/50 10/02 1840 96 Room Air 10/02 1510 97.5 79 20 98/58 97 Intake & Output 10/03 1600 10/03 0800 10/03 0000 Intake Total 650 930 Output Total Balance 650 930 Intake, IV 600 450 Intake, Oral 50 480 Number 2 3 Bowel Movements Physical Exam General Appearance: Alert, Oriented X3, Cooperative, No Acute Distress Other Physical Findings: Skin: multiple bruises all over, significant in the right flank/abdomen region and extremities. HEENT: Atraumatic, PERRLA, EOMI Neck: Supple Cardiovascular: Normal S1, Normal S2 Lungs: Normal Air Movement, decreased breath sounds at the right lung base Abdomen: Normal Bowel Sounds, Soft, No Tenderness Neurological: Normal Gait, Normal Speech, Strength at 5/5 X4 Ext, Normal Tone, Sensation Intact Current Medications: Current Medications Sig/Dung Start time Last Medication Dose Route Stop Time Status Admin Acetaminophen 650 MG Q6P PRN 09/29 2100 AC 09/30 PO 1748 Albuterol Sulfate 3 ML BID 09/30 1100 AC 10/03 INH 0907 Budesonide/ 2 PUF BID 09/30 2199 AC 10/03 Formoterol Fumarate INH 0944 Escitalopram Oxalate 20 MG DAILY 09/30 1000 AC 10/03 PO 0944 Famotidine 20 MG DAILY 10/01 1000 AC 10/03 PO 0944 Finasteride 5 MG QPM 09/29 2200 AC 10/02 PO 2159 Guaifenesin 600 MG Q12 10/01 1000 AC 10/03 PO 0944 Ibuprofen 600 MG Q6P PRN 09/29 2100 AC 10/03 PO 0225 Lidocaine 1 PAT Q24H 09/29 2100 AC 10/02 EXT 2200 Ropinirole HCl 0.5 MG AT BEDTIME 09/29 1345 AC 10/02 PO 2159 Sodium Chloride 1,000 ML Q13H 10/03 0245 AC 10/03 IV 10/03 1544 0542 Sodium Chloride 1,000 ML Q13H 10/02 0945 DC 10/02 IV 10/02 2244 1013 Tamsulosin HCl 0.4 MG QPM 09/29 2200 AC 10/01 PO 2159 Tiotropium [place] 1 PUF DAILY 09/30 1714 AC 10/03 INH 0944 Vancomycin HCl 125 MG Q6 09/29 1414 AC 10/03 PO 0542 Last 24 Hrs of Lab/Ghulam Results Last 24 Hrs of Labs/Mics: Laboratory Tests 10/03/16 06: Anion Gap 8, Estimated GFR 50 L, BUN/Creatinine Ratio 20.0, CBC w Diff MAN DIFF ORDERED, RBC 2.95 L, MCV 102.0 H, MCH 33.5 H, RDW 16.1 H, MPV 7.1 L, Gran % 94.5 H, Lymphocytes % 1.9 L, Monocytes % 3.5, Eosinophils % 0.1, Basophils % 0 L, Absolute Granulocytes 69.4 H, Segmented Neutrophils 73, Band Neutrophils 7 H, Absolute Lymphocytes 1.4, Lymphocytes 8 L, Monocytes 3, Absolute Monocytes 2.6 H, Absolute Eosinophils 0.1, Absolute Basophils 0, Metamyelocytes 4 H, Myelocytes 5 H, Platelet Estimate DECREASED, Polychromasia 1+, Anisocytosis 1+, Macrocytic Cells 1+, PUBS MCHC 32.9 L Microbiology 10/03 901 LOWER RESP: Respiratory Culture - COLB 10/03 901 LOWER RESP: Gram Stain - COLB 10/03 609 LOWER RESP: Respiratory Culture - CAN Cancelled: NUMBER OF SQUAMOUS CELLS INDICATES POOR QUALITY SPECIMEN 10/03 609 LOWER RESP: Gram Stain - CAN Cancelled: NUMBER OF SQUAMOUS CELLS INDICATES POOR QUALITY SPECIMEN Assessment/Plan Assessment: Patient is a 71-year-old gentleman with PMH significant for COPD/bronchitis, on 2 L nasal cannula oxygen at baseline, GERD, upper GIB (peptic ulcer), on medical hernia, BPH, restless leg syndrome, HFpEF, myelodysplastic syndrome who presented to the hospital for further evaluation of left wrist pain and diarrhea. He is afebrile, tachycardic (105), blood pressure 94/58 mmHg at admission. Labs significant for leukocytosis of 101 (baseline 40), hypokalemia of 2.8, Na 132, chloride 92. Stool test is C. 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 Admitted to general medicine floor C. difficile infection in a patient with myelodysplastic syndrome ( immunosuppressed) * White count of 101 at admission (recent 40) -->85-->89-->79---73 * Continue vancomycin 125 every 6 in the setting of high white count and immunosuppressed state * Still symptomatic with episodes of diarrhea and intermittent 102 episodes of formed stool over the past 24hrs. * No history of previous C. difficile episodes * Recently admitted to hospital for acute bronchitis - received amoxicillin at that time. Left wrist nondisplaced/non-angulated fracture of distal left radius & ulnar styloid process * Secondary to Mechanical fall * Orthopedics consulted * Recommended removable wrist splint for now as an inpatient * Requires cast as an outpatient after discharge MARIA L * Cr improved from 1.5-1.4. * prerenal in the setting of C.diff diarrhea * Let us post 500 no normal saline bolus, on 75 mils per hour normal saline will finish one bag and encourage increased by mouth fluid intake. * Repeat BEP tomorrow. Chest wall pain Possibly pleuritic secondary to recent pneumonia infection. Relieved by pain medication. VQ scan ruled out probability of a PE. Continue symptomatic relief with pain medication. Hypokalemia * Resolved * K of 3.7 today Evolving right lower lobe pneumonia * History of throat cancer with epiglottidectomy * CXR ruled out penumonia, VQ scan shows low probability of PE. * Underwent dating swallow evaluation which showed mild aspiration with all consistencies * Started on CHOPPED/nectar thick diet * Sputum cultures are sent with plenty of epithelial cells, not so useful. * Aspiration precautions History of myelodysplastic syndrome * White count of 101 at admission, trended down to 85 today * Baseline white count 40, at admission H&H 10/30, platelet count of 55, MCV 100 * Hematology consulted, no acute intervention required at this point COPD * On 2 L home oxygen at baseline * Continue TRC/nebs BPH: tamsulosin and finasteride - hold if blood pressure is <90/60 mmHg Restless leg syndrome: ropinirole 0.5 mg at bedtime Depression: Lexapro 20 mg daily DVT prophylaxis Alps (thrombocytopenic) CODE STATUS Full code Problem List: 1. Left wrist fracture 2. C. difficile colitis Pain Ratin Pain Location: Chest wall Pain Goal: Remain pain free Pain Plan: Per pathway Tomorrow's Labs & Rationales: CBC-C. difficile BEP-electrolyte abnormality with continuous loose stools
[2016-10-03 08:17] LABS: ABSOLUTE BASOPHIL COUNT 0 /CUMM (0.0-0.2); ABSOLUTE MONOCYTE COUNT 2.6 /CUMM (0.10-0.60); BASOPHIL % 0 % (0.0-2.0); MEAN PLATELET VOLUME 7.1 FL (7.4-10.4); PLATELET COUNT 51 /CUMM (130-400); RBC DISTRIBUTION WIDTH 16.1 % (11.5-14.5)
[2016-10-03 08:29] LABS: ABSOLUTE EOSINOPHIL COUNT 0.1 /CUMM (0.0-0.7); ABSOLUTE GRANULOCYTE CT 69.4 /CUMM (1.4-6.5); ABSOLUTE LYMPH COUNT 1.4 /CUMM (1.2-3.4); EOSINOPHIL % 0.1 % (0-5); GRANULOCYTE % 94.5 % (42.2-75.2); HEMATOCRIT 30.1 % (42-52); MEAN CORPUSCULAR HGB 33.5 PG (27.0-31.0); MEAN CORPUSCULAR HGB CONC 32.9 G/DL (33.0-37.0); RED BLOOD CELL CT 2.95 /CUMM (4.70-6.10)
--- NOTE | 2016-10-03 09:00 | NUR ---
SPUTUM CULTURE INADEQUATE FOR LAB, NEW SAMPLE NEEDED, [employer]CH[employer] NOTIFIED BY TEXT PAGE TO [id number]
[2016-10-03 09:05] LABS: WHITE BLOOD CELL COUNT 73.4 /CUMM (4.8-10.8)
[2016-10-03 14:27] VITALS: BP 130/80
[2016-10-03 22:38] VITALS: BP 98/58
[2016-10-04 06:03] VITALS: BP 102/56
--- NOTE | 2016-10-04 07:21 | PN- Housestaff ---
See Addendum Subjective Follow-up For: C Diff Subjective: Mr Hall was seen and examined this morning. States that he feels good. Endorses no issues overnight. States that he had two semi-formed bowel movements. Continues to experience some bilateral lower extremity edema. Patient states his left arm has been pain-free. He denies any fever, chills, nausea, vomiting. Tolerating by mouth intake well. Review of Systems Constitutional: Reports: see HPI. Objective Last 24 Hrs of Vital Signs/I&O Vital Signs Date Time Temp Pulse Resp B/P B/P Pulse O2 O2 Flow FiO2 Mean Ox Delivery Rate 10/04 0915 92 Room Air Room Air 10/04 0603 98.5 72 18 102/56 93 Room Air 10/03 2238 98.7 70 20 98/58 92 Room Air 10/03 2129 78 132/74 10/03 2048 96 Room Air Room Air 10/03 1427 98.2 69 20 130/80 98 Intake & Output 10/04 1600 10/04 0800 10/04 0000 Intake Total Output Total Balance Number 2 Bowel Movements Physical Exam General Appearance: Alert, Oriented X3, Cooperative Cardiovascular: Regular Rate, Normal S1, Normal S2 Lungs: Clear to Auscultation, Normal Air Movement Abdomen: Normal Bowel Sounds, Soft, No Tenderness Neurological: Normal Gait, Normal Speech, Strength at 5/5 X4 Ext Extremities: Left upper extremity in a cast, Bilaterral edema 2+ Vascular: Normal Pulses Current Medications: Current Medications Sig/Dung Start time Last Medication Dose Route Stop Time Status Admin Acetaminophen 650 MG Q6P PRN 09/29 2099 AC 09/30 PO 1748 Albuterol Sulfate 3 ML BID 09/30 1100 AC 10/04 INH 0912 Budesonide/ 2 PUF BID 09/30 2199 AC 10/04 Formoterol Fumarate INH 0738 Escitalopram Oxalate 20 MG DAILY 09/30 1000 AC 10/04 PO 0732 Famotidine 20 MG DAILY 10/01 1000 AC 10/04 PO 0732 Finasteride 5 MG QPM 09/29 2199 AC 10/03 PO 2129 Guaifenesin 600 MG Q12 10/01 1000 AC 10/04 PO 0733 Ibuprofen 600 MG Q6P PRN 09/29 2099 AC 10/04 PO 0732 Lidocaine 1 PAT Q24H 09/29 2099 AC 10/03 EXT 2134 Potassium Chloride 20 MEQ ONCE ONE 10/03 1115 DC 10/03 PO 10/03 1116 1259 Ropinirole HCl 0.5 MG AT BEDTIME 09/29 1345 AC 10/03 PO 2130 Sodium Chloride 1,000 ML Q13H 10/03 0245 DC 10/03 IV 10/03 1544 0542 Tamsulosin HCl 0.4 MG QPM 09/29 2200 AC 10/03 PO 2129 Tiotropium [place] 1 PUF DAILY 09/30 1714 AC 10/04 INH 0738 Vancomycin HCl 125 MG Q6 10/03 1800 AC 10/04 PO 0619 Vancomycin HCl 125 MG Q6 09/29 1414 DC 10/03 PO 1259 Last 24 Hrs of Lab/Ghulam Results Last 24 Hrs of Labs/Mics: Laboratory Tests 10/04/16 0650: Anion Gap 6, Estimated GFR 54 L, BUN/Creatinine Ratio 19.2, CBC w Diff MAN DIFF ORDERED, WBC Pending, RBC Pending, Hgb Pending, Hct Pending, MCV Pending, MCH Pending, RDW Pending, Plt Count Pending, MPV Pending, Gran % Pending, Lymphocytes % Pending, Monocytes % Pending, Eosinophils % Pending, Basophils % Pending, Absolute Granulocytes Pending, Segmented Neutrophils Pending, Absolute Lymphocytes Pending, Absolute Monocytes Pending, Absolute Eosinophils Pending, Absolute Basophils Pending, PUBS MCHC Pending Assessment/Plan Assessment: Patient is a 71-year-old gentleman with PMH significant for COPD/bronchitis, on 2 L nasal cannula oxygen at baseline, GERD, upper GIB (peptic ulcer), on medical hernia, BPH, restless leg syndrome, HFpEF, myelodysplastic syndrome who presented to the hospital for further evaluation of left wrist pain and diarrhea. He is afebrile, tachycardic (105), blood pressure 94/58 mmHg at admission. Labs significant for leukocytosis of 101 (baseline 40), hypokalemia of 2.8, Na 132, chloride 92. Stool test is C. 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 Admitted to general medicine floor C. difficile infection in a patient with myelodysplastic syndrome ( immunosuppressed) * White count of 101 at admission (recent 40) -->85-->89-->79---73-->74.4 * Continue vancomycin 125 every 6 in the setting of high white count and immunosuppressed state. Will monitor for another 24 hours. * No history of previous C. difficile episodes * Recently admitted to hospital for acute bronchitis - received amoxicillin at that time. Left wrist nondisplaced/non-angulated fracture of distal left radius & ulnar styloid process * Secondary to Mechanical fall * Orthopedics consulted * Recommended removable wrist splint for now as an inpatient * Requires cast as an outpatient after discharge MARIA L * Cr 1.3 improved from 1.5-1.4. * prerenal in the setting of C.diff diarrhea * Let us post 500 no normal saline bolus, on 75 mils per hour normal saline will finish one bag and encourage increased by mouth fluid intake. * Repeat BEP tomorrow. Chest wall pain Possibly pleuritic secondary to recent pneumonia infection. Relieved by pain medication. VQ scan ruled out probability of a PE. Continue symptomatic relief with pain medication. Hypokalemia * Resolved * K of 3.9 today Evolving right lower lobe pneumonia * History of throat cancer with epiglottidectomy * CXR ruled out penumonia, VQ scan shows low probability of PE. * Underwent dating swallow evaluation which showed mild aspiration with all consistencies * Started on CHOPPED/nectar thick diet * Sputum cultures are sent with plenty of epithelial cells, not so useful. * Aspiration precautions History of myelodysplastic syndrome * White count of 101 at admission, trended down to 74.4 today * Baseline white count 40, at admission H&H 10/30, platelet count of 55, MCV 100 * Hematology consulted, no acute intervention required at this point COPD * On 2 L home oxygen at baseline * Continue TRC/nebs BPH: tamsulosin and finasteride - hold if blood pressure is <90/60 mmHg Restless leg syndrome: ropinirole 0.5 mg at bedtime Depression: Lexapro 20 mg daily DVT prophylaxis Alps (thrombocytopenic) CODE STATUS Full code Problem List: 1. COPD 2. COPD Exacerbation 3. Gastrointestinal bleeding, lower 4. Anemia 5. DVT prophylaxis 6. Patient is full code 7. Sepsis 8. BPH (benign prostatic hypertrophy) 9. GERD (gastroesophageal reflux disease) 10. Dyspnea 11. Rectal bleeding 12. Restless leg syndrome 13. Hypoxia 14. Leukocytosis 15. Acute blood loss anemia 16. Deficiency of other vitamins 17. DVT prophylaxis 18. Full code status 19. Swelling of lower extremity 20. MDS (myelodysplastic syndrome) 21. Iron deficiency anemia 22. GERD (gastroesophageal reflux disease) 23. History of peptic ulcer disease 24. History of adenomatous polyp of colon 25. Diverticulosis of colon 26. Acute hypercapnic respiratory failure 27. Bronchitis 28. Leg edema 29. Septic shock 30. Hyponatremia 31. Tracheobronchitis 32. Pneumonia 33. Lower extremity edema 34. MDS (myelodysplastic syndrome) 35. Hyponatremia 36. C. difficile colitis 37. Left wrist fracture 38. Hypokalemia Pain Ratin Pain Location: No Pain Endorsed Pain Goal: Remain pain free Pain Plan: Tylenol Prn Tomorrow's Labs & Rationales: CBC: Acute infection BEP: Monitor electrolytes in the setting of diureses.
[2016-10-04 08:26] LABS: ABSOLUTE BASOPHIL COUNT 0.1 /CUMM (0.0-0.2); ABSOLUTE EOSINOPHIL COUNT 0.1 /CUMM (0.0-0.7); ABSOLUTE GRANULOCYTE CT 69.1 /CUMM (1.4-6.5); ABSOLUTE LYMPH COUNT 1.3 /CUMM (1.2-3.4); ABSOLUTE MONOCYTE COUNT 3.7 /CUMM (0.10-0.60); BASOPHIL % 0.1 % (0.0-2.0); EOSINOPHIL % 0.2 % (0-5); GRANULOCYTE % 92.9 % (42.2-75.2); HEMATOCRIT 29.8 % (42-52); MEAN CORPUSCULAR HGB 33.7 PG (27.0-31.0); MEAN CORPUSCULAR VOLUME 101.9 FL (80.0-94.0); MEAN PLATELET VOLUME 7.1 FL (7.4-10.4); PLATELET COUNT 51 /CUMM (130-400); RBC DISTRIBUTION WIDTH 16.1 % (11.5-14.5); RED BLOOD CELL CT 2.92 /CUMM (4.70-6.10)
[2016-10-04 08:59] LABS: WHITE BLOOD CELL COUNT 74.4 /CUMM (4.8-10.8)
[2016-10-04 14:14] VITALS: BP 122/70
[2016-10-04 21:31] VITALS: BP 94/50
--- NOTE | 2016-10-05 07:10 | PN- Hematology ---
Subjective Subjective: Feeling much better, decreased diarrhea Review of Systems: 12 point review of systems otherwise negative or unchanged Objective Vital Signs and I&Os Vital Signs Date Time Temp Pulse Resp B/P B/P Pulse O2 O2 Flow FiO2 Mean Ox Delivery Rate 10/04 2147 95 94/50 10/04 2131 98.1 95 18 94/50 91 10/04 1920 Room Air 10/04 1414 98.7 77 20 122/70 98 10/04 0915 92 Room Air Room Air Intake & Output 10/05 0810/05 0000 10/04 1600 10/04 0810/04 0000 10/03 1600 Intake Total 120 350 240 Output Total 450 850 Balance 120 -100 -610 Intake, Oral 120 350 240 Number 3 1 2 Bowel Movements Output, Urine 450 850 Gen.: in NAD ENT: Sclera anicteric Chest: Normal respiratory effort, decreased breath sounds Cor: RRR, no extra sounds Abdomen: Soft, bowel sounds present, no tenderness, no rebound Extremities: Without clubbing, cyanosis, or edema Neurology: Alert and oriented 3, no gross deficit Current Medications: Current Medications Sig/Dung Start time Last Medication Dose Route Stop Time Status Admin Acetaminophen 650 MG Q6P PRN 09/29 2100 AC 09/30 PO 1748 Albuterol Sulfate 3 ML BID 09/30 1100 AC 10/04 INH 1917 Budesonide/ 2 PUF BID 09/30 220 AC 10/04 Formoterol Fumarate INH 2151 Escitalopram Oxalate 20 MG DAILY 09/30 1000 AC 10/04 PO 0732 Famotidine 20 MG DAILY 10/01 1000 AC 10/04 PO 0732 Finasteride 5 MG QPM 09/29 2200 AC 10/04 PO 2150 Guaifenesin 600 MG Q12 10/01 1000 AC 10/04 PO 2150 Ibuprofen 600 MG .STK-MED ONE 10/04 0730 DC PO 10/04 0731 Ibuprofen 600 MG Q6P PRN 09/29 2100 AC 10/05 PO 0542 Lidocaine 1 PAT Q24H 09/29 2100 AC 10/04 EXT 2150 Ropinirole HCl 0.5 MG AT BEDTIME 09/29 1345 AC 10/04 PO 2151 Tamsulosin HCl 0.4 MG QPM 09/29 2200 AC 10/03 PO 2129 Tiotropium [place] 1 PUF DAILY 09/30 1714 AC 10/04 INH 0738 Vancomycin HCl 125 MG Q6 10/03 1800 AC 10/05 PO 0542 Results Last 24 Hours of Lab Results: CBC-white blood count and 75,000 range Assessment/Plan Assessment/Recommendations: 1. MDS-stable with decreased white count 2. C. difficile enterocolitis Follow-up my office in 2 weeks, I have discussed this with patient
--- NOTE | 2016-10-05 07:15 | PN- Housestaff ---
See Addendum Subjective Follow-up For: Clostridium difficile diarrhea Non-displaced left wrist fracture Right costochondral pain Subjective: Patient seen and examined at bedside this AM. He is sitting up comfortably in bed in no acute distress, reporting that he slept well. Luis Antonio reports 3, mostly solid/formed stools overnight into this AM. He denies blood in the stool but admits to small amount of mucus. Luis Antonio also reports he is tolerating his chopped diet well. His right-sided muscular discomfort is improving and now only a 4/10 on the pain scale. He is hoping for discharge as he feels well. Review of Systems Constitutional: Denies: chills, fever, malaise. EENTM: Denies: blurred vision, visual changes, hearing changes, nasal congestion. Cardiovascular: Denies: chest pain, palpitations. Respiratory: Denies: cough, short of breath. Gastrointestinal: Denies: abdominal pain, bloating, diarrhea, distention, nausea, bloody stool, vomiting. Genitourinary: Denies: dysuria, hematuria. Musculoskeletal: Reports: muscle pain (Right chest). Denies: back pain. Skin: Denies: change in skin color, change in hair/nails. Neurological/Psychological: Denies: confusion, headache. Hematologic/Endocrine: Denies: bruising, bleeding. Immunologic/Allergic: Denies: splenectomy. Objective Last 24 Hrs of Vital Signs/I&O Vital Signs Date Time Temp Pulse Resp B/P B/P Pulse O2 O2 Flow FiO2 Mean Ox Delivery Rate 10/05 0730 98.0 91 19 96/60 92 Room Air 10/04 2147 95 94/50 10/04 2131 98.1 95 18 94/50 91 10/04 1920 Room Air 10/04 1414 98.7 77 20 122/70 98 10/04 0915 92 Room Air Room Air Intake & Output 10/05 1600 10/05 0800 10/05 0000 Intake Total 120 Output Total Balance 120 Intake, Oral 120 Number 3 Bowel Movements Physical Exam General Appearance: Alert, Oriented X3, Cooperative, No Acute Distress Skin: No Significant Lesion, Scattered brusing over all extremities Skin Temp/Moisture Exam: Warm/Dry HEENT: Atraumatic, PERRLA, Mucous Membr. moist/pink Neck: Supple, No thryomegaly Lymphatic: Cervical nl Cardiovascular: Regular Rate, Normal S1, Normal S2 Lungs: Normal Air Movement Abdomen: Normal Bowel Sounds, Soft, No Tenderness, No Masses Neurological: Normal Speech, Normal Tone Extremities: No Clubbing, No Cyanosis, Normal Pulses Vascular: Pulses Symmetrical Current Medications: Current Medications Sig/Dung Start time Last Medication Dose Route Stop Time Status Admin Acetaminophen 650 MG Q6P PRN 09/29 2100 AC 09/30 PO 1748 Albuterol Sulfate 3 ML BID 09/30 1100 AC 10/04 INH 1917 Budesonide/ 2 PUF BID 09/30 2200 AC 10/04 Formoterol Fumarate INH 2151 Escitalopram Oxalate 20 MG DAILY 09/30 1000 AC 10/04 PO 0732 Famotidine 20 MG DAILY 10/01 1000 AC 10/04 PO 0732 Finasteride 5 MG QPM 09/29 2200 AC 10/04 PO 2150 Guaifenesin 600 MG Q12 10/01 1000 AC 10/04 PO 2150 Ibuprofen 600 MG Q6P PRN 09/29 2100 AC 10/05 PO 0542 Lidocaine 1 PAT Q24H 09/29 2100 AC 10/04 EXT 2150 Ropinirole HCl 0.5 MG AT BEDTIME 09/29 1345 AC 10/04 PO 2151 Tamsulosin HCl 0.4 MG QPM 09/29 2200 AC 10/03 PO 2129 Tiotropium [place] 1 PUF DAILY 09/30 1714 AC 10/04 INH 0738 Vancomycin HCl 125 MG Q6 10/03 1800 AC 10/05 PO 0542 Orders Radiology Findings: Wrist XRay: IMPRESSION: 1. Nondisplaced non angulated slightly impacted fracture of the distal left radius. Probable associated nondisplaced fracture of the ulnar styloid process. 2. 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 No evidence of avascular necrosis. Miscellaneous Findings: Lung V/Q scan: IMPRESSION: Low probability of pulmonary embolism. Ventilation and perfusion abnormalities are present which appear well matched unlikely due to other parenchymal lung disease and prominence of the cardiac silhouette. Moderately severe gas trapping is noted on the ventilation images is evidence of obstructive airway disease. Barium swallow: IMPRESSION: Transient silent penetration was observed with all consistencies. Ryan aspiration seen on one occasion with thin liquids. Speech pathologist assessment issued separately. Assessment/Plan Assessment: Mr. Hall is a pleasant 71-year-old gentleman with PMH significant for COPD/bronchitis on 2 L nasal cannula oxygen at baseline, GERD, upper GIB ( peptic ulcer), umbilical hernia, BPH, restless leg syndrome, HFpEF and myelodysplastic syndrome who presented to [facility] for further evaluation of left wrist pain and diarrhea. Mr. Hall was admitted to the general medicine floor and the following is the current management: 1. Clostridium difficile infection * Patient endorsed several days of diarrhea prior to admission which began after completing a course of amoxicillin * No history of clostridium difficile in patient's history * White count of 101 on admission, though this has trended down, follow up AM WBC prior to discharge * Patient has remained afebrile, Tmax 98.7 in the last 24 hours * No further reports of loose stools, patient had 3 formed stools overnight into this AM * Continue vancomycin 125 mg PO Q6h, day #6, will dischare to complete 14 day course 2. Left wrist nondisplaced/non-angulated fracture of distal left radius & ulnar styloid process * Secondary to mechanical fall * Orthopedics consult appreciated * Recommended removable wrist splint for now as an inpatient * Requires cast as an outpatient upon discharge once fluid shifts resolve * Patient will follow up with Dr. Leo MD as an outpatient 3. MARIA L * Creatinine peaked to 1.5 on 10/02, have since trended down to normal at 1.1 * Likely prerenal in the setting of C. diff diarrhea * Continue to encourage increased by mouth fluid intake, hold off on IVF for now as patient appears euvolemi 4. Right-sided chest wall pain, IMPROVING * Possibly pleuritic secondary to recent pneumonia infection. * Relieved by pain medication, continue tylenol, motrin or lidoderm patch PRN for pain management * VQ scan ruled out probability of a PE 5. Hypokalemia * Resolved, likely 2/2 diarrhea in the setting of clostridium difficile infection * Continue to monitor K level and supplement as needed 6. Aspiration * History of throat cancer with epiglottidectomy * CXR ruled out penumonia, VQ scan shows low probability of PE * Underwent swallow evaluation which showed mild aspiration with all consistencies * Patient placed and continued on CHOPPED/nectar thick diet * Aspiration precautions 7. History of myelodysplastic syndrome * White count of 101 on admission * Baseline WBC of 40, on admission H&H 02/08, platelet count of 55, MCV 100 * Hematology consulted, no acute intervention required at this point * Patinet to follow up with Dr. Darien MD within 2 weeks of discharge for continued care 8. COPD * On 2 L home oxygen at baseline * Continue TRC/nebs * No acute exacerbation at this point in time, stable BPH: tamsulosin and finasteride - hold if blood pressure is <90/60 mmHg Restless leg syndrome: ropinirole 0.5 mg at bedtime Depression: Lexapro 20 mg daily DVT prophylaxis: ALPS (thrombocytopenic) Code status: FULL Problem List: 1. Hypokalemia 2. Left wrist fracture 3. C. difficile colitis 4. Hyponatremia 5. MDS (myelodysplastic syndrome) Pain Ratin Pain Location: Right lateral chest wall Pain Goal: Pain 4 or less Pain Plan: Tylenol (mild pain) Motrin (moderate pain) Lidoderm patch Tomorrow's Labs & Rationales: Likely discharge today.
[2016-10-05 07:30] VITALS: BP 96/60
[2016-10-05] MEDS ORDERED: VANCOMYCIN HCL5 G1 PO ×3 (08:34→11:52)
--- NOTE | 2016-10-05 08:41 | NUR ---
PT REFUSED BED ALARM AT THIS TIME. EXPLAINED TO PT FALL PRECAUTIONS AND REASON WHY THEY ARE IN PLACE. PT COOPERATIVE, SAID HE WILL USE [facility] SHOULD HE NEED ASSISTANCE. [facility] IN [place], NEEDS MET.
[2016-10-05 09:27] LABS: MEAN CORPUSCULAR HGB CONC 33.5 G/DL (33.0-37.0); MEAN PLATELET VOLUME 7.1 FL (7.4-10.4); PLATELET COUNT 57 /CUMM (130-400); RBC DISTRIBUTION WIDTH 15.2 % (11.5-14.5); RED BLOOD CELL CT 2.83 /CUMM (4.70-6.10)
[2016-10-05 09:55] LABS: HEMATOCRIT 28.5 % (42-52); MEAN CORPUSCULAR HGB 33.8 PG (27.0-31.0); MEAN CORPUSCULAR VOLUME 100.8 FL (80.0-94.0)
[2016-10-05 10:43] LABS: WHITE BLOOD CELL COUNT 88.7 /CUMM (4.8-10.8)
--- NOTE | 2016-10-06 07:22 | Discharge Summary ---
Visit Information Visit Dates Admission Date: 09/29/16 Discharge Date: 10/05/16 Hospital Course Course Attending Physician: ROSCOE HERNANDEZ MD Primary Care Physician: Harry GATICA MD Consulting Request: Consulting Specialty: Hematology/Oncology Consulting Physician: Reason for Consult: Myelodysplastic syndrome Hospital Course: Mr. Hall is a pleasant 71-year-old gentleman with PMH significant for COPD/bronchitis on 2 L nasal cannula oxygen at baseline, GERD, upper GIB ( peptic ulcer), umbilical hernia, BPH, restless leg syndrome, HFpEF and myelodysplastic syndrome who presented to [facility] for further evaluation of left wrist pain and diarrhea. At admission he is afebrile, tachycardic (105), blood pressure 94/58 mmHg. Labs significant for leukocytosis of 101 (baseline 40), hypokalemia of 2.8, Na 132, chloride 92. Stool test is C. difficile positive left wrist x-ray showing nondisplaced non angulated slightly impacted fracture of the distal left radius, nondisplaced fracture of the ulnar styloid process and old ununited fracture of the scaphoid bone. Admitted to the general medicine floor and the following issues are addressed: 1. Clostridium difficile in the background of myelodysplastic syndrome Patient endorsed several days of diarrhea prior to admission which began after completing a course of amoxicillin without any previous history of clostridium difficile in patient's history. He did have a white count of 101 on admission which trended down to 8.7 by the time of discharge. He responded to vancomycin 125 mg PO Q6h so we dischareged to complete 14 day course. Patient has remained afebrile through out the hospital course. He continued to have loose bowel movements despite on vanco but started to have formed stools by the time of discharge. 2. Left wrist nondisplaced/non-angulated fracture of distal left radius & ulnar styloid process Secondary to mechanical fall - denied any shortness of breath/ chest pain during fall. Orthopedics consult appreciated. Recommended removable wrist splint for now as an inpatient Requires cast as an outpatient upon discharge. Patient will follow up with Dr. Leo MD as an outpatient 3. MARIA L At admission Creatinine peaked to 1.5 on 10/02, have since trended down to normal at 1.1. Likely prerenal in the setting of C. diff diarrhea. 4. Right-sided chest wall pain, IMPROVING Possibly pleuritic secondary to recent pneumonia infection. Relieved by pain medication, continue tylenol, motrin or lidoderm patch PRN for pain management. As pain persisted ruled out PE with a VQ scan. 5. Hypokalemia Resolved, likely 2/2 diarrhea in the setting of clostridium difficile infection. Continue to monitor K level. 6. Aspiration History of throat cancer with epiglottidectomy. CXR ruled out penumonia, VQ scan shows low probability of PE. Underwent swallow evaluation which showed mild aspiration with all consistencies. Patient placed and continued on CHOPPED/nectar thick diet and Aspiration precautions. 7. History of myelodysplastic syndrome White count of 101 on admission (down to 88 at discharge). Baseline WBC of 40, on admission H&H 02/08, platelet count of 55, MCV 100. Hematology consulted, no acute intervention required at this point. Patinet to follow up with Dr. Alfonso MD within 2 weeks of discharge for continued care 8. COPD He is On 2 L home oxygen at baseline. Received TRC/nebs as stable. Chronic stable conditions BPH: continued tamsulosin and finasteride Restless leg syndrome: ropinirole 0.5 mg at bedtime Depression: Lexapro 20 mg daily DVT prophylaxis: ALPS (thrombocytopenic) Code status: FULL Allergies: Coded Allergies: codeine (Mild, RASH 03/10/16) aspirin (R/T BLOOD PLATELET COUNT 03/10/16) Disposition Summary Disposition Principal Diagnosis: 1. Clostridium difficile infection Additional Diagnosis: 2. Left wrist nondisplaced/non-angulated fracture of distal left radius & ulnar styloid process 3. MARIA L 4. Hypokalemia 5. Aspiration 6. History of myelodysplastic syndrome 7. COPD 8. BPH 9. Restless leg syndrome 10. Depression Discharge Disposition: home or self care Discharge Instructions General Discharge Information Code Status: Full Code Patient's Diet: regular diet Patient's Activity: Activity as tolerated Follow-Up Instructions/Appts: Please follow up with your PCP within a week of discharge for continued care. Please follow up with Dr. Leo MD within 1 week of discharge regarding cast placement on left wrist. Call [phone] for appointment. Please take your medications regularly and as directed. Please follow up with Dr. Alfonso MD within 2 weeks of discharge for continued management of your myelodisplastic syndrome. Medications at Discharge Discharge Medications: Continue taking these medications: Omeprazole (Omeprazole) 40 MG CAPSULE.DR 1 Capsule ORAL DAILY Comments: Last Taken: 10/05/16 Time: 1100 Tamsulosin HCl (Flomax) 0.4 MG CAP.ER.24H 1 Capsule ORAL Every night Comments: Last Taken: 10/03/16 Time: 10:15 PM Budesonide/Formoterol Fumarate (Symbicort 160-4.5 Mcg Inhaler) 160 MCG-4.5 MCG/ ACTUATION HFA.AER.AD 2 Puff Inhale through mouth TWICE DAILY Comments: Last Taken: 10/05/16 Time: 11:00 AM Albuterol Sulfate (Ventolin Hfa) 90 MCG HFA.AER.AD 2 Puff Inhale through mouth 4 TIMES A DAY as needed for COPD Qty = 1 Comments: NOT GIVEN IN HOSPITAL Escitalopram Oxalate (Escitalopram Oxalate) 20 MG TABLET 1 Tablet ORAL DAILY Qty = 90 Comments: Last Taken: 10/05/16 Time: 1100 Tiotropium [place] (Spiriva Respimat) 2.5 MCG/ACTUATION MIST.INHAL 2 PUFF Inhale through mouth DAILY Qty = 1 Comments: Last Taken: 10/05/16 Time: 11:00 AM Ferrous Sulfate (Ferrous Sulfate) 325 MG (65 MG IRON) TABLET.DR 1 Tablet ORAL DAILY as needed for ANEMIA Days = 30 Comments: NOT GIVEN IN HOSPITAL Finasteride (Finasteride) 5 MG TABLET 1 Tablet ORAL Every night Qty = 90 Comments: Last Taken: 10/04/16 Time: 10:15 PM Ropinirole Hydrochloride (Requip) 0.25 MG TABLET 2 Tablet ORAL Every night Qty = 100 Comments: Last Taken: 10/04/16 Time: 10:15 PM Start taking the following new medications: Vancomycin HCl (Vancomycin HCl) 900 MCG/MG (NOT LESS THAN, CUSTODIAL) POWDER 125 Milligram ORAL EVERY SIX HOURS Qty = 1 No Refills Instructions: 8 MORE DAYS OF VANCOM.YCIN THERAPY. LAST DAY OF VANCOMYCIN IS 10/13/16. Comments: Last Taken: 10/05/16 Copies To: LEO COLEMAN,ETELVINA; ALFONSO COLEMAN,ETELVINA Juares; GAVI COLEMAN,Harry VALDEZ Attending MD Review Statement Documenting Attending: ROSCOE HERNANDEZ MD
== END 2016-10-05 13:14 | disposition home health service (06) | DRG 372 ==
LOC: ERH 08:37 → ERHI 12:46 → 2NA 12:46 → ENRESERV 13:17 → ENTRNSPT 14:11 → EDTRNSPTSTS 14:31 → 2NA 14:38 → CMPTRNSPT 14:46 → ENPENDDIS 10-05 11:09 → 2NA 10-05 13:14
PROVIDERS: Internal Medicine; Physician Assistant Medical; Student in an Organized Health Care Education/Training Program; ADMIT Internal Medicine
DX: A04.7 Enterocolitis due to Clostridium difficile (principal); N17.9 Acute kidney failure, unspecified; I50.32 Chronic diastolic (congestive) heart failure; I27.2 Other secondary pulmonary hypertension; Z99.81 Dependence on supplemental oxygen; E87.1 Hypo-osmolality and hyponatremia; E86.0 Dehydration; D46.9 Myelodysplastic syndrome, unspecified; F32.9 Major depressive disorder, single episode, unspecified; S52.502A Unspecified fracture of the lower end of left radius, initial encounter for closed fracture; S52.612A Displaced fracture of left ulna styloid process, initial encounter for closed fracture; J44.9 Chronic obstructive pulmonary disease, unspecified; K21.9 Gastro-esophageal reflux disease without esophagitis; N40.0 Benign prostatic hyperplasia without lower urinary tract symptoms; R07.81 Pleurodynia; G25.81 Restless legs syndrome; E87.6 Hypokalemia; Z85.21 Personal history of malignant neoplasm of larynx; Z87.891 Personal history of nicotine dependence; W19.XXXA Unspecified fall, initial encounter; Y92.009 Unspecified place in unspecified non-institutional (private) residence as the place of occurrence of the external cause
CPT/HCPCS: 2NAP; 36415; 73110-LT; 74230; 78582; 82436; 87040; 87045; 87070; 87328; 87329; 93005; 93010; 96365; A9540; A9558; J1885; J3490; J7040; J7042

== ENCOUNTER 2016-10-07 16:44 | Emergency (ER) | payer OTHER, MEDICARE ==
[~2016-10-07] VITALS: Ht 180.3 cm; Wt 85.0 kg
[~2016-10-07 16:44] MED LIST changes: +VANCOMYCIN HCL5 G1 PO
--- NOTE | 2016-10-07 16:48 | ED CRITICAL CARE ---
History of Present Illness General Chief Complaint: General Adult Stated Complaint: BIBA STROKE ALERT Source: patient, old records, EMS Exam Limitations: no limitations Vital Signs & Intake/Output Vital Signs & Intake/Output Vital Signs Date Time Temp Pulse Resp B/P B/P Pulse O2 O2 Flow FiO2 Mean Ox Delivery Rate 10/07 1710 98.1 138 20 108/62 95 Nasal 2.0L Cannula ED Intake and Output 10/08 0000 10/07 1200 Intake Total 100 Output Total Balance 100 Intake, IV 100 Patient 187 lb Weight Weight Bed scale Measurement Method Allergies Coded Allergies: codeine (Mild, RASH 03/10/16) aspirin (R/T BLOOD PLATELET COUNT 03/10/16) Reconcile Medications Albuterol Sulfate (Ventolin Hfa) 90 MCG HFA.AER.AD 2 PUF INH 4 TIMES/DAY PRN COPD (Reported) Budesonide/Formoterol Fumarate (Symbicort 160-4.5 Mcg Inhaler) 160 MCG-4.5 MCG/ ACTUATION HFA.AER.AD 2 PUF INH BID COPD (Reported) Escitalopram Oxalate 20 MG TABLET 1 TAB PO DAILY DEPRESSION (Reported) Ferrous Sulfate 325 MG (65 MG IRON) TABLET.DR 1 TAB PO DAILY PRN ANEMIA Finasteride 5 MG TABLET 1 TAB PO QPM PROSTATE (Reported) Omeprazole 40 MG CAPSULE.DR 1 CAP PO DAILY GI (Reported) Ropinirole Hydrochloride (Requip) 0.25 MG TABLET 2 TAB PO QPM RLS (Reported) Tamsulosin HCl (Flomax) 0.4 MG CAP.ER.24H 1 CAP PO QPM PROSTATE (Reported) Tiotropium [place] (Spiriva Respimat) 2.5 MCG/ACTUATION MIST.INHAL 2 PUFF INH DAILY COPD (Reported) Vancomycin HCl 900 MCG/MG (NOT LESS THAN, ASSISTED) POWDER 125 MG PO Q6 Clostridium difficile 8 MORE DAYS OF VANCOM.YCIN THERAPY. LAST DAY OF VANCOMYCIN IS 10/13/16. Triage Nurses Notes Reviewed? yes Onset: Abrupt Duration: minute(s): (15) Timing: multiple episodes today Injury Environment: home Severity: moderate, severe Method of Injury: HEAD, CHEST Associated Symptoms: seizures, SEIZURE HPI: 71 year old male with history of MDS and parkinsons disease presents via EMs from home after a seizure today. Per he was shakier than usual. He was sitting in a chair and then started to shake and fell off the chair onto a carpet and sustained some trauma. Per EMS he was post ictal upon arrival adn then had a tonic/clonic seizure prior to arrival in the ambulance. Patient was recently admitted to the hospital for c.diff, weakness and fall causing left wrist fracture. No history of seizure disorder. Past History Travel History Traveled to [place] past 21 day No Medical History Any Pertinent Medical History? 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 FH: diabetes mellitus FATHER FH: colon cancer FH: prostate cancer FATHER (Colon Ca). , Age 89; Cause: Prostate CA. Relation not specified for: colon cancer Hx Contributory? No Review of Systems Review of Systems Constitutional: Denies: chills, fever. Eyes: Denies: blurred vision. Respiratory: Denies: cough, short of breath. Cardiovascular: Reports: chest pain. Gastrointestinal/Abdominal: Denies: abdominal pain, vomiting. Genitourinary: Denies: discharge, dysuria. Musculoskeletal: Denies: back pain. Neurological/Psychological: Reports: see HPI (SEIZURE), confusion. Comments RIGHT CHEST WALL BRUISING Physical Exam Physical Exam General Appearance: well developed/nourished, alert, awake, anxious, moderate distress, severe distress Head: RIGHT FACIAL ABRASIONS Eyes: Bilateral: normal appearance, PERRL. Ears, Nose, Throat, Mouth: hearing grossly normal, moist mucous membrane Neck: IN C-COLLAR Respiratory: normal breath sounds, RIGHT CHEST WALL BRUISING/TENDER Cardiovascular: regular rate/rhythm Peripheral Pulses: 2+ radial (R), 2+ radial (L) Gastrointestinal: soft, non-tender, RIGHT FLANK BRUISING Extremities: normal range of motion, LEFT FOREARM IN SHORT ARM CAST Neurologic/Psych: no motor/sensory deficits, awake, alert, ORIENTED X 2 Skin: intact, normal color, warm/dry Core Measures ACS in differential dx? No CVA/TIA Diagnosis: No Severe Sepsis Present: No Septic Shock Present: No Progress Differential Diagnoses I considered the following diagnoses in my evaluation of the patient: [CVA, ICH, C SPINE FX, SEIZURE DISORDER, RIB FX, PTX, PULMONARY CONTUSION, SOLID ORGAN INJURY] Plan of Care: Orders Procedure Date/time Status BLOOD CULTURE 10/07 164 Active TROPONIN LEVEL 10/07 164 Complete PARTIAL THROMBOPLASTIN TIME 10/07 164 Complete PROTHROMBIN TIME 10/07 1648 Complete LACTIC ACID 10/07 164 Complete COMPREHENSIVE METABOLIC PANEL 10/07 164 Complete CBC WITHOUT DIFFERENTIAL 10/078 Complete EKG 10/07 1648 Active TYPE & SCREEN (NOT X-MATCH) 10/07 164 Complete Laboratory Tests 10/07/16 1948: Lactic Acid Cancelled 10/07/16 1730: Anion Gap 10, Estimated GFR > 60, BUN/Creatinine Ratio 14.5, Glucose 103 H, Lactic Acid 2.5 H, Calcium 7.9 L, Total Bilirubin 1.1, AST 37, ALT 29, Alkaline Phosphatase 79, Troponin I 0.02, Total Protein 5.3 L, Albumin 3.0 L, Globulin 2.3, Albumin/Globulin Ratio 1.3, PT 13.4 H, INR 1.28 H, APTT 30, CBC w Diff MAN DIFF ORDERED, RBC 2.76 L, MCV 100.4 H, MCH 33.5 H, RDW 15.3 H, MPV 5.4 L, Gran % 96.0 H, Lymphocytes % 2.6 L, Monocytes % 1.4 L, Eosinophils % 0, Basophils % 0 L, Absolute Granulocytes 134.8 H, Segmented Neutrophils 71, Band Neutrophils 6 H, Absolute Lymphocytes 3.7 H, Lymphocytes 14 L, Monocytes 6, Absolute Monocytes 1.9 H, Eosinophils 1, Absolute Eosinophils 0, Absolute Basophils 0, Myelocytes 2 H, Platelet Estimate DECREASED, Poikilocytosis 1+, Stomatocytes 1+, PUBS MCHC 33.3 Microbiology 10/07 1730 BLOOD: Blood Culture - RECD 10/07 1648 BLOOD: Blood Culture - ORD 5:56 PM D/W [facility] - DR holland WILL TRANSFER TO ED. D/W PATIENT AND FAMILY. LOADED WITH IV KEPPRA. NO SEIZURE IN ED, AWAKE, ALERT AND ORIENTED X 2. CT CHEST ABDOMEN PELVIS PENDING.... (SUHAIL COLEMAN,JIHAN) Diagnostic Imaging: Viewed by Me: CT Scan. Discussed w/RAD: CT Scan. Radiology Impression: PATIENT: LEXIS DUBON PRESENT AGE: 71 PATIENT ACCOUNT NO: [id number] : 44 LOCATION: [facility] ORDERING PHYSICIAN: JIHAN LEO MD SERVICE DATE: 10/07/16 EXAM TYPE: CAT - CT CERV SPINE WO IV CONTRAST; CT HEAD WO IV CONTRAST EXAMINATION: CT HEAD WITHOUT CONTRAST CT CERVICAL SPINE WITHOUT CONTRAST CLINICAL INFORMATION: Seizure. Right facial trauma. Assess for bleed. Assess for fracture. COMPARISON: CT scan of the head 09/29/2016. CT scan of the neck 09/09/2011. TECHNIQUE: Multidetector CT imaging of the head and cervical spine was performed without the use of intravenous contrast. Coronal and sagittal reformatted images were generated at the technologist workstation. DLP: 974.36 mGy-cm. FINDINGS: CT head : There is subdural hematoma along the superior falx anteriorly on the right. There is no significant mass effect on the adjacent brain parenchyma, and there is no midline shift. There is equivocal subarachnoid hemorrhage in the right temporoparietal region (image 32/64), but this may be artifactual due to motion artifact. Braga to white matter differentiation is well preserved. No extra-axial fluid collections are identified. The ventricles are normal in size. There are areas of low attenuation in the periventricular and subcortical white matter, most consistent with chronic microvascular ischemic changes. There is irregularity of the left lamina papyracea, consistent with sequelae of chronic trauma. No acute fractures are demonstrated. There are no large scalp contusions or hematomas. There have been bilateral lens extractions. There is mild fluid in the bilateral mastoid air cells. There is mucoperiosteal thickening in the bilateral frontal sinuses. CT cervical spine: There is a mild dextroscoliosis. There is a degenerative anterolisthesis of C4 on C5 from facet arthropathic change and spondylosis, which is new compared to the prior CT neck. Vertebral body heights are maintained and there are no acute compression fractures. Facet alignment is normal. Facet arthropathic changes are also demonstrated at multiple other levels, most severe on the left at C7-T1. The lateral masses of C1 and C2 are normally aligned and the dens is intact. Atlantooccipital alignment is maintained. There is calcification in the nuchal ligament and there is a coarse calcification in the subcutaneous fat in the right upper neck posteriorly. There are some secretions within the esophageal lumen. The visualized lung apices demonstrate moderate emphysematous change. IMPRESSION: 1. There is subdural blood along the right anterior falx. There is equivocal subarachnoid hemorrhage as described above. 2. There are no acute territorial infarcts. 3. There are no acute fractures or subluxations in the cervical spine, but there is significant multilevel degenerative change. 4. This critical result was discussed with Jihan Leo by telephone on 10/07/2016 at 5:30 PM and it was ascertained that the content and urgency of the report was understood at the time of direct communication. DICTATED BY: JAQUELIN KONG MD DATE/TIME DICTATED:1715 SATELLITE TV INSTALLER:ABBEY DATE/TIME TRANSCRIBED:10/07/161715 CONFIDENTIAL, DO NOT COPY WITHOUT APPROPRIATE AUTHORIZATION. <Electronically signed in Other Vendor System> SIGNED BY: JAQUELIN KONG MD 10/07/16 7714 Initial ED EKG: NSR Comments: PATIENT: LEXIS DUBON PRESENT AGE: 71 PATIENT ACCOUNT NO: [id number] : 44 LOCATION: [facility] ORDERING PHYSICIAN: JIHAN LEO MD SERVICE DATE: 10/07/16 EXAM TYPE: CAT - CT ABD & PELVIS W/O IV CONTRAS; CT CHEST WO IV CONTRAST EXAMINATION: CT CHEST WITHOUT IV CONTRAST CT ABDOMEN AND PELVIS WITHOUT IV CONTRAST CLINICAL INFORMATION: 71-year-old male with right chest wall trauma. Seizure with fall onto ground. Evaluate for abdominal injury. COMPARISON: CT images of abdomen pelvis, 04/13/2016. Chest CT, 08/09/2013. TECHNIQUE: Noncontrast multidetector CT imaging examination of the chest, abdomen and pelvis was performed. Axial images are displayed at 5 mm and 0.625 mm slice thickness. Coronal and sagittal reformatted images were generated at the technologist's workstation and submitted for review. DLP: 782 mGy-cm FINDINGS: CHEST - LUNGS and PLEURA: Secretions layer along the posterior wall of the trachea and mainstem bronchi. Moderate centrilobular emphysema and bronchial wall thickening in both lungs. Correlate for history of chronic cigarette smoking. There are multiple new, scattered noncalcified nodular opacities in the right upper lobe, including clustered 0.5 x 0.7 cm and 0.8 x 0.9 cm peribronchial nodules in the posterior segment of the upper lobe (image 278, series 4). Pleural-based nodular opacity of the medial right lower lobe measuring 1 cm wide is new compared to 08/09/2013 (image 266, series 4). Chronic architectural distortion, bandlike, curvilinear opacities of fibrosis and mild traction bronchiectasis in right lower lobe. Noncalcified nodule of 0.6 cm average diameter in the right middle lobe remains similar in size compared to 08/09/2013 (image 402, series 4). Small calcified granuloma in left lower lobe. Curvilinear fibrotic opacity in left lower lobe corresponding to site of pneumonia observed on 08/09/2013.. No acute pulmonary consolidation or pneumothorax. There is a trace right pleural effusion. MEDIASTINUM: The heart size is normal. [id number] atherosclerotic calcification of coronary arteries. Small pericardial effusion. Atherosclerotic calcification of thoracic aorta without aneurysm. The esophagus is unremarkable. Thyroid gland is atrophied. LYMPHATICS: No pathologic sized axillary, hilar or mediastinal lymph nodes. CHEST WALL/BONES: C4-C5 facet arthropathy and mild degenerative anterolisthesis of C4 on C5. The thoracic vertebra have normal height and alignment. No acute fractures within anterior or posterior elements. No evidence of sternal injury. Acute fracture of right anterolateral fourth rib is nondisplaced. There is a mildly displaced fracture of the right anterolateral fifth rib. A few old, healed rib fractures are noted, as well. The ill-defined soft tissue attenuation in the right paraspinal/paravertebral area from T8-T11 is new compared to 08/09/2013 and there is no evidence of vertebral fracture. One of the more nodular foci of extrapleural/paraspinal tissue in this region measures 1.1 x 1.6 cm (image 426, series 4). ABDOMEN AND PELVIS - HEPATOBILIARY: Stable 1 cm cyst in the left hepatic lobe. No evidence of hepatic laceration or perihepatic fluid collection. Cholelithiasis. PANCREAS: Unremarkable. SPLEEN: Spleen has increased in size, currently measuring 16.3 cm AP compared to 13.5 cm on 04/13/2016. ADRENAL GLANDS: Unremarkable. KIDNEYS, URETERS, BLADDER: No hydronephrosis or nephrolithiasis. Compared to 04/13/2016, there is significant increased ill-defined soft tissue attenuation in the perinephric fat that predominantly surrounds each renal pelvis. Stable 2.2 cm cortical cyst of the left kidney has small focus of posterior rim calcification. The ureters and urinary bladder unremarkable. GASTROINTESTINAL TRACT: Loops of bowel are normal in size. There is pancolonic diverticulosis. There is mild haziness of pericolonic fat adjacent to the descending and sigmoid colon. However, there is no evidence of a localized inflammatory process or submucosal bowel wall edema. There is no convincing acute colitis or diverticulitis. No pneumoperitoneum. ABDOMINAL WALL: Small fat-containing umbilical hernia. VASCULAR: Calcific atherosclerosis of the abdominal aorta and iliac arteries without aneurysm. Mild haziness of the retroperitoneal fat. No retroperitoneal hematoma. LYMPH NODES: No pathologic sized lymph nodes within the abdomen or pelvis. PELVIC VISCERA: Prostate gland has central calcification. There is mild edema of the mesentery within the pelvis. There is presacral edema. A trace amount of free fluid is present within the pelvis. OSSEOUS STRUCTURES: No acute findings within the degenerated spine. There is multilevel facet osteoarthritis and degenerative disc disease of the lumbar spine. [id number]-zv-zooszpoz osteoarthritis of the hips. No evidence of acetabular or proximal femoral injury. IMPRESSION: 1. Acute fractures of right anterolateral fourth and fifth ribs and trace right pleural effusion. No pulmonary contusion or pneumothorax. 2. New, nonspecific nodules in the right upper lobe require follow-up and clinical correlation given that differential diagnosis includes infectious and neoplastic disease processes. 3. Chronic postinflammatory changes with fibrosis, architectural distortion and volume loss in the lower lobes. 4. Spleen has increased in size compared to 04/13/2016. There is new right paraspinal soft tissue attenuation along the lower thoracic spine and new, irregular soft tissue attenuation within perinephric spaces predominantly concentrated around each renal pelvis. This is nonspecific, but differential diagnosis would include extramedullary hematopoiesis if in the right clinical setting. Recommend further clinical workup for the cause of the splenomegaly and these soft tissue abnormalities. 5. Colonic diverticulosis but no overt evidence of acute diverticulitis. DICTATED BY: MOLLY PACHECO MD DATE/TIME DICTATED:10/07/161726 SATELLITE TV INSTALLER:ABBEY DATE/TIME TRANSCRIBED:10/07/161726 CONFIDENTIAL, DO NOT COPY WITHOUT APPROPRIATE AUTHORIZATION. <Electronically signed in Other Vendor System> SIGNED BY: MOLLY PACHECO MD 10/07/161808 Departure Departure Time of Disposition: 1819 Disposition: OTHER [facility] (ACUTE) Condition: Guarded Clinical Impression Primary Impression: Subdural hemorrhage Referrals: Harry GATICA MD (PCP/Family) Departure Forms: Customer Survey General Discharge Information Critical Care Note Critical Care Note Critical Care Time: 75-104 min ED Attending Observation Initial Observation Note: I have seen and personally examined LEXIS DUBON on 10/08/16 at 0049. I agree with the current emergency department documentation. The disposition (admission or discharge) is uncertain at this time, he needs a period of observation for the following reason(s): The ED Nurse caring for this patient has been personally informed as to what the patient is being observed for.
[2016-10-07 17:10] VITALS: BP 108/62
--- NOTE | 2016-10-07 17:38 | CT SCAN REPORT ---
EXAMINATION: CT HEAD WITHOUT CONTRAST CT CERVICAL SPINE WITHOUT CONTRAST CLINICAL INFORMATION: Seizure. Right facial trauma. Assess for bleed. Assess for fracture. COMPARISON: CT scan of the head 09/29/2016. CT scan of the neck 09/09/2011. TECHNIQUE: Multidetector CT imaging of the head and cervical spine was performed without the use of intravenous contrast. Coronal and sagittal reformatted images were generated at the technologist workstation. DLP: 974.36 mGy-cm. FINDINGS: CT head: There is subdural hematoma along the superior falx anteriorly on the right. There is no significant mass effect on the adjacent brain parenchyma, and there is no midline shift. There is equivocal subarachnoid hemorrhage in the right temporoparietal region (image 32/64), but this may be artifactual due to motion artifact. Braga to white matter differentiation is well preserved. No extra-axial fluid collections are identified. The ventricles are normal in size. There are areas of low attenuation in the periventricular and subcortical white matter, most consistent with chronic microvascular ischemic changes. There is irregularity of the left lamina papyracea, consistent with sequelae of chronic trauma. No acute fractures are demonstrated. There are no large scalp contusions or hematomas. There have been bilateral lens extractions. There is mild fluid in the bilateral mastoid air cells. There is mucoperiosteal thickening in the bilateral frontal sinuses. CT cervical spine: There is a mild dextroscoliosis. There is a degenerative anterolisthesis of C4 on C5 from facet arthropathic change and spondylosis, which is new compared to the prior CT neck. Vertebral body heights are maintained and there are no acute compression fractures. Facet alignment is normal. Facet arthropathic changes are also demonstrated at multiple other levels, most severe on the left at C7-T1. The lateral masses of C1 and C2 are normally aligned and the dens is intact. Atlantooccipital alignment is maintained. There is calcification in the nuchal ligament and there is a coarse calcification in the subcutaneous fat in the right upper neck posteriorly. There are some secretions within the esophageal lumen. The visualized lung apices demonstrate moderate emphysematous change. IMPRESSION: 1. There is subdural blood along the right anterior falx. There is equivocal subarachnoid hemorrhage as described above. 2. There are no acute territorial infarcts. 3. There are no acute fractures or subluxations in the cervical spine, but there is significant multilevel degenerative change. 4. This critical result was discussed with Jihan Leo by telephone on 10/07/2016 at 5:30 PM and it was ascertained that the content and urgency of the report was understood at the time of direct communication.
[2016-10-07 17:44] LABS: ABSOLUTE BASOPHIL COUNT 0 /CUMM (0.0-0.2); BASOPHIL % 0 % (0.0-2.0); EOSINOPHIL % 0 % (0-5); MEAN CORPUSCULAR HGB 33.5 PG (27.0-31.0); RED BLOOD CELL CT 2.76 /CUMM (4.70-6.10)
[2016-10-07 17:49] LABS: ABSOLUTE EOSINOPHIL COUNT 0 /CUMM (0.0-0.7); ABSOLUTE GRANULOCYTE CT 134.8 /CUMM (1.4-6.5); ABSOLUTE LYMPH COUNT 3.7 /CUMM (1.2-3.4); ABSOLUTE MONOCYTE COUNT 1.9 /CUMM (0.10-0.60); HEMATOCRIT 27.8 % (42-52); MEAN CORPUSCULAR HGB CONC 33.3 G/DL (33.0-37.0); MEAN CORPUSCULAR VOLUME 100.4 FL (80.0-94.0); MEAN PLATELET VOLUME 5.4 FL (7.4-10.4); RBC DISTRIBUTION WIDTH 15.3 % (11.5-14.5)
[2016-10-07 17:52] LABS: PLATELET COUNT 100 /CUMM (130-400)
[2016-10-07 17:53] LABS: PT 13.4 SEC (9.4-12.5); PTT 30 SEC (25-37)
[2016-10-07 17:56] LABS: WHITE BLOOD CELL COUNT 140.4 /CUMM (4.8-10.8)
--- NOTE | 2016-10-07 18:09 | CT SCAN REPORT ---
EXAMINATION: CT CHEST WITHOUT IV CONTRAST CT ABDOMEN AND PELVIS WITHOUT IV CONTRAST CLINICAL INFORMATION: 71-year-old male with right chest wall trauma. Seizure with fall onto ground. Evaluate for abdominal injury. COMPARISON: CT images of abdomen pelvis, 04/13/2016. Chest CT, 08/09/2013. TECHNIQUE: Noncontrast multidetector CT imaging examination of the chest, abdomen and pelvis was performed. Axial images are displayed at 5 mm and 0.625 mm slice thickness. Coronal and sagittal reformatted images were generated at the technologist's workstation and submitted for review. DLP: 782 mGy-cm FINDINGS: CHEST - LUNGS and PLEURA: Secretions layer along the posterior wall of the trachea and mainstem bronchi. Moderate centrilobular emphysema and bronchial wall thickening in both lungs. Correlate for history of chronic cigarette smoking. There are multiple new, scattered noncalcified nodular opacities in the right upper lobe, including clustered 0.5 x 0.7 cm and 0.8 x 0.9 cm peribronchial nodules in the posterior segment of the upper lobe (image 278, series 4). Pleural-based nodular opacity of the medial right lower lobe measuring 1 cm wide is new compared to 08/09/2013 (image 266, series 4). Chronic architectural distortion, bandlike, curvilinear opacities of fibrosis and mild traction bronchiectasis in right lower lobe. Noncalcified nodule of 0.6 cm average diameter in the right middle lobe remains similar in size compared to 08/09/2013 (image 402, series 4). Small calcified granuloma in left lower lobe. Curvilinear fibrotic opacity in left lower lobe corresponding to site of pneumonia observed on 08/09/2013.. No acute pulmonary consolidation or pneumothorax. There is a trace right pleural effusion. MEDIASTINUM: The heart size is normal. [id number] atherosclerotic calcification of coronary arteries. Small pericardial effusion. Atherosclerotic calcification of thoracic aorta without aneurysm. The esophagus is unremarkable. Thyroid gland is atrophied. LYMPHATICS: No pathologic sized axillary, hilar or mediastinal lymph nodes. CHEST WALL/BONES: C4-C5 facet arthropathy and mild degenerative anterolisthesis of C4 on C5. The thoracic vertebra have normal height and alignment. No acute fractures within anterior or posterior elements. No evidence of sternal injury. Acute fracture of right anterolateral fourth rib is nondisplaced. There is a mildly displaced fracture of the right anterolateral fifth rib. A few old, healed rib fractures are noted, as well. The ill-defined soft tissue attenuation in the right paraspinal/paravertebral area from T8-T11 is new compared to 08/09/2013 and there is no evidence of vertebral fracture. One of the more nodular foci of extrapleural/paraspinal tissue in this region measures 1.1 x 1.6 cm (image 426, series 4). ABDOMEN AND PELVIS - HEPATOBILIARY: Stable 1 cm cyst in the left hepatic lobe. No evidence of hepatic laceration or perihepatic fluid collection. Cholelithiasis. PANCREAS: Unremarkable. SPLEEN: Spleen has increased in size, currently measuring 16.3 cm AP compared to 13.5 cm on 04/13/2016. ADRENAL GLANDS: Unremarkable. KIDNEYS, URETERS, BLADDER: No hydronephrosis or nephrolithiasis. Compared to 04/13/2016, there is significant increased ill-defined soft tissue attenuation in the perinephric fat that predominantly surrounds each renal pelvis. Stable 2.2 cm cortical cyst of the left kidney has small focus of posterior rim calcification. The ureters and urinary bladder unremarkable. GASTROINTESTINAL TRACT: Loops of bowel are normal in size. There is pancolonic diverticulosis. There is mild haziness of pericolonic fat adjacent to the descending and sigmoid colon. However, there is no evidence of a localized inflammatory process or submucosal bowel wall edema. There is no convincing acute colitis or diverticulitis. No pneumoperitoneum. ABDOMINAL WALL: Small fat-containing umbilical hernia. VASCULAR: Calcific atherosclerosis of the abdominal aorta and iliac arteries without aneurysm. Mild haziness of the retroperitoneal fat. No retroperitoneal hematoma. LYMPH NODES: No pathologic sized lymph nodes within the abdomen or pelvis. PELVIC VISCERA: Prostate gland has central calcification. There is mild edema of the mesentery within the pelvis. There is presacral edema. A trace amount of free fluid is present within the pelvis. OSSEOUS STRUCTURES: No acute findings within the degenerated spine. There is multilevel facet osteoarthritis and degenerative disc disease of the lumbar spine. [id number] osteoarthritis of the hips. No evidence of acetabular or proximal femoral injury. IMPRESSION: 1. Acute fractures of right anterolateral fourth and fifth ribs and trace right pleural effusion. No pulmonary contusion or pneumothorax. 2. New, nonspecific nodules in the right upper lobe require follow-up and clinical correlation given that differential diagnosis includes infectious and neoplastic disease processes. 3. Chronic postinflammatory changes with fibrosis, architectural distortion and volume loss in the lower lobes. 4. Spleen has increased in size compared to 04/13/2016. There is new right paraspinal soft tissue attenuation along the lower thoracic spine and new, irregular soft tissue attenuation within perinephric spaces predominantly concentrated around each renal pelvis. This is nonspecific, but differential diagnosis would include extramedullary hematopoiesis if in the right clinical setting. Recommend further clinical workup for the cause of the splenomegaly and these soft tissue abnormalities. 5. Colonic diverticulosis but no overt evidence of acute diverticulitis.
== END 2016-10-07 19:16 | disposition short-term general hospital (02) ==
LOC: ERH 16:44
PROVIDERS: Emergency Medicine
DX: S06.5X0A Traumatic subdural hemorrhage without loss of consciousness, initial encounter (principal); W07.XXXA Fall from chair, initial encounter; Y92.9 Unspecified place or not applicable; Y93.9 Activity, unspecified
CPT/HCPCS: 74176; 87040; 93005; 93010; 96374; J1953